=== PATIENT | male | born 1960 | race Caucasian/White ===

== ENCOUNTER 2017-01-25 03:51 | Observation (INO) | payer OTHER ==
[2017-01-25] MEDS ORDERED: NITROGLYCERIN OINT 1 INCH/GM PACKET TOPICAL STA (03:53)
[2017-01-25] MEDS ORDERED: SODIUM CHLORIDE 0.9% 500 ML IV STA (03:53)
[2017-01-25] MEDS ORDERED: LORazepam 2 MG/ML SYRINGE IV STA (03:56)
--- NOTE | 2017-01-25 03:56 | ED ---
General Adult HPI - General Stated complaint: chest pain Time Seen by Provider: 01/25/17 03:51 Source: RN notes reviewed - History of Present Illness Initial comments: This is a 56-year-old male who presents to the emergency department complaining of chest pain and palpitations. Patient states the chest pain was a heaviness that radiated to his left shoulder down his arm. Patient states the palpitations came and went. Patient states eventually called EMS they gave him 3 nitroglycerin took his pain away completely. Patient states his been under quite a bit of stress lately because his daughter one month ago. Patient also states when he was having the chest pain he was short of breath and diaphoretic. Patient states currently he is chest pain-free. Patient states he 's been coughing quite a bit lately but no fever or chills - Related Data Home Medications Medication Instructions Recorded Confirmed Lisinopril [Prinivil] DAILY 01/25/17 Omeprazole [PriLOSEC] DAILY 01/25/17 Allergies Allergy/AdvReac Type Severity Reaction Status Date / Time No Known Allergies Allergy Verified 01/25/17 04:01 Review of Systems ROS Statement: Those systems with pertinent positive or pertinent negative responses have been documented in the HPI. ROS Other: All systems not noted in ROS Statement are negative. General Exam - General Exam Comments Initial Comments: GENERAL: Patient is well-developed and well-nourished. Patient is nontoxic and well- hydrated and is in mild distress. ENT: Neck is soft and supple. No significant lymphadenopathy is noted. Oropharynx is clear. Moist mucous membranes. Neck has full range of motion without eliciting any pain. EYES: The sclera were anicteric and conjunctiva were pink and moist. Extraocular movements were intact and pupils were equal round and reactive to light. Eyelids were unremarkable. PULMONARY: Unlabored respirations. Good breath sounds bilaterally. No audible rales rhonchi or wheezing was noted. CARDIOVASCULAR: There is a regular rate and rhythm without any murmurs gallops or rubs ABDOMEN: Soft and nontender with normal bowel sounds. No palpable organomegaly was noted. There is no palpable pulsatile mass. SKIN: Skin is clear with no lesions or rashes and otherwise unremarkable. NEUROLOGIC: Patient is alert and oriented x3. Cranial nerves II through XII are grossly intact. Motor and sensory are also intact. Normal speech, volume and content. Symmetrical smile. MUSCULOSKELETAL: Normal extremities with adequate strength and full range of motion. No lower extremity swelling or edema. No calf tenderness. LYMPHATICS: No significant lymphadenopathy is noted PSYCHIATRIC: Normal psychiatric evaluation. Normal interpersonal interactions appears functionally intact in deals appropriately with others. No signs of depression. Mildly anxious Course Vital Signs 01/25/17 01/25/17 03:53 04:18 Temperature 99.1 F Pulse Rate 78 78 Respiratory 18 16 Rate Blood Pressure 179/111 134/90 O2 Sat by Pulse 94 L 95 Oximetry Medical Decision Making - Medical Decision Making EKG shows a normal sinus rhythm at 74 bpm WA interval is 140 QRS is 90 QT interval 398 QTC is 441. Patient's EKG shows no ST segment elevation or depression or T-wave abnormalities noted. Chest x-ray shows no acute abnormality. Patient got Ativan Nitropaste in the emergency department and was feeling much better when I went back into the room to reevaluate the patient the patient was sleeping and not having anymore chest pain upon awakening I spoke with Dr. Lozada and I started the patient heparin I admitted the patient I consult cardiology - Lab Data Result diagrams: 01/25/17 03:50 01/25/17 03:50 Lab Results 01/25/17 01/25/17 01/25/17 Range/Units 03:50 03:50 03:50 WBC 9.4 (3.8-10.6) k/uL RBC 4.84 (4.30-5.90) m/uL Hgb 14.4 (13.0-17.5) gm/dL Hct 44.6 (39.0-53.0) % MCV 92.2 (80.0-100.0) fL MCH 29.7 (25.0-35.0) pg MCHC 32.2 (31.0-37.0) g/dL RDW 14.5 (11.5-15.5) % Plt Count 365 (150-450) k/uL Neutrophils % 69 % Lymphocytes % 18 % Monocytes % 7 % Eosinophils % 1 % Basophils % 1 % Neutrophils # 6.5 (1.3-7.7) k/uL Lymphocytes # 1.7 (1.0-4.8) k/uL Monocytes # 0.7 (0-1.0) k/uL Eosinophils # 0.1 (0-0.7) k/uL Basophils # 0.1 (0-0.2) k/uL Sodium 136 L (137-145) mmol/L Potassium 3.8 (3.5-5.1) mmol/L Chloride 106 (98-107) mmol/L Carbon Dioxide 17 L (22-30) mmol/L Anion Gap 13 mmol/L BUN 13 (9-20) mg/dL Creatinine 0.80 (0.66-1.25) mg/dL Est GFR (MDRD) Af Amer >60 (>60 ml/min/1.73 sqM) Est GFR (MDRD) Non-Af >60 (>60 ml/min/1.73 sqM) Glucose 97 (74-99) mg/dL Calcium 9.1 (8.4-10.2) mg/dL Magnesium 1.9 (1.6-2.3) mg/dL Total Bilirubin 1.0 (0.2-1.3) mg/dL AST 57 (17-59) U/L ALT 61 (21-72) U/L Alkaline Phosphatase 97 (38-126) U/L Total Creatine Kinase 71 (55-170) U/L CK-MB (CK-2) 0.6 (0.0-2.4) ng/mL CK-MB (CK-2) Rel Index 0.8 Troponin I <0.012 (0.000-0.034) ng/mL Total Protein 6.9 (6.3-8.2) g/dL Albumin 3.9 (3.5-5.0) g/dL Disposition Clinical Impression: Unstable angina pectoris Disposition: ADMITTED IP TO THIS [facility] Time of Disposition: 05:04
[2017-01-25 04:20] LABS: ALT 61 U/L (21-72); AST 57 U/L (17-59); Alkaline Phosphatase 97 U/L (38-126); Anion Gap 13 mmol/L; Blood Urea Nitrogen 13 mg/dL (9-20); Calcium 9.1 mg/dL (8.4-10.2); Carbon Dioxide 17 mmol/L (22-30); Chloride 106 mmol/L (98-107); Glucose 97 mg/dL (74-99); Magnesium 1.9 mg/dL (1.6-2.3); Non-African American GFR(MDRD) >60 (>60 ml/min/1.73 sqM); Potassium 3.8 mmol/L (3.5-5.1); Sodium 136 mmol/L (137-145); Total Protein 6.9 g/dL (6.3-8.2)
--- NOTE | 2017-01-25 04:20 | XR ---
History: Reason: Chest Pain Exam: XR CXR 2 VIEWS 3 total images with 2 laterals to include the entire chest Comparison: None available FINDINGS: The lungs are clear. The cardiac and mediastinal contours are within limits. The visualized osseous structures appear within limits. IMPRESSION: No evidence of acute disease.
[2017-01-25 04:21] LABS: Basophils # (A) 0.1 k/uL (0-0.2); Basophils % (A) 1 %; CH 31.1; CHCM 33.9; Eosinophils # (A) 0.1 k/uL (0-0.7); Eosinophils % (A) 1 %; HCT 44.6 % (39.0-53.0); HDW 2.18; HGB 14.4 gm/dL (13.0-17.5); Luc # (Auto) 0.34; Luc % (Auto) 4; Lymphocytes # (A) 1.7 k/uL (1.0-4.8); Lymphocytes % (A) 18 %; MCH 29.7 pg (25.0-35.0); MCHC 32.2 g/dL (31.0-37.0); MCV 92.2 fL (80.0-100.0); Mean Platelet Volume 6.7; Monocytes # (A) 0.7 k/uL (0-1.0); Monocytes % (A) 7 %; Neutrophils # (A) 6.5 k/uL (1.3-7.7); Neutrophils % (A) 69 %; RBC 4.84 m/uL (4.30-5.90); RDW 14.5 % (11.5-15.5); WBC 9.4 k/uL (3.8-10.6); WBC (Perox) 9.18
[2017-01-25 04:32] LABS: Creatine Kinase 71 U/L (55-170)
[2017-01-25 04:45] LABS: Creatine Kinase MB 0.6 ng/mL (0.0-2.4); Troponin I <0.012 ng/mL (0.000-0.034)
[2017-01-25] MEDS ORDERED: HEPARIN SODIUM,PORCINE 5,000 UNIT/ML 1 ML VIAL IV ONE (05:03)
[2017-01-25] MEDS ORDERED: NITROGLYCERIN SL TABS 0.4 MG TAB SUBLINGUAL PRN (05:04)
[2017-01-25] MEDS: HEPARIN SODIUM,PORCINE/D5W PMX 25,000 UNIT in DEXTROSE/WATER 1 500ML.BAG IV SCH ×2 (05:24→15:10)
[2017-01-25 05:36] LABS: Partial Thromboplastin Time 23.5 sec (22.0-30.0); Prothrombin Time 10.2 sec (9.0-12.0)
[2017-01-25 10:59] LABS: Creatine Kinase 52 U/L (55-170)
[2017-01-25] MEDS ORDERED: ALPRAZolam 0.25 MG TAB PO PRN (11:02)
[2017-01-25] MEDS ORDERED: ATORVASTATIN 80 MG TAB PO STA (11:02)
[2017-01-25] MEDS ORDERED: SODIUM CHLORIDE 0.9% 1,000 ML in EMPTY BAG 1 BAG IV ONE (11:02)
[2017-01-25 11:11] LABS: Creatine Kinase MB 0.5 ng/mL (0.0-2.4); Troponin I <0.012 ng/mL (0.000-0.034)
[2017-01-25] MEDS: METOPROLOL TARTRATE 25 MG TAB PO SCH ×2 (11:45→22:13)
--- NOTE | 2017-01-25 11:49 | CONS ---
DATE OF CONSULTATION: Mr. Hammond is a 56-year-old gentleman who came to the emergency room this morning with chest pain and palpitations. Patient gives a history that he woke up this morning with heaviness in the chest, which was radiating down to his left shoulder and he also felt palpitations and heart racing, which would come and go. He was diaphoretic and did not have any significant shortness of breath. He denied any nausea or vomiting. Patient denies any history of exertional chest discomfort. He has a history of hypertension and he smokes. There is no family history of coronary artery disease. There is no history of diabetes. Review of systems is otherwise unremarkable. Physical examination at present reveals a 56-year-old gentleman who does not appear to be in any acute distress. Blood pressure is 153/101 mmHg. HEENT examination is negative. Neck is supple. There is no increase in jugular venous pressure. Both the carotid pulses are felt. There is no bruit. Chest is symmetrical. HEART: The PMI is not felt. First and second heart sounds are normal. There is no evidence of any murmur. Lungs are clinically clear to auscultation and percussion. Abdomen is soft. Liver and spleen are not enlarged. Bowel sounds are heard. EXTREMITIES: Peripheral pulsations are 2+. EKG shows normal sinus rhythm without any acute ischemic changes. Two sets of troponins are negative. FINAL IMPRESSION: Prolonged episode of chest pain, rule out acute coronary syndrome. Awaiting further troponins and EKG. Echo and Doppler study will be done. We will start the patient on Lipitor and Lopressor and patient will be scheduled for cardiac catheterization tomorrow.
--- NOTE | 2017-01-25 14:41 | HP ---
DATE OF ADMISSION: CHIEF COMPLAINT: Chest pain. HISTORY OF PRESENT ILLNESS: This is the first known admission for this 56-year-old white male. He came to emergency room with anterior chest discomfort radiating toward the shoulder pain. He experienced shortness of breath and diaphoresis. His history was somewhat typical. About 2 years ago he had work up for chest pain in [place] and it was negative. He had a negative stress test. When he came in the emergency room this time, EKG and enzymes were normal and he was admitted for observation to rule out any further difficulty. He has been under a lot of stress. REVIEW OF SYSTEMS: He has had no headaches, neurologic deficits, trouble with the vision or the hearing, chest pain, cough, hemoptysis, murmurs, rheumatic fever, etc. He does have hypertension. He has no abdominal pain, indigestion, food intolerance, nausea, vomiting, hematemesis, melena, hematochezia, colitis, diverticulosis, diverticulitis, hemorrhoids, jaundice, pancreatitis, etc. Past medical history, family history and personal and social histories reveal that he is on aspirin, Prilosec and lisinopril. He is not allergic to anything. He has had no surgery. He smokes about a pack of cigarettes a day and drinks alcohol just occasionally. He has a negative family history for heart disease. PHYSICAL EXAMINATION: Blood pressure 151/99 with a pulse 76, respirations of 28 and he is afebrile. GENERAL: He appeared to be slender in no acute distress. Skin color is normal. Skin is warm and dry. Lymph nodes are not enlarged. Head, ears, eyes, nose, mouth, and throat were normal. Neck veins not distended. Thyroid is not enlarged. Chest is clear. Cardiac exam is normal. No murmurs or extra sounds. There is no S3 or S4. ABDOMEN: Soft, nontender without visceromegaly or masses. EXTREMITIES: Normal. Neurologically he is intact. IMPRESSION: 1. Chest pain. 2. Depression relating to loss of daughter who recently along with grandson delivered full term. PLAN: 1. Bed rest. 2. IV fluids. 3. Serial EKGs and enzymes. 4. Cardiology consult.
[2017-01-25 14:49] VITALS: BMI 21.9
[2017-01-25] MEDS ORDERED: HEPARIN SODIUM,PORCINE 5,000 UNIT/ML 1 ML VIAL IV PRN (14:53)
[2017-01-25] MEDS: ATORVASTATIN 40 MG TAB PO SCH (15:08)
[2017-01-25] MEDS: NITROGLYCERIN OINT 1 INCH/GM PACKET TOPICAL SCH ×3 (15:22→22:17)
[2017-01-25 16:18] LABS: Creatine Kinase 56 U/L (55-170)
--- NOTE | 2017-01-25 16:22 | ECHOF ---
Referral Reason:chest pain/angina MEASUREMENTS -------- HEIGHT: 170.2 cm WEIGHT: 72.6 kg BP: 153/101 RVIDd: 3.3 cm (< 3.3) IVSd: 1.1 cm (0.6 - 1.1) LVIDd: 4.3 cm (3.9 - 5.3) LVPWd: 1.1 cm (0.6 - 1.1) IVSs: 1.6 cm LVIDs: 2.7 cm LVPWs: 1.8 cm LA Diam: 3.6 cm (2.7 - 3.8) LAESV Index (A-L): 22.33 ml/m Ao Diam: 3.1 cm (2.0 - 3.7) AV Cusp: 1.8 cm (1.5 - 2.6) LA Diam: 2.8 cm (2.7 - 3.8) MV EXCURSION: 15.271 mm (> 18.000) MV EF SLOPE: 65 mm/s (70 - 150) EPSS: 0.6 cm MV E Jamil: 0.61 m/s MV DecT: 245 ms MV A Jamil: 0.77 m/s MV E/A Ratio: 0.79 FINDINGS -------- Sinus rhythm. This was a technically good study. There is borderline concentric left ventricular hypertrophy. Overall left ventricular systolic function is normal with, an EF between 55 - 60 %. The right ventricle is mildly enlarged. Normal LA size by volume 22+/-6 ml/m2. The right atrium is normal in size. Aortic valve is trileaflet and is mildly thickened. Mild mitral annular calcification present. Trace tricuspid regurgitation present. Trace/mild (physiologic) pulmonic regurgitation. The aortic root size is normal. The inferior vena cava is mildly dilated. Echo free space may represent effusion or a pericardial fat pad. CONCLUSIONS -------- 1. Sinus rhythm. 2. Trace tricuspid regurgitation present. 3. Trace/mild (physiologic) pulmonic regurgitation. 4. The aortic root size is normal. 5. The inferior vena cava is mildly dilated. 6. Echo free space may represent effusion or a pericardial fat pad. 7. This was a technically good study. 8. There is borderline concentric left ventricular hypertrophy. 9. Overall left ventricular systolic function is normal with, an EF between 55 - 60 %. 10. The right ventricle is mildly enlarged. 11. Normal LA size by volume 22+/-6 ml/m2. 12. The right atrium is normal in size. 13. Aortic valve is trileaflet and is mildly thickened. 14. Mild mitral annular calcification present. OSTEOPATHIC MEDICINE TEACHER: Albina Pickard RDCS
[2017-01-25 16:31] LABS: Creatine Kinase MB 0.5 ng/mL (0.0-2.4); Troponin I <0.012 ng/mL (0.000-0.034)
[2017-01-25] MEDS: ALPRAZolam 0.5 MG TAB PO PRN (22:13)
[2017-01-26] MEDS: HEPARIN SODIUM,PORCINE/D5W PMX 25,000 UNIT in DEXTROSE/WATER 1 500ML.BAG IV SCH (00:45)
[2017-01-26 02:05] LABS: Cholesterol 197 mg/dL (<200); HDL Cholesterol 78 mg/dL (40-60); Triglycerides 214 mg/dL (<150)
[2017-01-26] MEDS: NITROGLYCERIN OINT 1 INCH/GM PACKET TOPICAL SCH ×4 (06:53→23:14)
[2017-01-26] MEDS: METOPROLOL TARTRATE 25 MG TAB PO SCH ×2 (06:55→20:47)
[2017-01-26] MEDS: ATORVASTATIN 40 MG TAB PO SCH (06:55)
[2017-01-26] MEDS: ASPIRIN 325 MG TAB PO SCH (06:55)
[2017-01-26] MEDS ORDERED: ATORVASTATIN 80 MG TAB PO ONE (07:00)
[2017-01-26] MEDS ORDERED: MIDAZOLAM 2 MG/2 ML VIAL ONE (11:25)
[2017-01-26] MEDS ORDERED: IV FLUID CONTINUATION 1,000 ML IV ONE (11:25)
[2017-01-26] MEDS ORDERED: LIDOCAINE 2% INJ 20 MG/ML (20 ML MDV) ONE (11:25)
[2017-01-26] MEDS ORDERED: fentaNYL (PF) 50 MCG/ML 2 ML AMP ONE (11:26)
[2017-01-26] MEDS: MIDAZOLAM 2 MG/2 ML VIAL IV ONE ×2 (11:49→12:00)
[2017-01-26] MEDS ORDERED: fentaNYL (PF) 50 MCG/ML 2 ML AMP IV ONE (11:50)
[2017-01-26] MEDS ORDERED: LIDOCAINE 2% INJ 20 MG/ML SQ ONE (11:57)
[2017-01-26] MEDS ORDERED: RX INFO: IV CONTRAST WAS GIVEN 1 EACH MISC MISCELLANE PRN (12:17)
[2017-01-26] MEDS ORDERED: IOHEXOL 350 MG/ML 100 ML BOTTLE INJ ONE (12:18)
--- NOTE | 2017-01-26 14:16 | CC ---
DATE OF SERVICE: Mr. Hammond is a 56-year-old gentleman who was admitted with symptoms suggestive of unstable angina syndrome. EKGs and cardiac enzymes were normal. In view of the unstable angina, patient was recommended to have a cardiac catheterization for definitive diagnosis. PROCEDURE: The right groin was prepped and draped in the usual manner and the skin was infiltrated with 2% Xylocaine. The right femoral artery was entered using Seldinger technique. A #6 Upper [place] sheath was placed in. Selective coronary angiography was then performed in multiple projections and the left ventricular pressures were obtained. Patient tolerated the procedure well. Sheath was removed and good hemostasis was achieved with the use of Angio-Seal. HEMODYNAMICS: Left ventricular end-diastolic pressure was 12 mmHg prior to angiography, and no gradient was noted across the aortic valve. SELECTIVE CORONARY ANGIOGRAPHY: Fluoroscopy examination revealed calcification in the left as well as the right coronary system. Left main coronary artery is normal and patent. LAD is a good caliber blood vessel. It gives rise to a good size diagonal branch. The mid LAD has a mild irregularity. Circumflex coronary artery gives rise to good size obtuse marginal branch and it is normal. Right coronary artery has a mild irregularity in its proximal and midportion. No hemodynamically significant stenosis is noted. FINAL IMPRESSION: This cardiac catheterization reveals calcification of the left and right coronary system by fluoroscopic examination. There is only minimal irregularity in mid LAD and the right coronary artery. RECOMMENDATIONS: Medical treatment and aggressive risk factor modification.
--- NOTE | 2017-01-26 18:36 | PN ---
DATE OF SERVICE: 01/26/2017 CHIEF COMPLAINT: Chest pain. HISTORY OF PRESENT ILLNESS: The gentleman is doing well and he is going for cardiac cath today. PHYSICAL EXAMINATION: Chest is clear. CARDIAC: Exam is normal. The abdomen is soft, nontender. EXTREMITIES: Normal. IMPRESSION: Chest pain. PLAN: Cardiac cath today.
[2017-01-26] MEDS: SODIUM CHLORIDE 0.9% 1,000 ML IV SCH (19:36)
[2017-01-26] MEDS: ALPRAZolam 0.5 MG TAB PO PRN (20:52)
[2017-01-27] MEDS: SODIUM CHLORIDE 0.9% 1,000 ML IV SCH (04:37)
[2017-01-27] MEDS: NITROGLYCERIN OINT 1 INCH/GM PACKET TOPICAL SCH ×2 (04:37→15:59)
[2017-01-27] MEDS: ATORVASTATIN 40 MG TAB PO SCH (08:42)
[2017-01-27] MEDS: ASPIRIN 325 MG TAB PO SCH (08:42)
[2017-01-27] MEDS: METOPROLOL TARTRATE 25 MG TAB PO SCH (08:42)
--- NOTE | 2017-01-27 10:38 | P.PN ---
Subjective Principal diagnosis: Chest pain This is a 56-year-old gentleman who presented to the hospital with symptoms of chest discomfort. He has a history of hypertension and nicotine dependence. He was taken to the cardiac catheterization lab yesterday where he underwent a heart cath by Dr. VC Donato. Cardiac catheterization did not reveal any significant obstructive coronary artery disease. Patient was seen and examined this morning, he's been up ambulating in the silva Objective - Vital Signs Vital signs: Vital Signs Temp 97.5 F L 01/27/17 07:53 Pulse 62 01/27/17 07:53 Resp 18 01/27/17 07:53 BP 134/91 01/27/17 07:53 Pulse Ox 96 01/27/17 07:53 Intake & Output 01/26/17 01/27/17 01/27/17 17:59 06:59 18:59 Intake Total 120 Balance 120 Intake: IV Heparin Sodium,Porcine/ D5w Pmx 25,000 unit In Dextrose/Water 1 500ml. bag @ 12 UNITS/KG/HR 17. 41 mls/hr IV .Q24H JAYSHREE Rx #:[id number] Intake, IV Titration Amount Sodium Chloride 0.9% 1, 000 ml In Empty Bag 1 bag @ 1 ML/KG/HR 72.57 mls/ hr IV .[id number] ONE Rx#: [id number] Oral 120 Other: Voiding Method # Voids - Exam PHYSICAL EXAMINATION: HEENT: Head is atraumatic, normocephalic. Pupils equal, round. Neck is supple. There is no elevated jugular venous pressure. HEART EXAMINATION: Heart S1, S2 normal. No murmur or gallop heard. CHEST EXAMINATION: Lungs are clear to auscultation and precussion. No chest wall tenderness is noted on palpation or with deep breathing. ABDOMEN: Soft, nontender. Bowel sounds are heard. No organomegaly noted. Right groin soft, no evidence of any hematoma. EXTREMITIES: 2+ peripheral pulses with no evidence of peripheral edema and no calf tenderness noted. NEUROLOGIC patient is awake, alert and oriented -3. . - Labs CBC & Chem 7: 01/25/17 03:50 01/25/17 03:50 Assessment and Plan (1) Chest pain Status: Acute (2) S/P cardiac cath Status: Acute (3) HTN (hypertension) Status: Acute (4) Nicotine dependence Status: Acute Plan: Cardiology's perspective, patient may be able to be discharged home today. We will make him a follow-up appointment to see Dr. VC Donato in the office in one week. DNP note has been reviewed, I agree with a documented findings and plan of care. Patient was seen and examined.
[2017-01-27 16:17] VITALS: BP 136/83; PULSE 70; RESP 16; TEMP 98
--- NOTE | 2017-01-27 23:42 | DS ---
DATE OF ADMISSION: 01/25/2017 DATE OF DISCHARGE: 01/27/2017 CHIEF COMPLAINT: Chest pain. History of present illness and physical exam: Details of this man's history and physical can be found in the initial work-up. LABORATORY STUDIES: While he was in hospital he had laboratory studies, the details can be found in the laboratory section of the chart. COURSE IN THE HOSPITAL: After admission, he was placed on bed rest, started on intravenous fluids and he had serial EKGs and enzymes. He was seen by cardiology and taken for a cath and it was completely normal. It was felt that he could go home on the twelfth. He will follow-up with his own physician. FINAL DIAGNOSES: Atypical chest pain. Operations: Cardiac cath. CONSULTATIONS: Cardiology. He is improved.
== END 2017-01-27 17:05 | disposition home or self-care (01) ==
LOC: SUPCPDRO 03:51 → EC 03:51 → 3OBS 05:04
PROVIDERS: ADMIT Family Medicine; ATTEND Family Medicine
DX: R07.89 Other chest pain (principal); R06.02 Shortness of breath; R61 Generalized hyperhidrosis; R00.2 Palpitations; I10 Essential (primary) hypertension; F32.9 Major depressive disorder, single episode, unspecified; F17.210 Nicotine dependence, cigarettes, uncomplicated; Z79.899 Other long term (current) drug therapy
CPT/HCPCS: 36415; 93005; 93306; 93458; 80061; 80053; 82550; 82553; 83735; 84484; 85025; 85610; 85730; 71020; 96365; 96366 ×3; 96376; 96375; 96361; 99285; G0378 ×3; C1760; C1894; C1769; J2001; J2250; J2060; J1644 ×3; Q9967; J3010

== ENCOUNTER 2017-05-07 09:15 | Day surgery (SDC) | payer OTHER ==
[2017-05-03 08:54] VITALS: BMI 21.3
[~2017-05-07 09:15] MED LIST: LACTATED RINGERS 1,000 ML IV SCH; LIDOCAINE 1% 20 ML VIAL (10MG/ML) FOR IV START INTRADERMA PRN
[2017-05-07 09:36] VITALS: TEMP 7.4
[2017-05-07] MEDS ORDERED: PROPOFOL 10 MG/ML 20 ML VIAL IV ONE (10:32)
--- NOTE | 2017-05-07 11:07 | P.PCN ---
Date of Procedure: 05/07/17 Preoperative Diagnosis: Postoperative Diagnosis: Procedure(s) Performed: Procedure: Colonoscopy and polypectomy. Preoperative diagnosis: Screening for neoplasia. Postoperative diagnosis: 1. Sigmoid diverticulosis with no evidence of acute diverticulitis or strictures. 2. Multiple polyps snared but no large polyps or cancer. Preparation: HalfLytely prep. Sedation: Was provided by anesthesia. Brief clinical history: The patient is a 57-year-old male who is referred for this evaluation for screening for neoplasia age being his risk factor. He had a colonoscopy more than 20 years ago. The patient has been having some unexplained weight loss but no significant abdominal complaints, bleeding or anemia. No family history of colon cancer. Procedure: With the patient on his left lateral decubitus position and after informed consent and adequate sedation, the perianal area was inspected and it did not show any fissures or fistulas. There were no masses felt on digital rectal examination. The Olympus CFQ 160L video colonoscope was then inserted in the rectum in the usual fashion and advanced to the cecum. There were multiple small to medium sized polyps noted and those were snared and retrieved by suction. 2 were on the right colon and 2 were in the transverse colon. There were no large polyps or cancer. The mucosa appeared healthy. Multiple diverticular orifices were seen scattered in the sigmoid but there was no evidence of acute diverticulitis or strictures. I retroflexed the endoscope in the rectum before the endoscope was withdrawn. The patient tolerated the procedure well. Plan: The patient was reassured. Discussed dietary measures. Will await pathology results. I anticipate repeating this exam in 3 years. He will follow up with you as planned. Implants: Indications for Procedure: Operative Findings: Description of Procedure:
[2017-05-07 11:19] VITALS: BP 127/84; PULSE 75; RESP 16
== END 2017-05-07 11:58 | disposition home or self-care (01) ==
LOC: ORWHC2ENDO 09:15
DX: Z12.11 Encounter for screening for malignant neoplasm of colon (principal); D12.2 Benign neoplasm of ascending colon; D12.3 Benign neoplasm of transverse colon; K57.30 Diverticulosis of large intestine without perforation or abscess without bleeding; I10 Essential (primary) hypertension; Z79.82 Long term (current) use of aspirin; Z79.899 Other long term (current) drug therapy
CPT/HCPCS: 88305; 45385; J2704

== ENCOUNTER 2021-03-13 07:33 | Inpatient (IN) | payer OTHER ==
[2021-03-13] MEDS ORDERED: SODIUM CHLORIDE 0.9% 1,000 ML IV STA ×2 (07:39)
[2021-03-13] MEDS ORDERED: ALBUTEROL HFA INHALER INHALATION STA (07:57)
--- NOTE | 2021-03-13 07:57 | ED ---
Nausea/Vomiting/Diarrhea HPI - General Chief complaint: Nausea/Vomiting/Diarrhea Stated complaint: nausea Time Seen by Provider: 03/13/21 07:33 Source: patient, RN notes reviewed Mode of arrival: ambulatory Limitations: no limitations - History of Present Illness Initial comments: This is a 60-year-old male who does state he likes to drink beer who states she's not been feeling well over the past 5 days he's had a cough abdominal pain chills or shakes noted have an elevated blood pressure of 236/124 per EMS after 700 mL of fluid down 190/112 he states he has been exposed to COVID-19 he's not sure if he has or not. He is a smoker also. He's had markedly decreased oral intake over last several days. He does state he does not take medication for now for blood pressure. MD complaint: nausea, diarrhea, other - Related Data Home Medications Medication Instructions Recorded Confirmed Aspirin [Adult Low Dose Aspirin EC] 81 mg PO DAILY 05/03/17 03/13/21 Allergies Allergy/AdvReac Type Severity Reaction Status Date / Time No Known Allergies Allergy Verified 03/13/21 09:23 Review of Systems ROS Statement: Those systems with pertinent positive or pertinent negative responses have been documented in the HPI. ROS Other: All systems not noted in ROS Statement are negative. Past Medical History Past Medical History: Hypertension Additional Past Medical History / Comment(s): UNEXPLAINED WT LOSS (12 #), DAUGHTER DEC 2016. History of Any Multi-Drug Resistant Organisms: None Reported Past Surgical History: Heart Catheterization Additional Past Surgical History / Comment(s): Pt states as an infant he had a "pinched" abdominal muscle with surgical repair, colonoscopy Past Anesthesia/Blood Transfusion Reactions: No Reported Reaction Past Psychological History: Anxiety, Depression Past Drug Use History: Marijuana - Past Family History Mother Family Medical History: No Reported History Additional Family Medical History / Comment(s): . Father Family Medical History: CVA/TIA Additional Family Medical History / Comment(s): Father of a CVA Daughter(s) Additional Family Medical History / Comment(s): ADRENAL GLAND TUMOR. General Exam - General Exam Comments Initial Comments: This is a well-developed asthenic appearing male who is awake alert oriented 3 he does demonstrate some tremors. Limitations: no limitations General appearance: alert, anxious Head exam: Present: atraumatic, normocephalic, normal inspection Eye exam: Present: normal appearance, PERRL, EOMI. Absent: scleral icterus, conjunctival injection, periorbital swelling ENT exam: Present: mucous membranes dry Neck exam: Present: normal inspection. Absent: tenderness, meningismus, lymphadenopathy Respiratory exam: Present: wheezes, decreased breath sounds. Absent: respiratory distress, rales, rhonchi, stridor Cardiovascular Exam: Present: regular rate, normal rhythm, normal heart sounds. Absent: systolic murmur, diastolic murmur, rubs, gallop, clicks GI/Abdominal exam: Present: soft, tenderness (Some tenderness to the left upper quadrant of the abdomen.), normal bowel sounds. Absent: distended, guarding, rebound, rigid Extremities exam: Present: normal inspection, full ROM, normal capillary refill. Absent: tenderness, pedal edema, joint swelling, calf tenderness Back exam: Present: normal inspection Neurological exam: Present: alert, oriented X3, CN II-XII intact Psychiatric exam: Present: normal affect, normal mood Skin exam: Present: warm, dry, intact, normal color. Absent: rash Course Vital Signs 03/13/21 03/13/21 03/13/21 07:35 10:31 11:32 Temperature 99 F 99 F Pulse Rate 100 110 H 110 H Respiratory 18 20 18 Rate Blood Pressure 198/118 167/109 167/102 O2 Sat by Pulse 98 96 97 Oximetry - Reevaluation(s) Reevaluation #1: 03/13/21 12:13 ALLERGIES the patient revealed he was feeling somewhat improved breathing is improved somewhat so demonstrating some shakes. Medical Decision Making - Medical Decision Making I did discuss findings with the patient as well as with Dr. Almaraz. Patient will be admitted for IV hydration the lactic acid elevation is likely on the basis of dehydration. Patient is demonstrating some evidence of alcohol withdrawal. He has hypomagnesemia. Elevated liver enzymes. Initial Covid test was negative. Patient be admitted - Lab Data Result diagrams: 03/13/21 07:45 03/13/21 07:45 Lab Results 03/13/21 03/13/21 03/13/21 Range/Units 07:45 07:45 07:45 WBC 4.5 (3.8-10.6) k/uL RBC 4.69 (4.30-5.90) m/uL Hgb 14.2 (13.0-17.5) gm/dL Hct 43.5 (39.0-53.0) % MCV 92.7 (80.0-100.0) fL MCH 30.2 (25.0-35.0) pg MCHC 32.6 (31.0-37.0) g/dL RDW 15.5 (11.5-15.5) % Plt Count 68 L (150-450) k/uL MPV 7.3 Neutrophils % 46 % Lymphocytes % 38 % Monocytes % 10 % Eosinophils % 1 % Basophils % 2 % Neutrophils # 2.1 (1.3-7.7) k/uL Lymphocytes # 1.7 (1.0-4.8) k/uL Monocytes # 0.5 (0-1.0) k/uL Eosinophils # 0.0 (0-0.7) k/uL Basophils # 0.1 (0-0.2) k/uL Manual Slide Review Performed RBC Morphology Normal Sodium 134 L (137-145) mmol/L Potassium 3.6 (3.5-5.1) mmol/L Chloride 105 (98-107) mmol/L Carbon Dioxide 17 L (22-30) mmol/L Anion Gap 12 mmol/L BUN 10 (9-20) mg/dL Creatinine 0.85 (0.66-1.25) mg/dL Est GFR (CKD-EPI)AfAm >90 (>60 ml/min/1.73 sqM) Est GFR (CKD-EPI)NonAf >90 (>60 ml/min/1.73 sqM) Glucose 100 H (74-99) mg/dL Lactic Ac Sepsis Rflx Plasma Lactic Acid Richard (0.7-2.0) mmol/L Calcium 8.2 L (8.4-10.2) mg/dL Magnesium 1.5 L (1.6-2.3) mg/dL Total Bilirubin 1.1 (0.2-1.3) mg/dL AST 370 H (17-59) U/L ALT 141 H (4-49) U/L Alkaline Phosphatase 131 H (38-126) U/L Creatine Kinase 62 (55-170) U/L Troponin I (0.000-0.034) ng/mL Total Protein 7.1 (6.3-8.2) g/dL Albumin 4.1 (3.5-5.0) g/dL Amylase 96 (30-110) U/L Lipase 236 (23-300) U/L Urine Color Light Yellow Urine Appearance Clear (Clear) Urine pH 5.0 (5.0-8.0) Ur Specific [place] 1.008 (1.001-1.035) Urine Protein Negative (Negative) Urine Glucose (UA) Negative (Negative) Urine Ketones Negative (Negative) Urine Blood Negative (Negative) Urine Nitrite Positive (Negative) Urine Bilirubin Negative (Negative) Urine Urobilinogen <2.0 (<2.0) mg/dL Ur Leukocyte Esterase Moderate H (Negative) Urine WBC 5 (0-5) /hpf Ur Squamous Epith Cells <1 (0-4) /hpf Urine Mucus Rare H (None) /hpf Serum Alcohol 92 mg/dL Coronavirus (PCR) (Not Detectd) 03/13/21 03/13/21 03/13/21 Range/Units 07:45 07:45 07:45 WBC (3.8-10.6) k/uL RBC (4.30-5.90) m/uL Hgb (13.0-17.5) gm/dL Hct (39.0-53.0) % MCV (80.0-100.0) fL MCH (25.0-35.0) pg MCHC (31.0-37.0) g/dL RDW (11.5-15.5) % Plt Count (150-450) k/uL MPV Neutrophils % % Lymphocytes % % Monocytes % % Eosinophils % % Basophils % % Neutrophils # (1.3-7.7) k/uL Lymphocytes # (1.0-4.8) k/uL Monocytes # (0-1.0) k/uL Eosinophils # (0-0.7) k/uL Basophils # (0-0.2) k/uL Manual Slide Review RBC Morphology Sodium (137-145) mmol/L Potassium (3.5-5.1) mmol/L Chloride (98-107) mmol/L Carbon Dioxide (22-30) mmol/L Anion Gap mmol/L BUN (9-20) mg/dL Creatinine (0.66-1.25) mg/dL Est GFR (CKD-EPI)AfAm (>60 ml/min/1.73 sqM) Est GFR (CKD-EPI)NonAf (>60 ml/min/1.73 sqM) Glucose (74-99) mg/dL Lactic Ac Sepsis Rflx Plasma Lactic Acid Richard 3.4 H* (0.7-2.0) mmol/L Calcium (8.4-10.2) mg/dL Magnesium (1.6-2.3) mg/dL Total Bilirubin (0.2-1.3) mg/dL AST (17-59) U/L ALT (4-49) U/L Alkaline Phosphatase (38-126) U/L Creatine Kinase (55-170) U/L Troponin I <0.012 (0.000-0.034) ng/mL Total Protein (6.3-8.2) g/dL Albumin (3.5-5.0) g/dL Amylase (30-110) U/L Lipase (23-300) U/L Urine Color Urine Appearance (Clear) Urine pH (5.0-8.0) Ur Specific [place] (1.001-1.035) Urine Protein (Negative) Urine Glucose (UA) (Negative) Urine Ketones (Negative) Urine Blood (Negative) Urine Nitrite (Negative) Urine Bilirubin (Negative) Urine Urobilinogen (<2.0) mg/dL Ur Leukocyte Esterase (Negative) Urine WBC (0-5) /hpf Ur Squamous Epith Cells (0-4) /hpf Urine Mucus (None) /hpf Serum Alcohol mg/dL Coronavirus (PCR) Not Detected (Not Detectd) 03/13/21 Range/Units 08:18 WBC (3.8-10.6) k/uL RBC (4.30-5.90) m/uL Hgb (13.0-17.5) gm/dL Hct (39.0-53.0) % MCV (80.0-100.0) fL MCH (25.0-35.0) pg MCHC (31.0-37.0) g/dL RDW (11.5-15.5) % Plt Count (150-450) k/uL MPV Neutrophils % % Lymphocytes % % Monocytes % % Eosinophils % % Basophils % % Neutrophils # (1.3-7.7) k/uL Lymphocytes # (1.0-4.8) k/uL Monocytes # (0-1.0) k/uL Eosinophils # (0-0.7) k/uL Basophils # (0-0.2) k/uL Manual Slide Review RBC Morphology Sodium (137-145) mmol/L Potassium (3.5-5.1) mmol/L Chloride (98-107) mmol/L Carbon Dioxide (22-30) mmol/L Anion Gap mmol/L BUN (9-20) mg/dL Creatinine (0.66-1.25) mg/dL Est GFR (CKD-EPI)AfAm (>60 ml/min/1.73 sqM) Est GFR (CKD-EPI)NonAf (>60 ml/min/1.73 sqM) Glucose (74-99) mg/dL Lactic Ac Sepsis Rflx Y Plasma Lactic Acid Richard (0.7-2.0) mmol/L Calcium (8.4-10.2) mg/dL Magnesium (1.6-2.3) mg/dL Total Bilirubin (0.2-1.3) mg/dL AST (17-59) U/L ALT (4-49) U/L Alkaline Phosphatase (38-126) U/L Creatine Kinase (55-170) U/L Troponin I (0.000-0.034) ng/mL Total Protein (6.3-8.2) g/dL Albumin (3.5-5.0) g/dL Amylase (30-110) U/L Lipase (23-300) U/L Urine Color Urine Appearance (Clear) Urine pH (5.0-8.0) Ur Specific [place] (1.001-1.035) Urine Protein (Negative) Urine Glucose (UA) (Negative) Urine Ketones (Negative) Urine Blood (Negative) Urine Nitrite (Negative) Urine Bilirubin (Negative) Urine Urobilinogen (<2.0) mg/dL Ur Leukocyte Esterase (Negative) Urine WBC (0-5) /hpf Ur Squamous Epith Cells (0-4) /hpf Urine Mucus (None) /hpf Serum Alcohol mg/dL Coronavirus (PCR) (Not Detectd) - Radiology Data Radiology results: report reviewed (Imaging reviewed nonspecific abdominal findings x-ray shows evidence of reactive airway disease bronchitis considered.), image reviewed Disposition Clinical Impression: Urinary tract infection, Enteritis, Bronchitis, Dehydration, Lactic acidosis, Failure to thrive in adult, Alcohol withdrawal Disposition: ADMITTED IP TO THIS HOSP Condition: Fair Referrals: Juan José Khan DO [Primary Care Provider] - 1-2 days
[2021-03-13 08:05] LABS: ALT 141 U/L (4-49); AST 370 U/L (17-59); African American GFR (CKD) >90 (>60 ml/min/1.73 sqM); Albumin 4.1 g/dL (3.5-5.0); Alkaline Phosphatase 131 U/L (38-126); Amylase 96 U/L (30-110); Anion Gap 12 mmol/L; Blood Urea Nitrogen 10 mg/dL (9-20); Calcium 8.2 mg/dL (8.4-10.2); Carbon Dioxide 17 mmol/L (22-30); Chloride 105 mmol/L (98-107); Creatine Kinase 62 U/L (55-170); Glucose 100 mg/dL (74-99); Lipase 236 U/L (23-300); Magnesium 1.5 mg/dL (1.6-2.3); Non-African American GFR(CKD) >90 (>60 ml/min/1.73 sqM); Potassium 3.6 mmol/L (3.5-5.1); Sodium 134 mmol/L (137-145); Total Bilirubin 1.1 mg/dL (0.2-1.3); Total Protein 7.1 g/dL (6.3-8.2)
[2021-03-13 08:19] LABS: Alcohol 92 mg/dL
[2021-03-13 08:21] LABS: Basophils # (A) 0.1 k/uL (0-0.2); Basophils % (A) 2 %; Eosinophils % (A) 1 %; HCT 43.5 % (39.0-53.0); HGB 14.2 gm/dL (13.0-17.5); Lymphocytes # (A) 1.7 k/uL (1.0-4.8); Lymphocytes % (A) 38 %; MCH 30.2 pg (25.0-35.0); MCHC 32.6 g/dL (31.0-37.0); MCV 92.7 fL (80.0-100.0); Mean Platelet Volume 7.3; Monocytes # (A) 0.5 k/uL (0-1.0); Monocytes % (A) 10 %; Neutrophils # (A) 2.1 k/uL (1.3-7.7); Neutrophils % (A) 46 %; RBC 4.69 m/uL (4.30-5.90); RDW 15.5 % (11.5-15.5); WBC 4.5 k/uL (3.8-10.6)
[2021-03-13 08:28] LABS: Platelet Count 68 k/uL (150-450)
[2021-03-13] MEDS ORDERED: SODIUM CHLORIDE 0.9% 1,000 ML with MVI, ADULT NO.4 WITH VIT K 10 ML, THIAMINE 100 MG, F... IV ONE ×4 (09:30)
[2021-03-13 10:11] LABS: Appearance,Urine Clear (Clear); Bilirubin,Urine Negative (Negative); Blood,Urine Negative (Negative); Color,Urine Light Yellow; Glucose,Urine (UA) Negative (Negative); Ketones,Urine Negative (Negative); Leukocyte Esterase,Urine Moderate (Negative); Mucus,Urine Rare /hpf; Nitrite,Urine Positive (Negative); Protein,Urine Negative (Negative); Specific Gravity,Urine 1.008 (1.001-1.035); Squamous Epithelial Cell,Urine <1 /hpf (0-4); Urobilinogen,Urine <2.0 mg/dL (<2.0); WBC,Urine 5 /hpf (0-5)
[2021-03-13] MEDS: ONDANSETRON 4 MG/2 ML VIAL IVP STA ×2 (10:55→15:15)
[2021-03-13] MEDS ORDERED: NALOXONE 0.4 MG/ML 1 ML VIAL IV PRN ×2 (11:22→12:17)
[2021-03-13] MEDS ORDERED: ACETAMINOPHEN TAB 325 MG TAB PO PRN (11:22)
--- NOTE | 2021-03-13 11:26 | XR ---
EXAMINATION TYPE: XR chest 2V DATE OF EXAM: 03/13/2021 COMPARISON: Chest x-ray 01/25/2017 HISTORY: Chest pain and cough TECHNIQUE: Frontal and lateral views of the chest are obtained. FINDINGS: There is no pleural effusion or pneumothorax seen. No evident pneumonia. There is bronchia l wall thickening. There are prominent lung volumes with flattening the hemidiaphragms possibly indic ative of underlying COPD. Suspect coronary artery calcifications. This finding hemidiaphragms. The ca rdiac silhouette size is within normal limits. There are overlying artifacts. Patient is rotated. Th e osseous structures are intact. IMPRESSION: Correlate for bronchitis, reactive airways disease, follow-up as indicated. Coronary art lawrence disease and additional findings above.
--- NOTE | 2021-03-13 11:30 | XR ---
KUB HISTORY: Pain, nausea and vomiting Frontal KUB and 2 images, no comparisons There is no evident the peritoneum or bowel obstruction. Spinal curvature may be positional. Vascular calcifications, possible vas deferens calcifications are noted incidentally. Bone mineralization is maintained. IMPRESSION: Nonspecific bowel gas pattern.
[2021-03-13] MEDS ORDERED: cefTRIAXone IN SWFI 1,000 MG/10 ML SYRINGE IVP STA (12:13)
--- NOTE | 2021-03-13 12:21 | ED ---
Medical Decision Making - Lab Data Result diagrams: 03/13/21 07:45 03/13/21 07:45 Lab Results 03/13/21 03/13/21 03/13/21 Range/Units 07:45 07:45 07:45 WBC 4.5 (3.8-10.6) k/uL RBC 4.69 (4.30-5.90) m/uL Hgb 14.2 (13.0-17.5) gm/dL Hct 43.5 (39.0-53.0) % MCV 92.7 (80.0-100.0) fL MCH 30.2 (25.0-35.0) pg MCHC 32.6 (31.0-37.0) g/dL RDW 15.5 (11.5-15.5) % Plt Count 68 L (150-450) k/uL MPV 7.3 Neutrophils % 46 % Lymphocytes % 38 % Monocytes % 10 % Eosinophils % 1 % Basophils % 2 % Neutrophils # 2.1 (1.3-7.7) k/uL Lymphocytes # 1.7 (1.0-4.8) k/uL Monocytes # 0.5 (0-1.0) k/uL Eosinophils # 0.0 (0-0.7) k/uL Basophils # 0.1 (0-0.2) k/uL Manual Slide Review Performed RBC Morphology Normal Sodium 134 L (137-145) mmol/L Potassium 3.6 (3.5-5.1) mmol/L Chloride 105 (98-107) mmol/L Carbon Dioxide 17 L (22-30) mmol/L Anion Gap 12 mmol/L BUN 10 (9-20) mg/dL Creatinine 0.85 (0.66-1.25) mg/dL Est GFR (CKD-EPI)AfAm >90 (>60 ml/min/1.73 sqM) Est GFR (CKD-EPI)NonAf >90 (>60 ml/min/1.73 sqM) Glucose 100 H (74-99) mg/dL Lactic Ac Sepsis Rflx Plasma Lactic Acid Richard (0.7-2.0) mmol/L Calcium 8.2 L (8.4-10.2) mg/dL Magnesium 1.5 L (1.6-2.3) mg/dL Total Bilirubin 1.1 (0.2-1.3) mg/dL AST 370 H (17-59) U/L ALT 141 H (4-49) U/L Alkaline Phosphatase 131 H (38-126) U/L Creatine Kinase 62 (55-170) U/L Troponin I (0.000-0.034) ng/mL Total Protein 7.1 (6.3-8.2) g/dL Albumin 4.1 (3.5-5.0) g/dL Amylase 96 (30-110) U/L Lipase 236 (23-300) U/L Urine Color Light Yellow Urine Appearance Clear (Clear) Urine pH 5.0 (5.0-8.0) Ur Specific [place] 1.008 (1.001-1.035) Urine Protein Negative (Negative) Urine Glucose (UA) Negative (Negative) Urine Ketones Negative (Negative) Urine Blood Negative (Negative) Urine Nitrite Positive (Negative) Urine Bilirubin Negative (Negative) Urine Urobilinogen <2.0 (<2.0) mg/dL Ur Leukocyte Esterase Moderate H (Negative) Urine WBC 5 (0-5) /hpf Ur Squamous Epith Cells <1 (0-4) /hpf Urine Mucus Rare H (None) /hpf Serum Alcohol 92 mg/dL Coronavirus (PCR) (Not Detectd) 03/13/21 03/13/21 03/13/21 Range/Units 07:45 07:45 07:45 WBC (3.8-10.6) k/uL RBC (4.30-5.90) m/uL Hgb (13.0-17.5) gm/dL Hct (39.0-53.0) % MCV (80.0-100.0) fL MCH (25.0-35.0) pg MCHC (31.0-37.0) g/dL RDW (11.5-15.5) % Plt Count (150-450) k/uL MPV Neutrophils % % Lymphocytes % % Monocytes % % Eosinophils % % Basophils % % Neutrophils # (1.3-7.7) k/uL Lymphocytes # (1.0-4.8) k/uL Monocytes # (0-1.0) k/uL Eosinophils # (0-0.7) k/uL Basophils # (0-0.2) k/uL Manual Slide Review RBC Morphology Sodium (137-145) mmol/L Potassium (3.5-5.1) mmol/L Chloride (98-107) mmol/L Carbon Dioxide (22-30) mmol/L Anion Gap mmol/L BUN (9-20) mg/dL Creatinine (0.66-1.25) mg/dL Est GFR (CKD-EPI)AfAm (>60 ml/min/1.73 sqM) Est GFR (CKD-EPI)NonAf (>60 ml/min/1.73 sqM) Glucose (74-99) mg/dL Lactic Ac Sepsis Rflx Plasma Lactic Acid Richard 3.4 H* (0.7-2.0) mmol/L Calcium (8.4-10.2) mg/dL Magnesium (1.6-2.3) mg/dL Total Bilirubin (0.2-1.3) mg/dL AST (17-59) U/L ALT (4-49) U/L Alkaline Phosphatase (38-126) U/L Creatine Kinase (55-170) U/L Troponin I <0.012 (0.000-0.034) ng/mL Total Protein (6.3-8.2) g/dL Albumin (3.5-5.0) g/dL Amylase (30-110) U/L Lipase (23-300) U/L Urine Color Urine Appearance (Clear) Urine pH (5.0-8.0) Ur Specific [place] (1.001-1.035) Urine Protein (Negative) Urine Glucose (UA) (Negative) Urine Ketones (Negative) Urine Blood (Negative) Urine Nitrite (Negative) Urine Bilirubin (Negative) Urine Urobilinogen (<2.0) mg/dL Ur Leukocyte Esterase (Negative) Urine WBC (0-5) /hpf Ur Squamous Epith Cells (0-4) /hpf Urine Mucus (None) /hpf Serum Alcohol mg/dL Coronavirus (PCR) Not Detected (Not Detectd) 03/13/21 Range/Units 08:18 WBC (3.8-10.6) k/uL RBC (4.30-5.90) m/uL Hgb (13.0-17.5) gm/dL Hct (39.0-53.0) % MCV (80.0-100.0) fL MCH (25.0-35.0) pg MCHC (31.0-37.0) g/dL RDW (11.5-15.5) % Plt Count (150-450) k/uL MPV Neutrophils % % Lymphocytes % % Monocytes % % Eosinophils % % Basophils % % Neutrophils # (1.3-7.7) k/uL Lymphocytes # (1.0-4.8) k/uL Monocytes # (0-1.0) k/uL Eosinophils # (0-0.7) k/uL Basophils # (0-0.2) k/uL Manual Slide Review RBC Morphology Sodium (137-145) mmol/L Potassium (3.5-5.1) mmol/L Chloride (98-107) mmol/L Carbon Dioxide (22-30) mmol/L Anion Gap mmol/L BUN (9-20) mg/dL Creatinine (0.66-1.25) mg/dL Est GFR (CKD-EPI)AfAm (>60 ml/min/1.73 sqM) Est GFR (CKD-EPI)NonAf (>60 ml/min/1.73 sqM) Glucose (74-99) mg/dL Lactic Ac Sepsis Rflx Y Plasma Lactic Acid Richard (0.7-2.0) mmol/L Calcium (8.4-10.2) mg/dL Magnesium (1.6-2.3) mg/dL Total Bilirubin (0.2-1.3) mg/dL AST (17-59) U/L ALT (4-49) U/L Alkaline Phosphatase (38-126) U/L Creatine Kinase (55-170) U/L Troponin I (0.000-0.034) ng/mL Total Protein (6.3-8.2) g/dL Albumin (3.5-5.0) g/dL Amylase (30-110) U/L Lipase (23-300) U/L Urine Color Urine Appearance (Clear) Urine pH (5.0-8.0) Ur Specific [place] (1.001-1.035) Urine Protein (Negative) Urine Glucose (UA) (Negative) Urine Ketones (Negative) Urine Blood (Negative) Urine Nitrite (Negative) Urine Bilirubin (Negative) Urine Urobilinogen (<2.0) mg/dL Ur Leukocyte Esterase (Negative) Urine WBC (0-5) /hpf Ur Squamous Epith Cells (0-4) /hpf Urine Mucus (None) /hpf Serum Alcohol mg/dL Coronavirus (PCR) (Not Detectd) Disposition Clinical Impression: Urinary tract infection, Enteritis, Bronchitis, Dehydration, Lactic acidosis, Failure to thrive in adult, Alcohol withdrawal, Bronchospasm, acute Disposition: ADMITTED IP TO THIS HOSP Condition: Fair Referrals: Juan José Khan DO [Primary Care Provider] - 1-2 days
[2021-03-13] MEDS: MAGNESIUM SULFATE-D5W PMX 1 GM in DEXTROSE/WATER 1 100ML.BAG IVPB ONE ×2 (13:47→13:49)
[2021-03-13] MEDS: SODIUM CHLORIDE 0.9% 1,000 ML IV SCH (13:48)
[2021-03-13] MEDS: MAGNESIUM SULFATE-D5W PMX 1 GM in DEXTROSE/WATER 1 100ML.BAG IVPB SCH ×2 (13:49→15:16)
[2021-03-13] MEDS: ALBUTEROL HFA INHALER INHALATION SCH ×2 (14:53→20:49)
[2021-03-13] MEDS: MORPHINE SULFATE 2 MG/ML SYRINGE IVP PRN ×2 (15:15→19:38)
[2021-03-13] MEDS ORDERED: ONDANSETRON 4 MG in SODIUM CHLORIDE 0.9% 50 ML IVPB PRN (17:25)
[2021-03-13] MEDS ORDERED: hydrALAZINE HCL 25 MG TAB PO PRN (17:27)
--- NOTE | 2021-03-13 17:28 | P.HPIM ---
History of Present Illness H&P Date: 03/13/21 Chief Complaint: abdominal pain, diarrhea 60-year-old man with a medical history of hypertension, who only has limited contact with physicians in the outpatient setting, alcohol abuse presented with abdominal pain, diarrhea. Patient says that the symptoms have been 4 days in duration. He says that his stool is watery, and goes up to 3-4 times per day. He denies having any blood in the stool. He denies passing any blood clots. He denies tenesmus. He denies recent antibiotics. He denies travel. He denies eating any new or undercooked food. Since his diarrhea started he's also had loss of appetite. He feels thirsty and dehydrated. His abdominal pain is predominantly in the lower left quadrant and left upper quadrant. He denies fevers, chills, chest pain, dyspnea, palpitations, cough, dysuria, numbness/weakness. He does report some mild nausea, vomiting. In the emergency room, he is noted to have an acute kidney injury as well as low magnesium, and low platelets. He also has elevation of AST/ALT to 370/141 with mildly elevated alk phos of 131. Otherwise, troponin, CK, lipase were all negative. Initial lactate was 3.4 but improved to 1.1 with fluids. Chest x-ray appears to have hyperinflated lungs with flattening of the diaphragms, coronary artery calcifications, bronchial wall thickening concerning for bronchitis. Review of Systems All Systems reviewed and pertinent positives and negatives noted in HPI, all other symptoms are negative Past Medical History Past Medical History: Hypertension Additional Past Medical History / Comment(s): UNEXPLAINED WT LOSS (12 #), DAUGHTER DEC 2016. History of Any Multi-Drug Resistant Organisms: None Reported Past Surgical History: Heart Catheterization Additional Past Surgical History / Comment(s): Pt states as an he had a "pinched" abdominal muscle with surgical repair, colonoscopy Past Anesthesia/Blood Transfusion Reactions: No Reported Reaction Past Psychological History: Anxiety, Depression Past Drug Use History: Marijuana - Past Family History Mother Family Medical History: No Reported History Additional Family Medical History / Comment(s): . Father Family Medical History: CVA/TIA Additional Family Medical History / Comment(s): Father of a CVA Daughter(s) Additional Family Medical History / Comment(s): ADRENAL GLAND TUMOR. Medications and Allergies Home Medications Medication Instructions Recorded Confirmed Type Aspirin [Adult Low Dose Aspirin EC] 81 mg PO DAILY 05/03/17 03/13/21 History Allergies Allergy/AdvReac Type Severity Reaction Status Date / Time No Known Allergies Allergy Verified 03/13/21 09:23 Physical Exam Osteopathic Statement: *. No significant issues noted on an osteopathic structural exam other than those noted in the History and Physical/Consult. Vitals: Vital Signs Temp Pulse Resp BP Pulse Ox 03/13/21 13:08 98 18 165/95 98 03/13/21 11:32 110 H 18 167/102 97 03/13/21 10:31 99 F 110 H 20 167/109 96 03/13/21 07:35 99 F 100 18 198/118 98 Intake and Output 03/13/21 03/13/21 03/13/21 06:59 14:59 22:59 Other: Weight 68.039 kg Gen: awake, alert HEENT: normocephalic, atraumatic, good hearing acuity, moist mucous membranes Resp: good air exchange, breathing comfortably with no accessory muscle use, clear to auscultation bilaterally without wheezes CVS: good distal perfusion x 4, regular rate and rhythm without murmurs GI: soft, voluntary guarding, tenderness to palpation in the suprapubic, left lower quadrant, left upper quadrant. Patient also has voluntary guarding in the right upper and right lower quadrant. No peritoneal signs. : no SPT, no CVAT, gautam catheter not present MSK: no pitting edema, no clubbing Neuro: non-focal, moving all extremities Psych: cooperative, euthymic mood Results CBC & Chem 7: 03/13/21 07:45 03/13/21 07:45 Labs: Abnormal Lab Results - Last 24 Hours (Table) 03/13/21 03/13/21 03/13/21 Range/Units 07:45 07:45 07:45 Plt Count 68 L (150-450) k/uL Sodium 134 L (137-145) mmol/L Carbon Dioxide 17 L (22-30) mmol/L Glucose 100 H (74-99) mg/dL Plasma Lactic Acid Richard (0.7-2.0) mmol/L Calcium 8.2 L (8.4-10.2) mg/dL Magnesium 1.5 L (1.6-2.3) mg/dL AST 370 H (17-59) U/L ALT 141 H (4-49) U/L Alkaline Phosphatase 131 H (38-126) U/L Ur Leukocyte Esterase Moderate H (Negative) Urine Mucus Rare H (None) /hpf 03/13/21 Range/Units 07:45 Plt Count (150-450) k/uL Sodium (137-145) mmol/L Carbon Dioxide (22-30) mmol/L Glucose (74-99) mg/dL Plasma Lactic Acid Richard 3.4 H* (0.7-2.0) mmol/L Calcium (8.4-10.2) mg/dL Magnesium (1.6-2.3) mg/dL AST (17-59) U/L ALT (4-49) U/L Alkaline Phosphatase (38-126) U/L Ur Leukocyte Esterase (Negative) Urine Mucus (None) /hpf Assessment and Plan Assessment: Abdominal pain Diarrhea -Admit to telemetry, observation -IV fluids -Zofran when necessary -Morphine when necessary -Daily LFTs, INR -CT abdomen/pelvis, pending -Stool culture, C. diff toxin Alcohol use disorder Thrombocytopenia Hypomagnesemia -We'll follow-up the CT abdomen/pelvis as above -Thrombocytopenia likely related to alcohol use -Replete magnesium as needed for evaluation greater than 2 -Monitor for alcohol withdrawal -Thiamine/folate/MVI Hypertension -Initiate amlodipine 10 mg daily -Hydralazine 25 mg 4 times a day when necessary Patient is a full code Heparin 3 times a day
[2021-03-13] MEDS ORDERED: ONDANSETRON 4 MG/2 ML VIAL IVP PRN (17:54)
[2021-03-13] MEDS: amLODIPine 10 MG TAB PO SCH (18:23)
[2021-03-14] MEDS: MORPHINE SULFATE 2 MG/ML SYRINGE IVP PRN ×4 (00:21→21:20)
[2021-03-14] MEDS: ALBUTEROL HFA INHALER INHALATION SCH ×5 (02:35→18:02)
[2021-03-14] MEDS: SODIUM CHLORIDE 0.9% 1,000 ML IV SCH ×3 (05:16→21:21)
[2021-03-14] MEDS: IOPAMIDOL CONTRAST (ORAL USE) VIAL PO PRN ×2 (09:05→10:11)
[2021-03-14] MEDS: ENOXAPARIN 40 MG/0.4 ML SYRINGE SQ SCH (10:09)
[2021-03-14 10:19] LABS: Basophils % (A) 1 %; Eosinophils # (A) 0.1 k/uL (0-0.7); Eosinophils % (A) 1 %; HCT 40.9 % (39.0-53.0); HGB 13.7 gm/dL (13.0-17.5); Lymphocytes # (A) 1.3 k/uL (1.0-4.8); Lymphocytes % (A) 38 %; MCHC 33.6 g/dL (31.0-37.0); MCV 95.4 fL (80.0-100.0); Mean Platelet Volume 7.4; Monocytes # (A) 0.3 k/uL (0-1.0); Monocytes % (A) 9 %; Neutrophils # (A) 1.7 k/uL (1.3-7.7); Neutrophils % (A) 49 %; RBC 4.29 m/uL (4.30-5.90); WBC 3.5 k/uL (3.8-10.6)
[2021-03-14 10:35] LABS: African American GFR (CKD) >90 (>60 ml/min/1.73 sqM); Anion Gap 10 mmol/L; Blood Urea Nitrogen 6 mg/dL (9-20); Calcium 8.1 mg/dL (8.4-10.2); Carbon Dioxide 23 mmol/L (22-30); Chloride 100 mmol/L (98-107); Glucose 211 mg/dL (74-99); Magnesium 1.9 mg/dL (1.6-2.3); Non-African American GFR(CKD) >90 (>60 ml/min/1.73 sqM); Potassium 3.6 mmol/L (3.5-5.1); Sodium 133 mmol/L (137-145)
[2021-03-14 10:39] LABS: Platelet Count 61 k/uL (150-450)
[2021-03-14] MEDS: FOLIC ACID 1 MG TAB PO SCH (11:20)
[2021-03-14] MEDS: ASPIRIN 81 MG PO SCH (11:20)
[2021-03-14] MEDS: amLODIPine 10 MG TAB PO SCH (11:20)
[2021-03-14] MEDS: THIAMINE 100 MG TAB PO SCH (11:20)
--- NOTE | 2021-03-14 11:21 | CT ---
EXAMINATION TYPE: CT abdomen pelvis w con DATE OF EXAM: 03/14/2021 COMPARISON: None HISTORY: Enteritis, UTI CT DLP: 818.9 mGycm Automated exposure control for dose reduction was used. CONTRAST: CT scan of the abdomen pelvis is performed with IV Contrast, patient injected with 100 ml mL of Isovu e 300. FINDINGS- LUNG BASES-subsegmental changes at both lung bases. Coronary artery calcification suggested.. LIVER/GB- No gross abnormality is appreciated. PANCREAS- No gross abnormality is seen. SPLEEN- No gross abnormality is seen. ADRENALS- No gross abnormality is seen. KIDNEYS/BLADDER- no hydronephrosis. There is a small nonobstructing left upper pole 3 mm calculus. [place] bcentimeter hypodense lesion involving left kidney too small to characterize but likely related to a cyst. Next BOWEL-bowel gas pattern nonspecific. There is mild wall thickening of the sigmoid colon possibly rela dm to incomplete distention correlate clinically.. LYMPH NODES- No greater than 1cm abdominal or pelvic lymph nodes areappreciated. OSSEOUS STRUCTURES-hypertrophic and degenerative change of the spine.. OTHER- aorta of normal caliber. No free fluid or free air. Atherosclerotic changes of the aorta. The re is edema within the anterior abdominal wall with air noted in the subcutaneous tissues. Atheroscle rotic changes of the renal arteries correlate for renal artery stenosis IMPRESSION- 1. Nonspecific abdominal pattern with no evidence of obstruction. Mild wall thickening to the sigmoid colon may be related to incomplete distention correlate clinically to exclude a mild colitis. 2. Nonobstructing 3 mm left renal calculus. 3. Basilar atelectasis favored over pneumonitis correlate clinically. 4. Small focal area of subcutaneous edema in the anterior abdominal wall with mixed with air in atten uation could be related to recent injection otherwise consider infectious etiology.
--- NOTE | 2021-03-14 15:33 | P.PN ---
Subjective Progress Note Date: 03/14/21 No new complaints today. Abd pain has improved. CT scan with possible sigmoid diverticulitis. Objective - Vital Signs Vital signs: Vital Signs Temp 98.5 F 03/14/21 07:54 Pulse 104 H 03/14/21 07:54 Resp 16 03/14/21 07:54 BP 127/85 03/14/21 07:54 Pulse Ox 94 L 03/14/21 07:54 Intake & Output 03/13/21 03/14/21 03/14/21 18:59 06:59 18:59 Intake Total 550 Balance 550 Weight 68.039 kg Intake: Oral 550 Other: Voiding Method Toilet # Voids 1 - Exam Gen: awake, alert HEENT: normocephalic, atraumatic, good hearing acuity, moist mucous membranes Resp: good air exchange, breathing comfortably with no accessory muscle use, clear to auscultation bilaterally without wheezes CVS: good distal perfusion x 4, regular rate and rhythm without murmurs GI: soft, voluntary guarding, tenderness to palpation in the suprapubic, left lower quadrant, left upper quadrant. Patient also has voluntary guarding in the right upper and right lower quadrant. No peritoneal signs. : no SPT, no CVAT, gautam catheter not present MSK: no pitting edema, no clubbing Neuro: non-focal, moving all extremities Psych: cooperative, euthymic mood - Labs CBC & Chem 7: 03/14/21 09:47 03/14/21 09:47 Labs: Abnormal Lab Results - Last 24 Hours (Table) 03/14/21 03/14/21 Range/Units 09:47 09:47 WBC 3.5 L (3.8-10.6) k/uL RBC 4.29 L (4.30-5.90) m/uL Plt Count 61 L (150-450) k/uL Sodium 133 L (137-145) mmol/L BUN 6 L (9-20) mg/dL Glucose 211 H (74-99) mg/dL Calcium 8.1 L (8.4-10.2) mg/dL Assessment and Plan Assessment: Abdominal pain Diarrhea -Admit to telemetry, observation -IV fluids -Zofran when necessary -Morphine when necessary -Daily LFTs, INR -CT abdomen/pelvis, diverticulitis of the sigmoid, possible cellulitis of anterior abd wall, not appreciated on phx. -Stool culture, C. diff toxin, pending Alcohol use disorder Thrombocytopenia Hypomagnesemia -We'll follow-up the CT abdomen/pelvis as above -Thrombocytopenia likely related to alcohol use -Replete magnesium as needed for evaluation greater than 2 -Monitor for alcohol withdrawal -Thiamine/folate/MVI Hypertension -Initiate amlodipine 10 mg daily -Hydralazine 25 mg 4 times a day when necessary Patient is a full code Heparin 3 times a day
[2021-03-15] MEDS: ALBUTEROL HFA INHALER INHALATION SCH ×4 (00:17→11:39)
[2021-03-15] MEDS: SODIUM CHLORIDE 0.9% 1,000 ML IV SCH ×2 (04:02→08:21)
[2021-03-15] MEDS: ASPIRIN 81 MG PO SCH (08:21)
[2021-03-15] MEDS: FOLIC ACID 1 MG TAB PO SCH (08:21)
[2021-03-15] MEDS: THIAMINE 100 MG TAB PO SCH (08:21)
[2021-03-15] MEDS: amLODIPine 10 MG TAB PO SCH (08:21)
[2021-03-15] MEDS: ENOXAPARIN 40 MG/0.4 ML SYRINGE SQ SCH (08:21)
[2021-03-15 08:35] LABS: Basophils % (A) 1 %; Eosinophils # (A) 0.1 k/uL (0-0.7); Eosinophils % (A) 2 %; HCT 37.5 % (39.0-53.0); HGB 12.7 gm/dL (13.0-17.5); Lymphocytes # (A) 1.6 k/uL (1.0-4.8); Lymphocytes % (A) 42 %; MCH 32.3 pg (25.0-35.0); MCHC 33.8 g/dL (31.0-37.0); MCV 95.4 fL (80.0-100.0); Mean Platelet Volume 7.6; Monocytes # (A) 0.5 k/uL (0-1.0); Monocytes % (A) 13 %; Neutrophils # (A) 1.5 k/uL (1.3-7.7); Neutrophils % (A) 40 %; RBC 3.93 m/uL (4.30-5.90); RDW 14.8 % (11.5-15.5); WBC 3.8 k/uL (3.8-10.6)
[2021-03-15 08:42] LABS: Platelet Count 50 k/uL (150-450)
[2021-03-15 08:45] LABS: INR 1.2 (<1.2); Prothrombin Time 12.3 sec (9.0-12.0)
[2021-03-15 09:03] VITALS: BP 125/82; PULSE 92; TEMP 98.5
[2021-03-15 09:03] LABS: ALT 106 U/L (4-49); AST 166 U/L (17-59); African American GFR (CKD) >90 (>60 ml/min/1.73 sqM); Albumin 3.7 g/dL (3.5-5.0); Alkaline Phosphatase 98 U/L (38-126); Anion Gap 6 mmol/L; Bilirubin, Delta 0.1 mg/dL (0.0-0.2); Bilirubin,Unconjugated 0.9 mg/dL (0.0-1.1); Blood Urea Nitrogen 4 mg/dL (9-20); Calcium 8.2 mg/dL (8.4-10.2); Carbon Dioxide 26 mmol/L (22-30); Chloride 102 mmol/L (98-107); Glucose 226 mg/dL (74-99); Magnesium 1.9 mg/dL (1.6-2.3); Non-African American GFR(CKD) >90 (>60 ml/min/1.73 sqM); Sodium 134 mmol/L (137-145); Total Protein 6.4 g/dL (6.3-8.2)
[2021-03-15 09:26] VITALS: RESP 18
--- NOTE | 2021-03-15 14:13 | P.DS ---
Providers Date of admission: 03/13/21 12:17 Expected date of discharge: 03/15/21 Attending physician: Mak Almaraz Primary care physician: Juan José [facility] Course: 60-year-old man with a medical history of hypertension, who only has limited contact with physicians in the outpatient setting, alcohol abuse presented with abdominal pain, diarrhea. Patient says that the symptoms have been 4 days in duration. He says that his stool is watery, and goes up to 3-4 times per day. He denies having any blood in the stool. He denies passing any blood clots. He denies tenesmus. He denies recent antibiotics. He denies travel. He denies eating any new or undercooked food. Since his diarrhea started he's also had loss of appetite. He feels thirsty and dehydrated. His abdominal pain is predominantly in the lower left quadrant and left upper quadrant. He denies fevers, chills, chest pain, dyspnea, palpitations, cough, dysuria, numbness/weakness. He does report some mild nausea, vomiting. In the emergency room, he is noted to have an acute kidney injury as well as low magnesium, and low platelets. He also has elevation of AST/ALT to 370/141 with mildly elevated alk phos of 131. Otherwise, troponin, CK, lipase were all negative. Initial lactate was 3.4 but improved to 1.1 with fluids. Chest x-ray appears to have hyperinflated lungs with flattening of the diaphragms, coronary artery calcifications, bronchial wall thickening concerning for bronchitis. Abdominal pain Sigmoid Diverticulitis - likely Viral Diarrhea -Admitted to telemetry, observation -patient given IV fluids -Zofran when necessary -Morphine when necessary, and required several doses with good response -Daily LFTs, INR = elevated AST/ALT in hepatocellular pattern, which improved with IVF; mildly elevated INR of 1.2 - all consistent with likely liver disease. Patient was recommended to follow up with GI and referral placed in d/c instructions. -CT abdomen/pelvis, diverticulitis of the sigmoid, possible cellulitis of anterior abd wall, not appreciated on phx as cellulitis but does correlate to area of bruising from heparin injection for DVT PPx. This was observed for additional 24 hours, with no worsening of bruising area. -Stool culture, C. diff toxin = pending at time of discharge, but improving symptoms without antibiotics, therefore, patient was discharged given he was tolerating diet and stooling appropriately without blood - PCP to follow up. Alcohol use disorder Thrombocytopenia Leukopenia Hypomagnesemia -Thrombocytopenia/Leukopenia likely related to alcohol use in context of 2:1 hepatocellular AST:ALT pattern, however, patient denies significant use, so we recommended hematology referral as outpatient to follow up labs and for further workup. I counseled patient to return to hospital if symptoms did not improve or worsened in the next 3-5 days. -Thiamine/folate/MVI, Hypertension -Initiate amlodipine 10 mg daily, prescribed on discharge -Hydralazine 25 mg 4 times a day when necessary, d/c'd on discharge. Assessment: Gen: awake, alert HEENT: normocephalic, atraumatic, good hearing acuity, moist mucous membranes Resp: good air exchange, breathing comfortably with no accessory muscle use, clear to auscultation bilaterally without wheezes CVS: good distal perfusion x 4, regular rate and rhythm without murmurs GI: soft, voluntary guarding, tenderness to palpation in the suprapubic, left lower quadrant, left upper quadrant. Patient also has voluntary guarding in the right upper and right lower quadrant. No peritoneal signs. : no SPT, no CVAT, gautam catheter not present MSK: no pitting edema, no clubbing Neuro: non-focal, moving all extremities Psych: cooperative, euthymic mood Patient Condition at Discharge: Good Plan - Discharge Summary Discharge Rx Participant: No New Discharge Prescriptions: New amLODIPine [Norvasc] 10 mg PO DAILY #30 tab Continue Aspirin [Adult Low Dose Aspirin EC] 81 mg PO DAILY Discharge Medication List Aspirin [Adult Low Dose Aspirin EC] 81 mg PO DAILY 05/03/17 [History] amLODIPine [Norvasc] 10 mg PO DAILY #30 tab 03/15/21 [Rx] Follow up Appointment(s)/Referral(s): Jama Castillo MD [STAFF PHYSICIAN] - 1 Week Juan José Khan DO [Primary Care Provider] - 1-2 days Milton Howe MD [STAFF PHYSICIAN] - 1 Week Patient Instructions/Handouts: How to Stop Smoking (DC), Alcohol Intoxication (DC) Discharge Disposition: HOME SELF-CARE
== END 2021-03-15 12:54 | disposition home or self-care (01) | DRG 392 ==
LOC: EC 07:33 → 4SSUR 12:17 → 1SOBS 22:23
PROVIDERS: ADMIT Internal Medicine; ATTEND Internal Medicine
DX: K57.32 Diverticulitis of large intestine without perforation or abscess without bleeding (principal); N17.9 Acute kidney failure, unspecified; E87.2 Acidosis; F10.939 Alcohol use, unspecified with withdrawal, unspecified; N39.0 Urinary tract infection, site not specified; D69.59 Other secondary thrombocytopenia; Z20.822 Contact with and (suspected) exposure to COVID-19; R62.7 Adult failure to thrive; J40 Bronchitis, not specified as acute or chronic; J98.01 Acute bronchospasm; E86.0 Dehydration; Y90.4 Blood alcohol level of 80-99 mg/100 ml; D72.819 Decreased white blood cell count, unspecified; K76.9 Liver disease, unspecified; E83.42 Hypomagnesemia; I10 Essential (primary) hypertension; I25.10 Atherosclerotic heart disease of native coronary artery without angina pectoris; R79.1 Abnormal coagulation profile; F17.210 Nicotine dependence, cigarettes, uncomplicated; Z71.6 Tobacco abuse counseling; Z79.82 Long term (current) use of aspirin; Z87.76 Personal history of (corrected) congenital malformations of integument, limbs and musculoskeletal system; Z86.59 Personal history of other mental and behavioral disorders; Z98.890 Other specified postprocedural states; Z82.3 Family history of stroke; Z83.49 Family history of other endocrine, nutritional and metabolic diseases
CPT/HCPCS: 36415; 71046; 74018; 74177; 80048; 80053; 80076; 80320; 81001; 82150; 82550; 83605; 83690; 83735; 84484; 85025; 85610; 87045; 87046; 87324; 87635; 94640; 96361; 96365; 99285

== ENCOUNTER 2022-06-04 20:24 | Inpatient (IN) | payer OTHER ==
[2022-06-04] MEDS ORDERED: SODIUM CHLORIDE 0.9% 1,000 ML IV STA ×2 (21:36→23:04)
[2022-06-04 21:54] LABS: Basophils % (A) 1 %; Eosinophils % (A) 0 %; HGB 13.4 gm/dL (13.0-17.5); Lymphocytes % (A) 22 %; MCH 35.8 pg (25.0-35.0); MCHC 33.6 g/dL (31.0-37.0); MCV 106.6 fL (80.0-100.0); Macrocytosis Marked; Mean Platelet Volume 7.3; Monocytes # (A) 0.3 k/uL (0-1.0); Monocytes % (A) 6 %; Neutrophils # (A) 3.2 k/uL (1.3-7.7); Neutrophils % (A) 68 %; RBC 3.75 m/uL (4.30-5.90); RDW 15.8 % (11.5-15.5); WBC 4.7 k/uL (3.8-10.6)
--- NOTE | 2022-06-04 21:57 | ED ---
Weakness HPI - General Chief complaint: Weakness Stated complaint: Weakness Time Seen by Provider: 06/04/22 21:29 Source: patient, EMS, RN notes reviewed, old records reviewed Mode of arrival: EMS Limitations: no limitations - History of Present Illness Initial comments: This is a 62-year-old male to the emergency department for evaluation. Patient Dese for evaluation regards to weakness not feeling well decreased ability to ambulate fatigue patient feels like something is wrong. Patient is a poor historian and is not here but told EMS that patient has been drinking all day. Patient himself denies this fact. Patient does have some nausea no vomiting no pain MD Complaint: generalized weakness, lack of energy, difficulty walking -: unknown Location: generalized Severity: moderate Quality: tingling, numbness Consistency: constant Improves with: none Worsens with: none Context: recent illness, history of similar Associated Symptoms: denies other symptoms - Related Data Home Medications Medication Instructions Recorded Confirmed Ascorbic Acid [Vitamin C] 500 mg PO DAILY 06/04/22 06/04/22 Cholecalciferol [Vitamin D3 (25 50 mcg PO DAILY 06/04/22 06/04/22 Mcg = 1000 Iu)] Multivit-Mins/Iron/Folic/Lycop 1 tab PO DAILY 06/04/22 06/04/22 [Centrum Men's Tablet] Allergies Allergy/AdvReac Type Severity Reaction Status Date / Time No Known Allergies Allergy Verified 06/04/22 23:01 Review of Systems ROS Statement: Those systems with pertinent positive or pertinent negative responses have been documented in the HPI. ROS Other: All systems not noted in ROS Statement are negative. Past Medical History Past Medical History: Hypertension Additional Past Medical History / Comment(s): UNEXPLAINED WT LOSS (12 #), DAUGHTER DEC 2016. History of Any Multi-Drug Resistant Organisms: None Reported Past Surgical History: Heart Catheterization Additional Past Surgical History / Comment(s): Pt states as an infant he had a "pinched" abdominal muscle with surgical repair, colonoscopy Past Anesthesia/Blood Transfusion Reactions: No Reported Reaction Past Psychological History: Anxiety, Depression Past Drug Use History: Marijuana - Past Family History Mother Family Medical History: No Reported History Additional Family Medical History / Comment(s): . Father Family Medical History: CVA/TIA Additional Family Medical History / Comment(s): Father of a CVA Daughter(s) Additional Family Medical History / Comment(s): ADRENAL GLAND TUMOR. General Exam Limitations: no limitations General appearance: alert, in no apparent distress Head exam: Present: atraumatic, normocephalic, normal inspection Eye exam: Present: normal appearance, PERRL, EOMI. Absent: scleral icterus, conjunctival injection, periorbital swelling ENT exam: Present: normal exam, mucous membranes moist Neck exam: Present: normal inspection. Absent: tenderness, meningismus, lymphadenopathy Respiratory exam: Present: normal lung sounds bilaterally. Absent: respiratory distress, wheezes, rales, rhonchi, stridor Cardiovascular Exam: Present: normal rhythm, tachycardia, normal heart sounds. Absent: systolic murmur, diastolic murmur, rubs, gallop, clicks GI/Abdominal exam: Present: soft, normal bowel sounds. Absent: distended, tenderness, guarding, rebound, rigid Extremities exam: Present: normal inspection, full ROM, normal capillary refill. Absent: tenderness, pedal edema, joint swelling, calf tenderness Back exam: Present: normal inspection Neurological exam: Present: alert, oriented X3, CN II-XII intact Psychiatric exam: Present: normal affect, normal mood Skin exam: Present: warm, dry, intact, normal color. Absent: rash Course Vital Signs 06/04/22 20:35 Temperature 98.7 F Pulse Rate 110 H Respiratory 18 Rate Blood Pressure 148/101 O2 Sat by Pulse 97 Oximetry - Reevaluation(s) Reevaluation #1: 06/04/22 23:00 Record is reviewed Reevaluation #2: 06/04/22 23:00 Patient informed results and questions answered Reevaluation #3: 06/04/22 23:00 patient has no clinical improvement - Consultations Consultation #1: Spoke with Dr. Estrada who will admit this patient EKG Findings - EKG Comments: EKG Findings:: EKG shows sinus tachycardia 120 AR 164 QRS 90 QTC 396 Medical Decision Making - Medical Decision Making 62 male with altered mental status coming in with multiple electrolyte abnormalities, hyponatremia acidosis alcoholism. Patient will be admitted for monitoring and treatment - Lab Data Result diagrams: 06/04/22 21:44 06/04/22 21:44 Lab Results 06/04/22 06/04/22 06/04/22 Range/Units 21:44 21:44 21:44 WBC 4.7 (3.8-10.6) k/uL RBC 3.75 L (4.30-5.90) m/uL Hgb 13.4 (13.0-17.5) gm/dL Hct 40.0 (39.0-53.0) % MCV 106.6 H (80.0-100.0) fL MCH 35.8 H (25.0-35.0) pg MCHC 33.6 (31.0-37.0) g/dL RDW 15.8 H (11.5-15.5) % Plt Count 91 L (150-450) k/uL MPV 7.3 Neutrophils % 68 % Lymphocytes % 22 % Monocytes % 6 % Eosinophils % 0 % Basophils % 1 % Neutrophils # 3.2 (1.3-7.7) k/uL Lymphocytes # 1.0 (1.0-4.8) k/uL Monocytes # 0.3 (0-1.0) k/uL Eosinophils # 0.0 (0-0.7) k/uL Basophils # 0.0 (0-0.2) k/uL Manual Slide Review Performed Macrocytosis Marked A PT 13.1 H (9.0-12.0) sec INR 1.3 H (<1.2) APTT 26.8 (22.0-30.0) sec Sodium 126 L (137-145) mmol/L Potassium 5.4 H (3.5-5.1) mmol/L Chloride 100 (98-107) mmol/L Carbon Dioxide 16 L (22-30) mmol/L Anion Gap 10 mmol/L BUN <2 L (9-20) mg/dL Creatinine 0.68 (0.66-1.25) mg/dL Est GFR (CKD-EPI)AfAm >90 (>60 ml/min/1.73 sqM) Est GFR (CKD-EPI)NonAf >90 (>60 ml/min/1.73 sqM) Glucose 125 H (74-99) mg/dL Plasma Lactic Acid Richard (0.7-2.0) mmol/L Calcium 7.5 L (8.4-10.2) mg/dL Phosphorus 2.6 (2.5-4.5) mg/dL Magnesium 1.9 (1.6-2.3) mg/dL Total Bilirubin 1.2 (0.2-1.3) mg/dL AST 469 H (17-59) U/L ALT 180 H (4-49) U/L Alkaline Phosphatase 103 (38-126) U/L Troponin I (0.000-0.034) ng/mL NT-Pro-B Natriuret Pep pg/mL Total Protein 6.1 L (6.3-8.2) g/dL Albumin 3.4 L (3.5-5.0) g/dL Serum Alcohol 280 H* mg/dL 06/04/22 06/04/22 06/04/22 Range/Units 21:44 21:44 21:44 WBC (3.8-10.6) k/uL RBC (4.30-5.90) m/uL Hgb (13.0-17.5) gm/dL Hct (39.0-53.0) % MCV (80.0-100.0) fL MCH (25.0-35.0) pg MCHC (31.0-37.0) g/dL RDW (11.5-15.5) % Plt Count (150-450) k/uL MPV Neutrophils % % Lymphocytes % % Monocytes % % Eosinophils % % Basophils % % Neutrophils # (1.3-7.7) k/uL Lymphocytes # (1.0-4.8) k/uL Monocytes # (0-1.0) k/uL Eosinophils # (0-0.7) k/uL Basophils # (0-0.2) k/uL Manual Slide Review Macrocytosis PT (9.0-12.0) sec INR (<1.2) APTT (22.0-30.0) sec Sodium (137-145) mmol/L Potassium (3.5-5.1) mmol/L Chloride (98-107) mmol/L Carbon Dioxide (22-30) mmol/L Anion Gap mmol/L BUN (9-20) mg/dL Creatinine (0.66-1.25) mg/dL Est GFR (CKD-EPI)AfAm (>60 ml/min/1.73 sqM) Est GFR (CKD-EPI)NonAf (>60 ml/min/1.73 sqM) Glucose (74-99) mg/dL Plasma Lactic Acid Richard 6.5 H* (0.7-2.0) mmol/L Calcium (8.4-10.2) mg/dL Phosphorus (2.5-4.5) mg/dL Magnesium (1.6-2.3) mg/dL Total Bilirubin (0.2-1.3) mg/dL AST (17-59) U/L ALT (4-49) U/L Alkaline Phosphatase (38-126) U/L Troponin I 0.017 (0.000-0.034) ng/mL NT-Pro-B Natriuret Pep 51 pg/mL Total Protein (6.3-8.2) g/dL Albumin (3.5-5.0) g/dL Serum Alcohol mg/dL Disposition Clinical Impression: Lactic acidosis, Dehydration, Alcohol intoxication, Hyponatremia, Weakness Disposition: ADMITTED IP TO THIS HOSP Condition: Fair Is patient prescribed a controlled substance at d/c from ED?: No Time of Disposition: 23:00
[2022-06-04] MEDS ORDERED: diazePAM 5 MG/ML 1 ML VIAL IVP STA (22:02)
[2022-06-04 22:05] LABS: ALT 180 U/L (4-49); AST 469 U/L (17-59); African American GFR (CKD) >90 (>60 ml/min/1.73 sqM); Albumin 3.4 g/dL (3.5-5.0); Alkaline Phosphatase 103 U/L (38-126); Anion Gap 10 mmol/L; Blood Urea Nitrogen <2 mg/dL (9-20); Calcium 7.5 mg/dL (8.4-10.2); Carbon Dioxide 16 mmol/L (22-30); Chloride 100 mmol/L (98-107); Glucose 125 mg/dL (74-99); Magnesium 1.9 mg/dL (1.6-2.3); Non-African American GFR(CKD) >90 (>60 ml/min/1.73 sqM); Phosphorus 2.6 mg/dL (2.5-4.5); Sodium 126 mmol/L (137-145); Total Bilirubin 1.2 mg/dL (0.2-1.3); Total Protein 6.1 g/dL (6.3-8.2)
[2022-06-04 22:07] LABS: INR 1.3 (<1.2); Partial Thromboplastin Time 26.8 sec (22.0-30.0); Prothrombin Time 13.1 sec (9.0-12.0)
[2022-06-04 22:08] LABS: Alcohol 280 mg/dL
[2022-06-04 22:09] LABS: Potassium 5.4 mmol/L (3.5-5.1)
[2022-06-04 22:58] LABS: Platelet Count 91 k/uL (150-450)
[2022-06-04] MEDS ORDERED: NALOXONE 0.4 MG/ML 1 ML VIAL IV PRN (23:04)
[2022-06-04] MEDS ORDERED: ONDANSETRON 4 MG/2 ML VIAL IVP PRN (23:04)
[2022-06-04] MEDS ORDERED: SODIUM CHLORIDE 0.9% 500 ML 500 ML IV STA (23:04)
[2022-06-04] MEDS ORDERED: LORazepam 2 MG/ML INJ IV PRN (23:05)
[2022-06-04] MEDS ORDERED: THIAMINE 100 MG/ML 2 ML VIAL IM ONE (23:15)
[2022-06-05] MEDS: diazePAM 5 MG/ML 1 ML VIAL IVP SCH ×3 (00:23→11:31)
[2022-06-05] MEDS ORDERED: SODIUM CHLORIDE 0.9% 2,000 ML IV ONE (01:44)
[2022-06-05] MEDS: LORazepam 2 MG/ML INJ IV PRN ×6 (02:01→09:04)
[2022-06-05] MEDS ORDERED: LORazepam 2 MG/ML INJ IV STA ×2 (03:29→03:48)
[2022-06-05 04:00] LABS: Basophils % (A) 1 %; Eosinophils % (A) 0 %; HCT 40.7 % (39.0-53.0); HGB 13.4 gm/dL (13.0-17.5); Lymphocytes # (A) 1.4 k/uL (1.0-4.8); Lymphocytes % (A) 21 %; MCH 35.3 pg (25.0-35.0); MCV 107.1 fL (80.0-100.0); Macrocytosis Marked; Mean Platelet Volume 7.3; Monocytes # (A) 0.4 k/uL (0-1.0); Monocytes % (A) 6 %; Neutrophils # (A) 4.8 k/uL (1.3-7.7); Neutrophils % (A) 71 %; Platelet Count 96 k/uL (150-450); RBC 3.79 m/uL (4.30-5.90); RDW 15.2 % (11.5-15.5); WBC 6.8 k/uL (3.8-10.6)
[2022-06-05 04:12] LABS: ALT 184 U/L (4-49); AST 521 U/L (17-59); African American GFR (CKD) >90 (>60 ml/min/1.73 sqM); Albumin 3.5 g/dL (3.5-5.0); Alkaline Phosphatase 129 U/L (38-126); Anion Gap 12 mmol/L; Blood Urea Nitrogen <2 mg/dL (9-20); Calcium 7.1 mg/dL (8.4-10.2); Carbon Dioxide 13 mmol/L (22-30); Chloride 111 mmol/L (98-107); Glucose 121 mg/dL (74-99); Magnesium 1.7 mg/dL (1.6-2.3); Non-African American GFR(CKD) >90 (>60 ml/min/1.73 sqM); Phosphorus 3.5 mg/dL (2.5-4.5); Potassium 3.9 mmol/L (3.5-5.1); Sodium 136 mmol/L (137-145); Total Bilirubin 0.9 mg/dL (0.2-1.3); Total Protein 6.2 g/dL (6.3-8.2)
[2022-06-05] MEDS: LACTATED RINGERS 1,000 ML IV SCH ×2 (04:37→06:08)
[2022-06-05 04:53] LABS: VBG PH 7.33 (7.31-7.41)
--- NOTE | 2022-06-05 04:53 | CT ---
EXAMINATION TYPE: CT abdomen pelvis w con DATE OF EXAM: 06/05/2022 COMPARISON: 03/14/2021 HISTORY: Pain CT DLP: 834.4 mGycm Automated exposure control for dose reduction was used. CONTRAST: Performed with IV Contrast, patient injected with 100 mL of Isovue 300. Images obtained from the diaphragm to the floor the pelvis with the IV contrast. There is subsegmental atelectasis at the lung bases. Heart size is normal. No pericardial effusion. N o pleural effusion. The liver and spleen are intact. Stomach is intact. There is no pancreatic mass. Gallbladder is intac t. The bile ducts are not dilated. There is no adrenal mass. The kidneys show satisfactory contrast opacification. There is no hydronephrosis. Delayed images show normal renal excretion. There is 1 cm cortical cyst anterior left kidney. Ureters are not dilated. N o retroperitoneal adenopathy. Bladder distends smoothly. Urinary bladder is large and measures 17 cm. No inguinal hernia. No free fluid in the pelvis. No pelvic mass. The lumbar vertebrae have normal alignment. Disc spaces are normal. Posterior elements are intact. No compression fracture. Bony pelvis is intact. Hip joints are intact. There is wall thickening of multiple loops of jejunum in the left side of the abdomen. There is also some mild wall thickening of the right colon. No sign of a bowel obstruction. No ascites or free air. No sign of mesenteric edema. Appendix not seen. No sign of thickened appendix. IMPRESSION: Jejunal wall thickening and also right-sided colon wall thickening that could relate to some inflamma tory bowel disease. No bowel obstruction. Dilated urinary bladder consistent with bladder outlet obstruction. Bowel and urinary bladder abnorma lity appear new compared to exam
[2022-06-05 05:53] LABS: Appearance,Urine Cloudy (Clear); Bacteria,Urine Few /hpf; Bilirubin,Urine Negative (Negative); Blood,Urine Moderate (Negative); Color,Urine Light Yellow; Glucose,Urine (UA) 1+ (Negative); Ketones,Urine Negative (Negative); Leukocyte Esterase,Urine Trace (Negative); Mucus,Urine Rare /hpf; Nitrite,Urine Positive (Negative); PH, Urine 5.5 (5.0-8.0); Protein,Urine Negative (Negative); RBC,Urine 1 /hpf (0-5); Specific Gravity,Urine 1.009 (1.001-1.035); Urobilinogen,Urine <2.0 mg/dL (<2.0); WBC,Urine 3 /hpf (0-5)
[2022-06-05 07:36] LABS: ALT 195 U/L (4-49); AST 570 U/L (17-59); African American GFR (CKD) >90 (>60 ml/min/1.73 sqM); Albumin 3.4 g/dL (3.5-5.0); Albumin/Globulin Ratio 1.2; Alcohol 34 mg/dL; Alkaline Phosphatase 125 U/L (38-126); Anion Gap 11 mmol/L; Blood Urea Nitrogen <2 mg/dL (9-20); Calcium 7.3 mg/dL (8.4-10.2); Carbon Dioxide 16 mmol/L (22-30); Chloride 111 mmol/L (98-107); Globulin 2.8 g/dL; Glucose 101 mg/dL (74-99); Lipase 119 U/L (23-300); Magnesium 1.6 mg/dL (1.6-2.3); Non-African American GFR(CKD) >90 (>60 ml/min/1.73 sqM); Potassium 3.6 mmol/L (3.5-5.1); Sodium 138 mmol/L (137-145); Total Bilirubin 1.2 mg/dL (0.2-1.3); Total Protein 6.2 g/dL (6.3-8.2)
[2022-06-05] MEDS: THIAMINE 100 MG TAB PO SCH ×2 (07:41→17:10)
[2022-06-05] MEDS: MULTIVITAMINS, THERA 1 EACH TAB PO SCH (07:41)
[2022-06-05] MEDS ORDERED: PANTOPRAZOLE 40 MG/10 ML VIAL IV SCH (09:00)
[2022-06-05] MEDS: SODIUM CHLORIDE 0.9% 1,000 ML IV SCH ×2 (13:55→21:42)
[2022-06-05] MEDS: cloNIDine HCL 0.2 MG TAB PO SCH ×2 (13:55→21:37)
--- NOTE | 2022-06-05 14:52 | P.GSCN ---
History of Present Illness Consult date: 06/05/22 History of present illness: CHIEF COMPLAINT: Weakness HISTORY OF PRESENT ILLNESS: This is a 62-year-old male who presented to the ER for evaluation of weakness and not feeling well. Patient had evidence of alcohol intoxication. He had been drinking all day yesterday. Patient is a poor historian. No nausea or vomiting reported. Family has been having diarrhea for a couple of days. Patient reports diarrhea really bad this morning. He has been having decreased appetite and poor oral intake. He had elevated lactic acid level as well as tachycardia. Computed tomography scan had shown jejunal wall thickening and right sided colon wall thickening. Patient de nies any abdominal pain. Per nursing staff patient tolerated eating a regular lunch tray. Patient is a Blanchard catheter in place for bladder outlet obstruction. He does have elevated LFTs. And evidence of elevated alcohol level on admission. Last colonoscopy was in April 2017 with sigmoid divertic ulosis. The patient drinks 7 beers daily. Patient did receive Valium in the ER. He also received 4 L IV fluids in the ER. PAST MEDICAL HISTORY: Hypertension PAST SURGICAL HISTORY: Pinched abdominal muscle as an requiring surgical repair MEDICATIONS: See list. ALLERGIES: See list. SOCIAL HISTORY: No illicit drug use. REVIEW OF SYSTEMS: CONSTITUTIONAL: Denies fever or chills. HEENT: Denies blurred vision, vision changes, or eye pain. Denies hemoptysis CARDIOVASCULAR: Denies chest pain or pressure. RESPIRATORY: No shortness of breath. GASTROINTESTINAL: See HPI for pertinent findings HEMATOLOGIC: Denies bleeding disorders. GENITOURINARY: Denies any blood in urine or increased urinary frequency. SKIN: Denies pruitis. Denies rash. PHYSICAL EXAM: VITAL SIGNS: Reviewed GENERAL: Well-developed in no acute distress. HEENT: No sclera icterus. Extraocular movements grossly intact. Moist buccal mucosa. Head is atraumatic, normocephalic. No nasal drainage. ABDOMEN: Soft. Nondistended. Nontender NEUROLOGIC: Lethargic. Arousable. Able answer some questions. Speech is garbled. LABORATORY DATA: WBC is 6.8 HGB 13.4 plt 96 INR 1.3 Sodium 126 up to 138 potassium 5.4 down to 3.6 creatinine 0.63 glucose 101 Lactic acid 6.5 down to 1.3 AST 570 ALT 195 alk phos 125 total bilirubin 1.2 Lipase 119 Alcohol level 280 down to 34 Covid not detected Ammonia level less than 9 IMAGING: Computed tomography scan abdomen and pelvis with IV contrast jejunal wall thickening and also right-sided colon wall thickening that could relate to some inflammatory bowel disease. No bowel obstruction. Dilated urinary bladder consistent with bladder outlet obstruction. Bowel and urinary bladder abnormality new compared to old exam. ASSESSMENT: 1. Jejunal wall thickening and right sided colon wall thickening that could be related to some inflammatory bowel disease noted on CAT scan. Patient denies abdominal pain. 2. Diarrhea 3. Alcohol intoxication 4. Dehydration 5. Elevated lactic acid level PLAN: -Further recommendations forthcoming per surgeon -Continue IV fluids -Continue supportive care -Continue to monitor -Continue regular diet Thank you for this consultation Physician Boatswain Mate note has been reviewed by physician. Signing provider agrees with the documented findings, assessment, and plan of care. Past Medical History Past Medical History: Hypertension Additional Past Medical History / Comment(s): UNEXPLAINED WT LOSS (12 #), DAUGHTER DEC 2016. History of Any Multi-Drug Resistant Organisms: None Reported Past Surgical History: Heart Catheterization Additional Past Surgical History / Comment(s): Pt states as an infant he had a "pinched" abdominal muscle with surgical repair, colonoscopy Past Anesthesia/Blood Transfusion Reactions: No Reported Reaction Past Psychological History: Anxiety, Depression Additional Psychological History / Comment(s): DUE TO OF HIS DAUGHTER. Smoking Status: Current every day smoker Past Alcohol Use History: Occasional Additional Past Alcohol Use History / Comment(s): DRINKS APPROX 5 BEERS PER DAY Past Drug Use History: Marijuana Additional Drug Use History / Comment(s): OCCASIONAL MARIJUANA USE - Past Family History Mother Family Medical History: No Reported History Additional Family Medical History / Comment(s): . Father Family Medical History: CVA/TIA Additional Family Medical History / Comment(s): Father of a CVA Daughter(s) Additional Family Medical History / Comment(s): ADRENAL GLAND TUMOR. Medications and Allergies Home Medications Medication Instructions Recorded Confirmed Type Ascorbic Acid [Vitamin C] 500 mg PO DAILY 06/04/22 06/04/22 History Cholecalciferol [Vitamin D3 (25 50 mcg PO DAILY 06/04/22 06/04/22 History Mcg = 1000 Iu)] Multivit-Mins/Iron/Folic/Lycop 1 tab PO DAILY 06/04/22 06/04/22 History [Centrum Men's Tablet] Allergies Allergy/AdvReac Type Severity Reaction Status Date / Time No Known Allergies Allergy Verified 06/04/22 23:01 Surgical - Exam Vital Signs Temp Pulse Resp BP Pulse Ox 98.7 F 110 H 18 148/101 97 06/04/22 20:35 06/04/22 20:35 06/04/22 20:35 06/04/22 20:35 06/04/22 20:35 Results - Labs 06/05/22 03:30 06/05/22 07:15 Abnormal Lab Results - Last 24 Hours (Table) 06/04/22 06/04/22 06/04/22 Range/Units 21:44 21:44 21:44 RBC 3.75 L (4.30-5.90) m/uL MCV 106.6 H (80.0-100.0) fL MCH 35.8 H (25.0-35.0) pg RDW 15.8 H (11.5-15.5) % Plt Count 91 L (150-450) k/uL Macrocytosis Marked A PT 13.1 H (9.0-12.0) sec INR 1.3 H (<1.2) VBG pCO2 (37-51) mmHg VBG HCO3 (24-28) mmol/L Sodium 126 L (137-145) mmol/L Potassium 5.4 H (3.5-5.1) mmol/L Chloride (98-107) mmol/L Carbon Dioxide 16 L (22-30) mmol/L BUN <2 L (9-20) mg/dL Creatinine (0.66-1.25) mg/dL Glucose 125 H (74-99) mg/dL Plasma Lactic Acid Richard (0.7-2.0) mmol/L Calcium 7.5 L (8.4-10.2) mg/dL AST 469 H (17-59) U/L ALT 180 H (4-49) U/L Alkaline Phosphatase (38-126) U/L Total Protein 6.1 L (6.3-8.2) g/dL Albumin 3.4 L (3.5-5.0) g/dL Urine Glucose (UA) (Negative) Urine Blood (Negative) Ur Leukocyte Esterase (Negative) Urine Bacteria (None) /hpf Urine Mucus (None) /hpf Serum Alcohol 280 H* mg/dL 06/04/22 06/05/22 06/05/22 Range/Units 21:44 00:46 03:30 RBC 3.79 L (4.30-5.90) m/uL MCV 107.1 H (80.0-100.0) fL MCH 35.3 H (25.0-35.0) pg RDW (11.5-15.5) % Plt Count 96 L (150-450) k/uL Macrocytosis Marked A PT (9.0-12.0) sec INR (<1.2) VBG pCO2 (37-51) mmHg VBG HCO3 (24-28) mmol/L Sodium (137-145) mmol/L Potassium (3.5-5.1) mmol/L Chloride (98-107) mmol/L Carbon Dioxide (22-30) mmol/L BUN (9-20) mg/dL Creatinine (0.66-1.25) mg/dL Glucose (74-99) mg/dL Plasma Lactic Acid Richard 6.5 H* 5.5 H* (0.7-2.0) mmol/L Calcium (8.4-10.2) mg/dL AST (17-59) U/L ALT (4-49) U/L Alkaline Phosphatase (38-126) U/L Total Protein (6.3-8.2) g/dL Albumin (3.5-5.0) g/dL Urine Glucose (UA) (Negative) Urine Blood (Negative) Ur Leukocyte Esterase (Negative) Urine Bacteria (None) /hpf Urine Mucus (None) /hpf Serum Alcohol mg/dL 06/05/22 06/05/22 06/05/22 Range/Units 03:30 03:30 04:30 RBC (4.30-5.90) m/uL MCV (80.0-100.0) fL MCH (25.0-35.0) pg RDW (11.5-15.5) % Plt Count (150-450) k/uL Macrocytosis PT (9.0-12.0) sec INR (<1.2) VBG pCO2 24 L (37-51) mmHg VBG HCO3 12 L (24-28) mmol/L Sodium 136 L (137-145) mmol/L Potassium (3.5-5.1) mmol/L Chloride 111 H (98-107) mmol/L Carbon Dioxide 13 L (22-30) mmol/L BUN <2 L (9-20) mg/dL Creatinine 0.57 L (0.66-1.25) mg/dL Glucose 121 H (74-99) mg/dL Plasma Lactic Acid Richard 6.0 H* (0.7-2.0) mmol/L Calcium 7.1 L (8.4-10.2) mg/dL AST 521 H (17-59) U/L ALT 184 H (4-49) U/L Alkaline Phosphatase 129 H (38-126) U/L Total Protein 6.2 L (6.3-8.2) g/dL Albumin (3.5-5.0) g/dL Urine Glucose (UA) (Negative) Urine Blood (Negative) Ur Leukocyte Esterase (Negative) Urine Bacteria (None) /hpf Urine Mucus (None) /hpf Serum Alcohol mg/dL 06/05/22 06/05/22 06/05/22 Range/Units 05:00 07:15 07:56 RBC (4.30-5.90) m/uL MCV (80.0-100.0) fL MCH (25.0-35.0) pg RDW (11.5-15.5) % Plt Count (150-450) k/uL Macrocytosis PT (9.0-12.0) sec INR (<1.2) VBG pCO2 (37-51) mmHg VBG HCO3 (24-28) mmol/L Sodium (137-145) mmol/L Potassium (3.5-5.1) mmol/L Chloride 111 H (98-107) mmol/L Carbon Dioxide 16 L (22-30) mmol/L BUN <2 L (9-20) mg/dL Creatinine 0.63 L (0.66-1.25) mg/dL Glucose 101 H (74-99) mg/dL Plasma Lactic Acid Richard 5.7 H* (0.7-2.0) mmol/L Calcium 7.3 L (8.4-10.2) mg/dL AST 570 H (17-59) U/L ALT 195 H (4-49) U/L Alkaline Phosphatase (38-126) U/L Total Protein 6.2 L (6.3-8.2) g/dL Albumin 3.4 L (3.5-5.0) g/dL Urine Glucose (UA) 1+ H (Negative) Urine Blood Moderate H (Negative) Ur Leukocyte Esterase Trace H (Negative) Urine Bacteria Few H (None) /hpf Urine Mucus Rare H (None) /hpf Serum Alcohol mg/dL 06/05/22 Range/Units 09:40 RBC (4.30-5.90) m/uL MCV (80.0-100.0) fL MCH (25.0-35.0) pg RDW (11.5-15.5) % Plt Count (150-450) k/uL Macrocytosis PT (9.0-12.0) sec INR (<1.2) VBG pCO2 (37-51) mmHg VBG HCO3 (24-28) mmol/L Sodium (137-145) mmol/L Potassium (3.5-5.1) mmol/L Chloride (98-107) mmol/L Carbon Dioxide (22-30) mmol/L BUN (9-20) mg/dL Creatinine (0.66-1.25) mg/dL Glucose (74-99) mg/dL Plasma Lactic Acid Richard 3.0 H* (0.7-2.0) mmol/L Calcium (8.4-10.2) mg/dL AST (17-59) U/L ALT (4-49) U/L Alkaline Phosphatase (38-126) U/L Total Protein (6.3-8.2) g/dL Albumin (3.5-5.0) g/dL Urine Glucose (UA) (Negative) Urine Blood (Negative) Ur Leukocyte Esterase (Negative) Urine Bacteria (None) /hpf Urine Mucus (None) /hpf Serum Alcohol mg/dL Diabetes panel 06/04/22 06/05/22 06/05/22 Range/Units 21:44 03:30 07:15 Sodium 126 L 136 L 138 (137-145) mmol/L Potassium 5.4 H 3.9 3.6 (3.5-5.1) mmol/L Chloride 100 111 H 111 H (98-107) mmol/L Carbon Dioxide 16 L 13 L 16 L (22-30) mmol/L BUN <2 L <2 L <2 L (9-20) mg/dL Creatinine 0.68 0.57 L 0.63 L (0.66-1.25) mg/dL Glucose 125 H 121 H 101 H (74-99) mg/dL Calcium 7.5 L 7.1 L 7.3 L (8.4-10.2) mg/dL AST 469 H 521 H 570 H (17-59) U/L ALT 180 H 184 H 195 H (4-49) U/L Alkaline Phosphatase 103 129 H 125 (38-126) U/L Total Protein 6.1 L 6.2 L 6.2 L (6.3-8.2) g/dL Albumin 3.4 L 3.5 3.4 L (3.5-5.0) g/dL Calcium panel 06/04/22 06/05/22 06/05/22 Range/Units 21:44 03:30 07:15 Calcium 7.5 L 7.1 L 7.3 L (8.4-10.2) mg/dL Phosphorus 2.6 3.5 3.0 (2.5-4.5) mg/dL Albumin 3.4 L 3.5 3.4 L (3.5-5.0) g/dL Pituitary panel 06/04/22 06/05/22 06/05/22 Range/Units 21:44 03:30 07:15 Sodium 126 L 136 L 138 (137-145) mmol/L Potassium 5.4 H 3.9 3.6 (3.5-5.1) mmol/L Chloride 100 111 H 111 H (98-107) mmol/L Carbon Dioxide 16 L 13 L 16 L (22-30) mmol/L BUN <2 L <2 L <2 L (9-20) mg/dL Creatinine 0.68 0.57 L 0.63 L (0.66-1.25) mg/dL Glucose 125 H 121 H 101 H (74-99) mg/dL Calcium 7.5 L 7.1 L 7.3 L (8.4-10.2) mg/dL Adrenal panel 06/04/22 06/05/22 06/05/22 Range/Units 21:44 03:30 07:15 Sodium 126 L 136 L 138 (137-145) mmol/L Potassium 5.4 H 3.9 3.6 (3.5-5.1) mmol/L Chloride 100 111 H 111 H (98-107) mmol/L Carbon Dioxide 16 L 13 L 16 L (22-30) mmol/L BUN <2 L <2 L <2 L (9-20) mg/dL Creatinine 0.68 0.57 L 0.63 L (0.66-1.25) mg/dL Glucose 125 H 121 H 101 H (74-99) mg/dL Calcium 7.5 L 7.1 L 7.3 L (8.4-10.2) mg/dL Total Bilirubin 1.2 0.9 1.2 (0.2-1.3) mg/dL AST 469 H 521 H 570 H (17-59) U/L ALT 180 H 184 H 195 H (4-49) U/L Alkaline Phosphatase 103 129 H 125 (38-126) U/L Total Protein 6.1 L 6.2 L 6.2 L (6.3-8.2) g/dL Albumin 3.4 L 3.5 3.4 L (3.5-5.0) g/dL
[2022-06-05] MEDS ORDERED: cloNIDine HCL 0.1 MG TAB PO SCH (16:00)
[2022-06-05] MEDS: AMPICILLIN-SULBACTAM 3 GM in SODIUM CHLORIDE 0.9% 100 ML IVPB SCH (17:10)
[2022-06-05] MEDS: diazePAM 5 MG TAB PO SCH (17:10)
--- NOTE | 2022-06-05 23:05 | P.CONS ---
History of Present Illness - Reason for Consult Consult date: 06/05/22 Lactic acidosis questionable septic Requesting physician: Michael Estrada - Chief Complaint Weakness and not feeling well x 1 day - History of Present Illness Patient is a 62-year-old male with a past medical history significant for alcoholism in this patient presented to hospital for evaluation of weakness and not feeling well, the patient has been drinking all day the day before presentation to the hospital, patient denies having any fever or any chills devan es having any chest pain or shortness of breath or cough did complain of some nausea but no vomiting some vague abdominal pain and no diarrhea patient overall not very good historian patient on presentation to the hospital was afebrile did have a low-grade fever of 99.4 F did have some tachycardia with elevated lactic acid however white count was normal and no left shift creatinine has been normal liver enzymes are elevated lipase was normal urine is negative serum alcohol level was 280 repeat is down to 34 COVID testing was negative patient did have a CT of abdominal pelvis completed we will discharge her general wall thickening and also right-sided colon wall thickening concerning for inflammatory bowel disease patient was started on Rocephin infectious he was consulted for further management Review of Systems Positive point has been mentioned in the HPI rest of the systems are negative Past Medical History Past Medical History: Hypertension Additional Past Medical History / Comment(s): UNEXPLAINED WT LOSS (12 #), DAUGHTER DEC 2016. History of Any Multi-Drug Resistant Organisms: None Reported Past Surgical History: Heart Catheterization Additional Past Surgical History / Comment(s): Pt states as an he had a "pinched" abdominal muscle with surgical repair, colonoscopy Past Anesthesia/Blood Transfusion Reactions: No Reported Reaction Past Psychological History: Anxiety, Depression Additional Psychological History / Comment(s): DUE TO OF HIS DAUGHTER. Smoking Status: Current every day smoker Past Alcohol Use History: Occasional Additional Past Alcohol Use History / Comment(s): DRINKS APPROX 5 BEERS PER DAY Past Drug Use History: Marijuana Additional Drug Use History / Comment(s): OCCASIONAL MARIJUANA USE - Past Family History Mother Family Medical History: No Reported History Additional Family Medical History / Comment(s): . Father Family Medical History: CVA/TIA Additional Family Medical History / Comment(s): Father of a CVA Daughter(s) Additional Family Medical History / Comment(s): ADRENAL GLAND TUMOR. Medications and Allergies Home Medications Medication Instructions Recorded Confirmed Type Ascorbic Acid [Vitamin C] 500 mg PO DAILY 06/04/22 06/04/22 History Cholecalciferol [Vitamin D3 (25 50 mcg PO DAILY 06/04/22 06/04/22 History Mcg = 1000 Iu)] Multivit-Mins/Iron/Folic/Lycop 1 tab PO DAILY 06/04/22 06/04/22 History [Centrum Men's Tablet] Acetaminophen Tab [Tylenol] 650 mg PO Q6HR PRN tab 06/09/22 Rx Amoxic-Pot Clav 875-125Mg 1 tab PO BID 7 Days #14 tab 06/09/22 Rx [Augmentin 875-125] Magnesium Oxide [Mag-Ox] 400 mg PO DAILY 30 Days #30 tab 06/09/22 Rx Pantoprazole [Protonix] 40 mg PO AC-BRKFST 30 Days #30 tab 06/09/22 Rx Tamsulosin [Flomax] 0.4 mg PO PC-SUPPER 30 Days #30 cap 06/09/22 Rx Thiamine [Vitamin B-1] 100 mg PO BID-W/MEALS 30 Days #60 06/09/22 Rx tab cloNIDine HCL [Catapres] 0.2 mg PO TID 30 Days #90 tab 06/09/22 Rx Allergies Allergy/AdvReac Type Severity Reaction Status Date / Time No Known Allergies Allergy Verified 06/04/22 23:01 Physical Exam Vitals: Vital Signs Temp Pulse Pulse Resp BP BP Pulse Ox 06/05/22 15:54 98 06/05/22 13:49 126 H 99 06/05/22 13:01 98.4 F 128 H 18 151/94 98 06/05/22 11:28 99.0 F 126 H 18 149/92 94 L 06/05/22 09:15 99.5 F 06/05/22 09:04 129 H 16 144/90 97 06/05/22 08:01 152/103 06/05/22 07:59 121 H 18 157/106 98 06/05/22 07:24 99.4 F 133 H 20 145/105 97 06/05/22 06:57 99.0 F 126 H 16 145/100 98 06/05/22 05:41 99.2 F 131 H 18 143/104 06/05/22 05:25 123 H 16 141/98 95 06/05/22 04:12 123 H 16 137/96 95 06/05/22 01:30 125 H 18 139/97 95 06/04/22 22:48 122 H 18 130/93 95 06/04/22 21:15 115 H 18 150/103 96 06/04/22 20:46 110 H 18 148/100 95 06/04/22 20:35 98.7 F 110 H 18 148/101 97 Intake and Output 06/05/22 06/05/22 06/05/22 06:59 14:59 22:59 Output Total 1500 1800 Balance -1500 -1800 Output: Urine 1500 1800 Uretheral (Blanchard) 900 Other: Weight 74.843 kg GENERAL DESCRIPTION: Middle-aged male lying in bed, no distress. No tachypnea or accessory muscle of respiration use. HEENT: Shows Pallor , no scleral icterus. Oral mucous membrane is dry. No pharyngeal erythema or thrush NECK: Trachea central, no thyromegaly. LUNGS: Unlabored breathing. Clear to auscultation anteriorly. 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 HEART: S1, S2, regular rate and rhythm. No loud murmur ABDOMEN: Soft, no tenderness , guarding or rigidity, no organomegaly EXTREMITIES: No edema of feet. SKIN: No rash, no masses palpable. NEUROLOGICAL: The patient is lethargic orientation couldn't be determined Results CBC & Chem 7: 06/08/22 07:30 06/08/22 07:30 Labs: Abnormal Lab Results - Last 24 Hours (Table) 06/04/22 06/04/22 06/04/22 Range/Units 21:44 21:44 21:44 RBC 3.75 L (4.30-5.90) m/uL MCV 106.6 H (80.0-100.0) fL MCH 35.8 H (25.0-35.0) pg RDW 15.8 H (11.5-15.5) % Plt Count 91 L (150-450) k/uL Macrocytosis Marked A PT 13.1 H (9.0-12.0) sec INR 1.3 H (<1.2) VBG pCO2 (37-51) mmHg VBG HCO3 (24-28) mmol/L Sodium 126 L (137-145) mmol/L Potassium 5.4 H (3.5-5.1) mmol/L Chloride (98-107) mmol/L Carbon Dioxide 16 L (22-30) mmol/L BUN <2 L (9-20) mg/dL Creatinine (0.66-1.25) mg/dL Glucose 125 H (74-99) mg/dL Plasma Lactic Acid Richard (0.7-2.0) mmol/L Calcium 7.5 L (8.4-10.2) mg/dL AST 469 H (17-59) U/L ALT 180 H (4-49) U/L Alkaline Phosphatase (38-126) U/L Total Protein 6.1 L (6.3-8.2) g/dL Albumin 3.4 L (3.5-5.0) g/dL Urine Glucose (UA) (Negative) Urine Blood (Negative) Ur Leukocyte Esterase (Negative) Urine Bacteria (None) /hpf Urine Mucus (None) /hpf Serum Alcohol 280 H* mg/dL 06/04/22 06/05/22 06/05/22 Range/Units 21:44 00:46 03:30 RBC 3.79 L (4.30-5.90) m/uL MCV 107.1 H (80.0-100.0) fL MCH 35.3 H (25.0-35.0) pg RDW (11.5-15.5) % Plt Count 96 L (150-450) k/uL Macrocytosis Marked A PT (9.0-12.0) sec INR (<1.2) VBG pCO2 (37-51) mmHg VBG HCO3 (24-28) mmol/L Sodium (137-145) mmol/L Potassium (3.5-5.1) mmol/L Chloride (98-107) mmol/L Carbon Dioxide (22-30) mmol/L BUN (9-20) mg/dL Creatinine (0.66-1.25) mg/dL Glucose (74-99) mg/dL Plasma Lactic Acid Richard 6.5 H* 5.5 H* (0.7-2.0) mmol/L Calcium (8.4-10.2) mg/dL AST (17-59) U/L ALT (4-49) U/L Alkaline Phosphatase (38-126) U/L Total Protein (6.3-8.2) g/dL Albumin (3.5-5.0) g/dL Urine Glucose (UA) (Negative) Urine Blood (Negative) Ur Leukocyte Esterase (Negative) Urine Bacteria (None) /hpf Urine Mucus (None) /hpf Serum Alcohol mg/dL 06/05/22 06/05/22 06/05/22 Range/Units 03:30 03:30 04:30 RBC (4.30-5.90) m/uL MCV (80.0-100.0) fL MCH (25.0-35.0) pg RDW (11.5-15.5) % Plt Count (150-450) k/uL Macrocytosis PT (9.0-12.0) sec INR (<1.2) VBG pCO2 24 L (37-51) mmHg VBG HCO3 12 L (24-28) mmol/L Sodium 136 L (137-145) mmol/L Potassium (3.5-5.1) mmol/L Chloride 111 H (98-107) mmol/L Carbon Dioxide 13 L (22-30) mmol/L BUN <2 L (9-20) mg/dL Creatinine 0.57 L (0.66-1.25) mg/dL Glucose 121 H (74-99) mg/dL Plasma Lactic Acid Richard 6.0 H* (0.7-2.0) mmol/L Calcium 7.1 L (8.4-10.2) mg/dL AST 521 H (17-59) U/L ALT 184 H (4-49) U/L Alkaline Phosphatase 129 H (38-126) U/L Total Protein 6.2 L (6.3-8.2) g/dL Albumin (3.5-5.0) g/dL Urine Glucose (UA) (Negative) Urine Blood (Negative) Ur Leukocyte Esterase (Negative) Urine Bacteria (None) /hpf Urine Mucus (None) /hpf Serum Alcohol mg/dL 06/05/22 06/05/22 06/05/22 Range/Units 05:00 07:15 07:56 RBC (4.30-5.90) m/uL MCV (80.0-100.0) fL MCH (25.0-35.0) pg RDW (11.5-15.5) % Plt Count (150-450) k/uL Macrocytosis PT (9.0-12.0) sec INR (<1.2) VBG pCO2 (37-51) mmHg VBG HCO3 (24-28) mmol/L Sodium (137-145) mmol/L Potassium (3.5-5.1) mmol/L Chloride 111 H (98-107) mmol/L Carbon Dioxide 16 L (22-30) mmol/L BUN <2 L (9-20) mg/dL Creatinine 0.63 L (0.66-1.25) mg/dL Glucose 101 H (74-99) mg/dL Plasma Lactic Acid Richard 5.7 H* (0.7-2.0) mmol/L Calcium 7.3 L (8.4-10.2) mg/dL AST 570 H (17-59) U/L ALT 195 H (4-49) U/L Alkaline Phosphatase (38-126) U/L Total Protein 6.2 L (6.3-8.2) g/dL Albumin 3.4 L (3.5-5.0) g/dL Urine Glucose (UA) 1+ H (Negative) Urine Blood Moderate H (Negative) Ur Leukocyte Esterase Trace H (Negative) Urine Bacteria Few H (None) /hpf Urine Mucus Rare H (None) /hpf Serum Alcohol mg/dL 06/05/22 Range/Units 09:40 RBC (4.30-5.90) m/uL MCV (80.0-100.0) fL MCH (25.0-35.0) pg RDW (11.5-15.5) % Plt Count (150-450) k/uL Macrocytosis PT (9.0-12.0) sec INR (<1.2) VBG pCO2 (37-51) mmHg VBG HCO3 (24-28) mmol/L Sodium (137-145) mmol/L Potassium (3.5-5.1) mmol/L Chloride (98-107) mmol/L Carbon Dioxide (22-30) mmol/L BUN (9-20) mg/dL Creatinine (0.66-1.25) mg/dL Glucose (74-99) mg/dL Plasma Lactic Acid Richard 3.0 H* (0.7-2.0) mmol/L Calcium (8.4-10.2) mg/dL AST (17-59) U/L ALT (4-49) U/L Alkaline Phosphatase (38-126) U/L Total Protein (6.3-8.2) g/dL Albumin (3.5-5.0) g/dL Urine Glucose (UA) (Negative) Urine Blood (Negative) Ur Leukocyte Esterase (Negative) Urine Bacteria (None) /hpf Urine Mucus (None) /hpf Serum Alcohol mg/dL Assessment and Plan (1) Lactic acidosis Current Visit: Yes Status: Acute Code(s): E87.2 - ACIDOSIS SNOMED Code(s): 38080896 Plan: 1patient with presented hospital with weakness patient did have a significant elevated lactic acid level questionably due to his decreased oral intake and alcoholism plus minus abdominal source as the patient did have abnormal CT with evidence of possible enteritis and some inflammation of the right side of the colon questionably ischemic colitis from dehydration and decreased oral intake with relative hypotension. 2discontinue Rocephin. 3start the patient on Unasyn 3 g every 6 hours. 4IV fluid. We will follow on clinical condition and cultures to further adjust medication if needed Thank you for this consultation will follow this patient along with you Time with Patient: Greater than 30
[2022-06-06] MEDS: AMPICILLIN-SULBACTAM 3 GM in SODIUM CHLORIDE 0.9% 100 ML IVPB SCH ×4 (00:09→17:32)
[2022-06-06] MEDS: diazePAM 5 MG TAB PO SCH ×4 (00:10→21:58)
[2022-06-06] MEDS: SODIUM CHLORIDE 0.9% 1,000 ML IV SCH ×2 (05:25→13:26)
--- NOTE | 2022-06-06 06:57 | HP ---
HISTORY AND PHYSICAL 62-year-old white male, history of alcoholism, came in with weakness, drinking all day. Did not have any fever or chills at home or chest pain or cough. He came in with some vague abdominal pain. He became tachycardic, elevated lactic acid. White count was normal with no left shift. He had elevated lipase. Normal urine. Alcohol was 280. COVID testing was negative. CT abdomen and pelvis showed thickening of the colon, possible inflammatory bowel disease on Rocephin. Infectious Disease consulted. PAST MEDICAL HISTORY: Hypertension, unexplained weight-loss, heart catheterizations. Drinks five beers per day, marijuana. FAMILY HISTORY: Father had CVA/TIA. Daughter had adrenal gland tumor. HOME MEDICATIONS: Vitamin C, vitamin D, multivitamin. ALLERGIES: Negative. Temp 98-99, pulse rate is 121-126, respiratory rate 16-18, blood pressure is 140s- 150s/90s-100s. He looks weak and fatigued with limited speech. He has good eye contact, dry skin turgor, dry mucous membranes. Cardiovascular tachycardic. Lungs mild wheezes x4. Hematology negative Homans. Labs are reviewed. His liver enzymes are high at 469 and 180. Lactic acid was 3.0 on admission. ASSESSMENT: Lactic acidosis, alcohol dependence, liver enzyme elevation secondary to alcoholism, abnormal CT scan with bowel thickening, possible ischemic bowel versus inflammatory bowel disease. Prognosis guarded. [facility] protocol. Infectious Disease and surgical consult. Prognosis guarded. MMODL / IJN: [id number] /
[2022-06-06] MEDS: MULTIVITAMINS, THERA 1 EACH TAB PO SCH (08:26)
[2022-06-06] MEDS: PANTOPRAZOLE 40 MG TABLET PO SCH (08:26)
[2022-06-06] MEDS: cloNIDine HCL 0.2 MG TAB PO SCH ×3 (08:26→22:01)
[2022-06-06] MEDS: THIAMINE 100 MG TAB PO SCH ×2 (08:26→17:32)
--- NOTE | 2022-06-06 08:32 | P.GSCN ---
History of Present Illness Consult date: 06/06/22 History of present illness: 62-year-old alcoholic admitted to the hospital for generalized weakness. The patient's blood alcohol level was 280 on admission. The patient was found to have an elevated lactic acid. He has had some abdominal discomfort. He was in urine retention on admission. I was asked to see the patient for this reason. The patient is interviewed at the bedside. Responses are somewhat limited. He is not aware of the catheter indwelling at present. He denies difficulty with urinating before this urine retention. He would get up once to twice per night and go 2-3 times per day. He denies incontinence infection bleeding or other urologic issues. He sees Dr. Richards in [place]. He has never had any treatment for BPH. He does not ever recall a rectal examination. The patient had a very distended bladder upon admission. His urine retention was well over 1 L. Review of Systems All systems: negative - Constitutional Denies fever, Denies weight loss - EENT Eyes: denies blurred vision Ears, nose, mouth and throat: Denies dysphagia - Cardiovascular Denies chest pain, Denies shortness of breath - Respiratory Denies cough, Denies 7 - Gastrointestinal Reports as per HPI - Genitourinary Denies dysuria, Denies hematuria - Integumentary Denies rash, Denies unusual bruising - Neurological Denies headaches, Denies syncope - Hematologic/Lymphatic Denies easy bleeding, Denies easy bruising Past Medical History Past Medical History: Hypertension Additional Past Medical History / Comment(s): UNEXPLAINED WT LOSS (12 #), DAUGHTER DEC 2016. History of Any Multi-Drug Resistant Organisms: None Reported Past Surgical History: Heart Catheterization Additional Past Surgical History / Comment(s): Pt states as an infant he had a "pinched" abdominal muscle with surgical repair, colonoscopy Past Anesthesia/Blood Transfusion Reactions: No Reported Reaction Past Psychological History: Anxiety, Depression Additional Psychological History / Comment(s): DUE TO OF HIS DAUGHTER. Smoking Status: Current every day smoker Past Alcohol Use History: Occasional Additional Past Alcohol Use History / Comment(s): DRINKS APPROX 5 BEERS PER DAY Past Drug Use History: Marijuana Additional Drug Use History / Comment(s): OCCASIONAL MARIJUANA USE - Past Family History Mother Family Medical History: No Reported History Additional Family Medical History / Comment(s): . Father Family Medical History: CVA/TIA Additional Family Medical History / Comment(s): Father of a CVA Daughter(s) Additional Family Medical History / Comment(s): ADRENAL GLAND TUMOR. Medications and Allergies Home Medications Medication Instructions Recorded Confirmed Type Ascorbic Acid [Vitamin C] 500 mg PO DAILY 06/04/22 06/04/22 History Cholecalciferol [Vitamin D3 (25 50 mcg PO DAILY 06/04/22 06/04/22 History Mcg = 1000 Iu)] Multivit-Mins/Iron/Folic/Lycop 1 tab PO DAILY 06/04/22 06/04/22 History [Centrum Men's Tablet] Allergies Allergy/AdvReac Type Severity Reaction Status Date / Time No Known Allergies Allergy Verified 06/04/22 23:01 Surgical - Exam Vital Signs Temp Pulse Resp BP Pulse Ox 98.7 F 110 H 18 148/101 97 06/04/22 20:35 06/04/22 20:35 06/04/22 20:35 06/04/22 20:35 06/04/22 20:35 - General Multiple bruises. well developed, well nourished - Eyes PERRL - ENT no hearing loss - Neck trachea midline - Respiratory normal expansion, normal respiratory effort - Cardiovascular Rhythm: regular - Abdomen Abdomen: soft, non tender - Genitourinary Indwelling catheter with clear urine, 30 g benign prostate normal penis with no external lesions, testicles present - Integumentary no rash, no growths - Neurologic normal sensation - Musculoskeletal normal posture - Psychiatric oriented to time, oriented to person, oriented to place, speech is normal, memory intact Results - Labs 06/05/22 03:30 06/05/22 07:15 Abnormal Lab Results - Last 24 Hours (Table) 06/05/22 Range/Units 09:40 Plasma Lactic Acid Richard 3.0 H* (0.7-2.0) mmol/L - Imaging CT scan - abdomen: report reviewed, image reviewed CT scan - pelvis: report reviewed, image reviewed Assessment and Plan Assessment: Impression: Urine retention, acute on possibly chronic. Alcoholism and secondary weakness. Recommendations: I'm not really sure as to how difficult his urination was before this hospitalization. Chronic alcoholic frequently have bladder overdistention due to excessive fluid intake and lack of recognition for the desire to urinate. I will add Flomax and recommend leaving the catheter in for 48 hours and then removing it when he is feeling better and more ambulatory. Hopefully he'll be only urinate adequately. I will follow with you.
[2022-06-06 09:53] LABS: ALT 152 U/L (10-49); AST 350 U/L (14-35); African American GFR (CKD) 116.2 (60.0-200.0); Albumin 2.9 g/dL (3.8-4.9); Albumin/Globulin Ratio 1.41 (1.60-3.17); Alkaline Phosphatase 98 U/L (41-126); BUN/Creat Ratio 7.68 Ratio (12.00-20.00); Blood Urea Nitrogen 5.5 mg/dL (9.0-27.0); C Reactive Protein <0.30 mg/dL (0.00-0.80); Calcium 7.5 mg/dL (8.7-10.3); Carbon Dioxide 23.5 mmol/L (20.0-27.5); Chloride 105 mmol/L (96-109); Globulin 2.1 g/dL (1.6-3.3); Glucose 148 mg/dL (70-110); Non-African American GFR(CKD) 100.3 (60.0-200.0); Potassium 3.2 mmol/L (3.5-5.5); Sodium 137 mmol/L (135-145)
[2022-06-06] MEDS ORDERED: PEG 3350 (236 GM/BTL) + LYTES 4,000 ML BOTTLE PO ONE (10:00)
[2022-06-06 10:24] LABS: Basophils # (M) 0.07 X 10*3/uL (0.00-0.10); Eosinophils # (M) 0 X 10*3/uL (0.04-0.35); HCT 31.8 % (39.6-50.0); HGB 10.6 g/dL (13.0-17.0); Immature Platelet Fraction 2.5 % (1.1-6.1); Lymphocytes # (M) 1.08 X 10*3/uL (0.90-5.00); MCH 34.5 pg (27.0-32.0); MCHC 33.3 g/dL (32.0-37.0); MCV 103.6 fL (80.0-97.0); Mean Platelet Volume 9.6 fL (9.5-12.2); NRBC Per 100 WBC 0 /100 WBCS (0.0-0.0); Neutrophils # (M) 2.23 X 10*3/uL (2.00-8.90); Neutrophils % (M) 64 %; Platelet Count 54 X 10*3/uL (140-440); RBC 3.07 X 10*6/uL (4.40-5.60); RDW 15.6 % (11.5-14.5); WBC 3.49 X 10*3/uL (4.50-10.00)
--- NOTE | 2022-06-06 10:48 | P.CRDCN ---
History of Present Illness History of present illness: HISTORY OF PRESENTING ILLNESS This is a pleasant 62-year-old male past medical history significant for alcohol abuse,anxiety/depression, mild non-obstructive coronary artery disease, chronic nicotine dependence. 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 We are consulted for increased heart rate. Patient presents to the hospital with alcohol withdrawal, generalized weakness, mechanical fall at home. He states for the past 3 weeks he has been drinking about 5 Twisted tea alcoholic drinks per day. He states he is not sure what happened at home to bring him in but he thinks he slipped and fell. He is a poor historian and unable to explain what exactly happened at home. He denies any chest pain, shortness of breath, abdominal pain nausea, vomiting, palpitations, lightheadedness, or dizziness. He denies a fever, cough, chills.He denies any history of CAD, AK, stroke, diabetes, hypertension, dyslipidemia. He denies a family history of heart disease. DIAGNOSTICS * EKG reveals sinus tachycardia, HR 120 * No telemetry to review. Patient's heart rates improved 60s-70s documented. * CT chest- reported jejunal wall thickening and also right sided colon wall thickening that could be related to some inflammatory bowel disease. No bowel obstruction Dilated urinary bladder consistent with bladder outlet obstruction. * Laboratory reviewed, WBC 3.4, hemoglobin 10.6, platelets 54, sodium 137, potassium 3.2, BUN 5.5, serum, and 0.7, AST 350, ALT 152, total bilirubin 1.5, troponin negative 3, serum alcohol 280 * Current home cardiac medications include none * Echocardiogram 2017 revealed an EF of 5560 percent * Cardiac catheterization in 2017 revealed mid LAD mild irregularities, RCA with mild irregularities in the proximal and midportion. No significant stenosis noted. REVIEW OF SYSTEMS At the time of my exam: CONSTITUTIONAL: Denies fever or chills. CARDIOVASCULAR: Denies chest pain, shortness of breath, orthopnea, PND or palpitations. RESPIRATORY: Denies cough. GASTROINTESTINAL: Denies abdominal pain, diarrhea, constipation, nausea or vomiting. MUSCULOSKELETAL: Denies myalgias. NEUROLOGIC: Denies numbness, tingling, headacbe or weakness. ENDOCRINE: Denies fatigue, weight change, polydipsia or polyurina. GENITOURINARY: Denies burning, hematuria or urgency with micturation. HEMATOLOGIC: Denies history of anemia or bleeding. PHYSICAL EXAMINATION Blood pressure 111/71, heart 69, afebrile, oxygen saturation is 99% on 2 L nasal cannula CONSTITUTIONAL: No apparent distress. HEENT: Head is normocephalic. Pupils are equal, round. Sclerae anicteric. Mucous membranes of the mouth are moist. No JVD. No carotid bruit. CHEST EXAMINATION: Lungs are clear to auscultation. No chest wall tenderness is noted on palpation or with deep breathing. HEART EXAMINATION: Regular rate and rhythm. S1, S2 heard. No murmurs, gallops or rub. ABDOMEN: Soft, nontender. Positive bowel sounds. EXTREMITIES: 2+ peripheral pulses, no lower extremity edema and no calf tenderness. Bilateral upper extremity tremors noted with extension of arms. NEUROLOGIC EXAMINATION: Patient is awake, alert and oriented x3. ASSESSMENT Elevated heart rates, noted to be in sinus mechanism on EKG, heart rates have improved likely related to alcohol withdrawal Generalized weakness Reported mechanical fall at home Alcohol withdrawal Thrombocytopenia Hyponatremia, improved Hypokalemia Lactic acidosis PLAN Echocardiogram reviewed, EF 55%, trace mitral and tricuspid regurgitation, no significant wall motion abnormalities From a cardiology perspective, no further inpatient work up at this time. Rest of management per primary. Nurse practitioner note has been reviewed by physician. Signing provider agrees with the documented findings, assessment, and plan of care. Past Medical History Past Medical History: Hypertension Additional Past Medical History / Comment(s): UNEXPLAINED WT LOSS (12 #), DAUGHTER DEC 2016. History of Any Multi-Drug Resistant Organisms: None Reported Past Surgical History: Heart Catheterization Additional Past Surgical History / Comment(s): Pt states as an infant he had a "pinched" abdominal muscle with surgical repair, colonoscopy Past Anesthesia/Blood Transfusion Reactions: No Reported Reaction Past Psychological History: Anxiety, Depression Additional Psychological History / Comment(s): DUE TO OF HIS DAUGHTER. Smoking Status: Current every day smoker Past Alcohol Use History: Occasional Additional Past Alcohol Use History / Comment(s): DRINKS APPROX 5 BEERS PER DAY Past Drug Use History: Marijuana Additional Drug Use History / Comment(s): OCCASIONAL MARIJUANA USE - Past Family History Mother Family Medical History: No Reported History Additional Family Medical History / Comment(s): . Father Family Medical History: CVA/TIA Additional Family Medical History / Comment(s): Father of a CVA Daughter(s) Additional Family Medical History / Comment(s): ADRENAL GLAND TUMOR. Medications and Allergies Home Medications Medication Instructions Recorded Confirmed Type Ascorbic Acid [Vitamin C] 500 mg PO DAILY 06/04/22 06/04/22 History Cholecalciferol [Vitamin D3 (25 50 mcg PO DAILY 06/04/22 06/04/22 History Mcg = 1000 Iu)] Multivit-Mins/Iron/Folic/Lycop 1 tab PO DAILY 06/04/22 06/04/22 History [Centrum Men's Tablet] Allergies Allergy/AdvReac Type Severity Reaction Status Date / Time No Known Allergies Allergy Verified 06/04/22 23:01 Physical Exam Vitals: Vital Signs Temp Pulse Pulse Resp BP BP Pulse Ox 06/06/22 01:47 98.5 F 71 16 105/69 98 06/05/22 21:37 105 H 16 129/79 95 06/05/22 20:00 105 H 06/05/22 19:51 97.9 F 100 20 104/71 97 06/05/22 17:15 118 H 06/05/22 15:54 98 06/05/22 13:49 126 H 99 06/05/22 13:01 98.4 F 128 H 18 151/94 98 06/05/22 11:28 99.0 F 126 H 18 149/92 94 L 06/05/22 09:15 99.5 F 06/05/22 09:04 129 H 16 144/90 97 06/05/22 08:01 152/103 06/05/22 07:59 121 H 18 157/106 98 06/05/22 07:24 99.4 F 133 H 20 145/105 97 Intake and Output 06/05/22 06/06/22 06/06/22 22:59 06:59 14:59 Output Total 1400 2500 Balance -1400 -2500 Output: Urine 1400 2500 Other: Voiding Method Indwelling Catheter Results 06/06/22 06:25 06/06/22 06:25 Cardiac Enzymes 06/05/22 Range/Units 07:15 AST 570 H (17-59) U/L Comprehensive Metabolic Panel 06/05/22 Range/Units 07:15 Sodium 138 (137-145) mmol/L Potassium 3.6 (3.5-5.1) mmol/L Chloride 111 H (98-107) mmol/L Carbon Dioxide 16 L (22-30) mmol/L BUN <2 L (9-20) mg/dL Creatinine 0.63 L (0.66-1.25) mg/dL Glucose 101 H (74-99) mg/dL Calcium 7.3 L (8.4-10.2) mg/dL AST 570 H (17-59) U/L ALT 195 H (4-49) U/L Alkaline Phosphatase 125 (38-126) U/L Total Protein 6.2 L (6.3-8.2) g/dL Albumin 3.4 L (3.5-5.0) g/dL Current Medications Generic Name Dose Route Start Last Admin Trade Name Freq PRN Reason Stop Dose Admin Clonidine 0.2 mg 06/05/22 16:00 06/05/22 21:37 Clonidine Hcl 0.2 Mg Tab PO 0.2 mg TID JAYSHREE Administration Diazepam 5 mg 06/05/22 18:00 06/06/22 05:20 Diazepam 5 Mg Tab PO 5 mg Q6H JAYSHREE Administration Sodium Chloride 1,000 mls @ 130 mls/hr 06/05/22 13:00 06/06/22 05:25 Saline 0.9% IV 130 mls/hr .[id number] JAYSHREE Administration Ampicillin Sodium/Sulbactam 100 mls @ 200 mls/hr 06/05/22 18:00 06/06/22 05:41 Sodium 3 gm/ Sodium Chloride IVPB 200 mls/hr Q6HR JAYSHREE Administration Protocol Lorazepam 1 mg 06/04/22 23:05 Lorazepam 2 Mg/Ml Inj IV Q2HR PRN CIWA 8 or 9 Lorazepam 1 mg 06/04/22 23:05 06/05/22 06:45 Lorazepam 2 Mg/Ml Inj IV 1 mg Q1HR PRN Administration CIWA 10 to 15 Multivitamins 1 each 06/05/22 09:00 06/05/22 07:41 Multivitamins, Thera 1 Each Tab PO 1 each DAILY JAYSHREE Administration Naloxone HCl 0.2 mg 06/04/22 23:04 Naloxone 0.4 Mg/Ml 1 Ml Vial IV Q2M PRN Opioid Reversal Ondansetron HCl 4 mg 06/04/22 23:04 Ondansetron 4 Mg/2 Ml Vial IVP Q8HR PRN Nausea And Vomiting Pantoprazole Sodium 40 mg 06/06/22 07:30 Pantoprazole 40 Mg Tablet PO AC-BRKFST [facility] Polyethylene Glycol/Electrolytes 4,000 ml 06/06/22 10:00 Peg 3350 (236 Gm/Btl) + Lytes 4,000 Ml Bottle PO 06/06/22 10:01 ONCE ONE Thiamine HCl 100 mg 06/05/22 07:30 06/05/22 17:10 Thiamine 100 Mg Tab PO 100 mg BID-W/MEALS [facility] Administration Intake and Output 06/05/22 06/06/22 06/06/22 22:59 06:59 14:59 Output Total 1400 2500 Balance -1400 -2500 Output: Urine 1400 2500 Other: Voiding Method Indwelling Catheter 06/05/22 03:30 06/05/22 07:15
--- NOTE | 2022-06-06 11:53 | CA ---
Transthoracic Echo Report Name: Troy Hammond Age: 62 Gender: M : 1960 Exam Date: 06/06/2022 10:15 Exam Location: [place] Echo Ht (in): 71 Wt (lb): 165 Ordering Physician: Lurdes Ledezma Attending/Referring Phys: [employer] Vehicle Driver Sendy Tillman RDCS Procedure CPT: Indications: LV function Cardiac Hx: Technical Quality: Good Contrast 1: Total Dose (mL): Contrast 2: Total Dose (mL): MEASUREMENTS (Male / Female) Normal Values 2D ECHO LV Diastolic Diameter PLAX 4.0 cm 4.2 - 5.9 / 3.9 - 5.3 cm LV Systolic Diameter PLAX 2.3 cm IVS Diastolic Thickness 0.9 cm 0.6 - 1.0 / 0.6 - 0.9 cm LVPW Diastolic Thickness 1.0 cm 0.6 - 1.0 / 0.6 - 0.9 cm LV Relative Wall Thickness 0.5 RV Internal Dim ED PLAX 2.4 cm LA Volume 39.4 cm??? 18 - 58 / 22 - 52 cm??? M-MODE Aortic Root Diameter MM 3.4 cm LA Systolic Diameter MM 3.4 cm LA Ao Ratio MM 1.0 MV E Point Septal Separation 0.5 cm AV Cusp Separation MM 1.7 cm DOPPLER AV Peak Velocity 135.3 cm/s AV Peak Gradient 7.3 mmHg MV Area PHT 3.2 cm??? MR Peak Velocity 120.6 cm/s MR Peak Gradient 5.8 mmHg Mitral E Point Velocity 75.2 cm/s Mitral A Point Velocity 91.1 cm/s Mitral E to A Ratio 0.8 MV Deceleration Time 234.1 ms MV E' Velocity 6.6 cm/s Mitral E to MV E' Ratio 11.4 TR Peak Velocity 203.7 cm/s TR Peak Gradient 16.6 mmHg Right Ventricular Systolic Press 20.4 mmHg FINDINGS Left Ventricle Normal Left ventricular size, wall thickness, systolic function with no obvious regional wall motion abnormalities. Normal Left ventricular diastolic filling pattern. Left ventricular ejection fraction is estimated at 55 %. Right Ventricle The right ventricle is normal in size and function. Right Atrium The right atrium is normal in size. Left Atrium The left atrium is normal in size. Mitral Valve Structurally normal mitral valve without significant stenosis or prolapse. There is trace mitral regurgitation. Aortic Valve Structurally normal aortic valve without significant sclerosis or stenosis. There is no aortic regurgitation. Tricuspid Valve Structurally normal tricuspid valve without significant stenosis. Pulmonary artery systolic pressure is normal. Trace tricuspid regurgitation. Pulmonic Valve Structurally normal pulmonic valve without significant stenosis. There is no pulmonic regurgitation. Pericardium Normal pericardium without effusion. Aorta Normal aortic root dimension. CONCLUSIONS Normal left ventricular ejection fraction 55% Trace mitral regurgitation No aortic regurgitation Trace tricuspid regurgitation Previewed by: Dr. Magen Jordan DO (Electronically Signed) Final Date: 06 June 2022 11:53
[2022-06-06] MEDS ORDERED: POTASSIUM CHLORIDE ER 20 MEQ TAB.ER PO STA (12:41)
--- NOTE | 2022-06-06 12:42 | P.PN ---
Subjective Progress Note Date: 06/06/22 CHIEF COMPLAINT: Weakness HISTORY OF PRESENT ILLNESS: Patient is more awake and alert today. Denies any abdominal pain. Patient and nursing report no diarrhea through the night. Patient seen evaluated by cardiology and felt the sinus tachycardia was likely related to alcohol withdrawal. Patient's heart rate is now at 69. Afebrile. WBC is 3.4 Hgb did drop from 13.4-10.6. Patient did receive a lot of IV fluids Platelets are 54 sodium is 137 potassium is 3.2 creatinine 0.7 total bili 1.5 PHYSICAL EXAM: VITAL SIGNS: Reviewed. GENERAL: Well-developed in no acute distress. HEENT: No sclera icterus. Extraocular movements grossly intact. Moist buccal mucosa. Head is atraumatic, normocephalic. ABDOMEN: Soft. Nondistended. Nontender. NEUROLOGIC: Alert and oriented. Cranial nerves II through XII grossly intact. ASSESSMENT: 1. 1. Jejunal wall thickening and right sided colon wall thickening that could be related to some inflammatory bowel disease noted on CAT scan. Patient denies abdominal pain. 2. Diarrhea 3. Alcohol intoxication 4. Dehydration 5. Elevated lactic acid level PLAN: -Patient scheduled for EGD and colonoscopy tomorrow, 06/07/[address] mak -Clear liquid diet today -Start GoLYTELY prep -Nothing by mouth after midnight -Replace potassium Physician Electric Powerline Examiner note has been reviewed by physician. Signing provider agrees with the documented findings, assessment, and plan of care. Objective - Vital Signs Vital signs: Vital Signs Temp 97.9 F 06/06/22 07:47 Pulse 69 06/06/22 07:47 Resp 16 06/06/22 01:47 BP 111/71 06/06/22 07:47 Pulse Ox 99 06/06/22 07:47 FiO2 Intake & Output 06/05/22 06/06/22 06/06/22 18:59 06:59 18:59 Output Total 3200 2500 Balance -3200 -2500 Weight 74.843 kg Output: Urine 3200 2500 Uretheral (Blanchard) 900 Other: Voiding Method Indwelling Catheter Indwelling Catheter - Labs CBC & Chem 7: 06/06/22 06:25 06/06/22 06:25 Labs: Abnormal Lab Results - Last 24 Hours (Table) 06/06/22 06/06/22 Range/Units 06:25 06:25 WBC 3.49 L (4.50-10.00) X 10*3/uL RBC 3.07 L (4.40-5.60) X 10*6/uL Hgb 10.6 L (13.0-17.0) g/dL Hct 31.8 L (39.6-50.0) % MCV 103.6 H (80.0-97.0) fL MCH 34.5 H (27.0-32.0) pg RDW 15.6 H (11.5-14.5) % Plt Count 54 L (140-440) X 10*3/uL Plt Count Comment DECREASED A Monocytes # (Manual) 0.10 L (0.20-1.00) X 10*3/uL Eosinophils # (Manual) 0 L (0.04-0.35) X 10*3/uL Potassium 3.2 L (3.5-5.5) mmol/L Anion Gap 8.90 L (10.00-18.00) mmol/L BUN 5.5 L (9.0-27.0) mg/dL BUN/Creatinine Ratio 7.68 L (12.00-20.00) Ratio Glucose 148 H (70-110) mg/dL Calcium 7.5 L (8.7-10.3) mg/dL Total Bilirubin 1.50 H (0.30-1.20) mg/dL AST 350 H (14-35) U/L ALT 152 H (10-49) U/L Total Protein 5.0 L (6.2-8.2) g/dL Albumin 2.9 L (3.8-4.9) g/dL Albumin/Globulin Ratio 1.41 L (1.60-3.17) g/dL Microbiology - Last 24 Hours (Table) 06/05/22 07:00 Blood Culture - Preliminary Blood No Growth after 24 hours
[2022-06-06] MEDS ORDERED: LORazepam 1 MG/0.5 ML VIAL IV PRN ×2 (14:04→14:07)
[2022-06-06] MEDS: TAMSULOSIN 0.4 MG CAP.ER.24H PO SCH (17:32)
--- NOTE | 2022-06-06 18:35 | P.PN ---
Progress Note - Text Progress Note Date: 06/06/22 Interval history: I am rounding for Dr. Michael Estrada June 06: Patient had diarrhea overnight. Anxious. Some tremors. Due for EGD colonoscopy by surgery tomorrow. On a clear liquid diet. Decreased appetite. Valium added for alcohol withdrawal. Getting IV fluids. Active Medications Clonidine (Clonidine Hcl 0.2 Mg Tab) 0.2 mg PO TID [facility] Last Admin: 06/06/22 17:32 Dose: 0.2 mg Diazepam (Diazepam 5 Mg Tab) 5 mg PO Q8H JAYSHREE Ampicillin Sodium/Sulbactam (Sodium 3 gm/ Sodium Chloride) 100 mls @ 200 mls/hr IVPB Q6HR JAYSHREE; Protocol Last Admin: 06/06/22 17:32 Dose: 200 mls/hr Lactated Ringer's (Lactated Ringers) 1,000 mls @ 125 mls/hr IV .Q8H JAYSHREE Lorazepam (Lorazepam 1 Mg/0.5 Ml Vial) 1 mg IV Q2HR PRN PRN Reason: CIWA 8 or 9 Lorazepam (Lorazepam 1 Mg/0.5 Ml Vial) 1 mg IV Q1HR PRN PRN Reason: CIWA 10 to 15 Magnesium Oxide (Magnesium Oxide 400 Mg Tab) 400 mg PO DAILY [facility] Multivitamins (Multivitamins, Thera 1 Each Tab) 1 each PO DAILY [facility] Last Admin: 06/06/22 08:26 Dose: 1 each Naloxone HCl (Naloxone 0.4 Mg/Ml 1 Ml Vial) 0.2 mg IV Q2M PRN PRN Reason: Opioid Reversal Ondansetron HCl (Ondansetron 4 Mg/2 Ml Vial) 4 mg IVP Q8HR PRN PRN Reason: Nausea And Vomiting Pantoprazole Sodium (Pantoprazole 40 Mg Tablet) 40 mg PO AC-BRKFST [facility] Last Admin: 06/06/22 08:26 Dose: 40 mg Tamsulosin HCl (Tamsulosin 0.4 Mg Cap.Er.24h) 0.4 mg PO PC-SUPPER [facility] Last Admin: 06/06/22 17:32 Dose: 0.4 mg Thiamine HCl (Thiamine 100 Mg Tab) 100 mg PO BID-W/MEALS [facility] Last Admin: 06/06/22 17:32 Dose: 100 mg On examination: VITAL SIGNS: [97.9, 69, 111/71, 99% on 2 L] GENERAL APPEARANCE: . Lying in bed, anxious. Tremors HEENT: Normal external appearance of nose and ear. Oral cavity normal EYES: Pupils equal. Conjunctiva normal. NECK: JVD not raised. Mass not palpable. RESPIRATORY: Respiratory effort normal. Lungs clear to auscultation. CARDIOVASCULAR: First and second sounds normal. No edema. ABDOMEN: Soft. Liver and spleen not palpable. No tenderness. No mass palpable. Blanchard catheter PSYCHIATRY: Alert and oriented x3. Mood and affect anxious INVESTIGATIONS, reviewed in the clinical context: White count 3.4 hemoglobin 10.6 platelets 54 sodium 137 potassium 3.2 creatinine 0.7 total bilirubin 7.5 AST 350 ALT 152 pro-calcitonin 0.08 2-D echocardiogram: EF 55% CT abdomen: Wall thickening of the multiple loops of jejunum in the left side of the abdomen. Also right-sided colon wall thickening. Assessment and plan: -Possible acute ileitis . Some thickening of the right side of the colon wall. Patient scheduled for EGD colonoscopy by surgery. Consult GI. Empirically and IV Unasyn -Likely alcoholic hepatitis with significantly elevated bilirubin. Liver ultrasound. Acute hepatitis panel. Consult GI. Repeat labs -Alcohol withdrawal syndrome, uncontrolled Had Valium 5 mg every 8. CIWA scale. -Alcohol use disorder Thiamine supplement. At multivitamins -Bladder dysfunction Seen by urology. Flomax added. Has a Blanchard catheter.
[2022-06-06] MEDS: MAGNESIUM OXIDE 400 MG TAB PO SCH (21:58)
[2022-06-06] MEDS: LACTATED RINGERS 1,000 ML IV SCH (22:02)
[2022-06-07] MEDS: AMPICILLIN-SULBACTAM 3 GM in SODIUM CHLORIDE 0.9% 100 ML IVPB SCH ×5 (00:15→23:28)
[2022-06-07] MEDS: LACTATED RINGERS 1,000 ML IV SCH ×3 (05:37→13:55)
[2022-06-07] MEDS: diazePAM 5 MG TAB PO SCH ×3 (05:57→19:30)
[2022-06-07 06:57] LABS: HCT 32.2 % (39.0-53.0); HGB 10.7 gm/dL (13.0-17.5); MCH 35.6 pg (25.0-35.0); MCHC 33.3 g/dL (31.0-37.0); MCV 107.1 fL (80.0-100.0); Macrocytosis Moderate; Mean Platelet Volume 8.1; RBC 3.01 m/uL (4.30-5.90); RDW 14.6 % (11.5-15.5); WBC 3.2 k/uL (3.8-10.6)
[2022-06-07 07:05] LABS: Platelet Count 49 k/uL (150-450)
[2022-06-07] MEDS: MAGNESIUM OXIDE 400 MG TAB PO SCH (07:18)
[2022-06-07] MEDS: MULTIVITAMINS, THERA 1 EACH TAB PO SCH (07:18)
[2022-06-07] MEDS: PANTOPRAZOLE 40 MG TABLET PO SCH (07:18)
[2022-06-07] MEDS: THIAMINE 100 MG TAB PO SCH ×2 (07:18→17:32)
[2022-06-07 07:25] LABS: ALT 154 U/L (4-49); AST 372 U/L (17-59); African American GFR (CKD) >90 (>60 ml/min/1.73 sqM); Albumin 2.7 g/dL (3.5-5.0); Albumin/Globulin Ratio 1.1; Alkaline Phosphatase 100 U/L (38-126); Anion Gap 2 mmol/L; Blood Urea Nitrogen 3 mg/dL (9-20); Calcium 7.9 mg/dL (8.4-10.2); Carbon Dioxide 24 mmol/L (22-30); Chloride 107 mmol/L (98-107); Globulin 2.4 g/dL; Glucose 110 mg/dL (74-99); Magnesium 1.6 mg/dL (1.6-2.3); Non-African American GFR(CKD) >90 (>60 ml/min/1.73 sqM); Potassium 3.2 mmol/L (3.5-5.1); Sodium 133 mmol/L (137-145); Total Protein 5.1 g/dL (6.3-8.2)
[2022-06-07] MEDS ORDERED: POTASSIUM CHLORIDE ER 20 MEQ TAB.ER PO STA (07:55)
[2022-06-07] MEDS: cloNIDine HCL 0.2 MG TAB PO SCH ×3 (08:18→21:15)
--- NOTE | 2022-06-07 09:05 | US ---
EXAMINATION TYPE: US abdomen limited DATE OF EXAM: 06/07/2022 COMPARISON: NONE CLINICAL HISTORY: Elevated liver enzymes.. EXAM MEASUREMENTS: Liver Length: 20.2 cm Gallbladder Wall: 0.4 cm CBD: 0.3 cm Right Kidney: 10.5 x 4.8 x. 5.5 cm Extensive midline bowel gas, supine inpatient unable to move for examiner Pancreas: Mostly obscured by bowel gas Liver: attenuating and enlarged Gallbladder: wall slightly thickened, some possible sludge Evidence for sonographic Tobin's sign: No CBD: very difficult to visualize Right Kidney: No hydronephrosis or masses seen, inferior pole obscured by overlying bowel IMPRESSION: 1. Hepatomegaly correlate for hepatocellular disease or hepatitis. 2. Gallbladder wall is thickened measuring 4 mm. There is a small amount sludge but no definite galls tone. Correlate for cholecystitis.
[2022-06-07 09:18] LABS: Hepatitis A Antibody IgM Nonreactive (Nonreactive); Hepatitis B Core IgM Nonreactive (Nonreactive); Hepatitis B Surface Antigen Nonreactive (Nonreactive); Hepatitis C IgG Antibody Nonreactive (Nonreactive)
[2022-06-07] MEDS ORDERED: KETOROLAC 15 MG/ML 1 ML VIAL IVP STA (11:00)
--- NOTE | 2022-06-07 11:33 | XR ---
EXAMINATION TYPE: XR foot complete RT DATE OF EXAM: 06/07/2022 COMPARISON: NONE HISTORY: Pain TECHNIQUE: Three views are submitted. FINDINGS: The osseous structures are intact. There is no acute fracture or dislocation. Mild arthropathy fir st MTP joint. Diffuse osteopenia. Tiny plantar calcaneal spur. IMPRESSION: 1. No acute fracture or dislocation. If symptoms persist, follow-up exam in 7 to 10 days could be ob tained.
[2022-06-07] MEDS ORDERED: PROPOFOL 10 MG/ML 20 ML VIAL IV ONE (11:41)
[2022-06-07] MEDS ORDERED: IV FLUID CONTINUATION 1,000 ML IV ONE ×2 (11:45)
--- NOTE | 2022-06-07 12:01 | P.OP ---
Date of Procedure: 06/07/22 Preoperative Diagnosis: Anemia GI bleed Postoperative Diagnosis: Diverticulosis Possible sigmoid inflammation biopsy pending Procedure(s) Performed: Colonoscopy Anesthesia: MAC Surgeon: Erasmo Cardenas Pathology: other (Sigmoid colon) Condition: stable Disposition: PACU Description of Procedure: The patient's placed on the endoscopy table in the lateral position. He received IV sedation. Digital rectal exam was performed which revealed a few external hemorrhoids. The possible colonoscope was then placed patient anus and passed throughout the colon. The scope couldn't be passed beyond the transverse colon secondary to tortuosity valve. Due to the patient's poor underlying medical condition I did not wish to create a colonic trauma. The scope had several times made to maneuver however this wasn't possible. Scope was withdrawn. In the descending colon there was a mild diverticular changes. In the sigmoid: There is more extensive diverticular changes noted. Was some erythema of the mucosa. This was biopsied. The scope summer back the rectum and this appeared normal. Scope withdrawn for patient.
--- NOTE | 2022-06-07 12:06 | P.PN ---
Subjective This is a pleasant 62-year-old male past medical history significant for alcohol abuse,anxiety/depression, mild non-obstructive coronary artery disease, chronic nicotine dependence. He does not follow with a field care advocate. We are consulted for increased heart rate. Patient presents to the hospital with alcohol withdrawal, generalized weakness, mechanical fall at home. He states for the past 3 weeks he has been drinking about 5 Twisted tea alcoholic drinks per day. He states he is not sure what happened at home to bring him in but he thinks he slipped and fell. He is a poor historian and unable to explain what exactly happened at home. He denies any chest pain, shortness of breath, abdominal pain nausea, vomiting, palpitations, lightheadedness, or dizziness. He denies a fever, cough, chills.He denies any history of CAD, MT, stroke, diabetes, hypertension, dyslipidemia. He denies a family history of heart disease. DIAGNOSTICS * EKG reveals sinus tachycardia, HR 120 * CT chest- reported jejunal wall thickening and also right sided colon wall thickening that could be related to some inflammatory bowel disease. No bowel obstruction Dilated urinary bladder consistent with bladder outlet obstruction. * Current home cardiac medications include none * Cardiac catheterization in 2017 revealed mid LAD mild irregularities, RCA with mild irregularities in the proximal and midportion. No significant stenosis noted. 06/07/2022 Patient seen and examined at bedside, distress. He denies any chest pain or shortness of breath. His heart rate improved. His vital signs are stable. Endorses some right foot pain. Echocardiogram reviewed, EF 55%, trace mitral and tricuspid regurgitation, no significant wall motion abnormalities PHYSICAL EXAMINATION Vitals reviewed CONSTITUTIONAL: No apparent distress. HEENT: Neck Supple. No JVD. No carotid bruit. CHEST EXAMINATION: Lungs are clear to auscultation. No chest wall tenderness is noted on palpation or with deep breathing. HEART EXAMINATION: Regular rate and rhythm. S1, S2 heard. No murmurs, gallops or rub. ABDOMEN: Soft, nontender. Positive bowel sounds. EXTREMITIES: 2+ peripheral pulses, no lower extremity edema and no calf tenderness. Bilateral upper extremity tremors noted with extension of arms. NEUROLOGIC EXAMINATION: Patient is awake, alert and oriented x3. ASSESSMENT Elevated heart rates, noted to be in sinus mechanism on EKG, heart rates have improved likely related to alcohol withdrawal Generalized weakness Reported mechanical fall at home Alcohol withdrawal Thrombocytopenia Hyponatremia, improved Hypokalemia Lactic acidosis PLAN Echocardiogram reviewed, EF 55%, trace mitral and tricuspid regurgitation, no significant wall motion abnormalities Replace potassium per protocol Monitor renal function and electrolytes From a cardiology perspective, no further inpatient work up at this time. Rest of management per primary. We will follow the patient as needed. Nurse practitioner note has been reviewed by physician. Signing provider agrees with the documented findings, assessment, and plan of care. Objective - Vital Signs Vital signs: Vital Signs Temp 97.4 F L 06/07/22 08:22 Pulse 64 06/07/22 08:22 Resp 16 06/07/22 08:22 BP 129/84 06/07/22 08:22 Pulse Ox 97 06/07/22 08:22 FiO2 Intake & Output 06/06/22 06/07/22 06/07/22 18:59 06:59 18:59 Output Total 700 900 Balance -700 -900 Output: Urine 700 900 Uretheral (Blanchard) 700 900 Other: Voiding Method Indwelling Catheter Indwelling Catheter Indwelling Catheter # Voids 3 # Bowel Movements 3 2 - Labs CBC & Chem 7: 06/07/22 06:32 06/07/22 06:32 Labs: Abnormal Lab Results - Last 24 Hours (Table) 06/07/22 06/07/22 06/07/22 Range/Units 06:32 06:32 06:32 WBC 3.2 L (3.8-10.6) k/uL RBC 3.01 L (4.30-5.90) m/uL Hgb 10.7 L (13.0-17.5) gm/dL Hct 32.2 L (39.0-53.0) % MCV 107.1 H (80.0-100.0) fL MCH 35.6 H (25.0-35.0) pg Plt Count 49 L (150-450) k/uL Sodium 133 L (137-145) mmol/L Potassium 3.2 L (3.5-5.1) mmol/L BUN 3 L (9-20) mg/dL Creatinine 0.59 L (0.66-1.25) mg/dL Glucose 110 H (74-99) mg/dL Uric Acid 3.4 L (3.5-8.5) mg/dL Calcium 7.9 L (8.4-10.2) mg/dL AST 372 H (17-59) U/L ALT 154 H (4-49) U/L Total Protein 5.1 L (6.3-8.2) g/dL Albumin 2.7 L (3.5-5.0) g/dL Microbiology - Last 24 Hours (Table) 06/05/22 07:00 Blood Culture - Preliminary Blood No Growth after 48 hours
--- NOTE | 2022-06-07 12:27 | P.CONS ---
History of Present Illness - Reason for Consult Consult date: 06/07/22 Diarrhea, abdominal pain Requesting physician: John Pagan - Chief Complaint Fall - History of Present Illness This is a 62-year-old male with a past medical history of hypertension and alcohol use for the last 10 years duration. He states he drinks 5-7 beers daily. He presented to the emergency department with weakness and sustaining a fall at home and was reportedly intoxicated. He is complaining of right lower extremity pain and foot pain states he is not able to put pressure on it. He denies any abdominal pain, nausea or vomiting. States he had diarrhea the morning that he came in to the hospital but none since then. He denies any sick contacts, any recent traveling and no recent antibiotics. He denies any previous history of liver disease. He underwent a CT of the abdomen and pelvis that reported jejunal wall thickening and also right-sided colon wall thickening that could relate to some inflammatory bowel disease. No bowel obstruction. Dilated urinary bladder consistent with bladder outlet obstruction. Bowel and urinary bladder abnormality appear new compared to exam. Gen. surgery was consulted for the above and patient is scheduled for EGD and colonoscopy today. Gastroenterology was consulted for diarrhea and abdominal pain. Again patient denies any abdominal pain, states he has no diarrhea other than related to his bowel prep. States the diarrhea resolved after the morning he came in. He denies any fevers or chills. Yesterday patient underwent abdominal ultrasound for elevated liver enzymes reporting hepatomegaly correlate for hepatocellular disease or hepatitis. Gallbladder wall is thickened measuring 4 mm. There is small amount of sludge but no definite gallstone. Correlate for cholecystitis. CBD 0.3 cm Labs: WBC 3.2 hemoglobin 10.7 hematocrit 32.2 platelet count 49,000 sodium 133 potassium 3.2 BUN 3 creatinine 0.59 total bilirubin 1.0 AST 372 ALT 154 ALK phosphatase 100. Acute hepatitis panel nonreactive Review of Systems REVIEW OF SYSTEMS: CARDIOPULMONARY: No chest pain or shortness of breath. Gastrointestinal: No abdominal pain. No nausea or vomiting. No hematemesis, coffee-ground emesis. No diarrhea. No rectal bleeding, or melena. GENITOURINARY: No dysuria or hematuria. MUSCULOSKELETAL: Reports normal range of motion. Right lower extremity pain and bruising. SKIN: No rashes. No jaundice. ENDOCRINE: No chills, fevers. No excessive weight gain or loss. No polydipsia or polyuria. PSYCHIATRIC: Unremarkable. NEUROLOGY: No change in mental status. Denies dizziness, headache. ENT: Vision unremarkable. CONSTITUTIONAL: No recent weight loss. No fever, chills, night sweats. Past Medical History Past Medical History: Hypertension Additional Past Medical History / Comment(s): UNEXPLAINED WT LOSS (12 #), DAUGHTER DEC 2016. History of Any Multi-Drug Resistant Organisms: None Reported Past Surgical History: Heart Catheterization Additional Past Surgical History / Comment(s): Pt states as an infant he had a "pinched" abdominal muscle with surgical repair, colonoscopy Past Anesthesia/Blood Transfusion Reactions: No Reported Reaction Past Psychological History: Anxiety, Depression Additional Psychological History / Comment(s): DUE TO OF HIS DAUGHTER. Smoking Status: Current every day smoker Past Alcohol Use History: Occasional Additional Past Alcohol Use History / Comment(s): DRINKS APPROX 5 BEERS PER DAY Past Drug Use History: Marijuana Additional Drug Use History / Comment(s): OCCASIONAL MARIJUANA USE - Past Family History Mother Family Medical History: No Reported History Additional Family Medical History / Comment(s): . Father Family Medical History: CVA/TIA Additional Family Medical History / Comment(s): Father of a CVA Daughter(s) Additional Family Medical History / Comment(s): ADRENAL GLAND TUMOR. Medications and Allergies Home Medications Medication Instructions Recorded Confirmed Type Ascorbic Acid [Vitamin C] 500 mg PO DAILY 06/04/22 06/04/22 History Cholecalciferol [Vitamin D3 (25 50 mcg PO DAILY 06/04/22 06/04/22 History Mcg = 1000 Iu)] Multivit-Mins/Iron/Folic/Lycop 1 tab PO DAILY 06/04/22 06/04/22 History [Centrum Men's Tablet] Allergies Allergy/AdvReac Type Severity Reaction Status Date / Time No Known Allergies Allergy Verified 06/04/22 23:01 Physical Exam Vitals: Vital Signs Temp Pulse Pulse Resp BP BP Pulse Ox 06/07/22 08:22 97.4 F L 64 16 129/84 97 06/07/22 07:57 97.4 F L 64 16 129/84 97 06/07/22 01:43 97.6 F 55 L 18 114/75 94 L 06/06/22 19:29 97.4 F L 75 18 99/65 95 06/06/22 14:00 97.5 F L 63 108/67 97 Intake and Output 06/06/22 06/07/22 06/07/22 22:59 06:59 14:59 Output Total 700 900 Balance -700 -900 Output: Urine 700 900 Uretheral (Blanchard) 700 900 Other: Voiding Method Indwelling Catheter Indwelling Catheter # Voids 3 # Bowel Movements 3 2 General appearance: The patient is alert, oriented, appears in no acute distress. HET: Head is normocephalic and atraumatic. Conjunctiva pink. Sclera anicteric. Neck: Supple without lymphadenopathy. Trachea midline. Heart: S1 S2. Regular rate and rhythm. Lungs: Clear to auscultation. Abdomen: Soft, nontender, nondistended with bowel sounds. No guarding or rigidity. Skin: No rashes. No jaundice. Extremities: Normal skin color and turgor. Lower extremity edema. Right lower extremity with multiple abrasions and bruising to the right foot. Neurological: No focal deficits. Alert and oriented x3. Results CBC & Chem 7: 06/07/22 06:32 06/07/22 06:32 Labs: Abnormal Lab Results - Last 24 Hours (Table) 06/06/22 06/06/22 06/07/22 Range/Units 06:25 06:25 06:32 WBC 3.49 L 3.2 L (4.50-10.00) X 10*3/uL RBC 3.07 L 3.01 L (4.40-5.60) X 10*6/uL Hgb 10.6 L 10.7 L (13.0-17.0) g/dL Hct 31.8 L 32.2 L (39.6-50.0) % MCV 103.6 H 107.1 H (80.0-97.0) fL MCH 34.5 H 35.6 H (27.0-32.0) pg RDW 15.6 H (11.5-14.5) % Plt Count 54 L 49 L (140-440) X 10*3/uL Plt Count Comment DECREASED A Monocytes # (Manual) 0.10 L (0.20-1.00) X 10*3/uL Eosinophils # (Manual) 0 L (0.04-0.35) X 10*3/uL Sodium (137-145) mmol/L Potassium 3.2 L (3.5-5.5) mmol/L Anion Gap 8.90 L (10.00-18.00) mmol/L BUN 5.5 L (9.0-27.0) mg/dL Creatinine (0.66-1.25) mg/dL BUN/Creatinine Ratio 7.68 L (12.00-20.00) Ratio Glucose 148 H (70-110) mg/dL Calcium 7.5 L (8.7-10.3) mg/dL Total Bilirubin 1.50 H (0.30-1.20) mg/dL AST 350 H (14-35) U/L ALT 152 H (10-49) U/L Total Protein 5.0 L (6.2-8.2) g/dL Albumin 2.9 L (3.8-4.9) g/dL Albumin/Globulin Ratio 1.41 L (1.60-3.17) g/dL 06/07/ Range/Units 06:32 WBC (4.50-10.00) X 10*3/uL RBC (4.40-5.60) X 10*6/uL Hgb (13.0-17.0) g/dL Hct (39.6-50.0) % MCV (80.0-97.0) fL MCH (27.0-32.0) pg RDW (11.5-14.5) % Plt Count (140-440) X 10*3/uL Plt Count Comment Monocytes # (Manual) (0.20-1.00) X 10*3/uL Eosinophils # (Manual) (0.04-0.35) X 10*3/uL Sodium 133 L (137-145) mmol/L Potassium 3.2 L (3.5-5.5) mmol/L Anion Gap (10.00-18.00) mmol/L BUN 3 L (9.0-27.0) mg/dL Creatinine 0.59 L (0.66-1.25) mg/dL BUN/Creatinine Ratio (12.00-20.00) Ratio Glucose 110 H (70-110) mg/dL Calcium 7.9 L (8.7-10.3) mg/dL Total Bilirubin (0.30-1.20) mg/dL AST 372 H (14-35) U/L ALT 154 H (10-49) U/L Total Protein 5.1 L (6.2-8.2) g/dL Albumin 2.7 L (3.8-4.9) g/dL Albumin/Globulin Ratio (1.60-3.17) g/dL Microbiology - Last 24 Hours (Table) 06/05/22 07:00 Blood Culture - Preliminary Blood No Growth after 24 hours Comments: Reports reviewed as stated in the HPI CT scan - abdomen: report reviewed US - abdomen: report reviewed Assessment and Plan (1) Diarrhea Narrative/Plan: 62-year-old male who presented for weakness, alcohol intoxication and fall at home. He apparently was complaining of diarrhea the morning prior to coming and which he states he went all morning. He states it was loose but no blood in his stool. He came in and had a CT of the abdomen and pelvis showing jejunal wall thickening also right colon wall thickening. Surgery was consulted and patient is scheduled for EGD and colonoscopy today. He is without any further complaints of diarrhea since his admission. He denies any abdominal pain. We'll await findings from EGD and colonoscopy. Current Visit: Yes Status: Acute Code(s): R19.7 - DIARRHEA, UNSPECIFIED SNOMED Code(s): 34668801 (2) Transaminitis Narrative/Plan: Elevated LFTs likely related to underlying alcoholic liver disease. Patient denies any previous history of alcoholic liver disease however has a 10 year history of heavy alcohol abuse. Patient came in intoxicated. Initially total bilirubin was 1.5 AST 350 ALT 152 and alkaline phosphatase 98 with repeat total bilirubin 1.0 AST 372 ALT 154 alkaline phosphatase 100. Acute hepatitis panel was ordered and nonreactive. Abdominal ultrasound is showing hepatomegaly with attenuation, correlate for hepatocellular disease or hepatitis. There was also gallbladder wall thickening measuring 4 mm small amount of sludge but no definite gallstones correlate for cholecystitis. Gen. surgery is already following. Current Visit: Yes Status: Acute Code(s): R74.01 - ELEVATION OF LEVELS OF LIVER TRANSAMINASE LEVELS SNOMED Code(s): 226577289 (3) Alcohol intoxication Current Visit: Yes Status: Acute Code(s): F10.929 - ALCOHOL USE, UNSPECIFIED WITH INTOXICATION, UNSPECIFIED SNOMED Code(s): 36758865 (4) Weakness Current Visit: Yes Status: Acute Code(s): R53.1 - WEAKNESS SNOMED Code(s): 99208671 Plan: 1. Continue symptomatic and supportive care 2. Patient scheduled for EGD and colonoscopy with general surgery await findings 3. Alcohol abstinence 4. Monitor for alcohol withdrawal 5. Continue medical management 6. Follow-up gastroenterology outpatient for further surveillance Thank you for this consultation, we will continue to follow. Dr. Ellen Barton I agree with the dictator's note, documented as a scribe by Lorie Benson.
[2022-06-07] MEDS ORDERED: MAGNESIUM SULFATE-D5W PMX 1 GM in DEXTROSE/WATER 1 100ML.BAG IVPB ONE (12:47)
[2022-06-07] MEDS ORDERED: ONDANSETRON 4 MG/2 ML VIAL IVP ONE (12:47)
[2022-06-07] MEDS ORDERED: HYDROmorphone 0.5 MG/0.5 ML SYRINGE IVP PRN (12:47)
[2022-06-07] MEDS ORDERED: LIDOCAINE 1% (10MG/ML) FOR IV START INTRADERMA PRN (12:47)
[2022-06-07] MEDS ORDERED: METOCLOPRAMIDE 5 MG/ML 2 ML VIAL IVP PRN (12:47)
[2022-06-07] MEDS ORDERED: DEXAMETHASONE SOD PHOSPHATE 4 MG/ML 1 ML VIAL IV ONE (12:47)
[2022-06-07] MEDS: TAMSULOSIN 0.4 MG CAP.ER.24H PO SCH (19:30)
[2022-06-08] MEDS: ACETAMINOPHEN TAB 325 MG TAB PO STA ×2 (01:56→07:15)
[2022-06-08] MEDS: diazePAM 5 MG TAB PO SCH ×3 (04:11→21:13)
[2022-06-08] MEDS: AMPICILLIN-SULBACTAM 3 GM in SODIUM CHLORIDE 0.9% 100 ML IVPB SCH ×3 (06:19→17:33)
[2022-06-08] MEDS: LACTATED RINGERS 1,000 ML IV SCH ×3 (07:18→16:58)
[2022-06-08] MEDS: MULTIVITAMINS, THERA 1 EACH TAB PO SCH (08:34)
[2022-06-08] MEDS: MAGNESIUM OXIDE 400 MG TAB PO SCH (08:34)
[2022-06-08] MEDS: cloNIDine HCL 0.2 MG TAB PO SCH ×3 (08:34→21:13)
[2022-06-08] MEDS: THIAMINE 100 MG TAB PO SCH ×2 (08:34→17:33)
[2022-06-08] MEDS: PANTOPRAZOLE 40 MG TABLET PO SCH (08:35)
[2022-06-08] MEDS: ACETAMINOPHEN TAB 325 MG TAB PO PRN ×2 (10:21→21:13)
--- NOTE | 2022-06-08 10:23 | XR ---
Right knee HISTORY: Laceration, pain 3 views of the right knee Bone mineralization is reduced, joint spaces and alignment are maintained. Some spurring present at t he patellofemoral joint. There are overlying artifacts. Probable vascular calcifications are noted. N o fracture or dislocation. No radiopaque foreign body. Minimal joint effusion suspected. There is sof t tissue swelling. IMPRESSION: Correlate for overlying artifacts, dressing. Soft tissue swelling. Possible minimal joint effusion.
[2022-06-08 11:27] LABS: African American GFR (CKD) 117.2 (60.0-200.0); Albumin 3.4 g/dL (3.8-4.9); Albumin/Globulin Ratio 1.62 (1.60-3.17); Anion Gap 9.8 mmol/L (10.00-18.00); Calcium 8.3 mg/dL (8.7-10.3); Carbon Dioxide 21.2 mmol/L (20.0-27.5); Globulin 2.1 g/dL (1.6-3.3); Non-African American GFR(CKD) 101.1 (60.0-200.0); Potassium 4.3 mmol/L (3.5-5.5); Total Bilirubin 0.6 mg/dL (0.30-1.20); Total Protein 5.5 g/dL (6.2-8.2)
[2022-06-08 11:55] LABS: Basophils # (A) 0.03 X 10*3/uL (0.00-0.10); Basophils % (A) 0.7 %; Eosinophils # (A) 0.07 X 10*3/uL (0.04-0.35); Eosinophils % (A) 1.7 %; HCT 31.9 % (39.6-50.0); HGB 10.6 g/dL (13.0-17.0); Immature Grans, Automated 0.2 %; Lymphocytes # (A) 1.73 X 10*3/uL (0.90-5.00); Lymphocytes % (A) 42.1 %; MCH 34.3 pg (27.0-32.0); MCHC 33.2 g/dL (32.0-37.0); MCV 103.2 fL (80.0-97.0); Mean Platelet Volume 10.9 fL (9.5-12.2); Monocytes % (A) 12.2 %; NRBC Per 100 WBC 0 /100 WBCS (0.0-0.0); Neutrophils # (A) 1.77 X 10*3/uL (1.80-7.70); Neutrophils % (A) 43.1 %; Platelet Count 50 X 10*3/uL (140-440); RBC 3.09 X 10*6/uL (4.40-5.60); RDW 14.7 % (11.5-14.5); WBC 4.11 X 10*3/uL (4.50-10.00)
[2022-06-08 11:56] LABS: Immature Platelet Fraction 6.8 % (1.1-6.1)
--- NOTE | 2022-06-08 14:08 | P.PN ---
Subjective Progress Note Date: 06/08/22 Principal diagnosis: Weakness, transaminitis This is a 62-year-old male with a past medical history of hypertension and alcohol use for the last 10 years duration. He states he drinks 5-7 beers daily. He presented to the emergency department with weakness and sustaining a fall at home and was reportedly intoxicated. He is complaining of right lower extremity pain and foot pain states he is not able to put pressure on it. He denies any abdominal pain, nausea or vomiting. States he had diarrhea the morning that he came in to the hospital but none since then. He denies any sick contacts, any recent traveling and no recent antibiotics. He denies any previous history of liver disease. He underwent a CT of the abdomen and pelvis that reported jejunal wall thickening and also right-sided colon wall thickening that could relate to some inflammatory bowel disease. No bowel obstruction. Dilated urinary bladder consistent with bladder outlet obstruction. Bowel and u rinary bladder abnormality appear new compared to exam. Gen. surgery was consulted for the above and patient is scheduled for EGD and colonoscopy today. Gastroenterology was consulted for diarrhea and abdominal pain. Again patient denies any abdominal pain, states he has no diarrhea other than related to his bowel prep. States the diarrhea resolved after the morning he came in. He denies any fevers or chills. Yesterday patient underwent abdominal ultrasound for elevated liver enzymes reporting hepatomegaly correlate for hepatocellular disease or hepatitis. Gallbladder wall is thickened measuring 4 mm. There is small amount of sludge but no definite gallstone. Correlate for cholecystitis. CBD 0.3 cm 06/08/2022: Patient seen and examined as a follow-up. Yesterday he underwent co lonoscopy with Dr. Cardenas. Postop diagnosis diverticulosis, possible sigmoid inflammation biopsy pending. Patient denies any diarrhea, abdominal pain, nausea or vomiting. He is still complaining of right leg pain and is going to go down for x-ray.patient actually states that he had been told in the past that he did have underlying alcoholic liver disease. Total bilirubin 0.6 AST 329 ALT 162 alkaline phosphatase 111 Objective - Vital Signs Vital signs: Vital Signs Temp 98.2 F 06/08/22 08:00 Pulse 69 06/08/22 08:00 Resp 16 06/08/22 08:00 BP 112/75 06/08/22 08:00 Pulse Ox 98 06/08/22 08:00 FiO2 Intake & Output 06/07/22 06/08/22 06/08/22 18:59 06:59 18:59 Intake Total 680 240 Output Total 1000 1400 Balance -320 -1160 Intake: IV 200 Oral 480 240 Output: Urine 1000 1400 Other: Voiding Method Indwelling Catheter Indwelling Catheter # Bowel Movements 1 - Exam General appearance: The patient is alert, oriented, appears in no acute distress. HET: Head is normocephalic and atraumatic. Conjunctiva pink. Sclera anicteric. Neck: Supple without lymphadenopathy. Abdomen: Soft, nontender, nondistended with bowel sounds. No guarding or rigidity. Extremities: Normal skin color and turgor. No pedal edema Skin: No rashes, no jaundice. Right lower extremity with multiple abrasions and bruising. Neurological: No focal deficits. Alert and oriented -3. - Labs CBC & Chem 7: 06/08/22 07:30 06/08/22 07:30 Labs: Abnormal Lab Results - Last 24 Hours (Table) 06/07/22 Range/Units 06:32 Uric Acid 3.4 L (3.5-8.5) mg/dL Microbiology - Last 24 Hours (Table) 06/05/22 07:00 Blood Culture - Preliminary Blood No Growth after 72 hours Assessment and Plan (1) Transaminitis Narrative/Plan: Elevated LFTs likely related to underlying alcoholic liver disease. Patient denies any previous history of alcoholic liver disease however has a 10 year history of heavy alcohol abuse. Patient came in intoxicated. Initially total bilirubin was 1.5 AST 350 ALT 152 and alkaline phosphatase 98 with repeat total bilirubin 1.0 AST 372 ALT 154 alkaline phosphatase 100. Acute hepatitis panel was ordered and nonreactive. Abdominal ultrasound is showing hepatomegaly with attenuation, correlate for hepatocellular disease or hepatitis. There was also gallbladder wall thickening measuring 4 mm small amount of sludge but no definite gallstones correlate for cholecystitis. Gen. surgery is already following. Current Visit: Yes Status: Acute Code(s): R74.01 - ELEVATION OF LEVELS OF LIVER TRANSAMINASE LEVELS SNOMED Code(s): 683203325 (2) Diarrhea Narrative/Plan: 62-year-old male who presented for weakness, alcohol intoxication and fall at home. He apparently was complaining of diarrhea the morning prior to coming and which he states he went all morning. He states it was loose but no blood in his stool. He came in and had a CT of the abdomen and pelvis showing jejunal wall thickening also right colon wall thickening. Surgery was consulted and patient is scheduled for EGD and colonoscopy today. He is without any further complaints of diarrhea since his admission. He denies any abdominal pain. We'll await findings from EGD and colonoscopy. Patient underwent colonoscopy with findings of diverticulosis, possible sigmoid inflammation per report from Dr. Cardenas Current Visit: Yes Status: Acute Code(s): R19.7 - DIARRHEA, UNSPECIFIED SNOMED Code(s): 93724908 (3) Alcohol intoxication Current Visit: Yes Status: Acute Code(s): F10.929 - ALCOHOL USE, UNSPECIFIED WITH INTOXICATION, UNSPECIFIED SNOMED Code(s): 79294925 (4) Weakness Current Visit: Yes Status: Acute Code(s): R53.1 - WEAKNESS SNOMED Code(s): 85518103 Plan: 1. Continue symptomatic and supportive care 2. Patient status post colonoscopy 3. Alcohol abstinence 4. Monitor for alcohol withdrawal 5. Continue medical management 6. Follow-up gastroenterology outpatient for further liver surveillance Thank you for this consultation, the patient is cleared from gastroenterology standpoint for discharge. Thank you for allowing us to participate in the care of the patient, the GI service will sign off, gastroenterology will not be available at the hospital this weekend and through next week. If further evaluation by gastroenterology is required the patient will need transfer as per the primary team's discretion. Dr. Ellen Barton I agree with the dictator's note, documented as a scribe by Lorie eBnson.
--- NOTE | 2022-06-08 14:52 | P.CNOR ---
History of Present Illness - [facility] Consult date: 06/08/22 Requesting physician: Edilberto Soto Consult reason: other (Right foot pain) History of present illness: History of Presenting Illness Patient is a pleasant 62-year-old male that presents with right foot pain. When asked about injury to right foot patient stated he was sleeping on his couch and rolled over to turn on light and fell off the couch. Patient stated that both of his feet had gotten caught underneath a cedar chest that was nearby. Patient does state that he has had frequent falls recently. He states that he lives at home with his . Patient reports he does have a son that does not live nearby, and a daughter that had approximately 5 years ago. Patient is currently using a walker when ambulating. He states he does have slight numbness/tingling to bilateral lower extremities that has been present for some time. He denies any chest pain, shortness of breath, or fevers. Review of Systems Pertinent positives and negatives as discussed in HPI, a complete review of systems was performed and all other systems are negative. Physical Examination General: The patient is awake and alert, in no acute distress Skin: Skin is warm and dry with no obvious rashes. Hairy patches absent, no dorsal skin dimples, no cafe au lait spots, and no surgical incisions. Abrasion to right knee, dressing changed 06/08/22 Eye: Pupils are equal, round and reactive to light, extra-ocular movements are intact; there is normal conjunctiva bilaterally. Neck: The neck is supple, there is no tenderness and ROM intact. Cardiovascular: There is a regular rate and rhythm. No murmur, rub or gallop is appreciated. +2 pitting Bilateral pedal edema present. Respiratory: Lungs are clear to auscultation, respirations are non-labored, saray ath sounds are equal. Gastrointestinal: Soft, non-distended, non-tender abdomen. Back: There is no tenderness to palpation in the midline, paralumbar, parathoracic or buttocks region. There is no obvious deformity. Musculoskeletal: ROM limited secondary to pain and stiffness from surgical procedure. Shoulder abduction 5/5, elbow flexors 5/5, wrist dorsiflexors 5/5. finger abductor 5/5, md physician dermatologist 5/5, hip flexor 5/5, knee flexor 4/5, ankle dorsiflexor 4/5, ankle plantarflexion 4/5 and extensor hallucis 4/5. Neurological: CN 2-12 intact. There are no obvious motor or sensory deficits. Movement and coordination equal and intact. Sensory exam to light touch intact C5-T1 and intact from L2-S1. Reflexes 2/4 in bilateral upper and lower extremities. Negative Hoffmans, babinski, and clonus signs. Psychiatric: Cooperative, appropriate mood & affect, normal judgment. Assessment and Plan Right Knee abrasion Right foot pain -Pain management -Daily dressing changes to right knee -Ice and elevate -Patient may follow up in office if symptoms persist. Please contact our service if any further questions. I reviewed and discussed this case with my attending Dr. Soto, whom has reviewed this chart and films and is in agreement with assessment and plan of care as outlined above. I have personally seen and examined the patient, performed the documentation and the assessment and plan as written. Number of minutes spent on the visit: 20m Past Medical History Past Medical History: Hypertension Additional Past Medical History / Comment(s): UNEXPLAINED WT LOSS (12 #), DAUGHTER DEC 2016. History of Any Multi-Drug Resistant Organisms: None Reported Past Surgical History: Heart Catheterization Additional Past Surgical History / Comment(s): Pt states as an he had a "pinched" abdominal muscle with surgical repair, colonoscopy Past Anesthesia/Blood Transfusion Reactions: No Reported Reaction Past Psychological History: Anxiety, Depression Additional Psychological History / Comment(s): DUE TO OF HIS DAUGHTER. Smoking Status: Current every day smoker Past Alcohol Use History: Occasional Additional Past Alcohol Use History / Comment(s): DRINKS APPROX 5 BEERS PER DAY Past Drug Use History: Marijuana Additional Drug Use History / Comment(s): OCCASIONAL MARIJUANA USE - Past Family History Mother Family Medical History: No Reported History Additional Family Medical History / Comment(s): . Father Family Medical History: CVA/TIA Additional Family Medical History / Comment(s): Father of a CVA Daughter(s) Additional Family Medical History / Comment(s): ADRENAL GLAND TUMOR. Medications and Allergies Home Medications Medication Instructions Recorded Confirmed Type Ascorbic Acid [Vitamin C] 500 mg PO DAILY 06/04/22 06/04/22 History Cholecalciferol [Vitamin D3 (25 50 mcg PO DAILY 06/04/22 06/04/22 History Mcg = 1000 Iu)] Multivit-Mins/Iron/Folic/Lycop 1 tab PO DAILY 06/04/22 06/04/22 History [Centrum Men's Tablet] Allergies Allergy/AdvReac Type Severity Reaction Status Date / Time No Known Allergies Allergy Verified 06/04/22 23:01 Physical Examination Osteopathic Statement: *. No significant issues noted on an osteopathic structural exam other than those noted in the History and Physical/Consult. Results - Labs Labs: Abnormal Lab Results - Last 24 Hours (Table) 06/08/22 06/08/22 Range/Units 07:30 07:30 WBC 4.11 L (4.50-10.00) X 10*3/uL RBC 3.09 L (4.40-5.60) X 10*6/uL Hgb 10.6 L (13.0-17.0) g/dL Hct 31.9 L (39.6-50.0) % MCV 103.2 H (80.0-97.0) fL MCH 34.3 H (27.0-32.0) pg RDW 14.7 H (11.5-14.5) % Plt Count 50 L (140-440) X 10*3/uL Plt Count Comment A Neutrophils # 1.77 L (1.80-7.70) X 10*3/uL Immature Plt Fraction 6.8 H (1.1-6.1) % Anion Gap 9.80 L (10.00-18.00) mmol/L BUN 7.0 L (9.0-27.0) mg/dL BUN/Creatinine Ratio 10.00 L (12.00-20.00) Ratio Glucose 141 H (70-110) mg/dL Calcium 8.3 L (8.7-10.3) mg/dL AST 329 H (14-35) U/L ALT 162 H (10-49) U/L Total Protein 5.5 L (6.2-8.2) g/dL Albumin 3.4 L (3.8-4.9) g/dL Microbiology - Last 24 Hours (Table) 06/05/22 07:00 Blood Culture - Preliminary Blood No Growth after 72 hours H & H 06/04/22 06/05/22 06/06/22 Range/Units 21:44 03:30 06:25 Hgb 13.4 13.4 10.6 L (13.0-17.5) gm/dL Hct 40.0 40.7 31.8 L (39.0-53.0) % 06/07/22 06/08/22 Range/Units 06:32 07:30 Hgb 10.7 L 10.6 L (13.0-17.5) gm/dL Hct 32.2 L 31.9 L (39.0-53.0) % Coagulation 06/04/22 Range/Units 21:44 INR 1.3 H (<1.2) Result Diagrams: 06/08/22 07:30 06/08/22 07:30 Assessment and Plan Plan: Agree with above. Patient seen and examined in room. Currently ambulating around halls with walker and states his pain is improving. No orthopedic surgical intervention planned. Patient may follow up in outpatient setting if he fails to improve. -Edilberto Soto DO Orthopedic Surgeon
--- NOTE | 2022-06-08 14:54 | P.PN ---
Subjective Progress Note Date: 06/08/22 CHIEF COMPLAINT: Weakness HISTORY OF PRESENT ILLNESS: Patient is complaining of right foot pain and swell ing and discoloration. Primary care services consulted orthopedics. Patient denies any abdominal pain. Denies any nausea or vomiting. Tolerating regular diet. He is status post colonoscopy that revealed diverticulosis and possible sigmoid inflammation. Biopsy taken. Biopsy of the sigmoid colon was benign. Negative for features of colitis, dysplasia or inflammatory bowel disease. Patient did have an abdominal ultrasound completed due to elevated LFTs. Showing hepatomegaly correlate for hepatocellular disease or hepatitis. Gallbladder wall thickening measuring 4 mm. There is a small amount of sludge but no definite gallstones. Correlate for cholecystitis. Afebrile. WBC is 4.11 Hgb 10.6 platelets 50 total bilirubin 0.6 AST 329 ALT 162 PHYSICAL EXAM: VITAL SIGNS: Reviewed. GENERAL: Well-developed in no acute distress. HEENT: No sclera icterus. Extraocular movements grossly intact. Moist buccal mucosa. Head is atraumatic, normocephalic. ABDOMEN: Soft. Nondistended. Nontender. NEUROLOGIC: Alert and oriented. Cranial nerves II through XII grossly intact. ASSESSMENT: 1. Jejunal wall thickening and right sided colon wall thickening that could be related to some inflammatory bowel disease noted on CAT scan. Patient denies abdominal pain. Status post colonoscopy 2. Gallbladder wall thickening and small amount of sludge with no stones noted on abdominal ultrasound. Patient denies any abdominal pain. He is tolerating diet. 3. Diarrhea resolved 4. Alcohol intoxication 5. Dehydration PLAN: -Further recommendations forthcoming per surgeon -Add low fat diet -Continue supportive care -Continue antibiotics -Recommend alcohol abstinence Physician Flour Mixer Helper note has been reviewed by physician. Signing provider agrees with the documented findings, assessment, and plan of care. Objective - Vital Signs Vital signs: Vital Signs Temp 98.2 F 06/08/22 08:00 Pulse 69 06/08/22 08:00 Resp 16 06/08/22 08:00 BP 112/75 06/08/22 08:00 Pulse Ox 98 06/08/22 08:00 FiO2 Intake & Output 06/07/22 06/08/22 06/08/22 18:59 06:59 18:59 Intake Total 680 240 Output Total 1000 1400 Balance -320 -1160 Intake: IV 200 Oral 480 240 Output: Urine 1000 1400 Other: Voiding Method Indwelling Catheter Indwelling Catheter # Bowel Movements 1 - Labs CBC & Chem 7: 06/08/22 07:30 06/08/22 07:30 Labs: Abnormal Lab Results - Last 24 Hours (Table) 06/08/22 06/08/22 Range/Units 07:30 07:30 WBC 4.11 L (4.50-10.00) X 10*3/uL RBC 3.09 L (4.40-5.60) X 10*6/uL Hgb 10.6 L (13.0-17.0) g/dL Hct 31.9 L (39.6-50.0) % MCV 103.2 H (80.0-97.0) fL MCH 34.3 H (27.0-32.0) pg RDW 14.7 H (11.5-14.5) % Plt Count 50 L (140-440) X 10*3/uL Plt Count Comment A Neutrophils # 1.77 L (1.80-7.70) X 10*3/uL Immature Plt Fraction 6.8 H (1.1-6.1) % Anion Gap 9.80 L (10.00-18.00) mmol/L BUN 7.0 L (9.0-27.0) mg/dL BUN/Creatinine Ratio 10.00 L (12.00-20.00) Ratio Glucose 141 H (70-110) mg/dL Calcium 8.3 L (8.7-10.3) mg/dL AST 329 H (14-35) U/L ALT 162 H (10-49) U/L Total Protein 5.5 L (6.2-8.2) g/dL Albumin 3.4 L (3.8-4.9) g/dL Microbiology - Last 24 Hours (Table) 06/05/22 07:00 Blood Culture - Preliminary Blood No Growth after 72 hours
[2022-06-08] MEDS: TAMSULOSIN 0.4 MG CAP.ER.24H PO SCH (17:33)
--- NOTE | 2022-06-08 19:02 | PN ---
PROGRESS NOTE This 62-year-old white male says he cannot walk on his left leg. We are going to get an orthopedics consult and x-ray his left knee as well as his foot, get PT/OT involved. Apparently he had fallen on that side when he came in; may need to go to a [facility]cc. Will need Orthopedics see him. Continue current treatments that we are giving him. His white count is 4.11, hemoglobin is 10.6, BUN 7, creatinine is 0.7, glucose 141. Lungs clear. Cardiovascular S1, S2. He is giving appropriate answers. It looks like he is breathing okay. Temperature 98.2, blood pressure 127/87, O2 98 on room air. ASSESSMENT: 1. Possible discharge planning for mcc placement due to foot and leg contusion. 2. EGD and colonoscopy were done. He had an ileus. 3. Alcoholic hepatitis. 4. Alcohol withdrawal syndrome. 5. Alcohol use disorder. 6. Bladder dysfunction. PROGNOSIS: Guarded. Follow up as an outpatient. Try to get him into a mcc area. He had a failed colonoscopy. Some biopsies were done. We are waiting for pathology. MMODL / IJN: [id number] /
[2022-06-09] MEDS: AMPICILLIN-SULBACTAM 3 GM in SODIUM CHLORIDE 0.9% 100 ML IVPB SCH ×4 (01:55→17:09)
[2022-06-09] MEDS: ACETAMINOPHEN TAB 325 MG TAB PO PRN ×2 (02:52→08:47)
[2022-06-09] MEDS: diazePAM 5 MG TAB PO SCH ×2 (06:23→12:34)
[2022-06-09] MEDS: MAGNESIUM OXIDE 400 MG TAB PO SCH (08:26)
[2022-06-09] MEDS: cloNIDine HCL 0.2 MG TAB PO SCH ×2 (08:26→17:02)
[2022-06-09] MEDS: MULTIVITAMINS, THERA 1 EACH TAB PO SCH (08:26)
[2022-06-09] MEDS: PANTOPRAZOLE 40 MG TABLET PO SCH (08:26)
[2022-06-09] MEDS: THIAMINE 100 MG TAB PO SCH ×2 (08:26→17:08)
[2022-06-09 10:53] VITALS: BMI 23.0
--- NOTE | 2022-06-09 10:54 | P.PN ---
Progress Note - Text Progress Note Date: 06/09/22 Patient is resting comfortably in his bed. He has minimal complaints of abdominal pain. On exam vital signs are stable. Abdomen soft. Resolving enteritis. Patient also has evidence of chronic cholecystitis. Patient may undergo outpatient cholecystectomy once he is overall condition has improved.
[2022-06-09 14:55] VITALS: BP 110/72; PULSE 68; RESP 16; TEMP 97.3
[2022-06-09] MEDS: TAMSULOSIN 0.4 MG CAP.ER.24H PO SCH (17:08)
--- NOTE | 2022-06-09 17:39 | P.PN ---
Subjective Progress Note Date: 06/06/22 Principal diagnosis: Lactic acidosis Patient is a 62 year old male with a past medical history significant for alcoholism, presented to hospital with weakness in this patient has been drinking all day the day before presentation hospital patient was noticed to have elevated lactic acid, patient did have a seat abdominal pelvis with wall thickening of the multiple loops of the jejunum and dilated urinary bladder status post Blanchard catheter placement. On today's evaluation that is 06/06/2022, the patient denies having any fever or chills, the patient is more awake and alert today, patient is currently breathing comfortably no chest pain shortness of breath or cough no bone pain has been coming up into the right foot area Objective - Vital Signs Vital signs: Vital Signs Temp 97.9 F 06/06/22 07:47 Pulse 69 06/06/22 07:47 Resp 16 06/06/22 01:47 BP 111/71 06/06/22 07:47 Pulse Ox 99 06/06/22 07:47 FiO2 Intake & Output 06/05/22 06/06/22 06/06/22 18:59 06:59 18:59 Output Total 3200 2500 Balance -3200 -2500 Weight 74.843 kg Output: Urine 3200 2500 Uretheral (Blanchard) 900 Other: Voiding Method Indwelling Catheter Indwelling Catheter - Exam GENERAL DESCRIPTION: Middle-aged male lying in bed in no distress RESPIRATORY SYSTEM: Unlabored breathing , decreased breath sounds at bases HEART: S1 S2 regular rate and rhythm , ABDOMEN: Soft , no tenderness EXTREMITIES: Right foot with some bruising, wound to the right knee area - Labs CBC & Chem 7: 06/08/22 07:30 06/08/22 07:30 Labs: Abnormal Lab Results - Last 24 Hours (Table) 06/06/22 06/06/22 Range/Units 06:25 06:25 WBC 3.49 L (4.50-10.00) X 10*3/uL RBC 3.07 L (4.40-5.60) X 10*6/uL Hgb 10.6 L (13.0-17.0) g/dL Hct 31.8 L (39.6-50.0) % MCV 103.6 H (80.0-97.0) fL MCH 34.5 H (27.0-32.0) pg RDW 15.6 H (11.5-14.5) % Plt Count 54 L (140-440) X 10*3/uL Plt Count Comment DECREASED A Monocytes # (Manual) 0.10 L (0.20-1.00) X 10*3/uL Eosinophils # (Manual) 0 L (0.04-0.35) X 10*3/uL Potassium 3.2 L (3.5-5.5) mmol/L Anion Gap 8.90 L (10.00-18.00) mmol/L BUN 5.5 L (9.0-27.0) mg/dL BUN/Creatinine Ratio 7.68 L (12.00-20.00) Ratio Glucose 148 H (70-110) mg/dL Calcium 7.5 L (8.7-10.3) mg/dL Total Bilirubin 1.50 H (0.30-1.20) mg/dL AST 350 H (14-35) U/L ALT 152 H (10-49) U/L Total Protein 5.0 L (6.2-8.2) g/dL Albumin 2.9 L (3.8-4.9) g/dL Albumin/Globulin Ratio 1.41 L (1.60-3.17) g/dL Microbiology - Last 24 Hours (Table) 06/05/22 07:00 Blood Culture - Preliminary Blood No Growth after 24 hours Assessment and Plan (1) Lactic acidosis Current Visit: Yes Status: Acute Code(s): E87.2 - ACIDOSIS SNOMED Code(s): 27022648 Plan: 1patient with presented hospital with weakness patient did have a significant elevated lactic acid level questionably due to his decreased oral intake and alcoholism plus minus abdominal source as the patient did have abnormal CT with evidence of possible enteritis and some inflammation of the right side of the colon questionably ischemic colitis from dehydration and decreased oral intake with relative hypotension. 2patient to continue with Unasyn 3 g every 6 hours in view of clinical response along with IV fluid. Time with Patient: Less than 30
--- NOTE | 2022-06-09 17:41 | P.PN ---
Subjective Progress Note Date: 06/07/22 Principal diagnosis: Lactic acidosis Patient is a 62 year old male with a past medical history significant for alcoholism, presented to hospital with weakness in this patient has been drinking all day the day before presentation hospital patient was noticed to have elevated lactic acid, patient did have a seat abdominal pelvis with wall thickening of the multiple loops of the jejunum and dilated urinary bladder status post Blanchard catheter placement. Patient is status post EGD and colonoscopy with evidence of some sigmoid area inflammation biopsy pending On today's evaluation that is 06/07/2022, the patient remains to be afebrile, the patient is breathing comfortably no chest pain shortness of breath or cough no abdominal pain and no diarrhea reported Objective - Vital Signs Vital signs: Vital Signs Temp 97.7 F 06/07/22 14:43 Pulse 71 06/07/22 14:43 Resp 18 06/07/22 14:43 BP 131/92 06/07/22 14:43 Pulse Ox 99 06/07/22 14:43 FiO2 Intake & Output 06/06/22 06/07/22 06/07/22 18:59 06:59 18:59 Intake Total 200 Output Total 700 900 Balance -700 -900 200 Intake: IV 200 Output: Urine 700 900 Uretheral (Blanchard) 700 900 Other: Voiding Method Indwelling Catheter Indwelling Catheter Indwelling Catheter # Voids 3 # Bowel Movements 3 2 - Exam GENERAL DESCRIPTION: Middle-aged male lying in bed in no distress RESPIRATORY SYSTEM: Unlabored breathing , decreased breath sounds at bases HEART: S1 S2 regular rate and rhythm , ABDOMEN: Soft , no tenderness EXTREMITIES: Right foot with some bruising, wound to the right knee area - Labs CBC & Chem 7: 06/08/22 07:30 06/08/22 07:30 Labs: Abnormal Lab Results - Last 24 Hours (Table) 06/07/22 06/07/22 06/07/22 Range/Units 06:32 06:32 06:32 WBC 3.2 L (3.8-10.6) k/uL RBC 3.01 L (4.30-5.90) m/uL Hgb 10.7 L (13.0-17.5) gm/dL Hct 32.2 L (39.0-53.0) % MCV 107.1 H (80.0-100.0) fL MCH 35.6 H (25.0-35.0) pg Plt Count 49 L (150-450) k/uL Sodium 133 L (137-145) mmol/L Potassium 3.2 L (3.5-5.1) mmol/L BUN 3 L (9-20) mg/dL Creatinine 0.59 L (0.66-1.25) mg/dL Glucose 110 H (74-99) mg/dL Uric Acid 3.4 L (3.5-8.5) mg/dL Calcium 7.9 L (8.4-10.2) mg/dL AST 372 H (17-59) U/L ALT 154 H (4-49) U/L Total Protein 5.1 L (6.3-8.2) g/dL Albumin 2.7 L (3.5-5.0) g/dL Microbiology - Last 24 Hours (Table) 06/05/22 07:00 Blood Culture - Preliminary Blood No Growth after 48 hours Assessment and Plan (1) Lactic acidosis Current Visit: Yes Status: Acute Code(s): E87.2 - ACIDOSIS SNOMED Code(s): 76433500 Plan: 1patient with presented hospital with weakness patient did have a significant elevated lactic acid level questionably due to his decreased oral intake and alcoholism plus minus abdominal source as the patient did have abnormal CT with evidence of possible enteritis and some inflammation of the right side of the colon questionably ischemic colitis , the patient is status post colonoscopy and biopsy which is currently pending, also abnormal ultrasound suspicious for possible chronic cholecystitis Gen. surgery is on the case 2patient to continue with Unasyn 3 g every 6 hours and monitor clinical course closely Time with Patient: Less than 30
--- NOTE | 2022-06-09 17:43 | P.PN ---
Subjective Progress Note Date: 06/08/22 Principal diagnosis: Lactic acidosis Patient is a 62 year old male with a past medical history significant for alcoholism, presented to hospital with weakness in this patient has been drinking all day the day before presentation hospital patient was noticed to have elevated lactic acid, patient did have a seat abdominal pelvis with wall thickening of the multiple loops of the jejunum and dilated urinary bladder status post Blanchard catheter placement. Patient is status post EGD and colonoscopy with evidence of some sigmoid area inflammation biopsy pending On today's evaluation that is 06/08/2022, the patient denies any fever or any chills, the patient is breathing comfortably on room air no chest pain shortness of breath or cough, the patient denies abdominal pain and no diarrhea reported Objective - Vital Signs Vital signs: Vital Signs Temp 97.3 F L 06/08/22 14:00 Pulse 68 06/08/22 14:00 Resp 16 06/08/22 14:00 BP 110/72 06/08/22 14:00 Pulse Ox 97 06/08/22 14:00 FiO2 Intake & Output 06/08/22 13:59 Output Total Balance Weight Output: Urine Uretheral (Blanchard) Other: Voiding Method Indwelling Catheter # Voids 1,500 - Exam GENERAL DESCRIPTION: Middle-aged male lying in bed in no distress RESPIRATORY SYSTEM: Unlabored breathing , decreased breath sounds at bases HEART: S1 S2 regular rate and rhythm , ABDOMEN: Soft , no tenderness EXTREMITIES: Right foot with some bruising, wound to the right knee area - Labs CBC & Chem 7: 06/08/22 07:30 06/08/22 07:30 Labs: Microbiology - Last 24 Hours (Table) 06/05/22 07:00 Blood Culture - Preliminary Blood No Growth after 96 hours Assessment and Plan (1) Lactic acidosis Current Visit: Yes Status: Acute Code(s): E87.2 - ACIDOSIS SNOMED Code(s): 80931701 Plan: 1patient with presented hospital with weakness patient did have a significant elevated lactic acid level questionably due to his decreased oral intake and alcoholism plus minus abdominal source as the patient did have abnormal CT with evidence of possible enteritis and some inflammation of the right side of the colon questionably ischemic colitis , the patient is status post colonoscopy and biopsy which is currently pending, patient also abnormal ultrasound suspicious for possible chronic cholecystitis Gen. surgery is on the case 2patient has showed great improvement and will continue with Unasyn 3 g every 6 hours and monitor clinical course closely Time with Patient: Less than 30
--- NOTE | 2022-06-09 17:45 | P.PN ---
Subjective Progress Note Date: 06/09/22 Principal diagnosis: Lactic acidosis Patient is a 62 year old male with a past medical history significant for alcoholism, presented to hospital with weakness in this patient has been drinking all day the day before presentation hospital patient was noticed to have elevated lactic acid, patient did have a seat abdominal pelvis with wall thickening of the multiple loops of the jejunum and dilated urinary bladder status post Blanchard catheter placement. Patient is status post EGD and colonoscopy with evidence of some sigmoid area inflammation biopsy pending On today's evaluation that is 06/09/2022, the patient remains to be afebrile, the patient is breathing comfortable on room air, patient denies having any chest pain or shortness of breath or cough no abdominal pain or diarrhea has been complaining of some pain to the right foot area Objective - Vital Signs Vital signs: Vital Signs Temp 98.0 F 06/09/22 08:00 Pulse 74 06/09/22 08:25 Resp 18 06/09/22 08:00 BP 110/71 06/09/22 08:25 Pulse Ox 92 L 06/09/22 08:00 FiO2 Intake & Output 06/08/22 06/09/22 06/09/22 18:59 06:59 18:59 Output Total 1300 660 Balance -1300 -660 Weight 74.843 kg Output: Urine 1300 660 Uretheral (Blanchard) 660 Other: Voiding Method Indwelling Catheter Indwelling Catheter Indwelling Catheter # Voids 1,500 - Exam GENERAL DESCRIPTION: Middle-aged male lying in bed in no distress RESPIRATORY SYSTEM: Unlabored breathing , decreased breath sounds at bases HEART: S1 S2 regular rate and rhythm , ABDOMEN: Soft , no tenderness EXTREMITIES: Right foot with some bruising, wound to the right knee area with no slough tissue no surrounding redness - Labs CBC & Chem 7: 06/08/22 07:30 06/08/22 07:30 Labs: Microbiology - Last 24 Hours (Table) 06/05/22 07:00 Blood Culture - Preliminary Blood No Growth after 96 hours Assessment and Plan (1) Lactic acidosis Current Visit: Yes Status: Acute Code(s): E87.2 - ACIDOSIS SNOMED Code(s): 97319345 Plan: 1patient with presented hospital with weakness patient did have a significant elevated lactic acid level questionably due to his decreased oral intake and alcoholism plus minus abdominal source as the patient did have abnormal CT with evidence of possible enteritis and some inflammation of the right side of the colon questionably ischemic colitis , the patient is status post colonoscopy and biopsy was negative for malignancy, patient also abnormal ultrasound suspicious for possible chronic cholecystitis Gen. surgery is on the case recommending outpatient cholecystectomy 2patient has she'll overall clinical improvement on Unasyn antibiotic will be switched over to oral Augmentin for a short course of close outpatient follow-up 3-right knee wound traumatic local wound care with dry Aquacel silver dressing t o change every 48 hours and to follow-up with the wound care center next week Time with Patient: Less than 30
== END 2022-06-09 18:23 | disposition home or self-care (01) | DRG 897 ==
LOC: EC 20:24 → 4SSUR 23:04
PROVIDERS: ADMIT Family Medicine; ATTEND Family Medicine
PROC: 0DBN8ZX Excision of Sigmoid Colon, Via Natural or Artificial Opening Endoscopic, Diagnostic (ICD-10-PCS; principal; 2022-06-07 10:55)
DX: F10.229 Alcohol dependence with intoxication, unspecified (principal); E87.1 Hypo-osmolality and hyponatremia; E87.2 Acidosis; K56.7 Ileus, unspecified; F10.239 Alcohol dependence with withdrawal, unspecified; Y90.8 Blood alcohol level of 240 mg/100 ml or more; Z63.4 Disappearance and death of family member; Z20.822 Contact with and (suspected) exposure to COVID-19; Z28.310 Unvaccinated for COVID-19; Z28.21 Immunization not carried out because of patient refusal; D69.6 Thrombocytopenia, unspecified; D64.9 Anemia, unspecified; E86.0 Dehydration; E87.6 Hypokalemia; F17.210 Nicotine dependence, cigarettes, uncomplicated; I10 Essential (primary) hypertension; I25.10 Atherosclerotic heart disease of native coronary artery without angina pectoris; K52.9 Noninfective gastroenteritis and colitis, unspecified; F32.A Depression, unspecified; K57.30 Diverticulosis of large intestine without perforation or abscess without bleeding; K70.10 Alcoholic hepatitis without ascites; R63.4 Abnormal weight loss; K81.1 Chronic cholecystitis; N32.0 Bladder-neck obstruction; S80.211A Abrasion, right knee, initial encounter; W08.XXXA Fall from other furniture, initial encounter; Y92.009 Unspecified place in unspecified non-institutional (private) residence as the place of occurrence of the external cause; M79.671 Pain in right foot; R29.6 Repeated falls; K64.4 Residual hemorrhoidal skin tags; Z82.3 Family history of stroke; F41.9 Anxiety disorder, unspecified; Z68.23 Body mass index [BMI] 23.0-23.9, adult
CPT/HCPCS: 36415; 45380; 51702; 74177; 76705; 80053; 80074; 80320; 81001; 82140; 82803; 83605; 83690; 83735; 83880; 84100; 84145; 84484; 84550; 85025; 85027; 85610; 85730; 86140; 87040; 87635; 88305; 93005; 93306; 94760; 96361; 96372; 96374; 96375; 96376; 99285

== ENCOUNTER 2023-11-19 00:29 | Emergency (ER) | payer OTHER ==
[2023-11-19 00:59] VITALS: TEMP 97.8
--- NOTE | 2023-11-19 01:33 | ED ---
Fall HPI - General Chief Complaint: Fall Stated Complaint: Leg pain Time Seen by Provider: 11/19/23 00:48 Source: EMS Mode of arrival: EMS - History of Present Illness Initial Comments: 63-year-old male presenting to the ED with a chief complaint of frequent falls. Patient states has history of numbness and tingling of bilateral legs from the knees down. Secondary to this notes he frequently falls however states today had 3 falls due to this. That his lives at home with them and is normally able to help him around the house however notes that she is not home tonight to help him. Patient does note a skin tear on his right upper arm secondary to the fall however denies any other injury. Denies head injury. Not on blood thinners. No other symptoms. Denies chest pain or shortness of breath. No other complaints. - Related Data Home Medications Medication Instructions Recorded Confirmed Ascorbic Acid [Vitamin C] 500 mg PO DAILY 06/04/22 06/04/22 Cholecalciferol [Vitamin D3 (25 50 mcg PO DAILY 06/04/22 06/04/22 Mcg = 1000 Iu)] Multivit-Mins/Iron/Folic/Lycop 1 tab PO DAILY 06/04/22 06/04/22 [Centrum Men's Tablet] Previous Rx's Medication Instructions Recorded Acetaminophen Tab [Tylenol] 650 mg PO Q6HR PRN tab 06/09/22 Amoxic-Pot Clav 875-125Mg 1 tab PO BID 7 Days #14 tab 06/09/22 [Augmentin 875-125] Magnesium Oxide [Mag-Ox] 400 mg PO DAILY 30 Days #30 tab 06/09/22 Pantoprazole [Protonix] 40 mg PO AC-BRKFST 30 Days #30 tab 06/09/22 Tamsulosin [Flomax] 0.4 mg PO PC-SUPPER 30 Days #30 cap 06/09/22 Thiamine [Vitamin B-1] 100 mg PO BID-W/MEALS 30 Days #60 06/09/22 tab cloNIDine HCL [Catapres] 0.2 mg PO TID 30 Days #90 tab 06/09/22 Allergies Allergy/AdvReac Type Severity Reaction Status Date / Time No Known Allergies Allergy Verified 06/04/22 23:01 Review of Systems ROS Statement: Those systems with pertinent positive or pertinent negative responses have been documented in the HPI. ROS Other: All systems not noted in ROS Statement are negative. Past Medical History Past Medical History: Hypertension Additional Past Medical History / Comment(s): UNEXPLAINED WT LOSS (12 #), DAUGHTER DEC 2016. History of Any Multi-Drug Resistant Organisms: None Reported Past Surgical History: Heart Catheterization Additional Past Surgical History / Comment(s): Pt states as an infant he had a "pinched" abdominal muscle with surgical repair, colonoscopy Past Anesthesia/Blood Transfusion Reactions: No Reported Reaction Past Psychological History: Anxiety, Depression Smoking Status: Current every day smoker Past Alcohol Use History: Occasional Past Drug Use History: Marijuana - Past Family History Mother Family Medical History: No Reported History Additional Family Medical History / Comment(s): . Father Family Medical History: CVA/TIA Additional Family Medical History / Comment(s): Father of a CVA Daughter(s) Additional Family Medical History / Comment(s): ADRENAL GLAND TUMOR. General Exam Limitations: no limitations General appearance: alert, in no apparent distress Neck exam: Present: normal inspection Respiratory exam: Present: normal lung sounds bilaterally Cardiovascular Exam: Present: regular rate, normal rhythm GI/Abdominal exam: Present: soft Extremities exam: Present: other (Strength and Sensation in bilateral upper and lower extremities equal and intact. 2+ DP/PT pulses. Radial pulses 2+.) Neurological exam: Present: alert, oriented X3 Skin exam: Present: warm, dry Course Vital Signs 11/19/23 00:33 Temperature 97.8 F Pulse Rate 114 H Respiratory 18 Rate Blood Pressure 123/95 O2 Sat by Pulse 96 Oximetry Medical Decision Making - Medical Decision Making Was pt. sent in by a medical professional or institution (, PA, PILOT TEACHER, urgent care, hospital, or senior care...) When possible be specific @ -No Did you speak to anyone other than the patient for history (EMS, parent, family, police, friend...)? What history was obtained from this source @ -No Did you review nursing and triage notes (agree or disagree)? Why? @ -I reviewed and agree with nursing and triage notes Were old charts reviewed (outside hosp., previous admission, EMS record, old EKG, old radiological studies, urgent care reports/EKG's, senior care records)? Report findings @ -No old charts were reviewed Differential Diagnosis (chest pain, altered mental status, abdominal pain women, abdominal pain men, vaginal bleeding, weakness, fever, dyspnea, syncope, headache, dizziness, GI bleed, back pain, seizure, CVA, palpatations, mental health, musculoskeletal)? @ -Differential Musculoskeletal Muscular strain, contusion, ligament sprain, fracture, arthritis, septic arthritis, bursitis, cellulitis, muscle spasm, nerve compression, DVT, arterial occlusion, herpes zoster, electrolyte abnormality, tumor.... This is not meant to be in all inclusive list EKG interpreted by me (3pts min.). @ -As above X-rays interpreted by me (1pt min.). @ -None done CT interpreted by me (1pt min.). @ -None done U/S interpreted by me (1pt. min.). @ -None done What testing was considered but not performed or refused? (CT, X-rays, U/S, labs)? Why? @ -None What meds were considered but not given or refused? Why? @ -None Did you discuss the management of the patient with other professionals (professionals i.e. , PA, PILOT TEACHER, lab, RT, psych nurse, manager social work, emergency medicine physician, teacher, armoured corps officer, mental health case manager)? Give summary @ -No Was smoking cessation discussed for >3mins.? @ -No Was critical care preformed (if so, how long)? @ -No Were there social determinants of health that impacted care today? How? (Homeles sness, low income, unemployed, alcoholism, drug addiction, transportation, low edu. Level, literacy, decrease access to med. care, [facility], rehab)? @ -No Was there de-escalation of care discussed even if they declined (Discuss DNR or withdrawal of care, Hospice)? DNR status @ -No What co-morbidities impacted this encounter? (DM, HTN, Smoking, COPD, CAD, Cancer, CVA, ARF, Chemo, Hep., AIDS, mental health diagnosis, sleep apnea, morbid obesity)? @ -Alcoholism Was patient admitted / discharged? Hospital course, mention meds given and route, prescriptions, significant lab abnormalities, going to OR and other pertinent info. @ -Discharge 63-year-old male presenting with complaints of neuropathy of his bilateral lower extremities for the past few months and frequent falls secondary to this however no injuries due to the fall. Laboratory studies reviewed. CBC largely unremarkable. CMP shows some transaminitis consistient with history of alchol abuse. Glucose elevated at 283. At this time, patient discharged home in stable condition. Patient provided B12 and folate. Tetanus updated. Discussed return precautions with patient who verbalized agreement. Undiagnosed new problem with uncertain prognosis? @ -No Drug Therapy requiring intensive monitoring for toxicity (Heparin, Nitro, Insulin, Cardizem)? @ -No Were any procedures done? @ -No Diagnosis/symptom? @ -Paresthesias of BLE, falls, alcoholism Acute, or Chronic, or Acute on Chronic? @ -Acute Uncomplicated (without systemic symptoms) or Complicated (systemic symptoms)? @ -Uncomplicated Side effects of treatment? @ -No Exacerbation, Progression, or Severe Exacerbation? @ -No Poses a threat to life or bodily function? How? (Chest pain, [place], [place], pneumonia, PE, COPD, DKA, ARF, appy, cholecystitis, CVA, Diverticulitis, Homicidal, Suicidal, threat to staff... and all critical care pts) @ -No - Lab Data Result diagrams: 11/19/23 02:21 11/19/23 02:21 Lab Results 11/19/23 11/19/23 Range/Units 02:21 02:21 WBC 3.4 L (3.8-10.6) k/uL RBC 4.01 L (4.30-5.90) m/uL Hgb 12.3 L (13.0-17.5) gm/dL Hct 38.9 L (39.0-53.0) % MCV 96.9 (80.0-100.0) fL MCH 30.5 (25.0-35.0) pg MCHC 31.5 (31.0-37.0) g/dL RDW 14.6 (11.5-15.5) % Plt Count 79 L (150-450) k/uL MPV 7.4 Neutrophils % (Manual) 38 % Band Neuts % (Manual) 3 % Lymphocytes % (Manual) 53 % Monocytes % (Manual) 6 % Neutrophils # (Manual) 1.30 (1.3-7.7) k/uL Lymphocytes # (Manual) 1.80 (1.0-4.8) k/uL Monocytes # (Manual) 0.20 (0-1.0) k/uL Nucleated RBCs 0 (0-0) /100 WBC Manual Slide Review Performed Polychromasia Present Target Cells Present Stomatocytes Present Sodium 135 L (137-145) mmol/L Potassium 4.6 (3.5-5.1) mmol/L Chloride 98 (98-107) mmol/L Carbon Dioxide 17 L (22-30) mmol/L Anion Gap 20 mmol/L BUN 4 L (9-20) mg/dL Creatinine 0.49 L (0.66-1.25) mg/dL Est GFR (CKD-EPI)AfAm >90 (>60 ml/min/1.73 sqM) Est GFR (CKD-EPI)NonAf >90 (>60 ml/min/1.73 sqM) Glucose 283 H (74-99) mg/dL Calcium 8.8 (8.4-10.2) mg/dL Magnesium 1.6 (1.6-2.3) mg/dL Total Bilirubin 0.7 (0.2-1.3) mg/dL AST 160 H (17-59) U/L ALT 113 H (4-49) U/L Alkaline Phosphatase 222 H (38-126) U/L Total Protein 6.9 (6.3-8.2) g/dL Albumin 4.1 (3.5-5.0) g/dL Serum Alcohol 175 mg/dL Disposition Clinical Impression: Falls, Paresthesia Disposition: HOME SELF-CARE Condition: Good Additional Instructions: Please return to the Emergency Department if symptoms worsen or any other c oncerns. Please follow up with your PCP. Is patient prescribed a controlled substance at d/c from ED?: No Referrals: Juan José Khan DO [Primary Care Provider] - 1-2 days Time of Disposition: 03:40
[2023-11-19 02:37] LABS: ALT 113 U/L (4-49); AST 160 U/L (17-59); African American GFR (CKD) >90 (>60 ml/min/1.73 sqM); Albumin 4.1 g/dL (3.5-5.0); Alkaline Phosphatase 222 U/L (38-126); Anion Gap 20 mmol/L; Blood Urea Nitrogen 4 mg/dL (9-20); Calcium 8.8 mg/dL (8.4-10.2); Carbon Dioxide 17 mmol/L (22-30); Chloride 98 mmol/L (98-107); Glucose 283 mg/dL (74-99); Magnesium 1.6 mg/dL (1.6-2.3); Non-African American GFR(CKD) >90 (>60 ml/min/1.73 sqM); Potassium 4.6 mmol/L (3.5-5.1); Sodium 135 mmol/L (137-145); Total Bilirubin 0.7 mg/dL (0.2-1.3); Total Protein 6.9 g/dL (6.3-8.2)
[2023-11-19 02:45] LABS: Alcohol 175 mg/dL
[2023-11-19 02:56] LABS: HCT 38.9 % (39.0-53.0); HGB 12.3 gm/dL (13.0-17.5); MCH 30.5 pg (25.0-35.0); MCHC 31.5 g/dL (31.0-37.0); MCV 96.9 fL (80.0-100.0); Mean Platelet Volume 7.4; Platelet Count 79 k/uL (150-450); RBC 4.01 m/uL (4.30-5.90); RDW 14.6 % (11.5-15.5); WBC 3.4 k/uL (3.8-10.6)
[2023-11-19 03:23] LABS: Band Neutrophils % 3 %; Neutrophils % (M) 38 %; Nucleated Red Blood Cells 0 /100 WBC (0-0); Total Cells Counted 100
[2023-11-19 03:24] LABS: Polychromasia Present; Stomatocytes Present; Target Cells Present
[2023-11-19] MEDS ORDERED: SODIUM CHLORIDE 0.9% 1,000 ML IV STA (03:24)
[2023-11-19] MEDS ORDERED: FOLIC ACID 1 MG TAB PO STA (03:39)
[2023-11-19] MEDS ORDERED: DIPH,PERTUS(ACELL)TETVAC-LF 0.5 ML VIAL IM ONE (03:39)
[2023-11-19 06:33] LABS: Appearance,Urine Cloudy (Clear); Bacteria,Urine Many /hpf; Bilirubin,Urine Negative (Negative); Blood,Urine Negative (Negative); Color,Urine Colorless; Glucose,Urine (UA) 4+ (Negative); Hyaline Casts,Urine 4 /lpf (0-2); Ketones,Urine Negative (Negative); Leukocyte Esterase,Urine Large (Negative); Mucus,Urine Few /hpf; Nitrite,Urine Negative (Negative); Protein,Urine Negative (Negative); RBC,Urine 1 /hpf (0-5); Specific Gravity,Urine 1.026 (1.001-1.035); Urobilinogen,Urine <2.0 mg/dL (<2.0); WBC,Urine 50 /hpf (0-5)
[2023-11-19 07:25] VITALS: BP 148/89; PULSE 110; RESP 19
[2023-11-19] MEDS ORDERED: CYANOCOBALAMIN 500 MCG TAB PO SCH (09:00)
== END 2023-11-19 07:10 | disposition home or self-care (01) ==
LOC: EC 00:29
DX: M79.604 Pain in right leg (principal); M79.605 Pain in left leg; R20.2 Paresthesia of skin; F10.20 Alcohol dependence, uncomplicated; I10 Essential (primary) hypertension; F17.200 Nicotine dependence, unspecified, uncomplicated; F12.90 Cannabis use, unspecified, uncomplicated; Z86.59 Personal history of other mental and behavioral disorders; Z23 Encounter for immunization; Y90.6 Blood alcohol level of 120-199 mg/100 ml; W19.XXXA Unspecified fall, initial encounter
CPT/HCPCS: 36415; 80053; 83735; 85025; 81001; 90715; 99285; 90471; 96360; G0480; 80320

== ENCOUNTER 2023-12-07 00:11 | Inpatient (IN) | payer OTHER ==
[2023-12-07] MEDS ORDERED: LORazepam 2 MG/ML INJ IV STA ×2 (00:19→02:01)
--- NOTE | 2023-12-07 00:36 | ED ---
General Adult HPI - General Chief complaint: Fall Stated complaint: Fall, AMS Time Seen by Provider: 12/07/23 00:13 Source: EMS Mode of arrival: EMS - History of Present Illness Initial comments: Dictation was produced using [employer] dictation software. please excuse any gramm atical, word or spelling errors. Chief Complaint: 63-year-old alcoholic male presents emergency department after fall History of Present Illness: 63-year-old male brought in from home by EMS. EMS provides history present illness. Coronary EMS patient is a alcoholic male has not had an alcoholic beverage in approximately 3 days. Apparently he does not care for himself. He has no nuchal rigidity however does not follow up with primary care doctor. According to EMS patient had fallen earlier yesterday. Hours prior to arrival he started having some once described as involuntary movements of his body. He has no known history of seizure. Patient is altered. Unclear when his last known normal was. He has no history of seizure. EMS noted an abrasion to his posterior occiput Unable to obtain review of systems secondary to patient's mental status - Related Data Home Medications Medication Instructions Recorded Confirmed Ascorbic Acid [Vitamin C] 500 mg PO DAILY 06/04/22 06/04/22 Cholecalciferol [Vitamin D3 (25 50 mcg PO DAILY 06/04/22 06/04/22 Mcg = 1000 Iu)] Multivit-Mins/Iron/Folic/Lycop 1 tab PO DAILY 06/04/22 06/04/22 [Centrum Men's Tablet] Previous Rx's Medication Instructions Recorded Acetaminophen Tab [Tylenol] 650 mg PO Q6HR PRN tab 06/09/22 Amoxic-Pot Clav 875-125Mg 1 tab PO BID 7 Days #14 tab 06/09/22 [Augmentin 875-125] Magnesium Oxide [Mag-Ox] 400 mg PO DAILY 30 Days #30 tab 06/09/22 Pantoprazole [Protonix] 40 mg PO AC-BRKFST 30 Days #30 tab 06/09/22 Tamsulosin [Flomax] 0.4 mg PO PC-SUPPER 30 Days #30 cap 06/09/22 Thiamine [Vitamin B-1] 100 mg PO BID-W/MEALS 30 Days #60 06/09/22 tab cloNIDine HCL [Catapres] 0.2 mg PO TID 30 Days #90 tab 06/09/22 Allergies Allergy/AdvReac Type Severity Reaction Status Date / Time No Known Allergies Allergy Verified 12/07/23 00:25 Review of Systems ROS Statement: Those systems with pertinent positive or pertinent negative responses have been documented in the HPI. ROS Other: All systems not noted in ROS Statement are negative. Past Medical History Past Medical History: Hypertension Additional Past Medical History / Comment(s): UNEXPLAINED WT LOSS (12 #), DAUGHTER DEC 2016. History of Any Multi-Drug Resistant Organisms: None Reported Past Surgical History: Heart Catheterization Additional Past Surgical History / Comment(s): Pt states as an he had a "pinched" abdominal muscle with surgical repair, colonoscopy Past Anesthesia/Blood Transfusion Reactions: No Reported Reaction Past Psychological History: Anxiety, Depression Smoking Status: Current every day smoker Past Alcohol Use History: Occasional Past Drug Use History: Marijuana - Past Family History Mother Family Medical History: No Reported History Additional Family Medical History / Comment(s): . Father Family Medical History: CVA/TIA Additional Family Medical History / Comment(s): Father of a CVA Daughter(s) Additional Family Medical History / Comment(s): ADRENAL GLAND TUMOR. General Exam - General Exam Comments Initial Comments: PHYSICAL EXAM: General Impression: Alert and oriented x2/4, not in acute distress HEENT: Normocephalic atraumatic, extra-ocular movements intact, pupils equal and reactive to light bilaterally, mucous membranes moist. Cardiovascular: Heart regular rate and rhythm Chest: Able to complete full sentences, no retractions, no tachypnea Abdomen: abdomen soft, non-tender, non-distended, no organomegaly Musculoskeletal: Pulses present and equal in all extremities, no peripheral edema Motor: no focal deficits noted Neurological: CN II-XII grossly intact, no focal motor or sensory deficits noted, brief episodes of involuntary twitching of all extremities Skin: ecchymosis to the bilateral feet Psych: Normal affect and mood Course Vital Signs 12/07/23 12/07/23 12/07/23 00:15 02:10 02:43 Temperature 97.6 F Pulse Rate 106 H 90 122 H Respiratory 18 17 18 Rate Blood Pressure 143/110 113/98 135/91 O2 Sat by Pulse 96 96 99 Oximetry Fraction of Inspired Oxygen (FIO2) 12/07/23 12/07/23 12/07/23 02:50 02:51 03:10 Temperature Pulse Rate 124 H Respiratory 18 Rate Blood Pressure 119/84 O2 Sat by Pulse 99 Oximetry Fraction of 100 100 Inspired Oxygen (FIO2) EKG Findings - EKG Comments: EKG Findings:: My EKG interpretation: Ventricular rate 83, sinus rhythm,. 140, QRS 80, QTc 437. No UT prolongation, no QTC prolongation, no ST or T-wave changes noted. Overall, this EKG is unremarkable Procedures - Intubation Sedative: Etomidate Paralytic: Rocuronium Laryngoscope: fiber optic video scope Size: 3 Assist Device Used: fiber optic device ET Tube Size: 7.5 ET Tube Uncuffed: Yes Tube Secured Depth (cm): 24 Tube Secured Location: lips Tube Placement Confirmation: visualized tube passing through cords, equal breath sounds bilaterally, no breath sounds over epigastrium Patient Tolerated Procedure: well Intubation Complications: none Medical Decision Making - Medical Decision Making Was pt. sent in by a medical professional or institution (, PA, FUR MATCHER, urgent care, hospital, or long term...) When possible be specific @ -No Did you speak to anyone other than the patient for history (EMS, parent, family, police, friend...)? What history was obtained from this source @ -EMS as discussed above Did you review nursing and triage notes (agree or disagree)? Why? @ -I reviewed and agree with nursing and triage notes Were old charts reviewed (outside hosp., previous admission, EMS record, old EKG, old radiological studies, urgent care reports/EKG's, long term records)? Report findings @ -No old charts were reviewed Differential Diagnosis (chest pain, altered mental status, abdominal pain women, abdominal pain men, vaginal bleeding, musculoskeletal, weakness, fever, dyspnea, syncope, headache, dizziness, GI bleed, back pain, seizure, CVA, palpatations, mental health)? @ -Differential Altered Mental Status: Hypoglycemia, DKA, hypercapnia, ETOH, overdose, CO poisoning, trauma, myxedema coma, HTN encephalopathy, infection, encephalitis, psychosis, intercranial hemorrhage, hepatic encephalopathy, meningitis, CVA, this is not meant to be an all-inclusive list EKG interpreted by me (3pts min.). @ -My EKG interpretation: Ventricular rate 113, sinus tachycardia,. 124, QRS 15, QTc 45. No UT prolongation, no QTC prolongation, no ST or T-wave changes noted. Overall, this EKG is unremarkable X-rays interpreted by me (1pt min.). @ -Chest x-ray is unremarkable for acute processes, pelvis and foot x-ray unremarkable for acute processes. CT interpreted by me (1pt min.). @ -Computed tomography scan the head and C-spine shows no acute processes. U/S interpreted by me (1pt. min.). @ -None done What testing was considered but not performed or refused? (CT, X-rays, U/S, labs)? Why? @ -None What meds were considered but not given or refused? Why? @ -None Did you discuss the management of the patient with other professionals (professionals i.e. , PA, FUR MATCHER, lab, RT, psych nurse, vp digital marketing social media and crm, crop ranch hand, teacher, housing officer, disease case manager rn)? Give summary @ -No Was smoking cessation discussed for >3mins.? @ -No Was critical care preformed (if so, how long)? @ -Yes, 77 minutes Were there social determinants of health that impacted care today? How? (Homelessness, low income, unemployed, alcoholism, drug addiction, transportation, low edu. Level, literacy, decrease access to med. care, assisted, rehab)? @ -No Was there de-escalation of care discussed even if they declined (Discuss DNR or withdrawal of care, Hospice)? DNR status @ -No What co-morbidities impacted this encounter? (DM, HTN, Smoking, COPD, CAD, Cancer, CVA, ARF, Chemo, Hep., AIDS, mental health diagnosis, sleep apnea, morbid obesity)? @ -None Was patient admitted / discharged? Hospital course, mention meds given and route, prescriptions, significant lab abnormalities, going to OR and other pertinent info. @ -63-year-old male presents emergency department for twitching episodes along with altered mental status. He is a alcohol dependent male. Patient has unclear medical history. Vital signs upon arrival shows mild tachycardia. Rest of vital signs stable. Patient is altered at bedside with frequent twitching episodes. Clinical presentation consistent with generalized tonoclonic seizures. There is concern of focal seizures. Patient given benzodiazepines. Patient became significantly more altered decision was made to intubate the patient placed on mechanical ventilation on sedation. Laboratory evaluation obtained. No leukocytosis. Thrombocytopenia. Macrocytic anemia, metabolic panel shows glucose of 993. Clinical presentation concerning for hyperosmolar coma versus severe alcohol withdrawal and delirium tremens. She will be admitted to the intensive care unit. Undiagnosed new problem with uncertain prognosis? @ -No Drug Therapy requiring intensive monitoring for toxicity (Heparin, Nitro, Insulin, Cardizem)? @ -No Were any procedures done? @ -No Diagnosis/symptom? Acute, or Chronic, or Acute on Chronic? Uncomplicated (without systemic symptoms) or Complicated (systemic symptoms)? @ -Delirium tremens Side effects of treatment? @ -No Exacerbation, Progression, or Severe Exacerbation? @ -No Poses a threat to life or bodily function? How? (Chest pain, [place], [place], pneumonia, PE, COPD, DKA, ARF, appy, cholecystitis, CVA, Diverticulitis, Homicidal, Suicidal, threat to staff... and all critical care pts) @ -yes - Lab Data Result diagrams: 12/07/23 00:36 12/07/23 00:36 Lab Results 12/07/23 12/07/23 12/07/23 Range/Units 00:36 00:36 00:36 WBC 5.7 (3.8-10.6) k/uL RBC 3.31 L (4.30-5.90) m/uL Hgb 10.3 L (13.0-17.5) gm/dL Hct 34.0 L (39.0-53.0) % MCV 102.6 H D (80.0-100.0) fL MCH 31.2 (25.0-35.0) pg MCHC 30.4 L (31.0-37.0) g/dL RDW 15.1 (11.5-15.5) % Plt Count 114 L (150-450) k/uL MPV 8.5 Neutrophils % 76 % Lymphocytes % 15 % Monocytes % 6 % Eosinophils % 1 % Basophils % 1 % Neutrophils # 4.4 (1.3-7.7) k/uL Lymphocytes # 0.8 L (1.0-4.8) k/uL Monocytes # 0.3 (0-1.0) k/uL Eosinophils # 0.1 (0-0.7) k/uL Basophils # 0.0 (0-0.2) k/uL Hypochromasia Marked Macrocytosis Slight PT 11.1 (10.0-12.5) sec INR 1.0 (<1.2) APTT 20.1 L (22.0-30.0) sec VBG pH (7.31-7.41) VBG pCO2 (37-51) mmHg VBG HCO3 (24-28) mmol/L Sodium 127 L (137-145) mmol/L Potassium 3.4 L (3.5-5.1) mmol/L Chloride 96 L (98-107) mmol/L Carbon Dioxide 22 (22-30) mmol/L Anion Gap 9 mmol/L BUN 19 (9-20) mg/dL Creatinine 1.13 (0.66-1.25) mg/dL Est GFR (CKD-EPI)AfAm 80 (>60 ml/min/1.73 sqM) Est GFR (CKD-EPI)NonAf 69 (>60 ml/min/1.73 sqM) Glucose 993 H* (74-99) mg/dL Plasma Lactic Acid Richard (0.7-2.0) mmol/L Calcium 8.7 (8.4-10.2) mg/dL Magnesium 2.1 (1.6-2.3) mg/dL Total Bilirubin 0.7 (0.2-1.3) mg/dL AST 42 (17-59) U/L ALT 37 (4-49) U/L Alkaline Phosphatase 120 (38-126) U/L Total Protein 6.2 L (6.3-8.2) g/dL Albumin 3.6 (3.5-5.0) g/dL 12/07/23 12/07/23 Range/Units 00:36 02:21 WBC (3.8-10.6) k/uL RBC (4.30-5.90) m/uL Hgb (13.0-17.5) gm/dL Hct (39.0-53.0) % MCV (80.0-100.0) fL MCH (25.0-35.0) pg MCHC (31.0-37.0) g/dL RDW (11.5-15.5) % Plt Count (150-450) k/uL MPV Neutrophils % % Lymphocytes % % Monocytes % % Eosinophils % % Basophils % % Neutrophils # (1.3-7.7) k/uL Lymphocytes # (1.0-4.8) k/uL Monocytes # (0-1.0) k/uL Eosinophils # (0-0.7) k/uL Basophils # (0-0.2) k/uL Hypochromasia Macrocytosis PT (10.0-12.5) sec INR (<1.2) APTT (22.0-30.0) sec VBG pH 7.39 (7.31-7.41) VBG pCO2 45 (37-51) mmHg VBG HCO3 27 (24-28) mmol/L Sodium (137-145) mmol/L Potassium (3.5-5.1) mmol/L Chloride (98-107) mmol/L Carbon Dioxide (22-30) mmol/L Anion Gap mmol/L BUN (9-20) mg/dL Creatinine (0.66-1.25) mg/dL Est GFR (CKD-EPI)AfAm (>60 ml/min/1.73 sqM) Est GFR (CKD-EPI)NonAf (>60 ml/min/1.73 sqM) Glucose (74-99) mg/dL Plasma Lactic Acid Richard 2.0 (0.7-2.0) mmol/L Calcium (8.4-10.2) mg/dL Magnesium (1.6-2.3) mg/dL Total Bilirubin (0.2-1.3) mg/dL AST (17-59) U/L ALT (4-49) U/L Alkaline Phosphatase (38-126) U/L Total Protein (6.3-8.2) g/dL Albumin (3.5-5.0) g/dL Disposition Clinical Impression: Delirium tremens Disposition: ADMITTED IP TO THIS HOSP Condition: Critical Decision Time: 03:16
[2023-12-07 00:46] LABS: Basophils % (A) 1 %; Eosinophils # (A) 0.1 k/uL (0-0.7); Eosinophils % (A) 1 %; HGB 10.3 gm/dL (13.0-17.5); Hypochromasia Marked; Lymphocytes # (A) 0.8 k/uL (1.0-4.8); Lymphocytes % (A) 15 %; MCH 31.2 pg (25.0-35.0); MCHC 30.4 g/dL (31.0-37.0); Macrocytosis Slight; Mean Platelet Volume 8.5; Monocytes # (A) 0.3 k/uL (0-1.0); Monocytes % (A) 6 %; Neutrophils # (A) 4.4 k/uL (1.3-7.7); Neutrophils % (A) 76 %; Platelet Count 114 k/uL (150-450); RBC 3.31 m/uL (4.30-5.90); RDW 15.1 % (11.5-15.5); WBC 5.7 k/uL (3.8-10.6)
[2023-12-07 00:51] LABS: MCV 102.6 fL (80.0-100.0); Prothrombin Time 11.1 sec (10.0-12.5)
[2023-12-07 01:02] LABS: Partial Thromboplastin Time 20.1 sec (22.0-30.0)
[2023-12-07 01:11] LABS: ALT 37 U/L (4-49); AST 42 U/L (17-59); African American GFR (CKD) 80 (>60 ml/min/1.73 sqM); Albumin 3.6 g/dL (3.5-5.0); Alkaline Phosphatase 120 U/L (38-126); Anion Gap 9 mmol/L; Blood Urea Nitrogen 19 mg/dL (9-20); Calcium 8.7 mg/dL (8.4-10.2); Carbon Dioxide 22 mmol/L (22-30); Chloride 96 mmol/L (98-107); Magnesium 2.1 mg/dL (1.6-2.3); Non-African American GFR(CKD) 69 (>60 ml/min/1.73 sqM); Potassium 3.4 mmol/L (3.5-5.1); Sodium 127 mmol/L (137-145); Total Bilirubin 0.7 mg/dL (0.2-1.3); Total Protein 6.2 g/dL (6.3-8.2)
[2023-12-07] MEDS ORDERED: SODIUM CHLORIDE 0.9% 1,000 ML IV STA (01:38)
[2023-12-07] MEDS ORDERED: INSULIN REGULAR BOLUS (FROM DRIP BAG) IV ONE (01:38)
[2023-12-07] MEDS ORDERED: Potassium Replacement Protocol 1 EACH MISC MISCELLANE PRN ×2 (01:38→06:54)
[2023-12-07] MEDS ORDERED: Magnesium Replacement Protocol 1 EACH MISC MISCELLANE PRN (01:38)
[2023-12-07] MEDS ORDERED: DEXTROSE 50% SYRINGE 50 ML IVP PRN ×2 (01:38)
[2023-12-07 01:39] LABS: Glucose 993 mg/dL (74-99)
--- NOTE | 2023-12-07 01:39 | CT ---
EXAM: CT Head Without Intravenous Contrast CLINICAL HISTORY: ITS.REASON CT Reason: fall TECHNIQUE: Axial computed tomography images of the head/brain without intravenous contrast. CTDI is 45.2 mGy and DLP is 1071 mGy-cm. This CT exam was performed using one or more of the following dose reduction techniques: automated exposure control, adjustment of the mA and/or kV according to patient size, and/or use of iterative reconstruction technique. COMPARISON: No relevant prior studies available. FINDINGS: Brain: Cortical cerebral volume loss. Pace-white matter differentiation maintained. No significant white matter disease. No acute intra-axial or extra-axial hemorrhage. Possible arachnoid cyst posterior to the left cerebellum measuring 4 x 2 x 2 cm. No midline shift. Ventricles: Unremarkable. No hydrocephalus. Bones/joints: Unremarkable. No acute fracture. Soft tissues: Unremarkable. Sinuses: Unremarkable as visualized. No acute sinusitis. Mastoid air cells: Unremarkable as visualized. No mastoid effusion. IMPRESSION: No acute intracranial process. EXAM: CT Cervical Spine Without Intravenous Contrast CLINICAL HISTORY: ITS.REASON CT Reason: fall TECHNIQUE: Axial computed tomography images of the cervical spine without intravenous contrast. CTDI is 8.9 mGy and DLP is 221.2 mGy-cm. This CT exam was performed using one or more of the following dose reduction techniques: automated exposure control, adjustment of the mA and/or kV according to patient size, and/or use of iterative reconstruction technique. COMPARISON: No relevant prior studies available. FINDINGS: Vertebral body height and alignment are maintained. There is no acute fracture or traumatic subluxation. There is mild to moderate disc degeneration at C5-C6 and C6-C7. There is multilevel uncovertebral joint degeneration, greatest in the lower lumbar spine. Facet joints are degenerated bilaterally, greatest in the upper cervical spine. Disc-osteophyte complex produces mild spinal canal stenosis at C5-C6 and C6-C7. There is severe left foraminal narrowing at C3-C4, mild to moderate left foraminal narrowing at C4-C5, mild to moderate bilateral foraminal narrowing at C5-C6, and mild to moderate bilateral foraminal narrowing at C6-C7. There is no prevertebral soft tissue swelling. Lung apices are clear. Carotid calcifications are present bilaterally. IMPRESSION: No acute osseous findings.
[2023-12-07] MEDS ORDERED: INSULIN REGULAR 100 UNIT in SODIUM CHLORIDE 0.9% 100 ML IV SCH (01:45)
--- NOTE | 2023-12-07 01:47 | XR ---
EXAM: XR Pelvis, 1 or 2 Views CLINICAL HISTORY: ITS.REASON XR Reason: fall TECHNIQUE: Frontal view of the pelvis. COMPARISON: No relevant prior studies available. FINDINGS: Bones/joints: No acute fracture. No dislocation. Soft tissues: Vascular calcifications. IMPRESSION: No acute osseous findings.
--- NOTE | 2023-12-07 01:48 | XR ---
EXAM: XR Chest, 1 View CLINICAL HISTORY: ITS.REASON XR Reason: fall TECHNIQUE: Frontal view of the chest. COMPARISON: No relevant prior studies available. FINDINGS: Lungs: Unremarkable. No consolidation. Pleural space: Unremarkable. No pleural effusion or pneumothorax. Heart: Unremarkable. No cardiomegaly or pulmonary vascular congestion. Bones/joints: No acute fracture. No dislocation. IMPRESSION: No evidence of acute cardiopulmonary disease.
[2023-12-07] MEDS ORDERED: levETIRAcetam IV 1,000 MG in SODIUM CHLORIDE 0.9% 250 ML IVPB ONE (02:00)
[2023-12-07] MEDS: SODIUM CHLORIDE 0.9% 1,000 ML IV SCH ×4 (02:09→18:02)
[2023-12-07] MEDS ORDERED: levETIRAcetam IV 500 MG/5 ML VIAL IVP ONE (02:15)
--- NOTE | 2023-12-07 02:32 | XR ---
EXAM: XR Left Foot, 2 Views CLINICAL HISTORY: ITS.REASON XR Reason: FALL TECHNIQUE: Frontal and lateral views of the left foot. COMPARISON: No relevant prior studies available. FINDINGS: Bones/joints: Hammertoe deformities. Osteopenia. No acute fracture or dislocation. Small plantar calcaneal bone spur. Soft tissues: Mild soft tissue swelling. No radiopaque foreign body. IMPRESSION: Mild soft tissue swelling. No acute osseous findings.
[2023-12-07] MEDS ORDERED: ETOMIDATE 2 MG/ML 10 ML VIAL IVP STA (02:35)
[2023-12-07] MEDS ORDERED: ROCURONIUM 10 MG/ML (5 ML VIAL) IV ONE (02:37)
[2023-12-07 02:42] LABS: VBG PH 7.39 (7.31-7.41)
[2023-12-07] MEDS ORDERED: NALOXONE 0.4 MG/ML 1 ML VIAL IV PRN (02:42)
[2023-12-07 03:12] LABS: ABG HCO3 27 mmol/L (21-25); ABG PCO2 54 mmHg (35-45); ABG PO2 394 mmHg (83-108); ABG TCO2 28 mmol/L (19-24); Allen Test Performed? Yes
[2023-12-07 03:14] LABS: Glucose,Whole Blood 563 mg/dL (70-110)
[2023-12-07 04:41] LABS: Glucose,Whole Blood 432 mg/dL (70-110)
[2023-12-07 05:34] LABS: Glucose,Whole Blood 387 mg/dL (70-110)
[2023-12-07 06:29] LABS: African American GFR (CKD) >90 (>60 ml/min/1.73 sqM); Anion Gap 9 mmol/L; Blood Urea Nitrogen 16 mg/dL (9-20); Carbon Dioxide 23 mmol/L (22-30); Chloride 110 mmol/L (98-107); Glucose 396 mg/dL (74-99); Non-African American GFR(CKD) >90 (>60 ml/min/1.73 sqM); Phosphorus 3.2 mg/dL (2.5-4.5); Sodium 142 mmol/L (137-145)
[2023-12-07 06:32] LABS: Potassium 2.3 mmol/L (3.5-5.1)
[2023-12-07 06:34] LABS: Glucose,Whole Blood 312 mg/dL (70-110)
[2023-12-07 07:24] LABS: Glucose,Whole Blood 262 mg/dL (70-110)
[2023-12-07] MEDS ORDERED: D5-0.45% NACL WITH KCL 20MEQ/L 1,000 ML IV SCH (07:30)
--- NOTE | 2023-12-07 07:47 | XR ---
EXAMINATION TYPE: XR chest 1V DATE OF EXAM: 12/07/2023 COMPARISON: 12/07/2023 HISTORY: Tube placement TECHNIQUE: Single frontal view of the chest is obtained. FINDINGS: There is an ET tube 5.2 cm above the breann. There is an NG tube tip is in the stomach fundus. The lungs are clear. There is no pleural effusion or pneumothorax Heart and pulmonary vasculature are normal. The osseous structures are intact. IMPRESSION: 1. ET tube 5.2 cm above the breann. 2. NG tube tip in the stomach fundus. 3. No acute cardiopulmonary disease.
[2023-12-07] MEDS: POTASSIUM CHLORIDE 10 MEQ in WATER FOR INJECTION 1 100ML.BAG IVPB SCH ×2 (07:52→09:32)
[2023-12-07 07:57] LABS: African American GFR (CKD) >90 (>60 ml/min/1.73 sqM); Anion Gap 8 mmol/L; Blood Urea Nitrogen 15 mg/dL (9-20); Carbon Dioxide 24 mmol/L (22-30); Chloride 112 mmol/L (98-107); Glucose 235 mg/dL (74-99); Non-African American GFR(CKD) >90 (>60 ml/min/1.73 sqM); Sodium 144 mmol/L (137-145)
[2023-12-07 08:01] LABS: Potassium 2.3 mmol/L (3.5-5.1)
[2023-12-07 08:29] LABS: Glucose,Whole Blood 215 mg/dL (70-110)
--- NOTE | 2023-12-07 08:47 | P.CNPUL ---
History of Present Illness Consult date: 12/07/23 Chief complaint: Altered mental status History of present illness: 63-year-old male patient, alcohol and he drinks alcohol excessively along with his at home. He stopped drinking approximately 3 days ago and he presented to the emergency department after a fall. Apparently, the patient has been very unstable and he has been falling. He does not follow-up with her primary care physician. Following his hospital admission, the patient started having involuntary movements of his body, increased shakes, restlessness, thrashing and in the ED, the patient had diminished level of consciousness. He was given a total of 6 mg of IV Ativan. Seizure was suspected although there was no clear indication of the patient was seizing. There was no jerky body movements. He was given Keppra. Otherwise, no additional history is available. Ultimately, the patient was intubated and placed on a mechanical ventilator and he was transferred to the intensive care unit. I'm seeing this patient in the ICU post intubation. Currently is on propofol running at 40 Augustus respiratory kilogram per minute. His calm and comfortable. Is on assist-control mode of mechanical ventilation at the rate of 18, tidal volume of 450, FiO2 of 70% with a PEEP of 5. Blood gas showed a pH of 7.3 with a pCO2 of 54 and pO2 of 394 post intubation. The chest x-ray from this morning shows adequate positioning of the orotracheal tube. No evidence of any airspace disease. There may be a small left-sided pleural effusion. There is no evidence of pneumothorax or pneumonia. This can of the head and the spine was also done in the emergency department that showed no acute abnormalities. The patient had severe foraminal narrowing at the level of C3-C4 and also mild to moderate foraminal narrowing at the level of C4-C5 and mild to moderate bilateral foraminal narrowing at the level of C5- C6 and bilateral narrowing at the level of C6-C7. The patient was also given a x-ray of the pelvis that showed no evidence of fracture. Initial sodium level was at 127 and after fluid resuscitation sodium came back at 144. Blood sugar was 993 and he was started on insulin drip based on the [facility] protocol. Currently insulin drip is off and the most recent blood sugars at 2:15. BUN is a 50 with a creatinine of 0.7. Potassium level is at 2.3 and this is being replaced. The echoes of 5.7 with a hemoglobin of 10.3. Hemodynamically, he is hypotensive. He is not requiring any pressors at this point. He is producing adequate amount of urine output. Most recent blood pressure is 91/62. IV fluids are in the form of D5 half-normal with potassium at the rate of 150 mL an hour. Note that the patient is not known to be diabetic. He has history of hy pertension and alcoholism. Review of Systems ROS unobtainable: due to endotracheal tube Past Medical History Past Medical History: Hypertension Additional Past Medical History / Comment(s): UNEXPLAINED WT LOSS (12 #), DAUGHTER DEC 2016. History of Any Multi-Drug Resistant Organisms: None Reported Past Surgical History: Heart Catheterization Additional Past Surgical History / Comment(s): Pt states as an he had a "pinched" abdominal muscle with surgical repair, colonoscopy Past Anesthesia/Blood Transfusion Reactions: No Reported Reaction Past Psychological History: Anxiety, Depression Smoking Status: Current every day smoker Past Alcohol Use History: Occasional Past Drug Use History: Marijuana - Past Family History Mother Family Medical History: No Reported History Additional Family Medical History / Comment(s): . Father Family Medical History: CVA/TIA Additional Family Medical History / Comment(s): Father of a CVA Daughter(s) Additional Family Medical History / Comment(s): ADRENAL GLAND TUMOR. Medications and Allergies Home Medications Medication Instructions Recorded Confirmed Type Ascorbic Acid [Vitamin C] 500 mg PO DAILY 06/04/22 06/04/22 History Cholecalciferol [Vitamin D3 (25 50 mcg PO DAILY 06/04/22 06/04/22 History Mcg = 1000 Iu)] Multivit-Mins/Iron/Folic/Lycop 1 tab PO DAILY 06/04/22 06/04/22 History [Centrum Men's Tablet] Acetaminophen Tab [Tylenol] 650 mg PO Q6HR PRN tab 06/09/22 Rx Amoxic-Pot Clav 875-125Mg 1 tab PO BID 7 Days #14 tab 06/09/22 Rx [Augmentin 875-125] Magnesium Oxide [Mag-Ox] 400 mg PO DAILY 30 Days #30 tab 06/09/22 Rx Pantoprazole [Protonix] 40 mg PO AC-BRKFST 30 Days #30 tab 06/09/22 Rx Tamsulosin [Flomax] 0.4 mg PO PC-SUPPER 30 Days #30 cap 06/09/22 Rx Thiamine [Vitamin B-1] 100 mg PO BID-W/MEALS 30 Days #60 06/09/22 Rx tab cloNIDine HCL [Catapres] 0.2 mg PO TID 30 Days #90 tab 06/09/22 Rx Allergies Allergy/AdvReac Type Severity Reaction Status Date / Time No Known Allergies Allergy Verified 12/07/23 00:25 Physical Exam Vitals: Vital Signs Temp Pulse Resp BP Pulse Ox FiO2 12/07/23 08:33 70 12/07/23 08:29 70 12/07/23 07:24 118 H 16 91/62 99 12/07/23 07:18 70 12/07/23 07:02 118 H 19 91/63 99 12/07/23 06:25 115 H 18 98/64 100 12/07/23 06:06 70 12/07/23 05:53 112 H 18 97/72 100 12/07/23 04:00 112 H 18 84/57 96 12/07/23 03:18 70 12/07/23 03:10 124 H 18 119/84 99 12/07/23 02:51 100 12/07/23 02:43 122 H 18 135/91 99 12/07/23 02:10 90 17 113/98 96 12/07/23 00:15 97.6 F 106 H 18 143/110 96 Intake and Output 12/06/23 12/07/23 12/07/23 22:59 06:59 14:59 Intake Total 20.318 4.189 Output Total 3400 Balance -3379.682 4.189 Intake: Intake, IV Titration 20.318 4.189 Amount propofoL 1,000 mg In 20.318 4.189 Empty Bag 1 bag @ 15 MCG/ KG/MIN 4.896 mls/hr IV . [id number] [facility] Rx#:[id number] Output: Urine 3400 Uretheral (Blanchard) 3400 Other: Weight 54.431 kg Gen. appearance the patient is well sedated and his calm and comfortable, orogastric and orotracheal tube are both in place Head exam was generally normal. There was no scleral icterus or corneal arcus. Mucous membranes were moist. Neck was supple and without jugular venous distension, thyromegaly, or carotid bruits. Carotids were easily palpable bilaterally. There was no adenopathy. Lungs were clear to auscultation and percussion, and with normal diaphragmatic excursion. No wheezes or rales were noted. Cardiac exam revealed the PMI to be normally situated and sized. The rhythm was regular and no extrasystoles were noted during several minutes of auscultation. The first and second heart sounds were normal and physiologic splitting of the second heart sound was noted. There were no murmurs, rubs, clicks, or gallops. Abdominal exam revealed normal bowel sounds. The abdomen was soft, non-tender, and without masses, organomegaly, or appreciable enlargement of the abdominal aorta. Examination of the skin revealed no evidence of significant rashes, suspicious appearing nevi or other concerning lesions. There are is areas of skin abrasion and a skin tear in his left arm. Areas of small bruising throughout his body. Neurologically, the patient is sedated. No seizure activity has been noted. No neck stiffness or rigidity. Pupils are equal and symmetrical at 2-3 mm in size. He grimaces to deep painful stimulation. He is withdrawing all 4 extremities. Currently is on 2 point restraints. Results - Laboratory Findings CBC and BMP: 12/07/23 00:36 12/07/23 07:27 ABG ABG pH 7.30 (7.35-7.45) L 12/07/23 03:15 ABG pCO2 54 mmHg (35-45) H 12/07/23 03:15 ABG pO2 394 mmHg (83-108) H 12/07/23 03:15 ABG O2 Saturation 100.0 % (94-97) H 12/07/23 03:15 PT/INR, D-dimer PT 11.1 sec (10.0-12.5) 12/07/23 00:36 INR 1.0 (<1.2) 12/07/23 00:36 Abnormal lab findings: Abnormal Labs 12/07/23 12/07/23 12/07/23 00:36 00:36 00:36 RBC 3.31 L Hgb 10.3 L Hct 34.0 L MCV 102.6 H D MCHC 30.4 L Plt Count 114 L Lymphocytes # 0.8 L APTT 20.1 L ABG pH ABG pCO2 ABG pO2 ABG HCO3 ABG Total CO2 ABG O2 Saturation Sodium 127 L Potassium 3.4 L Chloride 96 L Glucose 993 H* POC Glucose (mg/dL) Total Protein 6.2 L 12/07/23 12/07/23 12/07/23 03:13 03:15 04:39 RBC Hgb Hct MCV MCHC Plt Count Lymphocytes # APTT ABG pH 7.30 L ABG pCO2 54 H ABG pO2 394 H ABG HCO3 27 H ABG Total CO2 28 H ABG O2 Saturation 100.0 H Sodium Potassium Chloride Glucose POC Glucose (mg/dL) 563 H 432 H Total Protein 12/07/23 12/07/23 12/07/23 05:22 05:33 06:31 RBC Hgb Hct MCV MCHC Plt Count Lymphocytes # APTT ABG pH ABG pCO2 ABG pO2 ABG HCO3 ABG Total CO2 ABG O2 Saturation Sodium Potassium 2.3 L* Chloride 110 H Glucose 396 H POC Glucose (mg/dL) 387 H 312 H Total Protein 12/07/23 12/07/23 12/07/23 07:23 07:27 08:28 RBC Hgb Hct MCV MCHC Plt Count Lymphocytes # APTT ABG pH ABG pCO2 ABG pO2 ABG HCO3 ABG Total CO2 ABG O2 Saturation Sodium Potassium 2.3 L* Chloride 112 H Glucose 235 H POC Glucose (mg/dL) 262 H 215 H Total Protein - Diagnostic Findings Chest x-ray: image reviewed Assessment and Plan Plan: Altered mentation, likely secondary to alcohol withdrawal. The patient is suspected to go into delirium tremens. Treated in the emergency, ultimately was intubated and placed on a mechanical ventilator and the patient is currently on propofol, calm and comfortable. Alcoholism Acute hyperglycemia, could be a component of HHS. The patient was treated with insulin drip and currently insulin drip is off. Blood sugar control is improved. Hypokalemia, potassium is being replaced Acute respiratory failure, hypoxic in nature the patient is currently intubated on a mechanical ventilator and the patient's oxygenation is improved. I believe that he was also intubated for airway protection Coronary artery disease and based on an earlier cardiac catheterization, the patient was found to have mild disease in the proximal mid RCA along with calcifications Smoker Chronic anxiety/depression History of falls without any significant injuries Cervical spine degenerative disease and foraminal narrowing, please refer to the CAT scan of the neck Hypertension BPH maintain on Flomax on outpatient basis Plan Continue ventilator support. Wean down FiO2 as tolerated to maintain saturation above 90%. Underlying the FiO2 down to 50% at this point. Keep the patient sedated with propofol, IV Ativan for CIWA protocol Neurologic consultation Replaced potassium Put the patient on insulin sliding scale coverage and change IV fluids to normal saline with 20 mEq of potassium at the rate of 100 mL an hour Thiamine 100 mg IV every 24 hours Lovenox for DVT prophylaxis Start enteral feeding for nutritional support Altered antihypertensive medication for now Monitor blood pressure No need for pressors at this point No need for antibiotic coverage at this point Time with Patient: Greater than 30
[2023-12-07] MEDS ORDERED: POTASSIUM BICARBONATE/CIT AC 20 MEQ TABLET.EFF NG-TUBE ONE (08:50)
[2023-12-07] MEDS ORDERED: LORazepam 2 MG/ML INJ IV PRN ×3 (08:57)
[2023-12-07] MEDS ORDERED: INSULIN ASPART (NovoLOG) 100 UNIT/ML VIAL SQ SCH (09:00)
[2023-12-07 09:05] LABS: Glucose,Whole Blood 211 mg/dL (70-110)
[2023-12-07 09:28] LABS: Calcium 8.4 mg/dL (8.4-10.2)
--- NOTE | 2023-12-07 09:29 | XR ---
EXAMINATION TYPE: XR chest 1V portable DATE OF EXAM: 12/07/2023 COMPARISON: 12/07/2023 HISTORY: ET tube placement TECHNIQUE: Single frontal view of the chest is obtained. FINDINGS: There is been interval placement of an ET tube 6.3 cm above the breann. There is an NG tube within th e stomach. There is been interval development of a large retrocardiac opacity obscuring the left hemidiaphragm. The right lung remains clear. The pulmonary vasculature is not congested and the heart is not enlarged. The osseous structures are intact. IMPRESSION: 1. Interval insertion of an ET tube 6.3 cm above the breann. 2. Interval insertion of an NG tube within the stomach. 3. Development of the large retrocardiac opacity possibly representing pneumonic infiltrate or atelec tasis as well as possible pleural effusion.
[2023-12-07] MEDS: CHLORHEXIDINE GLUCONATE 15 ML CUP MUCOUS MEM SCH ×2 (09:30→20:38)
[2023-12-07] MEDS: MULTIVITAMINS, THERA 1 EACH TAB PO SCH (09:30)
[2023-12-07] MEDS: ENOXAPARIN 40 MG/0.4 ML SYRINGE SQ SCH (09:31)
[2023-12-07] MEDS: PANTOPRAZOLE 40 MG/10 ML VIAL IV SCH (09:31)
[2023-12-07] MEDS: THIAMINE 100 MG in SODIUM CHLORIDE 0.9% 50 ML IVPB SCH ×2 (09:31→21:22)
[2023-12-07] MEDS: FOLIC ACID 1 MG TAB PO SCH (09:32)
[2023-12-07 11:41] LABS: Glucose,Whole Blood 285 mg/dL (70-110)
[2023-12-07] MEDS: IPRATROPIUM-ALBUTEROL 3 ML NEB INHALATION SCH ×3 (11:42→19:59)
[2023-12-07] MEDS: INSULIN ASPART (NovoLOG) 100 UNIT/ML VIAL SQ SCH ×3 (11:54→23:23)
--- NOTE | 2023-12-07 13:13 | P.CNNES ---
History of Present Illness Consult date: 12/07/23 Reason for Consult: AMS, twitching episodes History of Present Illness: The pt is a 63 y/o male who is seen in neurologic consultation on 2023, in collaboration with Ilan Enciso, via teleneurology. History is obtained from the chart and the RN who is present at the bedside at the time of the evaluation. The pt reportedly presented the the ER with reported involuntary shaking movements. The pt has a history of alcohol abuse. His most recent drink was reported to be 3 days ago. In the ER, the pt was somewhat altered. He was initially able to answer some questions however, there was concern about his ability to protect his airway, therefore, he was intubated. In addition, there was concern for seizure and the pt was given a loading dose of Keppra 1gm IV. CT scan of the brain was performed in the ER. There was no reported acute hemorrhage or infarct. Review of Systems unable to obtain secondary to mental status of pt Past Medical History Past Medical History: Hypertension Additional Past Medical History / Comment(s): UNEXPLAINED WT LOSS (12 #), DAUGHTER DEC 2016. History of Any Multi-Drug Resistant Organisms: None Reported Past Surgical History: Heart Catheterization Additional Past Surgical History / Comment(s): Pt states as an infant he had a "pinched" abdominal muscle with surgical repair, colonoscopy Past Anesthesia/Blood Transfusion Reactions: No Reported Reaction Past Psychological History: Anxiety, Depression Smoking Status: Current every day smoker Past Alcohol Use History: Occasional Past Drug Use History: Marijuana - Past Family History Mother Family Medical History: No Reported History Additional Family Medical History / Comment(s): . Father Family Medical History: CVA/TIA Additional Family Medical History / Comment(s): Father of a CVA Daughter(s) Additional Family Medical History / Comment(s): ADRENAL GLAND TUMOR. Medications and Allergies Home Medications Medication Instructions Recorded Confirmed Type No Known Home Medications 12/07/23 12/07/23 History Allergies Allergy/AdvReac Type Severity Reaction Status Date / Time No Known Allergies Allergy Verified 12/07/23 11:42 Physical Examination - Vital Signs Vital Signs: Vital Signs Temp Pulse Resp BP Pulse Ox FiO2 12/07/23 11:49 101 H 18 12/07/23 11:42 101 H 18 12/07/23 11:38 50 12/07/23 10:05 99.1 F 98 18 97/67 100 50 12/07/23 09:56 50 12/07/23 08:47 108 H 98/63 99 12/07/23 08:29 70 12/07/23 07:24 118 H 16 91/62 99 12/07/23 07:18 70 12/07/23 07:02 118 H 19 91/63 99 12/07/23 06:25 115 H 18 98/64 100 12/07/23 06:06 70 12/07/23 05:53 112 H 18 97/72 100 12/07/23 04:00 112 H 18 84/57 96 12/07/23 03:18 70 12/07/23 03:10 124 H 18 119/84 99 12/07/23 02:51 100 12/07/23 02:43 122 H 18 135/91 99 12/07/23 02:10 90 17 113/98 96 12/07/23 00:15 97.6 F 106 H 18 143/110 96 Intake and Output 12/06/23 12/07/23 12/07/23 22:59 06:59 14:59 Intake Total 20.318 56.789 Output Total 3400 Balance -3379.682 56.789 Intake: Intake, IV Titration 20.318 56.789 Amount Insulin Regular 100 unit 52.6 In Sodium Chloride 0.9% 100 ml @ 0.1 UNITS/KG/HR 8.155 mls/hr IV .[id number] [facility] Rx#:[id number] propofoL 1,000 mg In 20.318 4.189 Empty Bag 1 bag @ 15 MCG/ KG/MIN 4.896 mls/hr IV . [id number] [facility] Rx#:[id number] Output: Urine 3400 Uretheral (Blanchard) 3400 Other: Weight 54.431 kg 54.431 kg General: The pt is a thin male who is supine in the bed. He is intubated and sedated with Propofol 40. He is in no distress. HEENT: Atraumatic, normocephalic Neck: Supple without nuchal rigidity, no bruits Heart: Regular rate and rhythm Lungs: The pt is breathing over the vent Extremities: There is marked ecchymosis of the left foot. There are multiple areas of bruising and abrasions on the extremities. Neurologic Exam Mental Status: The pt is intubated and sedated. He opens eyes to sternal rub. He withdraws all 4 extremities from noxious stim. He follows no commands Cranial Nerves: Pupils are equal and reactive at 2mm. They are midline. There is no blink to visual threat. There is no obvious facial asymmetry Motor: The pt moves all 4 extremities. Formal strength testing cannot be carried out Sensation: The pt withdraws all 4 extremities from noxious stim Deep tnedon reflexes: 2+/4+ throughout. Plantar responses are downgoing Coordination: Unable to be assessed at this time Gait: Unable to be assessed at this time Results - Laboratory Findings CBC and BMP: 12/07/23 00:36 12/07/23 12:10 Abnormal Lab Findings: Abnormal Labs 12/07/23 12/07/23 12/07/23 00:36 00:36 00:36 RBC 3.31 L Hgb 10.3 L Hct 34.0 L MCV 102.6 H D MCHC 30.4 L Plt Count 114 L Lymphocytes # 0.8 L APTT 20.1 L ABG pH ABG pCO2 ABG pO2 ABG HCO3 ABG Total CO2 ABG O2 Saturation Sodium 127 L Potassium 3.4 L Chloride 96 L Glucose 993 H* POC Glucose (mg/dL) Total Protein 6.2 L 12/07/23 12/07/23 12/07/23 03:13 03:15 04:39 RBC Hgb Hct MCV MCHC Plt Count Lymphocytes # APTT ABG pH 7.30 L ABG pCO2 54 H ABG pO2 394 H ABG HCO3 27 H ABG Total CO2 28 H ABG O2 Saturation 100.0 H Sodium Potassium Chloride Glucose POC Glucose (mg/dL) 563 H 432 H Total Protein 12/07/23 12/07/23 12/07/23 05:22 05:33 06:31 RBC Hgb Hct MCV MCHC Plt Count Lymphocytes # APTT ABG pH ABG pCO2 ABG pO2 ABG HCO3 ABG Total CO2 ABG O2 Saturation Sodium Potassium 2.3 L* Chloride 110 H Glucose 396 H POC Glucose (mg/dL) 387 H 312 H Total Protein 12/07/23 12/07/23 12/07/23 07:23 07:27 08:28 RBC Hgb Hct MCV MCHC Plt Count Lymphocytes # APTT ABG pH ABG pCO2 ABG pO2 ABG HCO3 ABG Total CO2 ABG O2 Saturation Sodium Potassium 2.3 L* Chloride 112 H Glucose 235 H POC Glucose (mg/dL) 262 H 215 H Total Protein 12/07/23 12/07/23 09:03 11:39 RBC Hgb Hct MCV MCHC Plt Count Lymphocytes # APTT ABG pH ABG pCO2 ABG pO2 ABG HCO3 ABG Total CO2 ABG O2 Saturation Sodium Potassium Chloride Glucose POC Glucose (mg/dL) 211 H 285 H Total Protein Assessment and Plan Assessment: 1. Shaking/twitching episodes and AMS likely secondary to alcohol withdrawal- Early Delirium tremens 2. Hypokalemia Plan: 1. CIWA protocol 2. Keppra is not needed at this time 3. Seizure precautions 4. Ativan 1mg prn seizure Thank you for allowing us to participate in the care of this pt. 57 minutes were spent caring for this pt today, including obtaining a history, examining the pt, reviewing imaging, chart documentation, labs, placing orders and creating this note. No further neuro intervention is needed at this time. Please call with question or concerns Time with Patient: Greater than 30
--- NOTE | 2023-12-07 14:09 | P.PCN ---
Date of Procedure: 12/07/23 Operative Findings: Preoperative Diagnosis: Acute hypoxic respiratory failure Postoperative Diagnosis: Same Procedure(s) Performed: Central line and arterial line insertion Anesthesia: local Surgeon: Rhiannon Shirley Estimated Blood Loss (ml): 0 Pathology: other Condition: critical Disposition: ICU Operative Findings: Indication: Hemodynamic monitoring/Intravenous access. A time-out was completed verifying correct patient, procedure, site, positioning, and implant(s) or special equipment if applicable. The patient was placed in a dependent position appropriate for central line placement based on the vein to be cannulated. The patients chest was prepped and draped in sterile fashion. 1% Lidocaine was used to anesthetize the surrounding skin area. A triple lumen 9F Cordis catheter was introduced into the left internalsubclavian vein using Seldinger technique. The catheter was threaded smoothly over the guide wire and appropriate blood return was obtained. Each lumen of the catheter was evacuated of air and flushed with sterile saline. The catheter was then sutured in place to the skin and a sterile dressing applied. Perfusion to the extremity distal to the point of catheter insertion was checked and found to be adequate. The patient tolerated the procedure well and there were no complications. Indication: Hemodynamic monitoring. A time-out was completed verifying correct patient, procedure, site, positioning, and implant(s) or special equipment if applicable. Allens test was performed to ensure adequate perfusion. The patients after arm was prepped and draped in sterile fashion. 1% Lidocaine was used to anesthetize the area. An 18G Arrow arterial line was introduced into the left radial artery. The catheter was threaded over the guide wire and the needle was removed with appropriate pulsatile blood return. Blood loss was minimal. The catheter was then sutured in place to the skin and a sterile dressing applied. Perfusion to the extremity distal to the point of catheter insertion was checked and found to be adequate. The patient tolerated the procedure well and there were no complications.
--- NOTE | 2023-12-07 14:30 | XR ---
EXAMINATION TYPE: XR chest 1V DATE OF EXAM: 12/07/2023 HISTORY: Shortness of breath. COMPARISON: 12/07/2023 TECHNIQUE: Single view of the chest is submitted. FINDINGS: Endotracheal tube is unchanged in position. Left subclavian central venous line with its distal tip o verlying the SVC. No pneumothorax present. NG tube is seen coursing to the stomach with its side port at the GE junction. Left medial basilar atelectasis or infiltrate. Hyperinflation. The heart is stable. Hilar and mediastinal structures are within normal limits. Degenerative changes are seen of the dorsal spine. IMPRESSION: 1. Endotracheal tube is unchanged in position. Left subclavian central venous line with its distal t ip overlying the SVC. No pneumothorax present. NG tube is seen coursing to the stomach with its side port at the GE junction.
[2023-12-07] MEDS: POTASSIUM BICARBONATE/CIT AC 20 MEQ TABLET.EFF NG-TUBE SCH ×4 (15:00→23:05)
[2023-12-07 17:28] LABS: Glucose,Whole Blood 317 mg/dL (70-110)
[2023-12-07] MEDS ORDERED: POTASSIUM BICARBONATE/CIT AC 20 MEQ TABLET.EFF NG-TUBE SCH (18:00)
--- NOTE | 2023-12-07 18:47 | P.HPIM ---
History of Present Illness H&P Date: 12/07/23 Chief Complaint: Fall I'm rounding for Dr. Michael Estrada. 63-year-old male patient, drinks alcohol excessively along with his at home. He stopped drinking approximately 3 days ago and he presented to the emergency department after a fall. Apparently, the patient has been very unstable and he has been falling. He does not follow-up with her primary care physician. Following his hospital admission, the patient started having involuntary movements of his body, increased shakes, restlessness, thrashing and in the ED, the patient had diminished level of consciousness. given a total of 6 mg of IV Ativan. Seizure was suspected ; no jerky body movements. He was given Keppra. the patient was intubated and placed on a mechanical ventilator and he was transferred to the intensive care unit. ICU: FiO2 50 and PEEP of 5. Telemetry shows sinus rhythm. 2 feeding at 50 mL an hour. Drips include IV propofol. Intubated. Sedated. Review of systems cannot be obtained as patient is sedated Social history: Smoker. Marijuana. Occasionally. Alcohol history. Physical examination: VITAL SIGNS: 99.1, 98, 18, 97 x 67, 100% on the ventilator GENERAL: BMI 17.4, thin built, loss of muscle mass, scattered bruising, disheveled. EYES: Pupils equal. Conjunctiva normal. HEENT: External appearance of nose and ears normal, oral cavity grossly normal- ET tube. NECK: JVD not able to assess; masses not palpable. HEART: First and second heart sounds are normal; no edema. LUNGS: Respiratory rate normal; trees breath sounds. ABDOMEN: Soft, nontender, liver spleen not palpable, no masses palpable. PSYCH: Sedatedl. MUSCULOSKELETAL:No Clubbing/cyanosis; muscle mass decreased and so is subcutaneous fat NEUROLOGICAL: Cranial nerves grossly intact; no facial asymmetry, power and sensation grossly intact. LYMPHATICS: No lymph nodes palpable in the axilla and neck INVESTIGATIONS, reviewed in the clinical context: December 07: White count 5.70 globin 10.3 platelets 114 sodium 127 potassium 3.4 creatinine 1.13. Blood glucoses 993 and repeat potassium 2.3 X-rays of the foot pelvis had cervical spine: No fracture reported Chest x-ray film personally reviewed by me-questionable infiltrate EKG tracing personally reviewed by me-normal sinus rhythm. Nonspecific ST-T wave changes. Assessment and plan: -Acute alcohol withdrawal syndrome with delirium tremens suspected. Last drink was 3 days ago. -Nonketotic hyperosmolar hyperglycemia Initially put on insulin drip. Follow Accu-Cheks- -Suspect anemia of chronic disease. The nutritional. Check iron studies. B12. Folate. -Abnormal shakes tremors. Seizure in the differential. Significant electrolyte abnormalities. Neurology consulted. Neuro checks. -Significant hyponatremia Follow closely -Alcohol use disorder Thiamine. Folic acid. -Acute hypoxic respiratory failure, contribution from COPD smoker. Ventilator dependent -Severe hypokalemia Replace potassium -CAD with a prior cardiac catheterization showing mild disease in the proximal mid RCA. Aspirin -COPD in a current smoker DuoNeb. -Chronic nicotine dependence, cigarette smoker Nicotine patch -Severe protein calorie malnutrition. Consult dietitian. -DJD changes. -BPH Flomax -Full code Past Medical History Past Medical History: Hypertension Additional Past Medical History / Comment(s): UNEXPLAINED WT LOSS (12 #), DAUGHTER DEC 2016. History of Any Multi-Drug Resistant Organisms: None Reported Past Surgical History: Heart Catheterization Additional Past Surgical History / Comment(s): Pt states as an he had a "pinched" abdominal muscle with surgical repair, colonoscopy Past Anesthesia/Blood Transfusion Reactions: No Reported Reaction Past Psychological History: Anxiety, Depression Smoking Status: Current every day smoker Past Alcohol Use History: Occasional Past Drug Use History: Marijuana - Past Family History Mother Family Medical History: No Reported History Additional Family Medical History / Comment(s): . Father Family Medical History: CVA/TIA Additional Family Medical History / Comment(s): Father of a CVA Daughter(s) Additional Family Medical History / Comment(s): ADRENAL GLAND TUMOR. Medications and Allergies Home Medications Medication Instructions Recorded Confirmed Type No Known Home Medications 12/07/23 12/07/23 History Allergies Allergy/AdvReac Type Severity Reaction Status Date / Time No Known Allergies Allergy Verified 12/07/23 11:42 Physical Exam Vitals: Vital Signs Temp Pulse Resp BP Pulse Ox FiO2 12/07/23 10:05 99.1 F 98 18 97/67 100 50 12/07/23 09:56 50 12/07/23 08:47 108 H 98/63 99 12/07/23 08:29 70 01/20/24 07:24 118 H 16 91/62 99 12/07/23 07:18 70 12/07/23 07:02 118 H 19 91/63 99 12/07/23 06:25 115 H 18 98/64 100 12/07/23 06:06 70 12/07/23 05:53 112 H 18 97/72 100 12/07/23 04:00 112 H 18 84/57 96 12/07/23 03:18 70 12/07/23 03:10 124 H 18 119/84 99 12/07/23 02:51 100 12/07/23 02:43 122 H 18 135/91 99 12/07/23 02:10 90 17 113/98 96 12/07/23 00:15 97.6 F 106 H 18 143/110 96 Intake and Output 12/06/23 12/07/23 12/07/23 22:59 06:59 14:59 Intake Total 20.318 56.789 Output Total 3400 Balance -3379.682 56.789 Intake: Intake, IV Titration 20.318 56.789 Amount Insulin Regular 100 unit 52.6 In Sodium Chloride 0.9% 100 ml @ 0.1 UNITS/KG/HR 8.155 mls/hr IV .[id number] [facility] Rx#:[id number] propofoL 1,000 mg In 20.318 4.189 Empty Bag 1 bag @ 15 MCG/ KG/MIN 4.896 mls/hr IV . [id number] [facility] Rx#:[id number] Output: Urine 3400 Uretheral ([place]) 3400 Other: Weight 54.431 kg Results CBC & Chem 7: 12/07/23 00:36 12/07/23 17:30 Labs: Abnormal Lab Results - Last 24 Hours (Table) 12/07/23 12/07/23 12/07/23 Range/Units 00:36 00:36 00:36 RBC 3.31 L (4.30-5.90) m/uL Hgb 10.3 L (13.0-17.5) gm/dL Hct 34.0 L (39.0-53.0) % MCV 102.6 H D (80.0-100.0) fL MCHC 30.4 L (31.0-37.0) g/dL Plt Count 114 L (150-450) k/uL Lymphocytes # 0.8 L (1.0-4.8) k/uL APTT 20.1 L (22.0-30.0) sec ABG pH (7.35-7.45) ABG pCO2 (35-45) mmHg ABG pO2 (83-108) mmHg ABG HCO3 (21-25) mmol/L ABG Total CO2 (19-24) mmol/L ABG O2 Saturation (94-97) % Sodium 127 L (137-145) mmol/L Potassium 3.4 L (3.5-5.1) mmol/L Chloride 96 L (98-107) mmol/L Glucose 993 H* (74-99) mg/dL POC Glucose (mg/dL) (70-110) mg/dL Total Protein 6.2 L (6.3-8.2) g/dL 12/07/23 12/07/23 12/07/23 Range/Units 03:13 03:15 04:39 RBC (4.30-5.90) m/uL Hgb (13.0-17.5) gm/dL Hct (39.0-53.0) % MCV (80.0-100.0) fL MCHC (31.0-37.0) g/dL Plt Count (150-450) k/uL Lymphocytes # (1.0-4.8) k/uL APTT (22.0-30.0) sec ABG pH 7.30 L (7.35-7.45) ABG pCO2 54 H (35-45) mmHg ABG pO2 394 H (83-108) mmHg ABG HCO3 27 H (21-25) mmol/L ABG Total CO2 28 H (19-24) mmol/L ABG O2 Saturation 100.0 H (94-97) % Sodium (137-145) mmol/L Potassium (3.5-5.1) mmol/L Chloride (98-107) mmol/L Glucose (74-99) mg/dL POC Glucose (mg/dL) 563 H 432 H (70-110) mg/dL Total Protein (6.3-8.2) g/dL 12/07/23 12/07/23 12/07/23 Range/Units 05:22 05:33 06:31 RBC (4.30-5.90) m/uL Hgb (13.0-17.5) gm/dL Hct (39.0-53.0) % MCV (80.0-100.0) fL MCHC (31.0-37.0) g/dL Plt Count (150-450) k/uL Lymphocytes # (1.0-4.8) k/uL APTT (22.0-30.0) sec ABG pH (7.35-7.45) ABG pCO2 (35-45) mmHg ABG pO2 (83-108) mmHg ABG HCO3 (21-25) mmol/L ABG Total CO2 (19-24) mmol/L ABG O2 Saturation (94-97) % Sodium (137-145) mmol/L Potassium 2.3 L* (3.5-5.1) mmol/L Chloride 110 H (98-107) mmol/L Glucose 396 H (74-99) mg/dL POC Glucose (mg/dL) 387 H 312 H (70-110) mg/dL Total Protein (6.3-8.2) g/dL 12/07/23 12/07/23 12/07/23 Range/Units 07:23 07:27 08:28 RBC (4.30-5.90) m/uL Hgb (13.0-17.5) gm/dL Hct (39.0-53.0) % MCV (80.0-100.0) fL MCHC (31.0-37.0) g/dL Plt Count (150-450) k/uL Lymphocytes # (1.0-4.8) k/uL APTT (22.0-30.0) sec ABG pH (7.35-7.45) ABG pCO2 (35-45) mmHg ABG pO2 (83-108) mmHg ABG HCO3 (21-25) mmol/L ABG Total CO2 (19-24) mmol/L ABG O2 Saturation (94-97) % Sodium (137-145) mmol/L Potassium 2.3 L* (3.5-5.1) mmol/L Chloride 112 H (98-107) mmol/L Glucose 235 H (74-99) mg/dL POC Glucose (mg/dL) 262 H 215 H (70-110) mg/dL Total Protein (6.3-8.2) g/dL 12/07/23 Range/Units 09:03 RBC (4.30-5.90) m/uL Hgb (13.0-17.5) gm/dL Hct (39.0-53.0) % MCV (80.0-100.0) fL MCHC (31.0-37.0) g/dL Plt Count (150-450) k/uL Lymphocytes # (1.0-4.8) k/uL APTT (22.0-30.0) sec ABG pH (7.35-7.45) ABG pCO2 (35-45) mmHg ABG pO2 (83-108) mmHg ABG HCO3 (21-25) mmol/L ABG Total CO2 (19-24) mmol/L ABG O2 Saturation (94-97) % Sodium (137-145) mmol/L Potassium (3.5-5.1) mmol/L Chloride (98-107) mmol/L Glucose (74-99) mg/dL POC Glucose (mg/dL) 211 H (70-110) mg/dL Total Protein (6.3-8.2) g/dL
[2023-12-07 20:31] LABS: Glucose,Whole Blood 241 mg/dL (70-110)
[2023-12-07] MEDS: INSULIN DETEMIR (LEVEMIR) 100 UNIT/ML SYR SQ SCH (20:38)
[2023-12-07 23:21] LABS: Glucose,Whole Blood 290 mg/dL (70-110)
[2023-12-08] MEDS: IPRATROPIUM-ALBUTEROL 3 ML NEB INHALATION SCH ×7 (00:19→23:28)
[2023-12-08 03:13] LABS: African American GFR (CKD) >90 (>60 ml/min/1.73 sqM); Anion Gap 4 mmol/L; Blood Urea Nitrogen 14 mg/dL (9-20); Calcium 8.5 mg/dL (8.4-10.2); Carbon Dioxide 28 mmol/L (22-30); Chloride 114 mmol/L (98-107); Glucose 208 mg/dL (74-99); Magnesium 1.9 mg/dL (1.6-2.3); Non-African American GFR(CKD) >90 (>60 ml/min/1.73 sqM); Phosphorus 2.2 mg/dL (2.5-4.5); Potassium 3.3 mmol/L (3.5-5.1); Sodium 146 mmol/L (137-145)
[2023-12-08] MEDS: POTASSIUM CHLORIDE 20 MEQ in WATER FOR INJECTION 1 100ML.BAG IVPB SCH ×2 (03:52→05:52)
[2023-12-08] MEDS ORDERED: MAGNESIUM SULFATE-D5W PMX 1 GM in DEXTROSE/WATER 1 100ML.BAG IVPB ONE (04:20)
[2023-12-08] MEDS: SODIUM CHLORIDE 0.9% 1,000 ML IV SCH ×2 (05:24→09:00)
[2023-12-08 05:31] LABS: Basophils % (A) 0 %; Eosinophils # (A) 0.1 k/uL (0-0.7); Eosinophils % (A) 1 %; HGB 9.7 gm/dL (13.0-17.5); Hypochromasia Moderate; Lymphocytes # (A) 1.9 k/uL (1.0-4.8); Lymphocytes % (A) 17 %; MCH 30.4 pg (25.0-35.0); MCHC 31.2 g/dL (31.0-37.0); Mean Platelet Volume 8.2; Monocytes # (A) 0.4 k/uL (0-1.0); Monocytes % (A) 4 %; Neutrophils # (A) 8.1 k/uL (1.3-7.7); Neutrophils % (A) 75 %; Platelet Count 121 k/uL (150-450); RBC 3.18 m/uL (4.30-5.90); RDW 15.6 % (11.5-15.5); WBC 10.7 k/uL (3.8-10.6)
[2023-12-08 05:57] LABS: ABG HCO3 29 mmol/L (21-25); ABG Oxygen Saturation 99.5 % (94-97); ABG PCO2 40 mmHg (35-45); ABG PH 7.46 (7.35-7.45); ABG PO2 118 mmHg (83-108); ABG TCO2 30 mmol/L (19-24); Allen Test Performed? Yes
[2023-12-08 06:02] LABS: MCV 97.4 fL (80.0-100.0)
[2023-12-08] MEDS: INSULIN ASPART (NovoLOG) 100 UNIT/ML VIAL SQ SCH ×4 (06:02→23:08)
[2023-12-08 06:04] LABS: Glucose,Whole Blood 228 mg/dL (70-110)
--- NOTE | 2023-12-08 07:06 | XR ---
EXAMINATION TYPE: XR chest 1V portable DATE OF EXAM: 12/08/2023 COMPARISON: 12/07/2023 HISTORY: Tube placement TECHNIQUE: Single frontal view of the chest is obtained. FINDINGS: The ET tube has advanced and now is Been no change in the retrocardiac opacity obscuring the left hemidiaphragm. The heart size is normal and the pulmonary vasculature is not congested. There is no pneumothorax. 3. 4 cm above the breann, previously was 6.3 cm. The NG tube has been retracted from the stomach and the tip is now in the distal esophagus. IMPRESSION: 1. ET tube 3.4 cm above the breann, previously 6.3 cm. 2. Retraction of the NG tube now in the distal esophagus. 3. No change in the acute cardiopulmonary disease involving the retrocardiac region.
[2023-12-08] MEDS: MULTIVITAMINS, THERA 1 EACH TAB PO SCH (08:25)
[2023-12-08] MEDS: CHLORHEXIDINE GLUCONATE 15 ML CUP MUCOUS MEM SCH ×2 (08:25→20:32)
[2023-12-08] MEDS: FOLIC ACID 1 MG TAB PO SCH (08:25)
[2023-12-08] MEDS: PANTOPRAZOLE 40 MG/10 ML VIAL IV SCH (08:26)
[2023-12-08] MEDS: THIAMINE 100 MG in SODIUM CHLORIDE 0.9% 50 ML IVPB SCH ×2 (08:26→20:32)
[2023-12-08] MEDS: ENOXAPARIN 40 MG/0.4 ML SYRINGE SQ SCH (08:27)
[2023-12-08 09:42] LABS: % Iron Saturation 4.12 (15.00-50.00); Ferritin 46.3 ng/mL (22.0-322.0); Iron 12 UG/DL (65-175); Total Iron Binding Capacity 291 UG/DL (228-460)
[2023-12-08 11:44] LABS: Glucose,Whole Blood 225 mg/dL (70-110)
--- NOTE | 2023-12-08 12:13 | P.PN ---
Subjective Progress Note Date: 12/08/23 63-year-old male patient, alcohol and he drinks alcohol excessively along with his at home. He stopped drinking approximately 3 days ago and he presented to the emergency department after a fall. Apparently, the patient has been very unstable and he has been falling. He does not follow-up with her primary care physician. Following his hospital admission, the patient started having involuntary movements of his body, increased shakes, restlessness, thrashing and in the ED, the patient had diminished level of consciousness. He was given a total of 6 mg of IV Ativan. Seizure was suspected although there was no clear indication of the patient was seizing. There was no jerky body movements. He was given Keppra. Otherwise, no additional history is available. Ultimately, the patient was intubated and placed on a mechanical ventilator and he was transferred to the intensive care unit. I'm seeing this patient in the ICU post intubation. Currently is on propofol running at 40 Augustus respiratory kilogram per minute. His calm and comfortable. Is on assist-control mode of mechanical ventilation at the rate of 18, tidal volume of 450, FiO2 of 70% with a PEEP of 5. Blood gas showed a pH of 7.3 with a pCO2 of 54 and pO2 of 394 post intubation. The chest x-ray from this morning shows adequate positioning of the orotracheal tube. No evidence of any airspace disease. There may be a small left-sided pleural effusion. There is no evidence of pneumothorax or pneumonia. This can of the head and the spine was also done in the emergency department that showed no acute abnormalities. The patient had severe foraminal narrowing at the level of C3-C4 and also mild to moderate foraminal narrowing at the level of C4-C5 and mild to moderate bilateral foraminal narrowing at the level of C5- C6 and bilateral narrowing at the level of C6-C7. The patient was also given a x-ray of the pelvis that showed no evidence of fracture. Initial sodium level was at 127 and after fluid resuscitation sodium came back at 144. Blood sugar was 993 and he was started on insulin drip based on the [facility] protocol. Currently insulin drip is off and the most recent blood sugars at 2:15. BUN is a 50 with a creatinine of 0.7. Potassium level is at 2.3 and this is being replaced. The echoes of 5.7 with a hemoglobin of 10.3. Hemodynamically, he is hypotensive. He is not requiring any pressors at this point. He is producing adequate amount of urine output. Most recent blood pressure is 91/62. IV fluids are in the form of D5 half-normal with potassium at the rate of 150 mL an hour. Note that the patient is not known to be diabetic. He has history of hyp ertension and alcoholism. On 12/08/2023, the patient remains intubated on a mechanical ventilator. He is on sedation with propofol running at 50 mcg/kg/m and the dose has been reduced down to 25 mcg/kg/m. Resting comfortably in bed. No significant issues overnight. He is on assist control mode with a rate of 18, tidal volume of 450, FiO2 of 40% and a PEEP of 5. Chest x-ray findings are stable. No interval changes and chest x-ray findings and there is no evidence of pneumonia. Some atelectatic changes bilaterally. Gait is at 7.46 with a pCO2 of 40 and a pO2 of 118. This was on FiO2 of 50%. No significant respiratory secretions. The patient is also on enteral feeding and the patient was started on Nepro at the rate of 31 mL an hour. IV fluids are normal saline at the rate of 100 mL an hour. He was given Levemir insulin 12 units for blood sugar control. echoes at 10.7, he was not 0.7 and a platelet count of 121. Sodium is at 146, BUN is at 40 with a creatinine of 0.3. LFTs are normal. Serum iron level is 12. Potassium levels at 3.3. Afebrile. No pressors at this point in time. Objective - Vital Signs Vital signs: Vital Signs Temp 99.0 F 12/08/23 08:00 Pulse 100 12/08/23 08:45 Resp 28 H 12/08/23 08:45 BP 107/73 12/07/23 18:30 Pulse Ox 97 12/08/23 08:00 FiO2 40 12/08/23 08:32 Intake & Output 12/07/23 12/08/23 12/08/23 18:59 06:59 18:59 Intake Total 2693.707 3263.632 221.475 Output Total 790 980 100 Balance 490.866 3083.632 121.475 Weight 55 kg 55.2 kg Intake: IV 1340 1396 23 A Line 36 3 Invasive Line 1 30 30 10 Invasive Line 2 30 30 10 Invasive Line 3 30 Magnesium Sulfate-D5w Pmx 100 1 gm In Dextrose/Water 1 100ml.bag @ 100 mls/hr IVPB ONCE ONE Rx#: [id number] Potassium Chloride 10 meq 100 In Water For Injection 1 100ml.bag @ 100 mls/hr IVPB Q1H [facility] Rx#: [id number] Potassium Chloride 20 meq 150 In Water For Injection 1 100ml.bag @ 50 mls/hr IVPB Q2H [facility] Rx#: [id number] Sodium Chloride 0.9% 1, 1100 1000 000 ml @ 100 mls/hr IV . Q10H [facility] Rx#:[id number] Thiamine 100 mg In Sodium 50 50 Chloride 0.9% 50 ml @ 100 mls/hr IVPB Q12HR [facility] Rx#:[id number] Intake, IV Titration 140.965 187.632 76.475 Amount Insulin Regular 100 unit 52.6 In Sodium Chloride 0.9% 100 ml @ 0.1 UNITS/KG/HR 8.155 mls/hr IV .[id number] [facility] Rx#:[id number] propofoL 1,000 mg In 4.189 Empty Bag 1 bag @ 15 MCG/ KG/MIN 4.896 mls/hr IV . [id number] [facility] Rx#:[id number] propofoL 1,000 mg In 84.176 187.632 76.475 Empty Bag 1 bag @ 15 MCG/ KG/MIN 4.899 mls/hr IV . [id number] [facility] Rx#:[id number] Tube Feeding 60 372 62 Other 60 120 60 Output: Urine 790 980 100 Other: Voiding Method Indwelling Catheter Indwelling Catheter # Bowel Movements 0 0 ABP, PAP, CO, CI - Last Documented Arterial Blood Pressure 109/56 - Exam Gen. appearance the patient is well sedated and his calm and comfortable, orogastric and orotracheal tube are both in place Head exam was generally normal. There was no scleral icterus or corneal arcus. Mucous membranes were moist. Neck was supple and without jugular venous distension, thyromegaly, or carotid bruits. Carotids were easily palpable bilaterally. There was no adenopathy. Lungs were clear to auscultation and percussion, and with normal diaphragmatic excursion. No wheezes or rales were noted. Cardiac exam revealed the PMI to be normally situated and sized. The rhythm was regular and no extrasystoles were noted during several minutes of auscultation. The first and second heart sounds were normal and physiologic splitting of the second heart sound was noted. There were no murmurs, rubs, clicks, or gallops. Abdominal exam revealed normal bowel sounds. The abdomen was soft, non-tender, and without masses, organomegaly, or appreciable enlargement of the abdominal aorta. Examination of the skin revealed no evidence of significant rashes, suspicious appearing nevi or other concerning lesions. There are is areas of skin abrasion and a skin tear in his left arm. Areas of small bruising throughout his body. Neurologically, the patient is sedated. No seizure activity has been noted. No neck stiffness or rigidity. Pupils are equal and symmetrical at 2-3 mm in size. He grimaces to deep painful stimulation. He is withdrawing all 4 extremities. Currently is on 2 point restraints. - Labs CBC & Chem 7: 12/08/23 05:00 12/08/23 02:55 Labs: Abnormal Lab Results - Last 24 Hours (Table) 12/07/23 12/07/23 12/07/23 Range/Units 07:27 09:03 11:39 WBC (3.8-10.6) k/uL RBC (4.30-5.90) m/uL Hgb (13.0-17.5) gm/dL Hct (39.0-53.0) % RDW (11.5-15.5) % Plt Count (150-450) k/uL Neutrophils # (1.3-7.7) k/uL ABG pH (7.35-7.45) ABG pO2 (83-108) mmHg ABG HCO3 (21-25) mmol/L ABG Total CO2 (19-24) mmol/L ABG O2 Saturation (94-97) % Sodium (137-145) mmol/L Potassium 2.3 L* (3.5-5.1) mmol/L Chloride 112 H (98-107) mmol/L Creatinine (0.66-1.25) mg/dL Glucose 235 H (74-99) mg/dL POC Glucose (mg/dL) 211 H 285 H (70-110) mg/dL Phosphorus (2.5-4.5) mg/dL 12/07/23 12/07/23 12/07/23 Range/Units 12:10 17:26 20:29 WBC (3.8-10.6) k/uL RBC (4.30-5.90) m/uL Hgb (13.0-17.5) gm/dL Hct (39.0-53.0) % RDW (11.5-15.5) % Plt Count (150-450) k/uL Neutrophils # (1.3-7.7) k/uL ABG pH (7.35-7.45) ABG pO2 (83-108) mmHg ABG HCO3 (21-25) mmol/L ABG Total CO2 (19-24) mmol/L ABG O2 Saturation (94-97) % Sodium (137-145) mmol/L Potassium 3.2 L (3.5-5.1) mmol/L Chloride (98-107) mmol/L Creatinine (0.66-1.25) mg/dL Glucose (74-99) mg/dL POC Glucose (mg/dL) 317 H 241 H (70-110) mg/dL Phosphorus (2.5-4.5) mg/dL 12/07/23 12/07/23 12/08/23 Range/Units 21:00 23:20 02:55 WBC (3.8-10.6) k/uL RBC (4.30-5.90) m/uL Hgb (13.0-17.5) gm/dL Hct (39.0-53.0) % RDW (11.5-15.5) % Plt Count (150-450) k/uL Neutrophils # (1.3-7.7) k/uL ABG pH (7.35-7.45) ABG pO2 (83-108) mmHg ABG HCO3 (21-25) mmol/L ABG Total CO2 (19-24) mmol/L ABG O2 Saturation (94-97) % Sodium 146 H (137-145) mmol/L Potassium 3.3 L 3.3 L (3.5-5.1) mmol/L Chloride 114 H (98-107) mmol/L Creatinine 0.37 L (0.66-1.25) mg/dL Glucose 208 H (74-99) mg/dL POC Glucose (mg/dL) 290 H (70-110) mg/dL Phosphorus 2.2 L (2.5-4.5) mg/dL 12/08/23 12/08/23 12/08/23 Range/Units 05:00 05:53 06:01 WBC 10.7 H (3.8-10.6) k/uL RBC 3.18 L (4.30-5.90) m/uL Hgb 9.7 L (13.0-17.5) gm/dL Hct 31.0 L (39.0-53.0) % RDW 15.6 H (11.5-15.5) % Plt Count 121 L (150-450) k/uL Neutrophils # 8.1 H (1.3-7.7) k/uL ABG pH 7.46 H (7.35-7.45) ABG pO2 118 H (83-108) mmHg ABG HCO3 29 H (21-25) mmol/L ABG Total CO2 30 H (19-24) mmol/L ABG O2 Saturation 99.5 H (94-97) % Sodium (137-145) mmol/L Potassium (3.5-5.1) mmol/L Chloride (98-107) mmol/L Creatinine (0.66-1.25) mg/dL Glucose (74-99) mg/dL POC Glucose (mg/dL) 228 H (70-110) mg/dL Phosphorus (2.5-4.5) mg/dL Assessment and Plan Plan: Altered mentation, likely secondary to alcohol withdrawal. The patient is suspected to go into delirium tremens. Treated in the emergency, ultimately was intubated and placed on a mechanical ventilator and the patient is currently on propofol, calm and comfortable. Alcoholism Acute hyperglycemia, could be a component of HHS. The patient was treated with insulin drip and currently insulin drip is off. Blood sugar control is improved. Hypokalemia, potassium is being replaced Acute respiratory failure, hypoxic in nature the patient is currently intubated on a mechanical ventilator and the patient's oxygenation is improved. I believe that he was also intubated for airway protection Coronary artery disease and based on an earlier cardiac catheterization, the patient was found to have mild disease in the proximal mid RCA along with calcifications Smoker Chronic anxiety/depression History of falls without any significant injuries Cervical spine degenerative disease and foraminal narrowing, please refer to the CAT scan of the neck4 Hypertension BPH maintain on Flomax on outpatient basis Plan Continue ventilator support. Wean down FiO2 to 40% and dropped the tidal volume to 400 Change IV fluids to 40 mL an hour Keep the patient sedated with propofol, IV Ativan for CIWA protocol Neurologic consultation Replaced potassium Levemir insulin 12 units for blood sugar control in addition site scale coverage Thiamine 100 mg IV every 24 hours Lovenox for DVT prophylaxis Nepro for enteral feeding for nutritional support Monitor blood pressure No need for pressors at this point No need for antibiotic coverage at this point Continue the supportive care. Not ready for any weaning to extubation of this point in time. Critical care evaluation that was done in more than 30 minutes. Continue to follow. Time with Patient: Greater than 30
[2023-12-08 12:55] LABS: Glucose,Whole Blood 260 mg/dL (70-110)
[2023-12-08] MEDS: POTASSIUM CHLORIDE 10 MEQ in WATER FOR INJECTION 1 100ML.BAG IVPB SCH ×2 (14:44→17:00)
[2023-12-08 17:24] LABS: Glucose,Whole Blood 281 mg/dL (70-110)
[2023-12-08] MEDS ORDERED: POTASSIUM BICARBONATE/CIT AC 20 MEQ TABLET.EFF NG-TUBE SCH (20:00)
[2023-12-08] MEDS: INSULIN DETEMIR (LEVEMIR) 100 UNIT/ML SYR SQ SCH (20:37)
--- NOTE | 2023-12-08 22:10 | P.PN ---
Progress Note - Text Progress Note Date: 12/08/23 Chief Complaint: Fall I'm rounding for Dr. Michael Estrada. 63-year-old male patient, drinks alcohol excessively along with his at home. He stopped drinking approximately 3 days ago and he presented to the emergency department after a fall. Apparently, the patient has been very unstable and he has been falling. He does not follow-up with her primary care physician. Following his hospital admission, the patient started having involuntary movements of his body, increased shakes, restlessness, thrashing and in the ED, the patient had diminished level of consciousness. given a total of 6 mg of IV Ativan. Seizure was suspected ; no jerky body movements. He was given Keppra. the patient was intubated and placed on a mechanical ventilator and he was transferred to the intensive care unit. ICU: FiO2 50 and PEEP of 5. Telemetry shows sinus rhythm. 2 feeding at 50 mL an hour. Drips include IV propofol. Intubated. Sedated. 12/08/2023: ICU. Intubated. On the ventilator. FiO2 40 people 5. Telemetry- sinus rhythm. Drips included propofol. Tube feeding at 31 mL an hour. Active Medications Albuterol/Ipratropium (Ipratropium-Albuterol 3 Ml Neb) 3 ml INHALATION RT-Q4H [facility] Last Admin: 12/08/23 19:59 Dose: 3 ml Chlorhexidine Gluconate (Chlorhexidine Gluconate 15 Ml Cup) 15 ml MUCOUS MEM BID [facility] Last Admin: 12/08/23 20:32 Dose: 15 ml Dextrose/Water (Dextrose 50% Syringe 50 Ml) 25 ml IVP PER PROTOCOL PRN; Prot ocol PRN Reason: Hypoglycemia Dextrose/Water (Dextrose 50% Syringe 50 Ml) 50 ml IVP PER PROTOCOL PRN; Protocol PRN Reason: Hypoglycemia Enoxaparin Sodium (Enoxaparin 40 Mg/0.4 Ml Syringe) 40 mg SQ DAILY [facility] Last Admin: 12/08/23 08:27 Dose: 40 mg Folic Acid (Folic Acid 1 Mg Tab) 1 mg PO DAILY [facility] Last Admin: 12/08/23 08:25 Dose: 1 mg Sodium Chloride (Saline 0.9%) 1,000 mls @ 40 mls/hr IV .Q24H [facility] Last Admin: 12/08/23 09:00 Dose: 40 mls/hr Thiamine HCl 100 mg/ Sodium (Chloride) 51 mls @ 100 mls/hr IVPB Q12HR [facility] Last Admin: 12/08/23 20:32 Dose: 100 mls/hr Propofol 1,000 mg/ IV Solution 100 mls @ 4.899 mls/hr IV .[id number] [facility]; Protocol Last Admin: 12/08/23 19:06 Dose: 50 mcg/kg/min, 16.329 mls/hr Insulin Aspart (Insulin Aspart (Novolog) 100 Unit/Ml Vial) 0 unit SQ Q6H [facility]; Protocol Last Admin: 12/08/23 17:28 Dose: 3 unit Insulin Detemir (Insulin Detemir (Levemir) 100 Unit/Ml Syr) 12 unit SQ HS [facility] Last Admin: 12/08/23 20:37 Dose: 12 unit Lorazepam (Lorazepam 2 Mg/Ml Inj) 2 mg IV Q10M PRN PRN Reason: CIWA 16 or higher Stop: 12/09/23 08:57 Lorazepam (Lorazepam 2 Mg/Ml Inj) 1 mg IV Q2HR PRN PRN Reason: CIWA 8 or 9 Lorazepam (Lorazepam 2 Mg/Ml Inj) 1 mg IV Q1HR PRN PRN Reason: CIWA 10 to 15 Lorazepam (Lorazepam 2 Mg/Ml Inj) 2 mg IV Q6HR PRN PRN Reason: Seizures Miscellaneous Information (Magnesium Replacement Protocol 1 Each Misc) 1 each MISCELLANE DAILY PRN; Protocol PRN Reason: Per Protocol Miscellaneous Information (Potassium Replacement Protocol 1 Each Misc) 1 each MISCELLANE DAILY PRN; Protocol PRN Reason: Per Protocol Multivitamins (Multivitamins, Thera 1 Each Tab) 1 each PO DAILY [facility] Last Admin: 12/08/23 08:25 Dose: 1 each Naloxone HCl (Naloxone 0.4 Mg/Ml 1 Ml Vial) 0.2 mg IV Q2M PRN PRN Reason: Opioid Reversal Pantoprazole Sodium (Pantoprazole 40 Mg/10 Ml Vial) 40 mg IV DAILY [facility] Last Admin: 12/08/23 08:26 Dose: 40 mg Social history: Smoker. Marijuana. Occasionally. Alcohol history. Physical examination: VITAL SIGNS: 98.9, 100, 18, 10 5 x 69, 99% on the ventilator GENERAL: thin built, loss of muscle mass, scattered bruising, disheveled. EYES: Pupils equal. Conjunctiva normal. HEENT: External appearance of nose and ears normal, oral cavity grossly normal- ET tube. NECK: JVD not able to assess; masses not palpable. HEART: First and second heart sounds are normal; no edema. LUNGS: Respiratory rate normal; decreased breath sounds. ABDOMEN: Soft, nontender, liver spleen not palpable, no masses palpable. PSYCH: Sedatedl. MUSCULOSKELETAL:No Clubbing/cyanosis; muscle mass decreased and loss of subcutaneous fat INVESTIGATIONS, reviewed in the clinical context: December 08: White count 10.7 hemoglobin 9.7 platelets 121 sodium 146 potassium 3.3 creatinine 0.37 iron 12 TIBC 291% saturation 4.12 ferritin 46.3 B12 1325 folate 12.2 December 07: White count 5.70 globin 10.3 platelets 114 sodium 127 potassium 3.4 creatinine 1.13. Blood glucoses 993 and repeat potassium 2.3 X-rays of the foot pelvis had cervical spine: No fracture reported Chest x-ray film personally reviewed by me-questionable infiltrate EKG tracing personally reviewed by me-normal sinus rhythm. Nonspecific ST-T wave changes. Assessment and plan: -Acute alcohol withdrawal syndrome with delirium tremens suspected. Last drink was 3 days ago. -Nonketotic hyperosmolar hyperglycemia Initially put on insulin drip. Follow Accu-Cheks- -Iron deficiency anemia, also possible anemia of chronic disease The nutritional. IV data sit-3 doses -Abnormal shakes tremors. Seizure in the differential. Significant electrolyte abnormalities. Neurology following Neuro checks. -Significant hyponatremia: Better Follow closely -Alcohol use disorder Thiamine. Folic acid. -Acute hypoxic respiratory failure, contribution from COPD smoker. Ventilator assisted: Slow to respond -Severe hypokalemia: Better Replace potassium -CAD with a prior cardiac catheterization showing mild disease in the proximal mid RCA. Aspirin -COPD in a current smoker DuoNeb. -Chronic nicotine dependence, cigarette smoker Nicotine patch -Severe protein calorie malnutrition. Consult dietitian. -DJD changes. -BPH Flomax -Full code Past Medical History Past Medical History: Hypertension Additional Past Medical History / Comment(s): UNEXPLAINED WT LOSS (12 #), Trevor QUILES DEC 2016. History of Any Multi-Drug Resistant Organisms: None Reported Past Surgical History: Heart Catheterization Additional Past Surgical History / Comment(s): Pt states as an infant he had a "pinched" abdominal muscle with surgical repair, colonoscopy Past Anesthesia/Blood Transfusion Reactions: No Reported Reaction Past Psychological History: Anxiety, Depression Smoking Status: Current every day smoker Past Alcohol Use History: Occasional Past Drug Use History: Marijuana
[2023-12-08] MEDS: SODIUM FERRIC GLUCONAT-SUCROSE 125 MG in SODIUM CHLORIDE 0.9% 100 ML IVPB SCH (22:51)
[2023-12-08 23:04] LABS: Glucose,Whole Blood 268 mg/dL (70-110)
[2023-12-08 23:53] LABS: Glucose,Whole Blood 253 mg/dL (70-110)
[2023-12-09] MEDS: LORazepam 2 MG/ML INJ IV PRN ×4 (00:07→22:03)
[2023-12-09] MEDS: IPRATROPIUM-ALBUTEROL 3 ML NEB INHALATION SCH ×6 (03:58→23:48)
[2023-12-09 05:17] LABS: Glucose,Whole Blood 264 mg/dL (70-110)
[2023-12-09 05:33] LABS: HCT 28.2 % (39.0-53.0); HGB 8.8 gm/dL (13.0-17.5); Hypochromasia Marked; MCHC 31.2 g/dL (31.0-37.0); MCV 99.3 fL (80.0-100.0); Macrocytosis Slight; Mean Platelet Volume 8.8; Platelet Count 101 k/uL (150-450); RBC 2.84 m/uL (4.30-5.90); RDW 15.8 % (11.5-15.5); WBC 8.9 k/uL (3.8-10.6)
[2023-12-09] MEDS: INSULIN ASPART (NovoLOG) 100 UNIT/ML VIAL SQ SCH ×4 (05:41→23:54)
[2023-12-09 05:49] LABS: ABG Base Excess 4.3 mmol/L; ABG HCO3 28 mmol/L (21-25); ABG PCO2 39 mmHg (35-45); ABG PH 7.47 (7.35-7.45); ABG PO2 97 mmHg (83-108); ABG TCO2 29 mmol/L (19-24); Allen Test Performed? Yes
[2023-12-09 05:55] LABS: African American GFR (CKD) >90 (>60 ml/min/1.73 sqM); Anion Gap 2 mmol/L; Band Neutrophils % 10 %; Blood Urea Nitrogen 15 mg/dL (9-20); Calcium 8.6 mg/dL (8.4-10.2); Carbon Dioxide 27 mmol/L (22-30); Chloride 114 mmol/L (98-107); Glucose 230 mg/dL (74-99); Magnesium 1.8 mg/dL (1.6-2.3); Monocytes # (M) 1.42 k/uL (0-1.0); Neutrophils % (M) 56 %; Non-African American GFR(CKD) >90 (>60 ml/min/1.73 sqM); Nucleated Red Blood Cells 0 /100 WBC (0-0); Potassium 3.4 mmol/L (3.5-5.1); Sodium 143 mmol/L (137-145); Total Cells Counted 100
[2023-12-09] MEDS ORDERED: MAGNESIUM SULFATE-D5W PMX 1 GM in DEXTROSE/WATER 1 100ML.BAG IVPB ONE (06:05)
[2023-12-09] MEDS: POTASSIUM CHLORIDE 20 MEQ in WATER FOR INJECTION 1 100ML.BAG IVPB SCH ×2 (06:22→08:03)
--- NOTE | 2023-12-09 08:10 | XR ---
EXAMINATION TYPE: XR chest 1V portable DATE OF EXAM: 12/09/2023 5:25 AM CLINICAL INDICATION:Male, 63 years old with history of Tube placement; [facility] COMPARISON: Chest radiographs from 12/08/2023 TECHNIQUE: XR chest 1V portable Frontal view of the chest. FINDINGS: Lungs/Pleura: There is no evidence of pleural effusion, focal consolidation, or pneumothorax. Pulmonary vascularity: Unremarkable. Heart/mediastinum: Cardiomediastinal silhouette is unremarkable. Musculoskeletal: No acute osseous pathology. Other findings: None Lines/Tubes: Endotracheal tube with distal tip 2.6 cm above the breann. Nasogastric tube with its distal tip and side-port projecting under the diaphragm. Left internal jugular central venous catheter with distal tip at the superior vena cava brachiocephal ic vein junction. IMPRESSION: 1. Support tubes in appropriate position. No acute cardiopulmonary disease process. 2. COPD changes.
[2023-12-09] MEDS: ENOXAPARIN 40 MG/0.4 ML SYRINGE SQ SCH (08:22)
[2023-12-09] MEDS: MULTIVITAMINS, THERA 1 EACH TAB PO SCH (08:22)
[2023-12-09] MEDS: THIAMINE 100 MG in SODIUM CHLORIDE 0.9% 50 ML IVPB SCH ×2 (08:22→19:59)
[2023-12-09] MEDS: FOLIC ACID 1 MG TAB PO SCH (08:22)
[2023-12-09] MEDS: CHLORHEXIDINE GLUCONATE 15 ML CUP MUCOUS MEM SCH ×3 (08:23→20:01)
[2023-12-09] MEDS: PANTOPRAZOLE 40 MG/10 ML VIAL IV SCH (08:23)
[2023-12-09] MEDS: SODIUM FERRIC GLUCONAT-SUCROSE 125 MG in SODIUM CHLORIDE 0.9% 100 ML IVPB SCH (09:05)
[2023-12-09] MEDS: DEXMEDETOMIDINE/0.9% NACL(PMX) 400 MCG in EMPTY BAG 1 BAG IV SCH (10:11)
[2023-12-09 11:15] LABS: Glucose,Whole Blood 270 mg/dL (70-110)
[2023-12-09 12:44] LABS: ABG Base Excess 3.5 mmol/L; ABG HCO3 27 mmol/L (21-25); ABG Oxygen Saturation 99.5 % (94-97); ABG PCO2 37 mmHg (35-45); ABG PH 7.48 (7.35-7.45); ABG PO2 128 mmHg (83-108); ABG TCO2 28 mmol/L (19-24)
--- NOTE | 2023-12-09 13:36 | P.PN ---
Subjective Progress Note Date: 12/09/23 Principal diagnosis: Acute hypoxic respiratory failure secondary to Acute delirium tremens, and alcohol withdrawal 63-year-old male patient, alcohol and he drinks alcohol excessively along with his at home. He stopped drinking approximately 3 days ago and he presented to the emergency department after a fall. Apparently, the patient has been very unstable and he has been falling. He does not follow-up with her primary care physician. Following his hospital admission, the patient started having involuntary movements of his body, increased shakes, restlessness, thrashing and in the ED, the patient had diminished level of consciousness. He was given a total of 6 mg of IV Ativan. Seizure was suspected although there was no clear indication of the patient was seizing. There was no jerky body movements. He was given Keppra. Otherwise, no additional history is available. Ultimately, the patient was intubated and placed on a mechanical ventilator and he was transferred to the intensive care unit. I'm seeing this patient in the ICU post intubation. Currently is on propofol running at 40 Augustus respiratory kilogram per minute. His calm and comfortable. Is on assist-control mode of mechanical ventilation at the rate of 18, tidal volume of 450, FiO2 of 70% with a PEEP of 5. Blood gas showed a pH of 7.3 with a pCO2 of 54 and pO2 of 394 post intubat ion. The chest x-ray from this morning shows adequate positioning of the orotracheal tube. No evidence of any airspace disease. There may be a small left-sided pleural effusion. There is no evidence of pneumothorax or pneumonia. This can of the head and the spine was also done in the emergency department that showed no acute abnormalities. The patient had severe foraminal narrowing at the level of C3-C4 and also mild to moderate foraminal narrowing at the level of C4-C5 and mild to moderate bilateral foraminal narrowing at the level of C5- C6 and bilateral narrowing at the level of C6-C7. The patient was also given a x-ray of the pelvis that showed no evidence of fracture. Initial sodium level was at 127 and after fluid resuscitation sodium came back at 144. Blood sugar was 993 and he was started on insulin drip based on the [facility] protocol. Currently insulin drip is off and the most recent blood sugars at 2:15. BUN is a 50 with a creatinine of 0.7. Potassium level is at 2.3 and this is being replaced. The echoes of 5.7 with a hemoglobin of 10.3. Hemodynamically, he is hypotensive. He is not requiring any pressors at this point. He is producing adequate amount of urine output. Most recent blood pressure is 91/62. IV fluids are in the form of D5 half-normal with potassium at the rate of 150 mL an hour. Note that the patient is not known to be diabetic. He has history of hypertension and alcoholism. On 12/08/2023, the patient remains intubated on a mechanical ventilator. He is on sedation with propofol running at 50 mcg/kg/m and the dose has been reduced down to 25 mcg/kg/m. Resting comfortably in bed. No significant issues overnight. He is on assist control mode with a rate of 18, tidal volume of 450, FiO2 of 40% and a PEEP of 5. Chest x-ray findings are stable. No interval changes and chest x-ray findings and there is no evidence of pneumonia. Some atelectatic changes bilaterally. Gait is at 7.46 with a pCO2 of 40 and a pO2 of 118. This was on FiO2 of 50%. No significant respiratory secretions. The patient is also on enteral feeding and the patient was started on Nepro at the rate of 31 mL an hour. IV fluids are normal saline at the rate of 100 mL an hour. He was given Levemir insulin 12 units for blood sugar control. e choes at 10.7, he was not 0.7 and a platelet count of 121. Sodium is at 146, BUN is at 40 with a creatinine of 0.3. LFTs are normal. Serum iron level is 12. Potassium levels at 3.3. Afebrile. No pressors at this point in time. , patient remains in the ICU, intubated and mechanically ventilated. Patient is on assist control rate of 18 tidal volume 400 FiO2 40% and PEEP of 5 ABG showed a pO2 of 97 pCO2 39 pH of 7.47 hence no ventilator settings changes were made. Patient initially presented with a blood sugar control 993, and acute alcohol condition. Required intubation initially in the ER. Remains on propofol at 50 mg/kg/m 0.9 normal saline at 40 mL per hour is also receiving Nepro for nutritional support, is also on Lovenox, and I plan to change his propofol to Precedex today, and at least give the patient a trial of weaning with a pressure support of 10 and CPAP. Patient seems to be quite sedated, difficult to assess whether he would be ready for weaning, but nonetheless we will definitely try to transition to Precedex and hopefully give the patient a weaning trial today. WBC count is 8.9 hemoglobin is 8.8. Basic metabolic profile is normal and renal profile is normal, chest x-ray showed minimal basilar atelectasis, no clear-cut evidence of pneumonia. Objective - Vital Signs Vital signs: Vital Signs Temp 98.5 F 12/09/23 13:00 Pulse 90 12/09/23 13:00 Resp 11 L 12/09/23 13:00 BP 105/69 12/09/23 13:00 Pulse Ox 99 12/09/23 13:00 FiO2 40 12/09/23 12:00 Intake & Output 12/08/23 12/09/23 12/09/23 18:59 06:59 18:59 Intake Total 9435.882 5550.132 376.376 Output Total 700 910 590 Balance 720.753 645.132 -213.624 Weight 55.6 kg Intake: IV 693 926 73 A Line 33 36 3 Invasive Line 1 30 30 10 Invasive Line 2 30 30 10 Magnesium Sulfate-D5w Pmx 100 1 gm In Dextrose/Water 1 100ml.bag @ 100 mls/hr IVPB ONCE ONE Rx#: [id number] Potassium Chloride 10 meq 200 In Water For Injection 1 100ml.bag @ 100 mls/hr IVPB Q1H [facility] Rx#: [id number] Potassium Chloride 20 meq 50 50 In Water For Injection 1 100ml.bag @ 50 mls/hr IVPB Q2H [facility] Rx#: [id number] Sodium Chloride 0.9% 1, 400 480 000 ml @ 40 mls/hr IV . Q24H [facility] Rx#:[id number] Sodium Ferric Gluconat- 100 Sucrose 125 mg In Sodium Chloride 0.9% 100 ml @ 100 mls/hr IVPB DAILY [facility] Rx#:[id number] Thiamine 100 mg In Sodium 100 Chloride 0.9% 50 ml @ 100 mls/hr IVPB Q12HR [facility] Rx#:[id number] Intake, IV Titration 173.753 166.132 117.376 Amount Dexmedetomidine/0.9% NaCl 16.680 (Pmx) 400 mcg In Empty Bag 1 bag @ 0.2 MCG/KG/HR 2.78 mls/hr IV .Q24H [facility] Rx#:[id number] propofoL 1,000 mg In 173.753 166.132 100.696 Empty Bag 1 bag @ 15 MCG/ KG/MIN 4.899 mls/hr IV . [id number] [facility] Rx#:[id number] Tube Feeding 434 403 186 Other 120 60 Output: Urine 700 910 590 Other: Voiding Method Indwelling Catheter Indwelling Catheter Indwelling Catheter # Bowel Movements 0 ABP, PAP, CO, CI - Last Documented Arterial Blood Pressure 154/72 - Exam Physical Exam: Revealed 63-year-old white male in no distress, intubated, sedated. Head: Atraumatic, normocephalic. HEENT:[Neck is supple.] [No neck masses.] [No thyromegaly.] [No JVD.] Chest: [Fine crackles at the bases. No rhonchi and no wheezes. Cardiac Exam: [Normal S1 and S2, no S3 gallop, no murmur.] Abdomen: [Soft, nontender, no megaly, no rebound, no guarding, normal bowel sounds.] Extremities: [No clubbing, no edema, no cyanosis.] Neurological Exam: Sedated, difficult to assess mental status. Psychiatric: Difficult to assess. - Labs CBC & Chem 7: 12/09/23 05:15 12/09/23 11:09 Labs: Abnormal Lab Results - Last 24 Hours (Table) 12/08/23 12/08/23 12/08/23 Range/Units 17:20 23:02 23:52 RBC (4.30-5.90) m/uL Hgb (13.0-17.5) gm/dL Hct (39.0-53.0) % RDW (11.5-15.5) % Plt Count (150-450) k/uL Monocytes # (Manual) (0-1.0) k/uL ABG pH (7.35-7.45) ABG pO2 (83-108) mmHg ABG HCO3 (21-25) mmol/L ABG Total CO2 (19-24) mmol/L ABG O2 Saturation (94-97) % Potassium (3.5-5.1) mmol/L Chloride (98-107) mmol/L Creatinine (0.66-1.25) mg/dL Glucose (74-99) mg/dL POC Glucose (mg/dL) 281 H 268 H 253 H (70-110) mg/dL 12/09/23 12/09/23 12/09/23 Range/Units 05:15 05:15 05:15 RBC 2.84 L (4.30-5.90) m/uL Hgb 8.8 L (13.0-17.5) gm/dL Hct 28.2 L (39.0-53.0) % RDW 15.8 H (11.5-15.5) % Plt Count 101 L (150-450) k/uL Monocytes # (Manual) 1.42 H (0-1.0) k/uL ABG pH (7.35-7.45) ABG pO2 (83-108) mmHg ABG HCO3 (21-25) mmol/L ABG Total CO2 (19-24) mmol/L ABG O2 Saturation (94-97) % Potassium 3.4 L (3.5-5.1) mmol/L Chloride 114 H (98-107) mmol/L Creatinine 0.40 L (0.66-1.25) mg/dL Glucose 230 H (74-99) mg/dL POC Glucose (mg/dL) 264 H (70-110) mg/dL 12/09/23 12/09/23 12/09/23 Range/Units 05:45 11:13 12:41 RBC (4.30-5.90) m/uL Hgb (13.0-17.5) gm/dL Hct (39.0-53.0) % RDW (11.5-15.5) % Plt Count (150-450) k/uL Monocytes # (Manual) (0-1.0) k/uL ABG pH 7.47 H 7.48 H (7.35-7.45) ABG pO2 128 H (83-108) mmHg ABG HCO3 28 H 27 H (21-25) mmol/L ABG Total CO2 29 H 28 H (19-24) mmol/L ABG O2 Saturation 99.0 H 99.5 H (94-97) % Potassium (3.5-5.1) mmol/L Chloride (98-107) mmol/L Creatinine (0.66-1.25) mg/dL Glucose (74-99) mg/dL POC Glucose (mg/dL) 270 H (70-110) mg/dL Microbiology - Last 24 Hours (Table) 12/07/23 10:00 Gram Stain - Final Sputum Sputum Culture - Final Assessment and Plan Assessment: Impression: Acute hyperglycemia with hyperosmolar state Acute metabolic encephalopathy Acute delirium tremens Acute hypoxic respiratory failure secondary to acute delirium tremens requiring intubation and mechanical ventilation History of alcoholism History of coronary artery disease and mild disease in the proximal mid RCA Generalized anxiety disorder and depression Cervical spine degenerative disc disease and foraminal narrowing Benign essential hypertension Tobacco dependence syndrome Recommendation: Continue ventilatory support may give the patient a trial of weaning with pressure support and CPAP today Continue IV fluids at 40 mL/h Continue CIWA protocol Address abnormal electrolytes and correct accordingly Continue Lovenox for DVT prophylaxis Continue insulin and use sliding scale. Continue GI prophylaxis Continue enteral feeding/interstitial support Continue supportive care measures Again may consider a trial of weaning of this patient with pressure support and CPAP, and if tolerated may even proceed to extubation if possible. Patient remains critically ill. Critical care time is over 30 minutes Time with Patient: Greater than 30
[2023-12-09 17:21] LABS: Glucose,Whole Blood 250 mg/dL (70-110)
[2023-12-09 20:18] LABS: Glucose,Whole Blood 218 mg/dL (70-110)
[2023-12-09] MEDS: INSULIN DETEMIR (LEVEMIR) 100 UNIT/ML SYR SQ SCH (20:18)
[2023-12-09 23:52] LABS: Glucose,Whole Blood 234 mg/dL (70-110)
[2023-12-10] MEDS: DEXMEDETOMIDINE/0.9% NACL(PMX) 400 MCG in EMPTY BAG 1 BAG IV SCH (01:15)
[2023-12-10] MEDS: SODIUM CHLORIDE 0.9% 1,000 ML IV SCH (03:35)
[2023-12-10] MEDS: IPRATROPIUM-ALBUTEROL 3 ML NEB INHALATION SCH ×5 (03:36→19:37)
[2023-12-10 04:59] LABS: Basophils % (A) 0 %; Eosinophils # (A) 0.1 k/uL (0-0.7); Eosinophils % (A) 1 %; HCT 29.2 % (39.0-53.0); HGB 8.9 gm/dL (13.0-17.5); Hypochromasia Marked; Lymphocytes # (A) 1.7 k/uL (1.0-4.8); Lymphocytes % (A) 20 %; MCH 29.9 pg (25.0-35.0); MCHC 30.4 g/dL (31.0-37.0); MCV 98.5 fL (80.0-100.0); Macrocytosis Slight; Mean Platelet Volume 9.9; Monocytes # (A) 0.5 k/uL (0-1.0); Monocytes % (A) 6 %; Neutrophils # (A) 5.8 k/uL (1.3-7.7); Neutrophils % (A) 69 %; RBC 2.96 m/uL (4.30-5.90); RDW 15.6 % (11.5-15.5); WBC 8.4 k/uL (3.8-10.6)
[2023-12-10 05:28] LABS: African American GFR (CKD) >90 (>60 ml/min/1.73 sqM); Anion Gap 2 mmol/L; Blood Urea Nitrogen 13 mg/dL (9-20); Calcium 8.5 mg/dL (8.4-10.2); Carbon Dioxide 28 mmol/L (22-30); Chloride 113 mmol/L (98-107); Glucose 186 mg/dL (74-99); Magnesium 1.7 mg/dL (1.6-2.3); Non-African American GFR(CKD) >90 (>60 ml/min/1.73 sqM); Phosphorus 4.4 mg/dL (2.5-4.5); Potassium 3.3 mmol/L (3.5-5.1); Sodium 143 mmol/L (137-145)
[2023-12-10 05:40] LABS: Glucose,Whole Blood 196 mg/dL (70-110)
[2023-12-10] MEDS: INSULIN ASPART (NovoLOG) 100 UNIT/ML VIAL SQ SCH ×4 (05:41→19:53)
[2023-12-10] MEDS: POTASSIUM CHLORIDE 20 MEQ in WATER FOR INJECTION 1 100ML.BAG IVPB SCH ×4 (05:41→15:55)
--- NOTE | 2023-12-10 05:51 | PN ---
PROGRESS NOTE SUBJECTIVE: A 63-year-old white male, came in with alcohol withdrawal, involuntary movements of his body, increased shakes especially in the ER, placed on CIWA protocol. He was transferred to ICU as he had tremors, possible seizures. He was put on the vent and tube feedings. HOME MEDICATIONS: 1. DuoNeb. 2. Chlorhexidine. 3. Lovenox. 4. Folic acid. 5. CIWA protocol. 6. Insulin to scale. Labs reviewed. OBJECTIVE: GENERAL: Resting comfortably. HEART: S1, S2. LUNGS: Decreased breath sounds. ABDOMEN: Soft. MUSCULOSKELETAL: No cyanosis or clubbing. SKIN: Scattered bruising. ASSESSMENT: Acute alcohol withdrawal syndrome, delirium tremens, suspected nonketotic hyperosmolar hyperglycemia, put on insulin drip, iron deficiency, abnormal shakes, tremors. Positive electrolytes. Neuro checks. He is on the vent. Hyponatremia, alcohol use disorder, hypoxemic respiratory failure, severe hypokalemia, alcohol intoxication, chronic obstructive pulmonary disease, nicotine addiction, protein-calorie malnutrition, degenerative joint disease, benign prostatic hypertrophy, coronary artery disease, heart disease in the proximal RCA. Plan obviously is to wean off the vent as tolerated. Control blood pressures, control his breathing. CIWA protocol. Electrolyte replacement. Check for aspiration pneumonia, etc. Prognosis guarded. Please see further orders. MMODL / IJN: [id number] /
[2023-12-10 06:24] LABS: ABG Base Excess 4.4 mmol/L; ABG HCO3 28 mmol/L (21-25); ABG Oxygen Saturation 99.3 % (94-97); ABG PCO2 39 mmHg (35-45); ABG PH 7.47 (7.35-7.45); ABG PO2 136 mmHg (83-108); ABG TCO2 29 mmol/L (19-24); Allen Test Performed? Yes
[2023-12-10 07:17] LABS: Anisocytosis (M) Present; Poikilocytosis (M) Present
[2023-12-10 07:19] LABS: Target Cells Present
[2023-12-10 07:20] LABS: Platelet Count 87 k/uL (150-450)
--- NOTE | 2023-12-10 07:39 | XR ---
EXAMINATION TYPE: XR chest 1V portable DATE OF EXAM: 12/10/2023 5:34 AM CLINICAL INDICATION:Male, 63 years old with history of Tube placement; [facility] COMPARISON: Chest radiograph from one day prior. TECHNIQUE: XR chest 1V portable Frontal view of the chest. FINDINGS: Lungs/Pleura: There is no evidence of pleural effusion, focal consolidation, or pneumothorax. Pulmonary vascularity: Unremarkable. Heart/mediastinum: Cardiomediastinal silhouette is unremarkable. Musculoskeletal: No acute osseous pathology. Other findings: None Lines/Tubes: Endotracheal tube with distal tip 4.4 cm above the breann. Nasogastric tube with its distal tip and side-port projecting under the diaphragm. Left internal jugular central venous catheter with distal tip at the cavoatrial junction. IMPRESSION: Stable support line and tubes, bibasilar airspace opacities. Correlate for pneumonia.
[2023-12-10] MEDS: PANTOPRAZOLE 40 MG/10 ML VIAL IV SCH (08:43)
[2023-12-10] MEDS: THIAMINE 100 MG in SODIUM CHLORIDE 0.9% 50 ML IVPB SCH ×2 (08:43→19:55)
[2023-12-10] MEDS: SODIUM FERRIC GLUCONAT-SUCROSE 125 MG in SODIUM CHLORIDE 0.9% 100 ML IVPB SCH (08:43)
[2023-12-10] MEDS: MULTIVITAMINS, THERA 1 EACH TAB PO SCH (08:43)
[2023-12-10] MEDS: FOLIC ACID 1 MG TAB PO SCH (08:43)
[2023-12-10] MEDS: ENOXAPARIN 40 MG/0.4 ML SYRINGE SQ SCH (08:44)
[2023-12-10] MEDS: CHLORHEXIDINE GLUCONATE 15 ML CUP MUCOUS MEM SCH (08:44)
[2023-12-10] MEDS: PIPERACILLIN-TAZOBACTAM 3.375 GM in SODIUM CHLORIDE 0.9% 100 ML IVPB SCH ×3 (10:15→23:42)
[2023-12-10 11:21] LABS: Glucose,Whole Blood 196 mg/dL (70-110)
--- NOTE | 2023-12-10 11:58 | P.PN ---
Subjective Progress Note Date: 12/09/23 Patient was initially seen by Dr. Ngo. Please refer to her note for details. As per EMS flowsheet, patient's mentioned that she called ambulance because patient unable to control his left arm. Patient appeared to have intermittent, uncontrolled movements in the left arm and left side of the face. Patient was able to answer most of the questions and followed commands other than controlling the movements of the left arm and left side of the face. Patient has swelling and bruising to the left foot. Patient's mentioned that he injured it 2 to 3 days ago. Patient's mentioned that patient fell at about 8 AM striking the back of his head on the edge of the shower stall in their b athroom. Patient was uncertain if he had lost consciousness when he fell. Patient's mentions that he has history of alcoholism and his last drink was about 3 weeks ago. She had given patient a baby aspirin about 1 hour prior to EMS arrival. Patient's blood glucose was 599. Patient denied any chest pain difficulty breathing, abdominal pain, nausea vomiting, headache. Patient's blood pressure was 150/96, pulse rate 80, respiration 18 and saturation 96%. CT head showed no acute intracranial process. CT of the cervical spine was negative. Patient was intubated in the ER. Per nursing report, she has not noticed any seizure-like activity. He was off sedation on CPAP for about 4 hours. He did not follow commands. At present he is on Precedex 0.5 mcg/kg/min. No obvious seizure-like activity noticed. Objective - Vital Signs Vital signs: Vital Signs Temp 98.8 F 12/09/23 14:00 Pulse 76 12/09/23 18:00 Resp 13 12/09/23 18:00 BP 105/69 12/09/23 18:00 Pulse Ox 97 12/09/23 18:00 FiO2 40 12/09/23 16:40 Intake & Output 12/08/23 12/09/23 12/09/23 18:59 06:59 18:59 Intake Total 2379.572 9520.132 636.233 Output Total 020 199 1773 Balance 720.753 645.132 -618.767 Weight 55.6 kg Intake: IV 693 926 93 A Line 33 36 3 Invasive Line 1 30 30 20 Invasive Line 2 30 30 20 Magnesium Sulfate-D5w Pmx 100 1 gm In Dextrose/Water 1 100ml.bag @ 100 mls/hr IVPB ONCE ONE Rx#: [id number] Potassium Chloride 10 meq 200 In Water For Injection 1 100ml.bag @ 100 mls/hr IVPB Q1H [facility] Rx#: [id number] Potassium Chloride 20 meq 50 50 In Water For Injection 1 100ml.bag @ 50 mls/hr IVPB Q2H [facility] Rx#: [id number] Sodium Chloride 0.9% 1, 400 480 000 ml @ 40 mls/hr IV . Q24H [facility] Rx#:[id number] Sodium Ferric Gluconat- 100 Sucrose 125 mg In Sodium Chloride 0.9% 100 ml @ 100 mls/hr IVPB DAILY [facility] Rx#:[id number] Thiamine 100 mg In Sodium 100 Chloride 0.9% 50 ml @ 100 mls/hr IVPB Q12HR [facility] Rx#:[id number] Intake, IV Titration 173.753 166.132 142.233 Amount Dexmedetomidine/0.9% NaCl 41.537 (Pmx) 400 mcg In Empty Bag 1 bag @ 0.2 MCG/KG/HR 2.78 mls/hr IV .Q24H [facility] Rx#:[id number] propofoL 1,000 mg In 173.753 166.132 100.696 Empty Bag 1 bag @ 15 MCG/ KG/MIN 4.899 mls/hr IV . [id number] [facility] Rx#:[id number] Tube Feeding 434 403 341 Other 120 60 60 Output: Urine 342 931 9053 Other: Voiding Method Indwelling Catheter Indwelling Catheter Indwelling Catheter # Bowel Movements 0 ABP, PAP, CO, CI - Last Documented Arterial Blood Pressure 126/60 - Exam Patient is sedated, not responding to calling his name. Pupils are equal, round and reacting. Patient is intubated, on ventilator. Patient has bruise over his left ankle, foot region. - Labs CBC & Chem 7: 12/10/23 04:45 12/10/23 04:45 Labs: Abnormal Lab Results - Last 24 Hours (Table) 12/08/23 12/08/23 12/09/23 Range/Units 23:02 23:52 05:15 RBC 2.84 L (4.30-5.90) m/uL Hgb 8.8 L (13.0-17.5) gm/dL Hct 28.2 L (39.0-53.0) % RDW 15.8 H (11.5-15.5) % Plt Count 101 L (150-450) k/uL Monocytes # (Manual) 1.42 H (0-1.0) k/uL ABG pH (7.35-7.45) ABG pO2 (83-108) mmHg ABG HCO3 (21-25) mmol/L ABG Total CO2 (19-24) mmol/L ABG O2 Saturation (94-97) % Potassium (3.5-5.1) mmol/L Chloride (98-107) mmol/L Creatinine (0.66-1.25) mg/dL Glucose (74-99) mg/dL POC Glucose (mg/dL) 268 H 253 H (70-110) mg/dL 12/09/23 12/09/23 12/09/23 Range/Units 05:15 05:15 05:45 RBC (4.30-5.90) m/uL Hgb (13.0-17.5) gm/dL Hct (39.0-53.0) % RDW (11.5-15.5) % Plt Count (150-450) k/uL Monocytes # (Manual) (0-1.0) k/uL ABG pH 7.47 H (7.35-7.45) ABG pO2 (83-108) mmHg ABG HCO3 28 H (21-25) mmol/L ABG Total CO2 29 H (19-24) mmol/L ABG O2 Saturation 99.0 H (94-97) % Potassium 3.4 L (3.5-5.1) mmol/L Chloride 114 H (98-107) mmol/L Creatinine 0.40 L (0.66-1.25) mg/dL Glucose 230 H (74-99) mg/dL POC Glucose (mg/dL) 264 H (70-110) mg/dL 12/09/23 12/09/23 12/09/23 Range/Units 11:13 12:41 17:18 RBC (4.30-5.90) m/uL Hgb (13.0-17.5) gm/dL Hct (39.0-53.0) % RDW (11.5-15.5) % Plt Count (150-450) k/uL Monocytes # (Manual) (0-1.0) k/uL ABG pH 7.48 H (7.35-7.45) ABG pO2 128 H (83-108) mmHg ABG HCO3 27 H (21-25) mmol/L ABG Total CO2 28 H (19-24) mmol/L ABG O2 Saturation 99.5 H (94-97) % Potassium (3.5-5.1) mmol/L Chloride (98-107) mmol/L Creatinine (0.66-1.25) mg/dL Glucose (74-99) mg/dL POC Glucose (mg/dL) 270 H 250 H (70-110) mg/dL Microbiology - Last 24 Hours (Table) 12/07/23 10:00 Gram Stain - Final Sputum Sputum Culture - Final Assessment and Plan Assessment: 1. Shaking/twitching episodes and AMS likely secondary to alcohol withdrawal- Early Delirium tremens 2. Hypokalemia 3. Metabolic encephalopathy. 4. Ventilator dependent respiratory failure, on mechanical ventilation. 5. Anemia 6. Hypokalemia 7. Diabetes Plan: 1. CIWA protocol 2. Keppra is not needed at this time 3. Seizure precautions 4. Ativan 1mg prn seizure 5. EEG evaluate for any epileptiform activity. 6. B12 1325, folate 12.20. Check hemoglobin A1c 6. Possible extubation trial in the morning.
--- NOTE | 2023-12-10 12:04 | P.PN ---
Subjective Progress Note Date: 12/10/23 Principal diagnosis: Acute hypoxic respiratory failure secondary to Acute delirium tremens, and alcohol withdrawal 63-year-old male patient, alcohol and he drinks alcohol excessively along with his at home. He stopped drinking approximately 3 days ago and he presented to the emergency department after a fall. Apparently, the patient has been very unstable and he has been falling. He does not follow-up with her primary care physician. Following his hospital admission, the patient started having involuntary movements of his body, increased shakes, restlessness, thrashing and in the ED, the patient had diminished level of consciousness. He was given a total of 6 mg of IV Ativan. Seizure was suspected although there was no clear indication of the patient was seizing. There was no jerky body movements. He was given Keppra. Otherwise, no additional history is available. Ultimately, the patient was intubated and placed on a mechanical ventilator and he was transferred to the intensive care unit. I'm seeing this patient in the ICU post intubation. Currently is on propofol running at 40 Augustus respiratory kilogram per minute. His calm and comfortable. Is on assist-control mode of mechanical ventilation at the rate of 18, tidal volume of 450, FiO2 of 70% with a PEEP of 5. Blood gas showed a pH of 7.3 with a pCO2 of 54 and pO2 of 394 post intubat ion. The chest x-ray from this morning shows adequate positioning of the orotracheal tube. No evidence of any airspace disease. There may be a small left-sided pleural effusion. There is no evidence of pneumothorax or pneumonia. This can of the head and the spine was also done in the emergency department that showed no acute abnormalities. The patient had severe foraminal narrowing at the level of C3-C4 and also mild to moderate foraminal narrowing at the level of C4-C5 and mild to moderate bilateral foraminal narrowing at the level of C5- C6 and bilateral narrowing at the level of C6-C7. The patient was also given a x-ray of the pelvis that showed no evidence of fracture. Initial sodium level was at 127 and after fluid resuscitation sodium came back at 144. Blood sugar was 993 and he was started on insulin drip based on the [facility] protocol. Currently insulin drip is off and the most recent blood sugars at 2:15. BUN is a 50 with a creatinine of 0.7. Potassium level is at 2.3 and this is being replaced. The echoes of 5.7 with a hemoglobin of 10.3. Hemodynamically, he is hypotensive. He is not requiring any pressors at this point. He is producing adequate amount of urine output. Most recent blood pressure is 91/62. IV fluids are in the form of D5 half-normal with potassium at the rate of 150 mL an hour. Note that the patient is not known to be diabetic. He has history of hypertension and alcoholism. On 12/08/2023, the patient remains intubated on a mechanical ventilator. He is on sedation with propofol running at 50 mcg/kg/m and the dose has been reduced down to 25 mcg/kg/m. Resting comfortably in bed. No significant issues overnight. He is on assist control mode with a rate of 18, tidal volume of 450, FiO2 of 40% and a PEEP of 5. Chest x-ray findings are stable. No interval changes and chest x-ray findings and there is no evidence of pneumonia. Some atelectatic changes bilaterally. Gait is at 7.46 with a pCO2 of 40 and a pO2 of 118. This was on FiO2 of 50%. No significant respiratory secretions. The patient is also on enteral feeding and the patient was started on Nepro at the rate of 31 mL an hour. IV fluids are normal saline at the rate of 100 mL an hour. He was given Levemir insulin 12 units for blood sugar control. e choes at 10.7, he was not 0.7 and a platelet count of 121. Sodium is at 146, BUN is at 40 with a creatinine of 0.3. LFTs are normal. Serum iron level is 12. Potassium levels at 3.3. Afebrile. No pressors at this point in time. , patient remains in the ICU, intubated and mechanically ventilated. Patient is on assist control rate of 18 tidal volume 400 FiO2 40% and PEEP of 5 ABG showed a pO2 of 97 pCO2 39 pH of 7.47 hence no ventilator settings changes were made. Patient initially presented with a blood sugar control 993, and acute alcohol condition. Required intubation initially in the ER. Remains on propofol at 50 mg/kg/m 0.9 normal saline at 40 mL per hour is also receiving Nepro for nutritional support, is also on Lovenox, and I plan to change his propofol to Precedex today, and at least give the patient a trial of weaning with a pressure support of 10 and CPAP. Patient seems to be quite sedated, difficult to assess whether he would be ready for weaning, but nonetheless we will definitely try to transition to Precedex and hopefully give the patient a weaning trial today. WBC count is 8.9 hemoglobin is 8.8. Basic metabolic profile is normal and renal profile is normal, chest x-ray showed minimal basilar atelectasis, no clear-cut evidence of pneumonia. Patient was reevaluated today on 12/10/2023, remains in the ICU, intubated and mechanically ventilated. Patient was placed overnight on IMV of 8, pressure support of 10, tidal volume of 400 FiO2 40% and PEEP of 5. Patient did well on that kind of mode of mechanical ventilation, did not require much sedation except he was on Precedex, minimal dose, today I recommended holding the Precedex, switch the patient from IMV to pressure support and CPAP, and I felt if the patient tolerates this we will proceed with extubating the patient. Patient remains on enteral feedings/Nepro remains on Precedex, chest x-ray is showing bibasilar infiltrates, hence Zosyn was added. Patient seems to be more awake today and more appropriate, and he will be given another trial of pressure support and CPAP, and if tolerated will likely extubate ABG this a.m. on 40% showed a pO2 of 136 pCO2 39 pH of 7.47 CBC is relatively normal hemoglobin is 8.9, basic metabolic profile is normal, renal profile is normal Objective - Vital Signs Vital signs: Vital Signs Temp 98.8 F 12/10/23 08:00 Pulse 75 12/10/23 11:39 Resp 11 L 12/10/23 11:00 BP 105/69 12/10/23 11:00 Pulse Ox 99 12/10/23 11:00 FiO2 40 12/10/23 09:20 Intake & Output 12/09/23 12/10/23 12/10/23 18:59 06:59 18:59 Intake Total 588.089 1836.009 167.759 Output Total 1380 995 425 Balance -712.767 253.009 -257.241 Weight 54 kg 54 kg Intake: IV 93 673 43 A Line 3 33 3 Invasive Line 1 20 Invasive Line 2 20 Potassium Chloride 20 meq 50 100 In Water For Injection 1 100ml.bag @ 50 mls/hr IVPB Q2H [facility] Rx#: [id number] Sodium Chloride 0.9% 1, 440 40 000 ml @ 40 mls/hr IV . Q24H [facility] Rx#:[id number] Thiamine 100 mg In Sodium 100 Chloride 0.9% 50 ml @ 100 mls/hr IVPB Q12HR [facility] Rx#:[id number] Intake, IV Titration 142.233 52.009 62.759 Amount Dexmedetomidine/0.9% NaCl 41.537 52.009 62.759 (Pmx) 400 mcg In Empty Bag 1 bag @ 0.2 MCG/KG/HR 2.78 mls/hr IV .Q24H [facility] Rx#:[id number] propofoL 1,000 mg In 100.696 Empty Bag 1 bag @ 15 MCG/ KG/MIN 4.899 mls/hr IV . [id number] [facility] Rx#:[id number] Tube Feeding 372 403 62 Other 60 120 Output: Urine 1380 995 425 Other: Voiding Method Indwelling Catheter Indwelling Catheter ABP, PAP, CO, CI - Last Documented Arterial Blood Pressure 126/61 - Exam Physical Exam: Revealed 63-year-old white male in no distress, intubated, arousable, follows simple instructions, on Precedex. Head: Atraumatic, normocephalic. HEENT:[Neck is supple.] [No neck masses.] [No thyromegaly.] [No JVD.] Chest: [Crackles at the bases, no rhonchi no wheezes Cardiac Exam: [Normal S1 and S2, no S3 gallop, no murmur.] Abdomen: [Soft, nontender, no megaly, no rebound, no guarding, normal bowel sounds.] Extremities: [No clubbing, no edema, no cyanosis.] Neurological Exam: Arousable, follows simple instructions for Psychiatric: Normal mood, normal affect and normal mental status examination - Labs CBC & Chem 7: 12/10/23 04:45 12/10/23 04:45 Labs: Abnormal Lab Results - Last 24 Hours (Table) 12/09/23 12/09/23 12/09/23 Range/Units 12:41 17:18 20:17 RBC (4.30-5.90) m/uL Hgb (13.0-17.5) gm/dL Hct (39.0-53.0) % MCHC (31.0-37.0) g/dL RDW (11.5-15.5) % Plt Count (150-450) k/uL ABG pH 7.48 H (7.35-7.45) ABG pO2 128 H (83-108) mmHg ABG HCO3 27 H (21-25) mmol/L ABG Total CO2 28 H (19-24) mmol/L ABG O2 Saturation 99.5 H (94-97) % Potassium (3.5-5.1) mmol/L Chloride (98-107) mmol/L Creatinine (0.66-1.25) mg/dL Glucose (74-99) mg/dL POC Glucose (mg/dL) 250 H 218 H (70-110) mg/dL 12/09/23 12/10/23 12/10/23 Range/Units 23:51 04:45 04:45 RBC 2.96 L (4.30-5.90) m/uL Hgb 8.9 L (13.0-17.5) gm/dL Hct 29.2 L (39.0-53.0) % MCHC 30.4 L (31.0-37.0) g/dL RDW 15.6 H (11.5-15.5) % Plt Count 87 L (150-450) k/uL ABG pH (7.35-7.45) ABG pO2 (83-108) mmHg ABG HCO3 (21-25) mmol/L ABG Total CO2 (19-24) mmol/L ABG O2 Saturation (94-97) % Potassium 3.3 L (3.5-5.1) mmol/L Chloride 113 H (98-107) mmol/L Creatinine 0.33 L (0.66-1.25) mg/dL Glucose 186 H (74-99) mg/dL POC Glucose (mg/dL) 234 H (70-110) mg/dL 12/10/23 12/10/23 12/10/23 Range/Units 05:39 06:20 11:19 RBC (4.30-5.90) m/uL Hgb (13.0-17.5) gm/dL Hct (39.0-53.0) % MCHC (31.0-37.0) g/dL RDW (11.5-15.5) % Plt Count (150-450) k/uL ABG pH 7.47 H (7.35-7.45) ABG pO2 136 H (83-108) mmHg ABG HCO3 28 H (21-25) mmol/L ABG Total CO2 29 H (19-24) mmol/L ABG O2 Saturation 99.3 H (94-97) % Potassium (3.5-5.1) mmol/L Chloride (98-107) mmol/L Creatinine (0.66-1.25) mg/dL Glucose (74-99) mg/dL POC Glucose (mg/dL) 196 H 196 H (70-110) mg/dL Microbiology - Last 24 Hours (Table) 12/07/23 10:00 Gram Stain - Final Sputum Sputum Culture - Final Assessment and Plan Assessment: Impression: Acute hyperglycemia with hyperosmolar state Acute metabolic encephalopathy Acute delirium tremens Acute hypoxic respiratory failure secondary to acute delirium tremens requiring intubation and mechanical ventilation History of alcoholism History of coronary artery disease and mild disease in the proximal mid RCA Generalized anxiety disorder and depression Cervical spine degenerative disc disease and foraminal narrowing Benign essential hypertension Tobacco dependence syndrome Recommendation: Continue ventilatory support, however the patient will be given a trial of weaning on pressure support and CPAP, and if tolerated may extubate Continue IV fluids at 40 mL/h Continue CIWA protocol, continue Precedex, Continue Lovenox for DVT prophylaxis Sliding scale insulin to maintain sugar in the reasonable range Continue GI prophylaxis Continue enteral feeding/nutritional support Continue supportive care measures Patient remains critically ill. Critical care time is over 30 minutes Time with Patient: Greater than 30
--- NOTE | 2023-12-10 12:06 | P.PN ---
Subjective Progress Note Date: 12/10/23 12/10/2023: Patient was seen for a follow-up. Patient was extubated earlier today. Patient is slightly encephalopathic, but does answer appropriately. He states that he drinks 4-5 drinks of twisted tea, which is an alcoholic drink. However he states that he does not drink every day, occasionally. Patient's has reported that he does drink. Patient denies any history of seizures. 12/09/2023: Patient was initially seen by Dr. Ngo. Please refer to her note for details. As per EMS flowsheet, patient's mentioned that she called ambulance because patient unable to control his left arm. Patient appeared to have intermittent, uncontrolled movements in the left arm and left side of the face. Patient was able to answer most of the questions and followed commands other than controlling the movements of the left arm and left side of the face. Patient has swelling and bruising to the left foot. Patient's mentioned that he injured it 2 to 3 days ago. Patient's mentioned that patient fell at about 8 AM striking the back of his head on the edge of the shower stall in their bathroom. Patient was uncertain if he had lost consciousness when he fell. Patient's mentions that he has history of alcoholism and his last drink was about 3 weeks ago. She had given patient a baby aspirin about 1 hour prior to EMS arrival. Patient's blood glucose was 599. Patient denied any chest pain difficulty breathing, abdominal pain, nausea vomiting, headache. Patient's blood pressure was 150/96, pulse rate 80, respiration 18 and saturation 96%. CT head showed no acute intracranial process. CT of the cervical spine was negative. Patient was intubated in the ER. Per nursing report, she has not noticed any seizure-like activity. He was off sedation on CPAP for about 4 hours. He did not follow commands. At present he is on Precedex 0.5 mcg/kg/min. No obvious seizure-like activity noticed. Objective - Vital Signs Vital signs: Vital Signs Temp 98.8 F 12/10/23 08:00 Pulse 75 12/10/23 11:39 Resp 11 L 12/10/23 11:00 BP 105/69 12/10/23 11:00 Pulse Ox 99 12/10/23 11:00 FiO2 40 12/10/23 09:20 Intake & Output 12/09/23 12/10/23 12/10/23 18:59 06:59 18:59 Intake Total 270.894 9153.009 167.759 Output Total 1380 995 425 Balance -712.767 253.009 -257.241 Weight 54 kg 54 kg Intake: IV 93 673 43 A Line 3 33 3 Invasive Line 1 20 Invasive Line 2 20 Potassium Chloride 20 meq 50 100 In Water For Injection 1 100ml.bag @ 50 mls/hr IVPB Q2H [facility] Rx#: [id number] Sodium Chloride 0.9% 1, 440 40 000 ml @ 40 mls/hr IV . Q24H [facility] Rx#:[id number] Thiamine 100 mg In Sodium 100 Chloride 0.9% 50 ml @ 100 mls/hr IVPB Q12HR [facility] Rx#:[id number] Intake, IV Titration 142.233 52.009 62.759 Amount Dexmedetomidine/0.9% NaCl 41.537 52.009 62.759 (Pmx) 400 mcg In Empty Bag 1 bag @ 0.2 MCG/KG/HR 2.78 mls/hr IV .Q24H [facility] Rx#:[id number] propofoL 1,000 mg In 100.696 Empty Bag 1 bag @ 15 MCG/ KG/MIN 4.899 mls/hr IV . [id number] [facility] Rx#:[id number] Tube Feeding 372 403 62 Other 60 120 Output: Urine 1380 995 425 Other: Voiding Method Indwelling Catheter Indwelling Catheter ABP, PAP, CO, CI - Last Documented Arterial Blood Pressure 126/61 - Exam Patient is extubated, laying comfortably in the bed. Speech is slightly hoarse, but no aphasia or dysarthria. He can name and repeat. Patient knows it is [facility]. Patient states it is December and the year is 2023. Cranial nerves are normal. Face is equal. Visual valenzuela are full. Extraocular muscles appears intact. When he was resting, appears slight disconjugate gaze, but appears equal on active testing. Face is symmetric. On muscle strength testing his biceps, triceps, division manager and deltoids are all normal. In the lower limbs, his hip flexion is about 4+, but ankles are normal bilaterally. Sensory to touch is equal with no neglect. - Labs CBC & Chem 7: 12/12/23 04:10 12/12/23 04:10 Labs: Abnormal Lab Results - Last 24 Hours (Table) 12/09/23 12/09/23 12/09/23 Range/Units 12:41 17:18 20:17 RBC (4.30-5.90) m/uL Hgb (13.0-17.5) gm/dL Hct (39.0-53.0) % MCHC (31.0-37.0) g/dL RDW (11.5-15.5) % Plt Count (150-450) k/uL ABG pH 7.48 H (7.35-7.45) ABG pO2 128 H (83-108) mmHg ABG HCO3 27 H (21-25) mmol/L ABG Total CO2 28 H (19-24) mmol/L ABG O2 Saturation 99.5 H (94-97) % Potassium (3.5-5.1) mmol/L Chloride (98-107) mmol/L Creatinine (0.66-1.25) mg/dL Glucose (74-99) mg/dL POC Glucose (mg/dL) 250 H 218 H (70-110) mg/dL 12/09/23 12/10/23 12/10/23 Range/Units 23:51 04:45 04:45 RBC 2.96 L (4.30-5.90) m/uL Hgb 8.9 L (13.0-17.5) gm/dL Hct 29.2 L (39.0-53.0) % MCHC 30.4 L (31.0-37.0) g/dL RDW 15.6 H (11.5-15.5) % Plt Count 87 L (150-450) k/uL ABG pH (7.35-7.45) ABG pO2 (83-108) mmHg ABG HCO3 (21-25) mmol/L ABG Total CO2 (19-24) mmol/L ABG O2 Saturation (94-97) % Potassium 3.3 L (3.5-5.1) mmol/L Chloride 113 H (98-107) mmol/L Creatinine 0.33 L (0.66-1.25) mg/dL Glucose 186 H (74-99) mg/dL POC Glucose (mg/dL) 234 H (70-110) mg/dL 12/10/23 12/10/23 12/10/23 Range/Units 05:39 06:20 11:19 RBC (4.30-5.90) m/uL Hgb (13.0-17.5) gm/dL Hct (39.0-53.0) % MCHC (31.0-37.0) g/dL RDW (11.5-15.5) % Plt Count (150-450) k/uL ABG pH 7.47 H (7.35-7.45) ABG pO2 136 H (83-108) mmHg ABG HCO3 28 H (21-25) mmol/L ABG Total CO2 29 H (19-24) mmol/L ABG O2 Saturation 99.3 H (94-97) % Potassium (3.5-5.1) mmol/L Chloride (98-107) mmol/L Creatinine (0.66-1.25) mg/dL Glucose (74-99) mg/dL POC Glucose (mg/dL) 196 H 196 H (70-110) mg/dL Microbiology - Last 24 Hours (Table) 12/07/23 10:00 Gram Stain - Final Sputum Sputum Culture - Final Assessment and Plan Assessment: 1. Reported history of shaking/twitching episodes prior to arrival, and AMS, unclear cause. Possibly alcohol withdrawal versus seizure brought by metabolic derangement. 2. Acute hyperglycemia with hyperosmolar state 3. Metabolic encephalopathy. 4. Ventilator dependent respiratory failure, on mechanical ventilation, status postextubation today. 5. Anemia 6. Hypokalemia 7. Diabetes 8. History of alcoholism 9. CAD 10. Tobacco use 11. Hypertension Plan: 1. Patient is status postextubation. His mentation is normal. He is fairly well-oriented. Limited examination is relatively nonfocal. 2. Keppra is not needed at this time 3. Seizure precautions 4. Ativan 1mg prn seizure 5. EEG was abnormal due to background slowing of at least moderate degree. This is suggestive of generalized cerebral dysfunction as can be seen with toxic metabolic encephalopathy, or related to diffuse structural brain abnormality. Clinical correlation is recommended. No clear-cut epileptiform activity was seen. If your suspicion for seizures is high, suggest prolonged, sleep deprived EEG. 6. B12 1325, folate 12.20. Check hemoglobin A1c
--- NOTE | 2023-12-10 12:57 | EEG ---
ELECTROENCEPHALOGRAM REPORT PREAMBLE: This is a 63-year-old male, who was brought to the ER for involuntary shaking movements of his extremities. He was intubated in the ER. No further seizure like movements reported. The patient is off propofol since yesterday. He is still on Precedex 0.6 mcg. EEG FINDINGS: This is a 21-channel digital EEG recorded with video component, utilizing 10/20 international system with referential and bipolar montages. The recording starts and continues with presence of mixed frequencies of [id number] amplitude theta and some delta slowing. This is seen in bihemispheric region. Background does not seem to be reactive to eye opening or closing. Photic driving response was not seen. Different stages of sleep were not seen. No definitive focal or generalized epileptiform activity was seen. IMPRESSION: This is an abnormal EEG due to background slowing of at least moderate degree. This is suggestive of generalized cerebral dysfunction as can be seen with toxic metabolic encephalopathy or related to diffuse structural brain abnormality. Clinical correlation is recommended. No clear-cut epileptiform activity was seen. If your suspicion for seizures is high, suggest prolonged, sleep-deprived EEG. MMODL / IJN: [id number] / CHANDRA
[2023-12-10 16:37] LABS: Glucose,Whole Blood 239 mg/dL (70-110)
[2023-12-10] MEDS ORDERED: POTASSIUM CHLORIDE 20 MEQ in WATER FOR INJECTION 1 100ML.BAG IVPB STA (19:11)
[2023-12-10 19:51] LABS: Glucose,Whole Blood 203 mg/dL (70-110)
[2023-12-10] MEDS: INSULIN DETEMIR (LEVEMIR) 100 UNIT/ML SYR SQ SCH (20:04)
[2023-12-11] MEDS: IPRATROPIUM-ALBUTEROL 3 ML NEB INHALATION SCH ×6 (00:08→21:41)
[2023-12-11] MEDS: SODIUM CHLORIDE 0.9% 1,000 ML IV SCH (03:51)
[2023-12-11 04:32] LABS: HCT 27.4 % (39.0-53.0); HGB 8.9 gm/dL (13.0-17.5); Hypochromasia Slight; MCH 31.2 pg (25.0-35.0); MCHC 32.5 g/dL (31.0-37.0); MCV 95.8 fL (80.0-100.0); Mean Platelet Volume 8.8; Platelet Count 102 k/uL (150-450); RBC 2.86 m/uL (4.30-5.90); RDW 15.4 % (11.5-15.5); WBC 8.1 k/uL (3.8-10.6)
[2023-12-11 04:40] LABS: African American GFR (CKD) >90 (>60 ml/min/1.73 sqM); Anion Gap 3 mmol/L; Blood Urea Nitrogen 8 mg/dL (9-20); Calcium 8.2 mg/dL (8.4-10.2); Carbon Dioxide 24 mmol/L (22-30); Chloride 110 mmol/L (98-107); Glucose 103 mg/dL (74-99); Non-African American GFR(CKD) >90 (>60 ml/min/1.73 sqM); Potassium 3.2 mmol/L (3.5-5.1); Sodium 137 mmol/L (137-145)
[2023-12-11] MEDS: POTASSIUM CHLORIDE 20 MEQ in WATER FOR INJECTION 1 100ML.BAG IVPB SCH ×3 (04:55→06:56)
[2023-12-11 06:40] LABS: Glucose,Whole Blood 166 mg/dL (70-110)
[2023-12-11] MEDS: INSULIN ASPART (NovoLOG) 100 UNIT/ML VIAL SQ SCH ×4 (06:44→22:24)
[2023-12-11 07:54] LABS: Glucose,Whole Blood 190 mg/dL (70-110)
[2023-12-11] MEDS: PANTOPRAZOLE 40 MG/10 ML VIAL IV SCH (08:08)
[2023-12-11] MEDS: PIPERACILLIN-TAZOBACTAM 3.375 GM in SODIUM CHLORIDE 0.9% 100 ML IVPB SCH ×2 (08:09→16:56)
[2023-12-11] MEDS: MULTIVITAMINS, THERA 1 EACH TAB PO SCH (08:09)
[2023-12-11] MEDS: ENOXAPARIN 40 MG/0.4 ML SYRINGE SQ SCH (08:09)
[2023-12-11] MEDS: FOLIC ACID 1 MG TAB PO SCH (08:09)
--- NOTE | 2023-12-11 08:15 | XR ---
EXAMINATION TYPE: XR chest 1V portable DATE OF EXAM: 12/11/2023 5:24 AM CLINICAL INDICATION:Male, 63 years old with history of bibasilar opacities; [facility] COMPARISON: Chest radiograph from one day prior. TECHNIQUE: XR chest 1V portable Frontal view of the chest. FINDINGS: Lungs/Pleura: Similar basilar airspace opacities. There is no evidence of pleural effusion, or pneumo thorax. Pulmonary vascularity: Unremarkable. Heart/mediastinum: Cardiomediastinal silhouette is unremarkable. Musculoskeletal: No acute osseous pathology. Other findings: None Lines/Tubes: Interval removal of the endotracheal tube. Interval removal of the enteric tube, Left internal jugular central venous catheter with distal tip at the cavoatrial junction. IMPRESSION: 1. Stable left central venous catheter. 2. Similar basilar airspace opacities.
[2023-12-11] MEDS ORDERED: IPRATROPIUM-ALBUTEROL 3 ML NEB INHALATION PRN (09:05)
[2023-12-11 09:15] LABS: Lymphocytes # (M) 3.24 k/uL (1.0-4.8); Monocytes # (M) 0.81 k/uL (0-1.0); Neutrophils # (M) 4.05 k/uL (1.3-7.7); Neutrophils % (M) 50 %; Nucleated Red Blood Cells 0 /100 WBC (0-0); Total Cells Counted 100
[2023-12-11 09:16] LABS: RBC Morphology Normal
[2023-12-11] MEDS: THIAMINE 100 MG in SODIUM CHLORIDE 0.9% 50 ML IVPB SCH ×2 (10:42→22:07)
[2023-12-11 11:05] LABS: Glucose,Whole Blood 296 mg/dL (70-110)
--- NOTE | 2023-12-11 11:32 | P.PN ---
Subjective Progress Note Date: 12/11/23 Principal diagnosis: Acute hypoxic respiratory failure secondary to Acute delirium tremens, and alcohol withdrawal 63-year-old male patient, alcohol and he drinks alcohol excessively along with his at home. He stopped drinking approximately 3 days ago and he presented to the emergency department after a fall. Apparently, the patient has been very unstable and he has been falling. He does not follow-up with her primary care physician. Following his hospital admission, the patient started having involuntary movements of his body, increased shakes, restlessness, thrashing and in the ED, the patient had diminished level of consciousness. He was given a total of 6 mg of IV Ativan. Seizure was suspected although there was no clear indication of the patient was seizing. There was no jerky body movements. He was given Keppra. Otherwise, no additional history is available. Ultimately, the patient was intubated and placed on a mechanical ventilator and he was transferred to the intensive care unit. I'm seeing this patient in the ICU post intubation. Currently is on propofol running at 40 Augustus respiratory kilogram per minute. His calm and comfortable. Is on assist-control mode of mechanical ventilation at the rate of 18, tidal volume of 450, FiO2 of 70% with a PEEP of 5. Blood gas showed a pH of 7.3 with a pCO2 of 54 and pO2 of 394 post intubat ion. The chest x-ray from this morning shows adequate positioning of the orotracheal tube. No evidence of any airspace disease. There may be a small left-sided pleural effusion. There is no evidence of pneumothorax or pneumonia. This can of the head and the spine was also done in the emergency department that showed no acute abnormalities. The patient had severe foraminal narrowing at the level of C3-C4 and also mild to moderate foraminal narrowing at the level of C4-C5 and mild to moderate bilateral foraminal narrowing at the level of C5- C6 and bilateral narrowing at the level of C6-C7. The patient was also given a x-ray of the pelvis that showed no evidence of fracture. Initial sodium level was at 127 and after fluid resuscitation sodium came back at 144. Blood sugar was 993 and he was started on insulin drip based on the [facility] protocol. Currently insulin drip is off and the most recent blood sugars at 2:15. BUN is a 50 with a creatinine of 0.7. Potassium level is at 2.3 and this is being replaced. The echoes of 5.7 with a hemoglobin of 10.3. Hemodynamically, he is hypotensive. He is not requiring any pressors at this point. He is producing adequate amount of urine output. Most recent blood pressure is 91/62. IV fluids are in the form of D5 half-normal with potassium at the rate of 150 mL an hour. Note that the patient is not known to be diabetic. He has history of hypertension and alcoholism. On 12/08/2023, the patient remains intubated on a mechanical ventilator. He is on sedation with propofol running at 50 mcg/kg/m and the dose has been reduced down to 25 mcg/kg/m. Resting comfortably in bed. No significant issues overnight. He is on assist control mode with a rate of 18, tidal volume of 450, FiO2 of 40% and a PEEP of 5. Chest x-ray findings are stable. No interval changes and chest x-ray findings and there is no evidence of pneumonia. Some atelectatic changes bilaterally. Gait is at 7.46 with a pCO2 of 40 and a pO2 of 118. This was on FiO2 of 50%. No significant respiratory secretions. The patient is also on enteral feeding and the patient was started on Nepro at the rate of 31 mL an hour. IV fluids are normal saline at the rate of 100 mL an hour. He was given Levemir insulin 12 units for blood sugar control. e choes at 10.7, he was not 0.7 and a platelet count of 121. Sodium is at 146, BUN is at 40 with a creatinine of 0.3. LFTs are normal. Serum iron level is 12. Potassium levels at 3.3. Afebrile. No pressors at this point in time. , patient remains in the ICU, intubated and mechanically ventilated. Patient is on assist control rate of 18 tidal volume 400 FiO2 40% and PEEP of 5 ABG showed a pO2 of 97 pCO2 39 pH of 7.47 hence no ventilator settings changes were made. Patient initially presented with a blood sugar control 993, and acute alcohol condition. Required intubation initially in the ER. Remains on propofol at 50 mg/kg/m 0.9 normal saline at 40 mL per hour is also receiving Nepro for nutritional support, is also on Lovenox, and I plan to change his propofol to Precedex today, and at least give the patient a trial of weaning with a pressure support of 10 and CPAP. Patient seems to be quite sedated, difficult to assess whether he would be ready for weaning, but nonetheless we will definitely try to transition to Precedex and hopefully give the patient a weaning trial today. WBC count is 8.9 hemoglobin is 8.8. Basic metabolic profile is normal and renal profile is normal, chest x-ray showed minimal basilar atelectasis, no clear-cut evidence of pneumonia. Patient was reevaluated today on 12/10/2023, remains in the ICU, intubated and mechanically ventilated. Patient was placed overnight on IMV of 8, pressure support of 10, tidal volume of 400 FiO2 40% and PEEP of 5. Patient did well on that kind of mode of mechanical ventilation, did not require much sedation except he was on Precedex, minimal dose, today I recommended holding the Precedex, switch the patient from IMV to pressure support and CPAP, and I felt if the patient tolerates this we will proceed with extubating the patient. Patient remains on enteral feedings/Nepro remains on Precedex, chest x-ray is showing bibasilar infiltrates, hence Zosyn was added. Patient seems to be more awake today and more appropriate, and he will be given another trial of pressure support and CPAP, and if tolerated will likely extubate ABG this a.m. on 40% showed a pO2 of 136 pCO2 39 pH of 7.47 CBC is relatively normal hemoglobin is 8.9, basic metabolic profile is normal, renal profile is normal Patient was reevaluated today on 12/11/2023, remains in the ICU, patient tolerated extubation well yesterday, he was extubated to nasal cannula and remains on nasal cannula at 3 L/min. Patient is on 0.9 normal saline at 40 cc/h, remains on Zosyn empirically for possible aspiration pneumonia. Patient is intermittently confused, but overall he is doing well, seems to be quite appropriate this morning. The plan is to transfer the patient out of the ICU today to a regular medical floor, continue antibiotics, continue bronchodilators, and continue alcohol withdrawal protocol. Patient is not requiring any Precedex this morning.WBC count is 12.7 hemoglobin 11.6 sodium remains low at 126, WBC count is 8.1 hemoglobin 8.9 basic metabolic profile is normal potassium is 3.2. Renal profile is normal. Chest x-ray continues to show basilar airspace opacities. Objective - Vital Signs Vital signs: Vital Signs Temp 98.6 F 12/11/23 08:00 Pulse 93 12/11/23 10:00 Resp 12 12/11/23 10:00 BP 137/88 12/11/23 10:00 Pulse Ox 98 12/11/23 10:00 FiO2 40 12/10/23 09:20 Intake & Output 12/10/23 12/11/23 12/11/23 18:59 06:59 18:59 Intake Total 607.759 873 633 Output Total 1485 1155 1100 Balance -877.241 -282 -467 Weight 54 kg 57 kg Intake: IV 43 873 383 A Line 3 33 3 Piperacillin-Tazobactam 3 100 .375 gm In Sodium Chloride 0.9% 100 ml @ 25 mls/hr IVPB Q8HR JAYSHREE Rx# :[id number] Potassium Chloride 20 meq 200 340 In Water For Injection 1 100ml.bag @ 50 mls/hr IVPB ONCE STA Rx#: [id number] Sodium Chloride 0.9% 1, 40 440 40 000 ml @ 40 mls/hr IV . Q24H JAYSHREE Rx#:[id number] Thiamine 100 mg In Sodium 100 Chloride 0.9% 50 ml @ 100 mls/hr IVPB Q12HR JAYSHREE Rx#:[id number] Intake, IV Titration 62.759 Amount Dexmedetomidine/0.9% NaCl 62.759 (Pmx) 400 mcg In Empty Bag 1 bag @ 0.2 MCG/KG/HR 2.78 mls/hr IV .Q24H JAYSHREE Rx#:[id number] Oral 440 250 Tube Feeding 62 Output: Urine 1485 1155 1100 Straight 1100 Other: Voiding Method Indwelling Catheter Indwelling Catheter Urinal # Bowel Movements 0 1 ABP, PAP, CO, CI - Last Documented Arterial Blood Pressure 164/80 - Exam Physical Exam: Revealed 63-year-old white male in no distress, on 3 L nasal cannula Head: Atraumatic, normocephalic. HEENT:[Neck is supple.] [No neck masses.] [No thyromegaly.] [No JVD.] Chest: [Diminished breath sounds at the bases no crackles rhonchi or wheezes Cardiac Exam: [Normal S1 and S2, no S3 gallop, no murmur.] Abdomen: [Soft, nontender, no megaly, no rebound, no guarding, normal bowel sounds.] Extremities: [No clubbing, no edema, no cyanosis.] Neurological Exam: Oriented x 3, but intermittently confused. And intermittently gets a bit agitated Psychiatric: Normal mood, normal affect and normal mental status examination - Labs CBC & Chem 7: 12/11/23 04:14 12/11/23 04:14 Labs: Abnormal Lab Results - Last 24 Hours (Table) 12/10/23 12/10/23 12/10/23 Range/Units 04:45 16:35 19:50 RBC (4.30-5.90) m/uL Hgb (13.0-17.5) gm/dL Hct (39.0-53.0) % Plt Count (150-450) k/uL Potassium (3.5-5.1) mmol/L Chloride (98-107) mmol/L BUN (9-20) mg/dL Creatinine (0.66-1.25) mg/dL Glucose (74-99) mg/dL POC Glucose (mg/dL) 239 H 203 H (70-110) mg/dL Hemoglobin A1c 15.9 H (<=6.0) % Calcium (8.4-10.2) mg/dL 12/11/23 12/11/23 12/11/23 Range/Units 04:14 04:14 06:39 RBC 2.86 L (4.30-5.90) m/uL Hgb 8.9 L (13.0-17.5) gm/dL Hct 27.4 L (39.0-53.0) % Plt Count 102 L (150-450) k/uL Potassium 3.2 L (3.5-5.1) mmol/L Chloride 110 H (98-107) mmol/L BUN 8 L (9-20) mg/dL Creatinine 0.43 L (0.66-1.25) mg/dL Glucose 103 H (74-99) mg/dL POC Glucose (mg/dL) 166 H (70-110) mg/dL Hemoglobin A1c (<=6.0) % Calcium 8.2 L (8.4-10.2) mg/dL 12/11/23 12/11/23 Range/Units 07:53 11:02 RBC (4.30-5.90) m/uL Hgb (13.0-17.5) gm/dL Hct (39.0-53.0) % Plt Count (150-450) k/uL Potassium (3.5-5.1) mmol/L Chloride (98-107) mmol/L BUN (9-20) mg/dL Creatinine (0.66-1.25) mg/dL Glucose (74-99) mg/dL POC Glucose (mg/dL) 190 H 296 H (70-110) mg/dL Hemoglobin A1c (<=6.0) % Calcium (8.4-10.2) mg/dL Assessment and Plan Assessment: Impression: Acute hyperglycemia with hyperosmolar state Acute metabolic encephalopathy Acute delirium tremens Acute hypoxic respiratory failure secondary to acute delirium tremens requiring intubation and mechanical ventilation, extubated on 12/10/2023 History of alcoholism History of coronary artery disease and mild disease in the proximal mid RCA Generalized anxiety disorder and depression Cervical spine degenerative disc disease and foraminal narrowing Benign essential hypertension Tobacco dependence syndrome Recommendation: Continue present supportive care measures Continue bronchodilators Continue antibiotics Transfer patient out of ICU to the regular medical floor Continue CIWA protocol, continue Precedex, Continue Lovenox for DVT prophylaxis Continue sliding scale insulin Continue GI prophylaxis Advance diet as tolerated Will continue to follow Time with Patient: Less than 30
--- NOTE | 2023-12-11 11:33 | CA ---
Transthoracic Echo Report Name: Troy Hammond Age: 63 Gender: M : 1960 Exam Date: 12/11/2023 09:28 Exam Location: [facility] Ht (in): Wt (lb): Ordering Physician: Michael Estrada MD Attending/Referring Phys: Firer Watertender Kaveh Chew RD Procedure CPT: Indications: HTN Cardiac Hx: Technical Quality: Fair Contrast 1: Total Dose (mL): Contrast 2: Total Dose (mL): MEASUREMENTS (Male / Female) Normal Values 2D ECHO LV Diastolic Diameter PLAX 4.5 cm 4.2 - 5.9 / 3.9 - 5.3 cm LV Systolic Diameter PLAX 3.3 cm IVS Diastolic Thickness 0.8 cm 0.6 - 1.0 / 0.6 - 0.9 cm LVPW Diastolic Thickness 1.0 cm 0.6 - 1.0 / 0.6 - 0.9 cm LV Relative Wall Thickness 0.4 RV Internal Dim ED PLAX 3.1 cm LVOT Diameter 2.0 cm Aortic Root Diameter 3.2 cm LA Systolic Diameter LX 3.3 cm 3.0 - 4.0 / 2.7 - 3.8 cm LV Diastolic Volume MOD BP 58.9 cm??? 67 - 155 / 56 - 104 cm??? LV Systolic Volume MOD BP 20.3 cm??? 22 - 58 / 19 - 49 cm??? LV Ejection Fraction MOD BP 65.6 % >= 55 % LV Diastolic Volume MOD 4C 67.4 cm??? LV Systolic Volume MOD 4C 24.2 cm??? LV Ejection Fraction MOD 4C 64.1 % LV Diastolic Length 4C 8.9 cm LV Systolic Length 4C 7.8 cm LV Diastolic Volume MOD 2C 49.2 cm??? LV Systolic Volume MOD 2C 15.4 cm??? LV Ejection Fraction MOD 2C 68.6 % LV Diastolic Length 2C 8.2 cm LV Systolic Length 2C 6.9 cm LA Volume 38.4 cm??? 18 - 58 / 22 - 52 cm??? DOPPLER AV Peak Velocity 173.3 cm/s AV Peak Gradient 12.0 mmHg AV Mean Velocity 116.7 cm/s AV Mean Gradient 6.3 mmHg AV Velocity Time Integral 31.2 cm LVOT Peak Velocity 107.9 cm/s LVOT Peak Gradient 4.7 mmHg LVOT Velocity Time Integral 20.6 cm LVOT Stroke Volume 65.4 cm??? AV Area Cont Eq vti 2.1 cm??? AV Area Cont Eq pk 2.0 cm??? MV Peak Velocity 108.0 cm/s MV Peak Gradient 4.7 mmHg MV Mean Velocity 58.7 cm/s MV Mean Gradient 1.6 mmHg MV Velocity Time Integral 27.2 cm Mitral E Point Velocity 98.6 cm/s Mitral A Point Velocity 100.7 cm/s Mitral E to A Ratio 1.0 MV Deceleration Time 136.6 ms MV E' Velocity 10.0 cm/s Mitral E to MV E' Ratio 9.9 TR Peak Velocity 285.7 cm/s TR Peak Gradient 32.6 mmHg Right Ventricular Systolic Press 37.6 mmHg PV Peak Velocity 112.0 cm/s PV Peak Gradient 5.0 mmHg FINDINGS Left Ventricle Normal LVsize and wall thickness. Left ventricular ejection fraction is estimated at 55-60 %. Right Ventricle Normal right ventricular size. RVSP= 38mmHg. Right Atrium Normal right atrial size. Left Atrium Normal left atrial size. Mitral Valve Structurally normal mitral valve. Aortic Valve Mild AV calcification. Mild aortic stenosis. No aortic regurgitation. Tricuspid Valve Structurally normal tricuspid valve. Mild TR. Pulmonic Valve Pulmonic valve not well visualized. No pulmonic regurgitation. Pericardium Normal pericardium. Aorta Normal size aortic root. CONCLUSIONS Normal LV systolic function Only visualized aortic valve. The aortic valve is calcified/sclerotic. Mild aortic stenosis Previewed by: Dr. Lester Rivera MD (Electronically Signed) Final Date: 11 December 2023 11:32
[2023-12-11 16:08] LABS: Glucose,Whole Blood 268 mg/dL (70-110)
[2023-12-11 20:22] LABS: Glucose,Whole Blood 327 mg/dL (70-110)
[2023-12-11] MEDS ORDERED: ZOLPIDEM 5 MG TAB PO PRN (20:35)
[2023-12-11] MEDS ORDERED: TAMSULOSIN 0.4 MG CAP.ER.24H PO ONE (21:00)
[2023-12-11] MEDS: MELATONIN 5 MG TABLET PO PRN (22:07)
[2023-12-11] MEDS: INSULIN DETEMIR (LEVEMIR) 100 UNIT/ML SYR SQ SCH (22:24)
[2023-12-12] MEDS: PIPERACILLIN-TAZOBACTAM 3.375 GM in SODIUM CHLORIDE 0.9% 100 ML IVPB SCH ×3 (00:24→17:26)
[2023-12-12] MEDS: SODIUM CHLORIDE 0.9% 1,000 ML IV SCH (00:24)
[2023-12-12 04:55] LABS: Hypochromasia Slight; MCH 30.8 pg (25.0-35.0); MCHC 32.1 g/dL (31.0-37.0); Mean Platelet Volume 7.8; Platelet Count 151 k/uL (150-450); RBC 2.91 m/uL (4.30-5.90); RDW 15.4 % (11.5-15.5)
[2023-12-12 05:12] LABS: African American GFR (CKD) >90 (>60 ml/min/1.73 sqM); Anion Gap 5 mmol/L; Blood Urea Nitrogen 5 mg/dL (9-20); Calcium 8.3 mg/dL (8.4-10.2); Carbon Dioxide 26 mmol/L (22-30); Chloride 108 mmol/L (98-107); Glucose 65 mg/dL (74-99); Non-African American GFR(CKD) >90 (>60 ml/min/1.73 sqM); Potassium 3.2 mmol/L (3.5-5.1); Sodium 139 mmol/L (137-145)
[2023-12-12] MEDS ORDERED: Potassium Replacement Protocol 1 EACH MISC MISCELLANE PRN (05:18)
[2023-12-12 05:19] LABS: Glucose,Whole Blood 85 mg/dL (70-110)
[2023-12-12] MEDS: INSULIN ASPART (NovoLOG) 100 UNIT/ML VIAL SQ SCH ×4 (05:22→20:53)
[2023-12-12] MEDS: POTASSIUM CHLORIDE ER 20 MEQ TAB.ER PO SCH ×2 (05:23→07:14)
--- NOTE | 2023-12-12 07:15 | PN ---
PROGRESS NOTE SUBJECTIVE: Echocardiogram was reviewed. EEG showed no toxic encephalopathy secondary to metabolic problems. No seizures. Ejection fraction 55% to 60%, mild TR, mild aortic stenosis. He is doing better. Sugars are better mid 100s, he is more alert. OBJECTIVE: CARDIOVASCULAR: S1, S2. LUNGS: Scattered wheeze x4. GENERAL: Thin, cachectic. 37. Temp 98.6, pulse 93, respiratory rate 12 to 16, blood pressure 137/88, O2 98, and FiO2 40. HEENT: Normocephalic, atraumatic. Chest CT finding, hyperosmolar coma improves, generally malnourished, nicotine addiction, altered mental status, status post respiratory failure, bilateral pneumonia. A1c is 15.9, hemoglobin is 8.9, alcoholism, coronary artery disease, hypoxic respiratory failure, mechanical ventilation, generalized anxiety disorder, hypertension, nicotine addiction. Continue current treatment. WA protocol. PROGNOSIS: Guarded. Please see further orders. MMODL / IJN: [id number] /
[2023-12-12 08:12] LABS: Band Neutrophils % 1 %; Eosinophils # (M) 0.08 k/uL (0-0.7); Lymphocytes # (M) 3.12 k/uL (1.0-4.8); Metamyelocytes # (M) 0.16 k/uL (0); Metamyelocytes % 2 %; Monocytes # (M) 0.96 k/uL (0-1.0); Myelocytes # (M) 0.08 k/uL (0); Myelocytes % 1 %; Neutrophils % (M) 45 %; Nucleated Red Blood Cells 0 /100 WBC (0-0); Total Cells Counted 200
--- NOTE | 2023-12-12 08:33 | CT ---
EXAMINATION TYPE: CT chest wo con DATE OF EXAM: 12/11/2023 COMPARISON: None HISTORY: copd/pleural effusion. ETOH abuse. CT DLP: 237.5 mGycm, Automated exposure control for dose reduction was used. CONTRAST: Performed injected with 0 mL of Isovue 300. TECHNIQUE: Axial images were obtained at 5 mm thick sections. Reconstructed images are reviewed on [employer] computer in the coronal plane. FINDINGS: Portion of the thyroid visualized is normal. There is a small right and minimal left pleural effusion. Adjacent compressive atelectasis is present . No enlarged mediastinal or hilar adenopathy is evident. The ascending aorta diameter at the level o f the main pulmonary artery is 3.8 cm. The main pulmonary artery diameter at the bifurcation is 3.3 cm. Moderate coronary artery calcification is present. Small to moderate pericardial effusion is pres ent. Limited CT sections are obtained through the upper abdomen. Small amount of ascites is present. IMPRESSION: 1. Small right and minimal left pleural effusion with adjacent compressive atelectasis. 2. Small to moderate pericardial effusion. 3. Some mild ascites is evident within the limited upper abdomen
[2023-12-12] MEDS: ENOXAPARIN 40 MG/0.4 ML SYRINGE SQ SCH (08:41)
[2023-12-12] MEDS: PANTOPRAZOLE 40 MG/10 ML VIAL IV SCH (08:42)
[2023-12-12] MEDS: FOLIC ACID 1 MG TAB PO SCH (08:42)
[2023-12-12] MEDS: MULTIVITAMINS, THERA 1 EACH TAB PO SCH (08:42)
[2023-12-12] MEDS: TAMSULOSIN 0.4 MG CAP.ER.24H PO SCH (08:42)
[2023-12-12 08:45] LABS: Anisocytosis (M) Present
[2023-12-12] MEDS: THIAMINE 100 MG in SODIUM CHLORIDE 0.9% 50 ML IVPB SCH ×2 (08:48→21:33)
[2023-12-12] MEDS: IPRATROPIUM-ALBUTEROL 3 ML NEB INHALATION SCH ×4 (09:18→20:43)
--- NOTE | 2023-12-12 09:25 | P.PN ---
Subjective Progress Note Date: 12/11/23 12/11/2023: Patient was seen for a follow-up. Patient is doing even further better. Patient states that he walked with his walker by himself although the nurse did put a gait belt for safety. Patient walked 3-4 times and did well. He has developed some urinary retention. Patient undergoing bladder scan. Nurse notices that he is slightly confused but getting more stronger and more sharper. He does not want to go to the rehab. He wants to go home. Offers no complaints. 12/10/2023: Patient was seen for a follow-up. Patient was extubated earlier today. Patient is slightly encephalopathic, but does answer appropriately. He states that he drinks 4-5 drinks of twisted tea, which is an alcoholic drink. However he states that he does not drink every day, occasionally. Patient's has reported that he does drink. Patient denies any history of seizures. 12/09/2023: Patient was initially seen by Dr. Ngo. Please refer to her note for details. As per EMS flowsheet, patient's mentioned that she called ambulance because patient unable to control his left arm. Patient appeared to have intermittent, uncontrolled movements in the left arm and left side of the face. Patient was able to answer most of the questions and followed commands other than controlling the movements of the left arm and left side of the face. Patient santos s swelling and bruising to the left foot. Patient's mentioned that he injured it 2 to 3 days ago. Patient's mentioned that patient fell at about 8 AM striking the back of his head on the edge of the shower stall in their bathroom. Patient was uncertain if he had lost consciousness when he fell. Patient's mentions that he has history of alcoholism and his last drink was about 3 weeks ago. She had given patient a baby aspirin about 1 hour prior to EMS arrival. Patient's blood glucose was 599. Patient denied any chest pain difficulty breathing, abdominal pain, nausea vomiting, headache. Patient's blood pressure was 150/96, pulse rate 80, respiration 18 and saturation 96%. CT head showed no acute intracranial process. CT of the cervical spine was negative. Patient was intubated in the ER. Per nursing report, she has not noticed any seizure-like activity. He was off sedation on CPAP for about 4 hours. He did not follow commands. At present he is on Precedex 0.5 mcg/kg/min. No obvious seizure-like activity noticed. Objective - Vital Signs Vital signs: Vital Signs Temp 98.0 F 12/11/23 14:00 Pulse 97 12/11/23 14:00 Resp 16 12/11/23 14:00 BP 145/89 12/11/23 14:00 Pulse Ox 98 12/11/23 14:00 FiO2 40 12/10/23 09:20 Intake & Output 12/10/23 12/11/23 12/11/23 18:59 06:59 18:59 Intake Total 607.759 873 809 Output Total 1485 1155 1250 Balance -877.241 -282 -441 Weight 54 kg 57 kg Intake: IV 43 873 559 A Line 3 33 9 Piperacillin-Tazobactam 3 100 200 .375 gm In Sodium Chloride 0.9% 100 ml @ 25 mls/hr IVPB Q8HR JAY[facility]REE Rx# :[id number] Potassium Chloride 20 meq 200 100 In Water For Injection 1 100ml.bag @ 50 mls/hr IVPB ONCE STA Rx#: [id number] Sodium Chloride 0.9% 1, 40 440 200 000 ml @ 40 mls/hr IV . Q24H JAYSHREE Rx#:[id number] Thiamine 100 mg In Sodium 100 50 Chloride 0.9% 50 ml @ 100 mls/hr IVPB Q12HR JAY[facility]REE Rx#:[id number] Intake, IV Titration 62.759 Amount Dexmedetomidine/0.9% NaCl 62.759 (Pmx) 400 mcg In Empty Bag 1 bag @ 0.2 MCG/KG/HR 2.78 mls/hr IV .Q24H JAYSHREE Rx#:[id number] Oral 440 250 Tube Feeding 62 Output: Urine 1485 1155 1250 Straight 1100 Other: Voiding Method Indwelling Catheter Indwelling Catheter Urinal # Voids 1 # Bowel Movements 0 1 ABP, PAP, CO, CI - Last Documented Arterial Blood Pressure 164/80 - Exam Patient is very alert and awake. He is fairly well-oriented. He knows it is November and the year is 24 and that he is in [facility] in [place]. Speech is slightly hoarse, getting more volume, with no aphasia or dysarthria. He can name and repeat. Cranial nerves are normal. Face is equal. Visual valenzuela are full. Extraocular muscles appears intact. Face is symmetric. Tongue protrudes to midline. Hearing appears fairly normal. 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 In the lower limbs, his hip flexion is about 4+, but ankles are normal bilaterally. Sensory to touch is equal with no neglect. Patient has multiple bruises in bilateral feet, ankles, left more than right. Has mild peripheral edema. - Labs CBC & Chem 7: 12/12/23 04:10 12/12/23 04:10 Labs: Abnormal Lab Results - Last 24 Hours (Table) 12/10/23 12/10/23 12/11/23 Range/Units 04:45 19:50 04:14 RBC 2.86 L (4.30-5.90) m/uL Hgb 8.9 L (13.0-17.5) gm/dL Hct 27.4 L (39.0-53.0) % Plt Count 102 L (150-450) k/uL Potassium (3.5-5.1) mmol/L Chloride (98-107) mmol/L BUN (9-20) mg/dL Creatinine (0.66-1.25) mg/dL Glucose (74-99) mg/dL POC Glucose (mg/dL) 203 H (70-110) mg/dL Hemoglobin A1c 15.9 H (<=6.0) % Calcium (8.4-10.2) mg/dL 12/11/23 12/11/23 12/11/23 Range/Units 04:14 06:39 07:53 RBC (4.30-5.90) m/uL Hgb (13.0-17.5) gm/dL Hct (39.0-53.0) % Plt Count (150-450) k/uL Potassium 3.2 L (3.5-5.1) mmol/L Chloride 110 H (98-107) mmol/L BUN 8 L (9-20) mg/dL Creatinine 0.43 L (0.66-1.25) mg/dL Glucose 103 H (74-99) mg/dL POC Glucose (mg/dL) 166 H 190 H (70-110) mg/dL Hemoglobin A1c (<=6.0) % Calcium 8.2 L (8.4-10.2) mg/dL 12/11/23 12/11/23 Range/Units 11:02 16:07 RBC (4.30-5.90) m/uL Hgb (13.0-17.5) gm/dL Hct (39.0-53.0) % Plt Count (150-450) k/uL Potassium (3.5-5.1) mmol/L Chloride (98-107) mmol/L BUN (9-20) mg/dL Creatinine (0.66-1.25) mg/dL Glucose (74-99) mg/dL POC Glucose (mg/dL) 296 H 268 H (70-110) mg/dL Hemoglobin A1c (<=6.0) % Calcium (8.4-10.2) mg/dL Assessment and Plan Assessment: 1. Reported history of shaking/twitching episodes prior to arrival, and AMS, unclear cause. Possibly alcohol withdrawal versus seizure brought by metabolic derangement. 2. Acute hyperglycemia with hyperosmolar state 3. Metabolic encephalopathy. 4. Status post extubation 12/10/2023, for respiratory failure 5. Anemia 6. Hypokalemia 7. Diabetes, poorly controlled 8. History of alcoholism 9. CAD 10. Tobacco use 11. Hypertension Plan: 1. Patient is doing much better. His mentation has improved, strength is improving. He is fully oriented. 2. Keppra is not needed at this time 3. Seizure precautions 4. Hemoglobin A1c 15.9, consistent with poorly controlled diabetes. IM to address. 5. EEG was abnormal due to background slowing of at least moderate degree. This is suggestive of generalized cerebral dysfunction as can be seen with toxic metabolic encephalopathy, or related to diffuse structural brain abnormality. Clinical correlation is recommended. No clear-cut epileptiform activity was seen. If your suspicion for seizures is high, suggest prolonged, sleep deprived EEG. 6. B12 1325, folate 12.20. 7. Neurologically otherwise clear.
[2023-12-12 11:43] LABS: Glucose,Whole Blood 179 mg/dL (70-110)
[2023-12-12] MEDS ORDERED: POTASSIUM CHLORIDE ER 20 MEQ TAB.ER PO SCH (13:00)
--- NOTE | 2023-12-12 13:36 | P.PN ---
Subjective Progress Note Date: 12/12/23 Principal diagnosis: Acute hypoxic respiratory failure secondary to Acute delirium tremens, and alcohol withdrawal 63-year-old male patient, alcohol and he drinks alcohol excessively along with his at home. He stopped drinking approximately 3 days ago and he presented to the emergency department after a fall. Apparently, the patient has been very unstable and he has been falling. He does not follow-up with her primary care physician. Following his hospital admission, the patient started having involuntary movements of his body, increased shakes, restlessness, thrashing and in the ED, the patient had diminished level of consciousness. He was given a total of 6 mg of IV Ativan. Seizure was suspected although there was no clear indication of the patient was seizing. There was no jerky body movements. He was given Keppra. Otherwise, no additional history is available. Ultimately, the patient was intubated and placed on a mechanical ventilator and he was transferred to the intensive care unit. I'm seeing this patient in the ICU post intubation. Currently is on propofol running at 40 Augustus respiratory kilogram per minute. His calm and comfortable. Is on assist-control mode of mechanical ventilation at the rate of 18, tidal volume of 450, FiO2 of 70% with a PEEP of 5. Blood gas showed a pH of 7.3 with a pCO2 of 54 and pO2 of 394 post intubat ion. The chest x-ray from this morning shows adequate positioning of the orotracheal tube. No evidence of any airspace disease. There may be a small left-sided pleural effusion. There is no evidence of pneumothorax or pneumonia. This can of the head and the spine was also done in the emergency department that showed no acute abnormalities. The patient had severe foraminal narrowing at the level of C3-C4 and also mild to moderate foraminal narrowing at the level of C4-C5 and mild to moderate bilateral foraminal narrowing at the level of C5- C6 and bilateral narrowing at the level of C6-C7. The patient was also given a x-ray of the pelvis that showed no evidence of fracture. Initial sodium level was at 127 and after fluid resuscitation sodium came back at 144. Blood sugar was 993 and he was started on insulin drip based on the [facility] protocol. Currently insulin drip is off and the most recent blood sugars at 2:15. BUN is a 50 with a creatinine of 0.7. Potassium level is at 2.3 and this is being replaced. The echoes of 5.7 with a hemoglobin of 10.3. Hemodynamically, he is hypotensive. He is not requiring any pressors at this point. He is producing adequate amount of urine output. Most recent blood pressure is 91/62. IV fluids are in the form of D5 half-normal with potassium at the rate of 150 mL an hour. Note that the patient is not known to be diabetic. He has history of hypertension and alcoholism. On 12/08/2023, the patient remains intubated on a mechanical ventilator. He is on sedation with propofol running at 50 mcg/kg/m and the dose has been reduced down to 25 mcg/kg/m. Resting comfortably in bed. No significant issues overnight. He is on assist control mode with a rate of 18, tidal volume of 450, FiO2 of 40% and a PEEP of 5. Chest x-ray findings are stable. No interval changes and chest x-ray findings and there is no evidence of pneumonia. Some atelectatic changes bilaterally. Gait is at 7.46 with a pCO2 of 40 and a pO2 of 118. This was on FiO2 of 50%. No significant respiratory secretions. The patient is also on enteral feeding and the patient was started on Nepro at the rate of 31 mL an hour. IV fluids are normal saline at the rate of 100 mL an hour. He was given Levemir insulin 12 units for blood sugar control. e choes at 10.7, he was not 0.7 and a platelet count of 121. Sodium is at 146, BUN is at 40 with a creatinine of 0.3. LFTs are normal. Serum iron level is 12. Potassium levels at 3.3. Afebrile. No pressors at this point in time. , patient remains in the ICU, intubated and mechanically ventilated. Patient is on assist control rate of 18 tidal volume 400 FiO2 40% and PEEP of 5 ABG showed a pO2 of 97 pCO2 39 pH of 7.47 hence no ventilator settings changes were made. Patient initially presented with a blood sugar control 993, and acute alcohol condition. Required intubation initially in the ER. Remains on propofol at 50 mg/kg/m 0.9 normal saline at 40 mL per hour is also receiving Nepro for nutritional support, is also on Lovenox, and I plan to change his propofol to Precedex today, and at least give the patient a trial of weaning with a pressure support of 10 and CPAP. Patient seems to be quite sedated, difficult to assess whether he would be ready for weaning, but nonetheless we will definitely try to transition to Precedex and hopefully give the patient a weaning trial today. WBC count is 8.9 hemoglobin is 8.8. Basic metabolic profile is normal and renal profile is normal, chest x-ray showed minimal basilar atelectasis, no clear-cut evidence of pneumonia. Patient was reevaluated today on 12/10/2023, remains in the ICU, intubated and mechanically ventilated. Patient was placed overnight on IMV of 8, pressure support of 10, tidal volume of 400 FiO2 40% and PEEP of 5. Patient did well on that kind of mode of mechanical ventilation, did not require much sedation except he was on Precedex, minimal dose, today I recommended holding the Precedex, switch the patient from IMV to pressure support and CPAP, and I felt if the patient tolerates this we will proceed with extubating the patient. Patient remains on enteral feedings/Nepro remains on Precedex, chest x-ray is showing bibasilar infiltrates, hence Zosyn was added. Patient seems to be more awake today and more appropriate, and he will be given another trial of pressure support and CPAP, and if tolerated will likely extubate ABG this a.m. on 40% showed a pO2 of 136 pCO2 39 pH of 7.47 CBC is relatively normal hemoglobin is 8.9, basic metabolic profile is normal, renal profile is normal Patient was reevaluated today on 12/11/2023, remains in the ICU, patient tolerated extubation well yesterday, he was extubated to nasal cannula and remains on nasal cannula at 3 L/min. Patient is on 0.9 normal saline at 40 cc/h, remains on Zosyn empirically for possible aspiration pneumonia. Patient is intermittently confused, but overall he is doing well, seems to be quite appropriate this morning. The plan is to transfer the patient out of the ICU today to a regular medical floor, continue antibiotics, continue bronchodilators, and continue alcohol withdrawal protocol. Patient is not requiring any Precedex this morning.WBC count is 12.7 hemoglobin 11.6 sodium remains low at 126, WBC count is 8.1 hemoglobin 8.9 basic metabolic profile is normal potassium is 3.2. Renal profile is normal. Chest x-ray continues to show basilar airspace opacities. Patient was evaluated today on 12/12/2023, remains in the ICU, sitting at the bedside chair, is not in any form of distress. Patient tolerated extubation well over the last few days, he is now on room air, for some reason his admitting physician ordered a CT of the chest, and the findings are basically unremarkable, and no more seen than what was already seen on a chest x-ray I am recommending transferring the patient out of the ICU to a regular medical floor, and possibly discharge planning in the next 24 to 48 hours. BBC is relatively normal basic metabolic profile is relatively normal renal profile is normal, CT of the chest showed minimal left pleural effusion with minimal atelectasis. Objective - Vital Signs Vital signs: Vital Signs Temp 97.9 F 12/12/23 08:00 Pulse 92 12/12/23 09:28 Resp 16 12/12/23 08:00 BP 126/80 12/12/23 08:00 Pulse Ox 97 12/12/23 09:20 FiO2 40 12/10/23 09:20 Intake & Output 12/11/23 12/12/23 12/12/23 18:59 06:59 18:59 Intake Total 809 540 390 Output Total 2300 2650 1300 Balance -1491 -2110 -910 Weight 56.2 kg 56.2 kg Intake: IV 559 240 390 A Line 9 Piperacillin-Tazobactam 3 200 100 .375 gm In Sodium Chloride 0.9% 100 ml @ 25 mls/hr IVPB Q8HR JAY[facility]REE Rx# :[id number] Potassium Chloride 20 meq 100 In Water For Injection 1 100ml.bag @ 50 mls/hr IVPB ONCE STA Rx#: [id number] Sodium Chloride 0.9% 1, 200 240 240 000 ml @ 40 mls/hr IV . Q24H JAYSHREE Rx#:[id number] Thiamine 100 mg In Sodium 50 50 Chloride 0.9% 50 ml @ 100 mls/hr IVPB Q12HR JAYSHREE Rx#:[id number] Oral 250 300 Output: Urine 2300 2650 1300 Straight 2150 850 Other: Voiding Method Urinal Urinal Indwelling Catheter # Voids 1 # Bowel Movements 1 ABP, PAP, CO, CI - Last Documented Arterial Blood Pressure 164/80 - Exam Physical Exam: Revealed 63-year-old white male in no distress, on room air Head: Atraumatic, normocephalic. HEENT:[Neck is supple.] [No neck masses.] [No thyromegaly.] [No JVD.] Chest: [Diminished breath sounds at the bases no crackles rhonchi or wheezes Cardiac Exam: [Normal S1 and S2, no S3 gallop, no murmur.] Abdomen: [Soft, nontender, no megaly, no rebound, no guarding, normal bowel sounds.] Extremities: [No clubbing, no edema, no cyanosis.] Neurological Exam: Oriented x 3, but intermittently confused. And intermittently gets a bit agitated Psychiatric: Normal mood, normal affect and normal mental status examination - Labs CBC & Chem 7: 12/12/23 04:10 12/12/23 09:11 Labs: Abnormal Lab Results - Last 24 Hours (Table) 12/11/23 12/11/23 12/12/23 Range/Units 16:07 20:21 04:10 RBC 2.91 L (4.30-5.90) m/uL Hgb 9.0 L (13.0-17.5) gm/dL Hct 28.0 L (39.0-53.0) % Metamyelocytes # (Man) 0.16 H (0) k/uL Myelocytes # (Manual) 0.08 H (0) k/uL Potassium (3.5-5.1) mmol/L Chloride (98-107) mmol/L BUN (9-20) mg/dL Creatinine (0.66-1.25) mg/dL Glucose (74-99) mg/dL POC Glucose (mg/dL) 268 H 327 H (70-110) mg/dL Calcium (8.4-10.2) mg/dL 12/12/23 12/12/23 Range/Units 04:10 11:42 RBC (4.30-5.90) m/uL Hgb (13.0-17.5) gm/dL Hct (39.0-53.0) % Metamyelocytes # (Man) (0) k/uL Myelocytes # (Manual) (0) k/uL Potassium 3.2 L (3.5-5.1) mmol/L Chloride 108 H (98-107) mmol/L BUN 5 L (9-20) mg/dL Creatinine 0.44 L (0.66-1.25) mg/dL Glucose 65 L (74-99) mg/dL POC Glucose (mg/dL) 179 H (70-110) mg/dL Calcium 8.3 L (8.4-10.2) mg/dL Assessment and Plan Assessment: Impression: Acute hyperglycemia with hyperosmolar state Acute metabolic encephalopathy Acute delirium tremens Acute hypoxic respiratory failure secondary to acute delirium tremens requiring intubation and mechanical ventilation, extubated on 12/10/2023 History of alcoholism History of coronary artery disease and mild disease in the proximal mid RCA Generalized anxiety disorder and depression Cervical spine degenerative disc disease and foraminal narrowing Benign essential hypertension Tobacco dependence syndrome Recommendation: Continue present supportive care measures Continue bronchodilators Continue antibiotics, can transition to oral antibiotics Transfer to regular medical floor Continue observation for potential alcohol withdrawal Continue Lovenox for DVT prophylaxis Continue sliding scale insulin Continue GI prophylaxis Will continue to follow while in ICU Time with Patient: Less than 30
[2023-12-12 17:07] LABS: Glucose,Whole Blood 351 mg/dL (70-110)
[2023-12-12 20:29] LABS: Glucose,Whole Blood 312 mg/dL (70-110)
[2023-12-12] MEDS: INSULIN DETEMIR (LEVEMIR) 100 UNIT/ML SYR SQ SCH (20:53)
--- NOTE | 2023-12-12 23:52 | PN ---
PROGRESS NOTE SUBJECTIVE: This is a 63-year-old white male, status post respiratory failure. Has pleural effusions, atelectasis, [id number] pericardial effusion. Mild ascites, elevated pulmonary blood vessels. Echocardiogram, ejection fraction is normal. Mild aortic stenosis. PLAN: Continue current treatments, PT OT. Treat for aspiration pneumonia, prognosis guarded. Continue current treatment. He is malnourished, will try to get his appetite better and improve from PT OT, possible home soon. MMODL / IJN: [id number] /
[2023-12-13] MEDS: SODIUM CHLORIDE 0.9% 1,000 ML IV SCH ×2 (00:04→23:38)
[2023-12-13] MEDS: PIPERACILLIN-TAZOBACTAM 3.375 GM in SODIUM CHLORIDE 0.9% 100 ML IVPB SCH ×4 (00:04→23:36)
[2023-12-13 06:13] LABS: Glucose,Whole Blood 231 mg/dL (70-110)
[2023-12-13] MEDS: INSULIN ASPART (NovoLOG) 100 UNIT/ML VIAL SQ SCH ×4 (06:48→20:51)
[2023-12-13] MEDS: FOLIC ACID 1 MG TAB PO SCH (07:51)
[2023-12-13] MEDS: MULTIVITAMINS, THERA 1 EACH TAB PO SCH (07:51)
[2023-12-13] MEDS: TAMSULOSIN 0.4 MG CAP.ER.24H PO SCH (07:51)
[2023-12-13] MEDS: PANTOPRAZOLE 40 MG TABLET PO SCH (07:51)
[2023-12-13] MEDS: ENOXAPARIN 40 MG/0.4 ML SYRINGE SQ SCH (07:51)
[2023-12-13] MEDS: IPRATROPIUM-ALBUTEROL 3 ML NEB INHALATION SCH ×4 (08:20→21:28)
--- NOTE | 2023-12-13 10:01 | P.PN ---
Subjective Progress Note Date: 12/12/23 12/12/2023: Patient was seen for a follow-up. Patient was actually seen in the ICU, sitting in a wheelchair, ready to be transferred to [facility], medical surgical unit. Patient's was also present. She mentions that patient has been falling a lot lately. He did hit his head on the back. She states that she brought him to the hospital because of his uncontrollable shaking. She admits to him drinking a lot. However she states that he has not drank alcohol since 11/19/2023 and it would be unusual for alcohol withdrawal to show up on 12/07/2023. 12/11/2023: Patient was seen for a follow-up. Patient is doing even further better. Patient states that he walked with his walker by himself although the nurse did put a gait belt for safety. Patient walked 3-4 times and did well. He has developed some urinary retention. Patient undergoing bladder scan. Nurse notices that he is slightly confused but getting more stronger and more sharper. He does not want to go to the rehab. He wants to go home. Offers no complaints. 12/10/2023: Patient was seen for a follow-up. Patient was extubated earlier today. Patient is slightly encephalopathic, but does answer appropriately. He states that he drinks 4-5 drinks of twisted tea, which is an alcoholic drink. However he states that he does not drink every day, occasionally. Patient's has reported that he does drink. Patient denies any history of seizures. 12/09/2023: Patient was initially seen by Dr. Ngo. Please refer to her note for details. As per EMS flowsheet, patient's mentioned that she called ambulance because patient unable to control his left arm. Patient appeared to have intermittent, uncontrolled movements in the left arm and left side of the face. Patient was able to answer most of the questions and followed commands other than cont rolling the movements of the left arm and left side of the face. Patient has swelling and bruising to the left foot. Patient's mentioned that he injured it 2 to 3 days ago. Patient's mentioned that patient fell at about 8 AM striking the back of his head on the edge of the shower stall in their bathroom. Patient was uncertain if he had lost consciousness when he fell. Patient's mentions that he has history of alcoholism and his last drink was about 3 weeks ago. She had given patient a baby aspirin about 1 hour prior to EMS arrival. Patient's blood glucose was 599. Patient denied any chest pain difficulty breathing, abdominal pain, nausea vomiting, headache. Patient's blood pressure was 150/96, pulse rate 80, respiration 18 and saturation 96%. CT head showed no acute intracranial process. CT of the cervical spine was negative. Patient was intubated in the ER. Per nursing report, she has not noticed any seizure-like activity. He was off sedation on CPAP for about 4 hours. He did not follow commands. At present he is on Precedex 0.5 mcg/kg/min. No obvious seizure-like activity noticed. Objective - Vital Signs Vital signs: Vital Signs Temp 97.7 F 12/12/23 14:00 Pulse 96 12/12/23 15:14 Resp 18 12/12/23 14:00 BP 117/78 12/12/23 14:00 Pulse Ox 97 12/12/23 14:00 FiO2 40 12/10/23 09:20 Intake & Output 12/11/23 12/12/23 12/12/23 18:59 06:59 18:59 Intake Total 809 540 390 Output Total 2300 2650 2350 Balance -149 -2109 -1959 Weight 56.2 kg 56.2 kg Intake: IV 559 240 390 A Line 9 Piperacillin-Tazobactam 3 200 100 .375 gm In Sodium Chloride 0.9% 100 ml @ 25 mls/hr IVPB Q8HR JAYSHREE Rx# :[id number] Potassium Chloride 20 meq 100 In Water For Injection 1 100ml.bag @ 50 mls/hr IVPB ONCE STA Rx#: [id number] Sodium Chloride 0.9% 1, 200 240 240 000 ml @ 40 mls/hr IV . Q24H JAYSHREE Rx#:[id number] Thiamine 100 mg In Sodium 50 50 Chloride 0.9% 50 ml @ 100 mls/hr IVPB Q12HR JAYSHREE Rx#:[id number] Oral 250 300 Output: Urine 2300 2650 2350 Straight 2150 850 Other: Voiding Method Urinal Urinal Indwelling Catheter # Voids 1 # Bowel Movements 1 ABP, PAP, CO, CI - Last Documented Arterial Blood Pressure 164/80 - Exam Patient is very alert and awake. He is fairly well-oriented. He knows it is November and the year is 24 and that he is in [facility] in [place]. Speech is getting more volume, with no aphasia or dysarthria. He can name and repeat. Cranial nerves are normal. Face is equal. Visual valenzuela are full. Extraocular muscles appears intact. Face is symmetric. Tongue protrudes to midline. Hearing appears fairly normal. On muscle strength testing his biceps, triceps, machine taper and deltoids are all normal. In the lower limbs, his hip flexion is about 4+, but ankles are normal bilaterally. Sensory to touch is equal with no neglect. Patient has multiple bruises in bilateral feet, ankles, left more than right. Has mild peripheral edema. His feet are tender. - Labs CBC & Chem 7: 12/12/23 04:10 12/12/23 09:11 Labs: Abnormal Lab Results - Last 24 Hours (Table) 12/11/23 12/12/23 12/12/23 Range/Units 20:21 04:10 04:10 RBC 2.91 L (4.30-5.90) m/uL Hgb 9.0 L (13.0-17.5) gm/dL Hct 28.0 L (39.0-53.0) % Metamyelocytes # (Man) 0.16 H (0) k/uL Myelocytes # (Manual) 0.08 H (0) k/uL Potassium 3.2 L (3.5-5.1) mmol/L Chloride 108 H (98-107) mmol/L BUN 5 L (9-20) mg/dL Creatinine 0.44 L (0.66-1.25) mg/dL Glucose 65 L (74-99) mg/dL POC Glucose (mg/dL) 327 H (70-110) mg/dL Calcium 8.3 L (8.4-10.2) mg/dL 12/12/23 Range/Units 11:42 RBC (4.30-5.90) m/uL Hgb (13.0-17.5) gm/dL Hct (39.0-53.0) % Metamyelocytes # (Man) (0) k/uL Myelocytes # (Manual) (0) k/uL Potassium (3.5-5.1) mmol/L Chloride (98-107) mmol/L BUN (9-20) mg/dL Creatinine (0.66-1.25) mg/dL Glucose (74-99) mg/dL POC Glucose (mg/dL) 179 H (70-110) mg/dL Calcium (8.4-10.2) mg/dL Assessment and Plan Assessment: 1. Reported history of shaking/twitching episodes prior to arrival, and AMS, unclear cause. Possibly alcohol withdrawal versus seizure brought by metabolic derangement. 2. Acute hyperglycemia with hyperosmolar state 3. Metabolic encephalopathy. 4. Status post extubation 12/10/2023, for respiratory failure 5. Anemia 6. Hypokalemia 7. Diabetes, poorly controlled 8. History of alcoholism 9. CAD 10. Tobacco use 11. Hypertension Plan: 1. Patient is doing much better. His mentation has improved, strength is improving. He is fully oriented. 2. Keppra is not needed at this time 3. Seizure precautions 4. Hemoglobin A1c 15.9, consistent with poorly controlled diabetes. IM to address. 5. EEG was abnormal due to background slowing of at least moderate degree. This is suggestive of generalized cerebral dysfunction as can be seen with toxic metabolic encephalopathy, or related to diffuse structural brain abnormality. Clinical correlation is recommended. No clear-cut epileptiform activity was se en. If your suspicion for seizures is high, suggest prolonged, sleep deprived EEG. 6. B12 1325, folate 12.20. 7. Neurologically otherwise clear. Discussed with patient's .
[2023-12-13 11:24] LABS: Glucose,Whole Blood 361 mg/dL (70-110)
[2023-12-13] MEDS: THIAMINE 100 MG in SODIUM CHLORIDE 0.9% 50 ML IVPB SCH ×2 (12:01→20:51)
--- NOTE | 2023-12-13 15:02 | P.PN ---
Subjective Progress Note Date: 12/13/23 63-year-old male patient, alcohol and he drinks alcohol excessively along with his at home. He stopped drinking approximately 3 days ago and he presented to the emergency department after a fall. Apparently, the patient has been very unstable and he has been falling. He does not follow-up with her primary care physician. Following his hospital admission, the patient started having involuntary movements of his body, increased shakes, restlessness, thrashing and in the ED, the patient had diminished level of consciousness. He was given a total of 6 mg of IV Ativan. Seizure was suspected although there was no clear indication of the patient was seizing. There was no jerky body movements. He was given Keppra. Otherwise, no additional history is available. Ultimately, the patient was intubated and placed on a mechanical ventilator and he was transferred to the intensive care unit. I'm seeing this patient in the ICU post intubation. Currently is on propofol running at 40 Augustus respiratory kilogram per minute. His calm and comfortable. Is on assist-control mode of mechanical ventilation at the rate of 18, tidal volume of 450, FiO2 of 70% with a PEEP of 5. Blood gas showed a pH of 7.3 with a pCO2 of 54 and pO2 of 394 post intubation. The chest x-ray from this morning shows adequate positioning of the orotracheal tube. No evidence of any airspace disease. There may be a small left-sided pleural effusion. There is no evidence of pneumothorax or pneumonia. This can of the head and the spine was also done in the emergency department that showed no acute abnormalities. The patient had severe foraminal narrowing at the level of C3-C4 and also mild to moderate foraminal narrowing at the level of C4-C5 and mild to moderate bilateral foraminal narrowing at the level of C5- C6 and bilateral narrowing at the level of C6-C7. The patient was also given a x-ray of the pelvis that showed no evidence of fracture. Initial sodium level was at 127 and after fluid resuscitation sodium came back at 144. Blood sugar was 993 and he was started on insulin drip based on the [facility] protocol. Currently insulin drip is off and the most recent blood sugars at 2:15. BUN is a 50 with a creatinine of 0.7. Potassium level is at 2.3 and this is being replaced. The echoes of 5.7 with a hemoglobin of 10.3. Hemodynamically, he is hypotensive. He is not requiring any pressors at this point. He is producing adequate amount of urine output. Most recent blood pressure is 91/62. IV fluids are in the form of D5 half-normal with potassium at the rate of 150 mL an hour. Note that the patient is not known to be diabetic. He has history of hypertension and alcoholism. On 12/08/2023, the patient remains intubated on a mechanical ventilator. He is on sedation with propofol running at 50 mcg/kg/m and the dose has been reduced down to 25 mcg/kg/m. Resting comfortably in bed. No significant issues overnight. He is on assist control mode with a rate of 18, tidal volume of 450, FiO2 of 40% and a PEEP of 5. Chest x-ray findings are stable. No interval changes and chest x-ray findings and there is no evidence of pneumonia. Some atelectatic changes bilaterally. Gait is at 7.46 with a pCO2 of 40 and a pO2 of 118. This was on FiO2 of 50%. No significant respiratory secretions. The patient is also on enteral feeding and the patient was started on Nepro at the rate of 31 mL an hour. IV fluids are normal saline at the rate of 100 mL an hour. He was given Levemir insulin 12 units for blood sugar control. echoes at 10.7, he was not 0.7 and a platelet count of 121. Sodium is at 146, BUN is at 40 with a creatinine of 0.3. LFTs are normal. Serum iron level is 12. Potassium levels at 3.3. Afebrile. No pressors at this point in time. , patient remains in the ICU, intubated and mechanically ventilated. Patient is on assist control rate of 18 tidal volume 400 FiO2 40% and PEEP of 5 ABG showed a pO2 of 97 pCO2 39 pH of 7.47 hence no ventilator settings changes were made. Patient initially presented with a blood sugar control 993, and acute alcohol condition. Required intubation initially in the ER. Remains on propofol at 50 mg/kg/m 0.9 normal saline at 40 mL per hour is also receiving Nepro for nutritional support, is also on Lovenox, and I plan to change his propofol to Precedex today, and at least give the patient a trial of weaning with a pressure support of 10 and CPAP. Patient seems to be quite sedated, difficult to assess whether he would be ready for weaning, but nonetheless we will definitely try to transition to Precedex and hopefully give the patient a weaning trial today. WBC count is 8.9 hemoglobin is 8.8. Basic metabolic profile is normal and renal profile is normal, chest x-ray showed minimal basi lar atelectasis, no clear-cut evidence of pneumonia. Patient was reevaluated today on 12/10/2023, remains in the ICU, intubated and mechanically ventilated. Patient was placed overnight on IMV of 8, pressure support of 10, tidal volume of 400 FiO2 40% and PEEP of 5. Patient did well on that kind of mode of mechanical ventilation, did not require much sedation except he was on Precedex, minimal dose, today I recommended holding the Precedex, switch the patient from IMV to pressure support and CPAP, and I felt if the patient tolerates this we will proceed with extubating the patient. Patient remains on enteral feedings/Nepro remains on Precedex, chest x-ray is showing bibasilar infiltrates, hence Zosyn was added. Patient seems to be more awake today and more appropriate, and he will be given another trial of pressure support and CPAP, and if tolerated will likely extubate ABG this a.m. on 40% showed a pO2 of 136 pCO2 39 pH of 7.47 CBC is relatively normal hemoglobin is 8.9, basic metabolic profile is normal, renal profile is normal Patient was reevaluated today on 12/11/2023, remains in the ICU, patient tolerated extubation well yesterday, he was extubated to nasal cannula and re eusebia on nasal cannula at 3 L/min. Patient is on 0.9 normal saline at 40 cc/h, remains on Zosyn empirically for possible aspiration pneumonia. Patient is intermittently confused, but overall he is doing well, seems to be quite appropriate this morning. The plan is to transfer the patient out of the ICU today to a regular medical floor, continue antibiotics, continue bronchodilators, and continue alcohol withdrawal protocol. Patient is not requiring any Precedex this morning.WBC count is 12.7 hemoglobin 11.6 sodium remains low at 126, WBC count is 8.1 hemoglobin 8.9 basic metabolic profile is normal potassium is 3.2. Renal profile is normal. Chest x-ray continues to show basilar airspace opacities. Patient was evaluated today on 12/12/2023, remains in the ICU, sitting at the bedside chair, is not in any form of distress. Patient tolerated extubation well over the last few days, he is now on room air, for some reason his admitting physician ordered a CT of the chest, and the findings are basically unremarkable, and no more seen than what was already seen on a chest x-ray I am recommending transferring the patient out of the ICU to a regular medical floor, and possibly discharge planning in the next 24 to 48 hours. BBC is relatively normal basic metabolic profile is relatively normal renal profile is normal, CT of the chest showed minimal left pleural effusion with minimal atelectasis. The patient is seen today December 13, 2023 in follow-up on the regular medical floor. He was transferred out of the intensive care unit yesterday. He is currently resting in bed. Maintaining good O2 saturations in the 90s on room air. Has been afebrile. Hemodynamically stable awake and alert in no acute distress. Sputum culture revealed no growth. Glucose 231. He is continued on DuoNeb inhalations, antibiotics in the form of Zosyn. Remains on the CIWA protocol. Lovenox for DVT prophylaxis. Objective - Vital Signs Vital signs: Vital Signs Temp 98.5 F 12/13/23 13:03 Pulse 111 H 12/13/23 13:03 Resp 16 12/13/23 13:03 BP 137/78 12/13/23 13:03 Pulse Ox 98 12/13/23 13:03 FiO2 40 12/10/23 09:20 Intake & Output 12/12/23 12/13/23 12/13/23 18:59 06:59 18:59 Intake Total 390 Output Total 2350 1100 1400 Balance -1959 Weight 56.2 kg 56.5 kg Intake: IV 390 Piperacillin-Tazobactam 3 100 .375 gm In Sodium Chloride 0.9% 100 ml @ 25 mls/hr IVPB Q8HR JAYSHREE Rx# :[id number] Sodium Chloride 0.9% 1, 240 000 ml @ 40 mls/hr IV . Q24H JAYSHREE Rx#:[id number] Thiamine 100 mg In Sodium 50 Chloride 0.9% 50 ml @ 100 mls/hr IVPB Q12HR JAYSHREE Rx#:[id number] Output: Urine 2350 1100 1400 Straight 1400 Other: Voiding Method Indwelling Catheter Toilet Indwelling Catheter # Bowel Movements 2 ABP, PAP, CO, CI - Last Documented Arterial Blood Pressure 164/80 - Exam GENERAL EXAM: Alert, 60-year-old male, on room air, comfortable in no apparent distress. HEAD: Normocephalic. EYES: Normal reaction of pupils, equal size. NOSE: Clear with pink turbinates. THROAT: No erythema or exudates. NECK: No masses, no JVD. CHEST: No chest wall deformity. LUNGS: Equal air entry with no crackles, wheeze, rhonchi or dullness. CVS: S1 and S2 normal with no audible murmur, regular rhythm. ABDOMEN: No hepatosplenomegaly, normal bowel sounds, no guarding or rigidity. SPINE: No scoliosis or deformity SKIN: No rashes CENTRAL NERVOUS SYSTEM: No focal deficits, tone is normal in all 4 extremities. EXTREMITIES: There is no peripheral edema. No clubbing, no cyanosis. Peripheral pulses are intact. - Labs CBC & Chem 7: 12/12/23 04:10 12/12/23 09:11 Labs: Abnormal Lab Results - Last 24 Hours (Table) 12/12/23 12/12/23 12/13/23 Range/Units 17:06 20:27 06:12 POC Glucose (mg/dL) 351 H 312 H 231 H (70-110) mg/dL 12/13/23 Range/Units 11:22 POC Glucose (mg/dL) 361 H (70-110) mg/dL Assessment and Plan Assessment: Acute hyperglycemia with hyperosmolar state Acute metabolic encephalopathy Acute delirium tremens Acute hypoxic respiratory failure secondary to acute delirium tremens requiring intubation and mechanical ventilation, extubated on 12/10/2023 History of alcoholism History of coronary artery disease and mild disease in the proximal mid RCA Generalized anxiety disorder and depression Cervical spine degenerative disc disease and foraminal narrowing Benign essential hypertension Tobacco dependence syndrome Plan: The patient was seen and evaluated Labs and medications reviewed Continue on the current treatment plan Discharge planning in place Remains on the [facility] protocol Educated regarding importance of alcohol cessation I have personally seen and examined the patient, performed the documentation and the assessment and plan as written. Number of minutes spent on the visit: 10.
[2023-12-13] MEDS: HYDROcodone/APAP 5-325MG 1 EACH TAB PO PRN (15:36)
[2023-12-13 16:59] LABS: Glucose,Whole Blood 384 mg/dL (70-110)
[2023-12-13] MEDS: DAPAGLIFLOZIN PROPANEDIOL 10 MG TABLET PO SCH (18:32)
[2023-12-13 20:40] LABS: Glucose,Whole Blood 336 mg/dL (70-110)
[2023-12-13] MEDS: INSULIN DETEMIR (LEVEMIR) 100 UNIT/ML SYR SQ SCH (20:51)
--- NOTE | 2023-12-14 01:40 | PN ---
PROGRESS NOTE SUBJECTIVE: He is on regular medical floor, transferred to the ICU yesterday, is resting comfortably in bed. Continue good oxygen levels. He is breathing better. His sugars are 200 to 300s. He is on DuoNeb, Zosyn, CIWA protocol, Lovenox, pulse ox 99, FiO2 is 40. OBJECTIVE: HEENT: Normocephalic, atraumatic. Pupils equal, round, and reactive. LUNGS: Decreased breath sounds. PSYCH: Fair mood. NEUROLOGIC: Alert and oriented x3. Hemoglobin is 9, white count is 8.0, metabolic encephalopathy, hyperglycemia, hyperosmolar coma, DTs, respiratory failure secondary to DTs, history of alcoholism, status post intubation, coronary artery disease, mild disease, cervical spine degenerative disease, hypertension, nicotine addiction. Discharge place, CIWA protocol. Wait for Pulmonary to clear him. MMJERILYNL / LILIANAN: [id number] /
[2023-12-14 06:02] LABS: Glucose,Whole Blood 145 mg/dL (70-110)
[2023-12-14] MEDS: INSULIN ASPART (NovoLOG) 100 UNIT/ML VIAL SQ SCH ×4 (06:04→20:49)
[2023-12-14] MEDS: IPRATROPIUM-ALBUTEROL 3 ML NEB INHALATION SCH ×4 (08:55→22:01)
[2023-12-14 09:02] LABS: Basophils # (A) 0.04 X 10*3/uL (0.00-0.10); Basophils % (A) 0.6 %; Eosinophils # (A) 0.11 X 10*3/uL (0.04-0.35); Eosinophils % (A) 1.7 %; HCT 23.6 % (39.6-50.0); HGB 7.4 g/dL (13.0-17.0); Lymphocytes # (A) 2.45 X 10*3/uL (0.90-5.00); Lymphocytes % (A) 36.8 %; MCH 30.1 pg (27.0-32.0); MCHC 31.4 g/dL (32.0-37.0); MCV 95.9 FL (80.0-97.0); Mean Platelet Volume 9.8 FL (9.5-12.2); Monocytes # (A) 0.91 X 10*3/uL (0.20-1.00); Monocytes % (A) 13.7 %; NRBC Per 100 WBC 0 X 10*3/uL (0.00-0.01); Neutrophils # (A) 3.07 X 10*3/uL (1.80-7.70); Platelet Count 148 X 10*3/uL (140-440); RBC 2.46 X 10*6/uL (4.40-5.60); WBC 6.66 X 10*3/uL (4.50-10.00)
[2023-12-14 09:26] LABS: ALT 19 U/L (10-49); AST 17 U/L (14-35); Alkaline Phosphatase 101 U/L (41-126); Blood Urea Nitrogen 7.9 mg/dL (9.0-27.0); Calcium 8.1 mg/dL (8.7-10.3); Carbon Dioxide 21.7 mmol/L (21.6-31.8); Chloride 104 mmol/L (96-109); Globulin 2.5 g/dL (1.6-3.3); Glucose 226 mg/dL (70-110); Potassium 4.1 mmol/L (3.5-5.5); Sodium 137 mmol/L (135-145); Total Bilirubin 0.3 mg/dL (0.3-1.2); Total Protein 5.5 g/dL (6.2-8.2)
[2023-12-14] MEDS: THIAMINE 100 MG in SODIUM CHLORIDE 0.9% 50 ML IVPB SCH ×2 (09:51→20:49)
[2023-12-14] MEDS: HYDROcodone/APAP 5-325MG 1 EACH TAB PO PRN (09:51)
[2023-12-14] MEDS: ENOXAPARIN 40 MG/0.4 ML SYRINGE SQ SCH (09:51)
[2023-12-14] MEDS: DAPAGLIFLOZIN PROPANEDIOL 10 MG TABLET PO SCH (09:52)
[2023-12-14] MEDS: MULTIVITAMINS, THERA 1 EACH TAB PO SCH (09:52)
[2023-12-14] MEDS: FOLIC ACID 1 MG TAB PO SCH (09:52)
[2023-12-14] MEDS: PANTOPRAZOLE 40 MG TABLET PO SCH (09:52)
[2023-12-14] MEDS: PIPERACILLIN-TAZOBACTAM 3.375 GM in SODIUM CHLORIDE 0.9% 100 ML IVPB SCH (09:52)
[2023-12-14] MEDS: TAMSULOSIN 0.4 MG CAP.ER.24H PO SCH (09:52)
--- NOTE | 2023-12-14 10:27 | P.PN ---
Subjective Progress Note Date: 12/13/23 12/13/2023: Patient was seen for a follow-up. Patient is laying comfortably in the bed. He states he is feeling "not too bad". Patient currently on Zosyn for possible aspiration pneumonia. Patient complains of pain in the foot, 7/10, left more than right. 12/12/2023: Patient was seen for a follow-up. Patient was actually seen in the ICU, sitting in a wheelchair, ready to be transferred to [facility], medical surgical unit. Patient's was also present. She mentions that patient has been falling a lot lately. He did hit his head on the back. She states that she brought him to the hospital because of his uncontrollable shaking. She admits to him drinking a lot. However she states that he has not drank alcohol since 11/19/2023 and it would be unusual for alcohol withdrawal to show up on 12/07/2023. 12/11/2023: Patient was seen for a follow-up. Patient is doing even further better. Patient states that he walked with his walker by himself although the nurse did put a gait belt for safety. Patient walked 3-4 times and did well. He has developed some urinary retention. Patient undergoing bladder scan. Nurse notices that he is slightly confused but getting more stronger and more sharper. He does not want to go to the rehab. He wants to go home. Offers no complaints. 12/10/2023: Patient was seen for a follow-up. Patient was extubated earlier today. Patient is slightly encephalopathic, but does answer appropriately. He states that he drinks 4-5 drinks of twisted tea, which is an alcoholic drink. However he states that he does not drink every day, occasionally. Patient's has reported that he does drink. Patient denies any history of seizures. 12/09/2023: Patient was initially seen by Dr. Ngo. Please refer to her note for details. As per EMS flowsheet, patient's mentioned that she called ambulance because patient unable to control his left arm. Patient appeared to have intermittent, uncontrolled movements in the left arm and left side of the face. Patient was able to answer most of the questions and followed commands other than controlling the movements of the left arm and left side of the face. Patient has swelling and bruising to the left foot. Patient's mentioned that he injured it 2 to 3 days ago. Patient's mentioned that patient fell at about 8 AM striking the back of his head on the edge of the shower stall in their bathroom. Patient was uncertain if he had lost consciousness when he fell. Patient's mentions that he has history of alcoholism and his last drink was about 3 weeks ago. She had given patient a baby aspirin about 1 hour prior to EMS arrival. Patient's blood glucose was 599. Patient denied any chest pain difficulty breathing, abdominal pain, nausea vomiting, headache. Patient's blood pressure was 150/96, pulse rate 80, respiration 18 and saturation 96%. CT head showed no acute intracranial process. CT of the cervical spine was negative. Patient was intubated in the ER. Per nursing report, she has not noticed any seizure-like activity. He was off sedation on CPAP for about 4 hours. He did not follow commands. At present he is on Precedex 0.5 mcg/kg/min. No obvious seizure-like activity noticed. Objective - Vital Signs Vital signs: Vital Signs Temp 98.5 F 12/13/23 13:03 Pulse 111 H 12/13/23 13:03 Resp 16 12/13/23 13:03 BP 137/78 12/13/23 13:03 Pulse Ox 98 12/13/23 13:03 FiO2 40 12/10/23 09:20 Intake & Output 12/12/23 12/13/23 12/13/23 18:59 06:59 18:59 Intake Total 390 Output Total 2350 1100 1400 Balance -1959 -1099 -1399 Weight 56.2 kg 56.5 kg Intake: IV 390 Piperacillin-Tazobactam 3 100 .375 gm In Sodium Chloride 0.9% 100 ml @ 25 mls/hr IVPB Q8HR JAYSHREE Rx# :[id number] Sodium Chloride 0.9% 1, 240 000 ml @ 40 mls/hr IV . Q24H JAYSHREE Rx#:[id number] Thiamine 100 mg In Sodium 50 Chloride 0.9% 50 ml @ 100 mls/hr IVPB Q12HR JAYSHREE Rx#:[id number] Output: Urine 2350 1100 1400 Straight 1400 Other: Voiding Method Indwelling Catheter Toilet Indwelling Catheter # Bowel Movements 2 ABP, PAP, CO, CI - Last Documented Arterial Blood Pressure 164/80 - Exam Patient is very alert and awake. He is fairly well-oriented. He knows it is November and the year is 24 and that he is in [facility] in [place]. Speech is getting more volume, with no aphasia or dysarthria. He can name and repeat. Cranial nerves are normal. Face is equal. Visual valenzuela are full. Extraocular muscles appears intact. Face is symmetric. Tongue protrudes to midline. Hearing appears fairly normal. On muscle strength testing his biceps, triceps, cushion installer and deltoids are all normal. In the lower limbs, his hip flexion is about 4+, but ankles are normal bilaterally. Sensory to touch is equal with no neglect. Patient has multiple bruises in bilateral feet, ankles, left more than right. Left ankle is very swollen more than right. No tenderness of the first MTP joint on either side. His feet are tender. - Labs CBC & Chem 7: 12/14/23 06:46 12/14/23 06:46 Labs: Abnormal Lab Results - Last 24 Hours (Table) 12/12/23 12/12/23 12/13/23 Range/Units 17:06 20:27 06:12 POC Glucose (mg/dL) 351 H 312 H 231 H (70-110) mg/dL 12/13/23 Range/Units 11:22 POC Glucose (mg/dL) 361 H (70-110) mg/dL Assessment and Plan Assessment: 1. Reported history of shaking/twitching episodes prior to arrival, and AMS, unclear cause. Most likely due to significant metabolic derangement from NKHOS. Less likely alcohol withdrawal. 2. Acute hyperglycemia with hyperosmolar state 3. Metabolic encephalopathy. 4. Status post extubation 12/10/2023, for respiratory failure 5. Anemia 6. Hypokalemia 7. Diabetes, poorly controlled 8. History of alcoholism 9. CAD 10. Tobacco use 11. Hypertension Plan: 1. Patient is doing much better. His mentation has improved, strength is improving. He is fully oriented. 2. Keppra is not needed at this time 3. Seizure precautions 4. Hemoglobin A1c 15.9, consistent with poorly controlled diabetes. IM to address. 5. EEG was abnormal due to background slowing of at least moderate degree. This is suggestive of generalized cerebral dysfunction as can be seen with toxic metabolic encephalopathy, or related to diffuse structural brain abnormality. Clinical correlation is recommended. No clear-cut epileptiform activity was seen. If your suspicion for seizures is high, suggest prolonged, sleep deprived EEG. 6. B12 1325, folate 12.20. 7. Patient has significant pain in bilateral ankles, left more than right. Recommend orthopedic follow-up. 8. Neurologically otherwise clear. Discussed with patient's nurse.
[2023-12-14 11:07] LABS: Glucose,Whole Blood 457 mg/dL (70-110)
--- NOTE | 2023-12-14 13:36 | P.PN ---
Subjective Progress Note Date: 12/14/23 63-year-old male patient, alcohol and he drinks alcohol excessively along with his at home. He stopped drinking approximately 3 days ago and he presented to the emergency department after a fall. Apparently, the patient has been very unstable and he has been falling. He does not follow-up with her primary care physician. Following his hospital admission, the patient started having involuntary movements of his body, increased shakes, restlessness, thrashing and in the ED, the patient had diminished level of consciousness. He was given a total of 6 mg of IV Ativan. Seizure was suspected although there was no clear indication of the patient was seizing. There was no jerky body movements. He was given Keppra. Otherwise, no additional history is available. Ultimately, the patient was intubated and placed on a mechanical ventilator and he was transferred to the intensive care unit. I'm seeing this patient in the ICU post intubation. Currently is on propofol running at 40 Augustus respiratory kilogram per minute. His calm and comfortable. Is on assist-control mode of mechanical ventilation at the rate of 18, tidal volume of 450, FiO2 of 70% with a PEEP of 5. Blood gas showed a pH of 7.3 with a pCO2 of 54 and pO2 of 394 post intubation. The chest x-ray from this morning shows adequate positioning of the orotracheal tube. No evidence of any airspace disease. There may be a small left-sided pleural effusion. There is no evidence of pneumothorax or pneumonia. This can of the head and the spine was also done in the emergency department that showed no acute abnormalities. The patient had severe foraminal narrowing at the level of C3-C4 and also mild to moderate foraminal narrowing at the level of C4-C5 and mild to moderate bilateral foraminal narrowing at the level of C5- C6 and bilateral narrowing at the level of C6-C7. The patient was also given a x-ray of the pelvis that showed no evidence of fracture. Initial sodium level was at 127 and after fluid resuscitation sodium came back at 144. Blood sugar was 993 and he was started on insulin drip based on the [facility] protocol. Currently insulin drip is off and the most recent blood sugars at 2:15. BUN is a 50 with a creatinine of 0.7. Potassium level is at 2.3 and this is being replaced. The echoes of 5.7 with a hemoglobin of 10.3. Hemodynamically, he is hypotensive. He is not requiring any pressors at this point. He is producing adequate amount of urine output. Most recent blood pressure is 91/62. IV fluids are in the form of D5 half-normal with potassium at the rate of 150 mL an hour. Note that the patient is not known to be diabetic. He has history of hypertension and alcoholism. On 12/08/2023, the patient remains intubated on a mechanical ventilator. He is on sedation with propofol running at 50 mcg/kg/m and the dose has been reduced down to 25 mcg/kg/m. Resting comfortably in bed. No significant issues overnight. He is on assist control mode with a rate of 18, tidal volume of 450, FiO2 of 40% and a PEEP of 5. Chest x-ray findings are stable. No interval changes and chest x-ray findings and there is no evidence of pneumonia. Some atelectatic changes bilaterally. Gait is at 7.46 with a pCO2 of 40 and a pO2 of 118. This was on FiO2 of 50%. No significant respiratory secretions. The patient is also on enteral feeding and the patient was started on Nepro at the rate of 31 mL an hour. IV fluids are normal saline at the rate of 100 mL an hour. He was given Levemir insulin 12 units for blood sugar control. echoes at 10.7, he was not 0.7 and a platelet count of 121. Sodium is at 146, BUN is at 40 with a creatinine of 0.3. LFTs are normal. Serum iron level is 12. Potassium levels at 3.3. Afebrile. No pressors at this point in time. , patient remains in the ICU, intubated and mechanically ventilated. Patient is on assist control rate of 18 tidal volume 400 FiO2 40% and PEEP of 5 ABG showed a pO2 of 97 pCO2 39 pH of 7.47 hence no ventilator settings changes were made. Patient initially presented with a blood sugar control 993, and acute alcohol condition. Required intubation initially in the ER. Remains on propofol at 50 mg/kg/m 0.9 normal saline at 40 mL per hour is also receiving Nepro for nutritional support, is also on Lovenox, and I plan to change his propofol to Precedex today, and at least give the patient a trial of weaning with a pressure support of 10 and CPAP. Patient seems to be quite sedated, difficult to assess whether he would be ready for weaning, but nonetheless we will definitely try to transition to Precedex and hopefully give the patient a weaning trial today. WBC count is 8.9 hemoglobin is 8.8. Basic metabolic profile is normal and renal profile is normal, chest x-ray showed minimal basi lar atelectasis, no clear-cut evidence of pneumonia. Patient was reevaluated today on 12/10/2023, remains in the ICU, intubated and mechanically ventilated. Patient was placed overnight on IMV of 8, pressure support of 10, tidal volume of 400 FiO2 40% and PEEP of 5. Patient did well on that kind of mode of mechanical ventilation, did not require much sedation except he was on Precedex, minimal dose, today I recommended holding the Precedex, switch the patient from IMV to pressure support and CPAP, and I felt if the patient tolerates this we will proceed with extubating the patient. Patient remains on enteral feedings/Nepro remains on Precedex, chest x-ray is showing bibasilar infiltrates, hence Zosyn was added. Patient seems to be more awake today and more appropriate, and he will be given another trial of pressure support and CPAP, and if tolerated will likely extubate ABG this a.m. on 40% showed a pO2 of 136 pCO2 39 pH of 7.47 CBC is relatively normal hemoglobin is 8.9, basic metabolic profile is normal, renal profile is normal Patient was reevaluated today on 12/11/2023, remains in the ICU, patient tolerated extubation well yesterday, he was extubated to nasal cannula and re eusebia on nasal cannula at 3 L/min. Patient is on 0.9 normal saline at 40 cc/h, remains on Zosyn empirically for possible aspiration pneumonia. Patient is intermittently confused, but overall he is doing well, seems to be quite appropriate this morning. The plan is to transfer the patient out of the ICU today to a regular medical floor, continue antibiotics, continue bronchodilators, and continue alcohol withdrawal protocol. Patient is not requiring any Precedex this morning.WBC count is 12.7 hemoglobin 11.6 sodium remains low at 126, WBC count is 8.1 hemoglobin 8.9 basic metabolic profile is normal potassium is 3.2. Renal profile is normal. Chest x-ray continues to show basilar airspace opacities. Patient was evaluated today on 12/12/2023, remains in the ICU, sitting at the bedside chair, is not in any form of distress. Patient tolerated extubation well over the last few days, he is now on room air, for some reason his admitting physician ordered a CT of the chest, and the findings are basically unremarkable, and no more seen than what was already seen on a chest x-ray I am recommending transferring the patient out of the ICU to a regular medical floor, and possibly discharge planning in the next 24 to 48 hours. BBC is relatively normal basic metabolic profile is relatively normal renal profile is normal, CT of the chest showed minimal left pleural effusion with minimal atelectasis. The patient is seen today December 13, 2023 in follow-up on the regular medical floor. He was transferred out of the intensive care unit yesterday. He is currently resting in bed. Maintaining good O2 saturations in the 90s on room air. Has been afebrile. Hemodynamically stable awake and alert in no acute distress. Sputum culture revealed no growth. Glucose 231. He is continued on DuoNeb inhalations, antibiotics in the form of Zosyn. Remains on the CIWA protocol. Lovenox for DVT prophylaxis. The patient is seen today December 14, 2023 in follow-up on the regular medical floor. He is currently resting in bed. Awake and alert in no acute distress. Maintaining O2 saturations in the mid 90s on room air. He is afebrile. Hemodynamically stable. Sputum culture revealed no growth. White count 6.6. Hemoglobin 7.4. Platelets 148. Sodium 137. Potassium 4.1. Bicarb 22. BUN 8. Creatinine 0.5. Glucose 226. He is continued on DuoNeb inhalations, antibiotics in the form of Zosyn. Remains on the CIWA protocol. Lovenox for DVT prophylaxis. Objective - Vital Signs Vital signs: Vital Signs Temp 98.0 F 12/14/23 07:17 Pulse 95 12/14/23 09:05 Resp 21 12/14/23 07:17 BP 123/73 12/14/23 07:17 Pulse Ox 96 12/14/23 08:57 FiO2 40 12/10/23 09:20 Intake & Output 12/13/23 12/14/23 12/14/23 18:59 06:59 18:59 Output Total 4000 2700 2500 Balance -4000 -2700 -2500 Weight 55 kg Output: Urine 4000 2700 2500 Straight 1400 Other: Voiding Method Indwelling Catheter Indwelling Catheter # Bowel Movements 1 1 ABP, PAP, CO, CI - Last Documented Arterial Blood Pressure 164/80 - Exam GENERAL EXAM: Alert, 60-year-old male, on room air, comfortable in no apparent distress. HEAD: Normocephalic. EYES: Normal reaction of pupils, equal size. NOSE: Clear with pink turbinates. THROAT: No erythema or exudates. NECK: No masses, no JVD. CHEST: No chest wall deformity. LUNGS: Equal air entry with no crackles, wheeze, rhonchi or dullness. CVS: S1 and S2 normal with no audible murmur, regular rhythm. ABDOMEN: No hepatosplenomegaly, normal bowel sounds, no guarding or rigidity. SPINE: No scoliosis or deformity SKIN: No rashes CENTRAL NERVOUS SYSTEM: No focal deficits, tone is normal in all 4 extremities. EXTREMITIES: There is no peripheral edema. No clubbing, no cyanosis. Peripheral pulses are intact. - Labs CBC & Chem 7: 12/14/23 06:46 12/14/23 06:46 Labs: Abnormal Lab Results - Last 24 Hours (Table) 12/13/23 12/13/23 12/14/23 Range/Units 16:57 20:38 06:01 RBC (4.40-5.60) X 10*6/uL Hgb (13.0-17.0) g/dL Hct (39.6-50.0) % MCHC (32.0-37.0) g/dL RDW (11.5-14.5) % Immature Gran # (0.00-0.04) X 10*3/uL BUN (9.0-27.0) mg/dL Creatinine (0.6-1.5) mg/dL Glucose (70-110) mg/dL POC Glucose (mg/dL) 384 H 336 H 145 H (70-110) mg/dL Calcium (8.7-10.3) mg/dL Total Protein (6.2-8.2) g/dL Albumin (3.8-4.9) g/dL Albumin/Globulin Ratio (1.60-3.17) Ratio 01/12/14/23 12/14/23 Range/Units 06:46 06:46 11:06 RBC 2.46 L (4.40-5.60) X 10*6/uL Hgb 7.4 L (13.0-17.0) g/dL Hct 23.6 L (39.6-50.0) % MCHC 31.4 L (32.0-37.0) g/dL RDW 16.0 H (11.5-14.5) % Immature Gran # 0.08 H (0.00-0.04) X 10*3/uL BUN 7.9 L (9.0-27.0) mg/dL Creatinine 0.5 L (0.6-1.5) mg/dL Glucose 226 H (70-110) mg/dL POC Glucose (mg/dL) 457 H (70-110) mg/dL Calcium 8.1 L (8.7-10.3) mg/dL Total Protein 5.5 L (6.2-8.2) g/dL Albumin 3.0 L (3.8-4.9) g/dL Albumin/Globulin Ratio 1.20 L (1.60-3.17) Ratio Assessment and Plan Assessment: Acute hyperglycemia with hyperosmolar state Acute metabolic encephalopathy Acute delirium tremens Acute hypoxic respiratory failure secondary to acute delirium tremens requiring intubation and mechanical ventilation, extubated on 12/10/2023 and recovered and on room air History of alcoholism History of coronary artery disease and mild disease in the proximal mid RCA Generalized anxiety disorder and depression Cervical spine degenerative disc disease and foraminal narrowing Benign essential hypertension Tobacco dependence syndrome Plan: The patient was seen and evaluated Labs and medications reviewed Antibiotics discontinued Stable and on room air Cleared for discharge from the pulmonary standpoint I have personally seen and examined the patient, performed the documentation and the assessment and plan as written. Number of minutes spent on the visit: 10.
[2023-12-14 16:18] LABS: Glucose,Whole Blood 319 mg/dL (70-110)
--- NOTE | 2023-12-14 20:01 | PN ---
PROGRESS NOTE SUBJECTIVE: He is still on CIWA protocol, status post ventilator treatment, Flomax for BPH, urinary retention, Protonix for GERD. Sugar is kind of high. . OBJECTIVE: VITAL SIGNS: Temp 97.8, pulse is 96, respiratory rate 16 to 18, blood pressure 124/75, O2 of 98% on room air. CARDIOVASCULAR: S1, S2. LUNGS: Clear. LABORATORY DATA: Hemoglobin is 7.4, started on IV iron. White count is 6.66. BUN is 79, creatinine 0.5. Sugars 100s to 200s to 300s to 400s. ASSESSMENT: He is on Levemir 12 units. He is on NovoLog before meals and at bedtime, Lovenox, melatonin for sleep, and Protonix for GERD, Flomax for BPH, zolpidem for sleep. Prognosis guarded. I would like to keep his blood pressure down, currently is 124/75. Prognosis guarded. Please see further orders. MMODL / IJN: [id number] /
[2023-12-14 20:43] LABS: Glucose,Whole Blood 319 mg/dL (70-110)
[2023-12-14] MEDS ORDERED: INSULIN DETEMIR (LEVEMIR) 100 UNIT/ML SYR SQ SCH (21:00)
[2023-12-15] MEDS: SODIUM CHLORIDE 0.9% 1,000 ML IV SCH ×2 (00:07→23:50)
[2023-12-15 06:22] LABS: Glucose,Whole Blood 116 mg/dL (70-110)
[2023-12-15] MEDS: INSULIN ASPART (NovoLOG) 100 UNIT/ML VIAL SQ SCH ×4 (06:33→20:55)
[2023-12-15] MEDS: IPRATROPIUM-ALBUTEROL 3 ML NEB INHALATION SCH ×4 (08:47→20:51)
[2023-12-15] MEDS: THIAMINE 100 MG in SODIUM CHLORIDE 0.9% 50 ML IVPB SCH ×2 (09:38→20:55)
[2023-12-15] MEDS: ENOXAPARIN 40 MG/0.4 ML SYRINGE SQ SCH (09:39)
[2023-12-15] MEDS: PANTOPRAZOLE 40 MG TABLET PO SCH (09:39)
[2023-12-15] MEDS: DAPAGLIFLOZIN PROPANEDIOL 10 MG TABLET PO SCH (09:39)
[2023-12-15] MEDS: MULTIVITAMINS, THERA 1 EACH TAB PO SCH (09:39)
[2023-12-15] MEDS: TAMSULOSIN 0.4 MG CAP.ER.24H PO SCH (09:39)
[2023-12-15] MEDS: FOLIC ACID 1 MG TAB PO SCH (09:39)
[2023-12-15 11:21] LABS: Glucose,Whole Blood 293 mg/dL (70-110)
--- NOTE | 2023-12-15 14:01 | P.PN ---
Subjective Progress Note Date: 12/15/23 63-year-old male patient, alcohol and he drinks alcohol excessively along with his at home. He stopped drinking approximately 3 days ago and he presented to the emergency department after a fall. Apparently, the patient has been very unstable and he has been falling. He does not follow-up with her primary care physician. Following his hospital admission, the patient started having involuntary movements of his body, increased shakes, restlessness, thrashing and in the ED, the patient had diminished level of consciousness. He was given a total of 6 mg of IV Ativan. Seizure was suspected although there was no clear indication of the patient was seizing. There was no jerky body movements. He was given Keppra. Otherwise, no additional history is available. Ultimately, the patient was intubated and placed on a mechanical ventilator and he was transferred to the intensive care unit. I'm seeing this patient in the ICU post intubation. Currently is on propofol running at 40 Augustus respiratory kilogram per minute. His calm and comfortable. Is on assist-control mode of mechanical ventilation at the rate of 18, tidal volume of 450, FiO2 of 70% with a PEEP of 5. Blood gas showed a pH of 7.3 with a pCO2 of 54 and pO2 of 394 post intubation. The chest x-ray from this morning shows adequate positioning of the orotracheal tube. No evidence of any airspace disease. There may be a small left-sided pleural effusion. There is no evidence of pneumothorax or pneumonia. This can of the head and the spine was also done in the emergency department that showed no acute abnormalities. The patient had severe foraminal narrowing at the level of C3-C4 and also mild to moderate foraminal narrowing at the level of C4-C5 and mild to moderate bilateral foraminal narrowing at the level of C5- C6 and bilateral narrowing at the level of C6-C7. The patient was also given a x-ray of the pelvis that showed no evidence of fracture. Initial sodium level was at 127 and after fluid resuscitation sodium came back at 144. Blood sugar was 993 and he was started on insulin drip based on the [facility] protocol. Currently insulin drip is off and the most recent blood sugars at 2:15. BUN is a 50 with a creatinine of 0.7. Potassium level is at 2.3 and this is being replaced. The echoes of 5.7 with a hemoglobin of 10.3. Hemodynamically, he is hypotensive. He is not requiring any pressors at this point. He is producing adequate amount of urine output. Most recent blood pressure is 91/62. IV fluids are in the form of D5 half-normal with potassium at the rate of 150 mL an hour. Note that the patient is not known to be diabetic. He has history of hypertension and alcoholism. On 12/08/2023, the patient remains intubated on a mechanical ventilator. He is on sedation with propofol running at 50 mcg/kg/m and the dose has been reduced down to 25 mcg/kg/m. Resting comfortably in bed. No significant issues overnight. He is on assist control mode with a rate of 18, tidal volume of 450, FiO2 of 40% and a PEEP of 5. Chest x-ray findings are stable. No interval changes and chest x-ray findings and there is no evidence of pneumonia. Some atelectatic changes bilaterally. Gait is at 7.46 with a pCO2 of 40 and a pO2 of 118. This was on FiO2 of 50%. No significant respiratory secretions. The patient is also on enteral feeding and the patient was started on Nepro at the rate of 31 mL an hour. IV fluids are normal saline at the rate of 100 mL an hour. He was given Levemir insulin 12 units for blood sugar control. echoes at 10.7, he was not 0.7 and a platelet count of 121. Sodium is at 146, BUN is at 40 with a creatinine of 0.3. LFTs are normal. Serum iron level is 12. Potassium levels at 3.3. Afebrile. No pressors at this point in time. , patient remains in the ICU, intubated and mechanically ventilated. Patient is on assist control rate of 18 tidal volume 400 FiO2 40% and PEEP of 5 ABG showed a pO2 of 97 pCO2 39 pH of 7.47 hence no ventilator settings changes were made. Patient initially presented with a blood sugar control 993, and acute alcohol condition. Required intubation initially in the ER. Remains on propofol at 50 mg/kg/m 0.9 normal saline at 40 mL per hour is also receiving Nepro for nutritional support, is also on Lovenox, and I plan to change his propofol to Precedex today, and at least give the patient a trial of weaning with a pressure support of 10 and CPAP. Patient seems to be quite sedated, difficult to assess whether he would be ready for weaning, but nonetheless we will definitely try to transition to Precedex and hopefully give the patient a weaning trial today. WBC count is 8.9 hemoglobin is 8.8. Basic metabolic profile is normal and renal profile is normal, chest x-ray showed minimal basi lar atelectasis, no clear-cut evidence of pneumonia. Patient was reevaluated today on 12/10/2023, remains in the ICU, intubated and mechanically ventilated. Patient was placed overnight on IMV of 8, pressure support of 10, tidal volume of 400 FiO2 40% and PEEP of 5. Patient did well on that kind of mode of mechanical ventilation, did not require much sedation except he was on Precedex, minimal dose, today I recommended holding the Precedex, switch the patient from IMV to pressure support and CPAP, and I felt if the patient tolerates this we will proceed with extubating the patient. Patient remains on enteral feedings/Nepro remains on Precedex, chest x-ray is showing bibasilar infiltrates, hence Zosyn was added. Patient seems to be more awake today and more appropriate, and he will be given another trial of pressure support and CPAP, and if tolerated will likely extubate ABG this a.m. on 40% showed a pO2 of 136 pCO2 39 pH of 7.47 CBC is relatively normal hemoglobin is 8.9, basic metabolic profile is normal, renal profile is normal Patient was reevaluated today on 12/11/2023, remains in the ICU, patient tolerated extubation well yesterday, he was extubated to nasal cannula and re eusebia on nasal cannula at 3 L/min. Patient is on 0.9 normal saline at 40 cc/h, remains on Zosyn empirically for possible aspiration pneumonia. Patient is intermittently confused, but overall he is doing well, seems to be quite appropriate this morning. The plan is to transfer the patient out of the ICU today to a regular medical floor, continue antibiotics, continue bronchodilators, and continue alcohol withdrawal protocol. Patient is not requiring any Precedex this morning.WBC count is 12.7 hemoglobin 11.6 sodium remains low at 126, WBC count is 8.1 hemoglobin 8.9 basic metabolic profile is normal potassium is 3.2. Renal profile is normal. Chest x-ray continues to show basilar airspace opacities. Patient was evaluated today on 12/12/2023, remains in the ICU, sitting at the bedside chair, is not in any form of distress. Patient tolerated extubation well over the last few days, he is now on room air, for some reason his admitting physician ordered a CT of the chest, and the findings are basically unremarkable, and no more seen than what was already seen on a chest x-ray I am recommending transferring the patient out of the ICU to a regular medical floor, and possibly discharge planning in the next 24 to 48 hours. BBC is relatively normal basic metabolic profile is relatively normal renal profile is normal, CT of the chest showed minimal left pleural effusion with minimal atelectasis. The patient is seen today December 13, 2023 in follow-up on the regular medical floor. He was transferred out of the intensive care unit yesterday. He is currently resting in bed. Maintaining good O2 saturations in the 90s on room air. Has been afebrile. Hemodynamically stable awake and alert in no acute distress. Sputum culture revealed no growth. Glucose 231. He is continued on DuoNeb inhalations, antibiotics in the form of Zosyn. Remains on the [facility] protocol. Lovenox for DVT prophylaxis. The patient is seen today December 14, 2023 in follow-up on the regular medical floor. He is currently resting in bed. Awake and alert in no acute distress. Maintaining O2 saturations in the mid 90s on room air. He is afebrile. Hemodynamically stable. Sputum culture revealed no growth. White count 6.6. Hemoglobin 7.4. Platelets 148. Sodium 137. Potassium 4.1. Bicarb 22. BUN 8. Creatinine 0.5. Glucose 226. He is continued on DuoNeb inhalations, antibiotics in the form of Zosyn. Remains on the [facility] protocol. Lovenox for DVT prophylaxis. The patient is seen today December 15, 2023 in follow-up on the regular medical floor. He has been up ambulating in the hallway. Denies any worsening shortness of breath, cough or congestion. Maintaining good O2 saturations in the 90s on room air. He is afebrile. Hemodynamically stable. Sputum cultures revealed no growth. Blood sugar 116. He is continued on bronchodilators. Lovenox for DVT prophylaxis. Levemir being adjusted. Objective - Vital Signs Vital signs: Vital Signs Temp 97.4 F L 12/15/23 13:50 Pulse 116 H 12/15/23 13:50 Resp 18 12/15/23 13:50 BP 141/83 12/15/23 13:50 Pulse Ox 99 12/15/23 13:50 FiO2 40 12/10/23 09:20 Intake & Output 12/14/23 12/15/23 12/15/23 18:59 06:59 18:59 Output Total 6000 4700 Balance -6000 -4700 Weight 51.4 kg Output: Urine 6000 4700 Other: Voiding Method Indwelling Catheter Indwelling Catheter Indwelling Catheter # Bowel Movements 1 ABP, PAP, CO, CI - Last Documented Arterial Blood Pressure 164/80 - Exam GENERAL EXAM: Alert, 60-year-old male, on room air, ambulating in the hallway, comfortable in no apparent distress. HEAD: Normocephalic. EYES: Normal reaction of pupils, equal size. NOSE: Clear with pink turbinates. THROAT: No erythema or exudates. NECK: No masses, no JVD. CHEST: No chest wall deformity. LUNGS: Equal air entry with no crackles, wheeze, rhonchi or dullness. CVS: S1 and S2 normal with no audible murmur, regular rhythm. ABDOMEN: No hepatosplenomegaly, normal bowel sounds, no guarding or rigidity. SPINE: No scoliosis or deformity SKIN: No rashes CENTRAL NERVOUS SYSTEM: No focal deficits, tone is normal in all 4 extremities. EXTREMITIES: There is no peripheral edema. No clubbing, no cyanosis. Peripheral pulses are intact. - Labs CBC & Chem 7: 12/14/23 06:46 12/14/23 06:46 Labs: Abnormal Lab Results - Last 24 Hours (Table) 12/14/23 12/14/23 12/15/23 Range/Units 16:17 20:42 06:21 POC Glucose (mg/dL) 319 H 319 H 116 H (70-110) mg/dL 12/15/23 Range/Units 11:19 POC Glucose (mg/dL) 293 H (70-110) mg/dL Assessment and Plan Assessment: Acute hyperglycemia with hyperosmolar state with continued hyperglycemia. Levemir being adjusted Acute metabolic encephalopathy improved Acute delirium tremens recovered Acute hypoxic respiratory failure secondary to acute delirium tremens requiring intubation and mechanical ventilation, extubated on 12/10/2023, recovered and on room air History of alcoholism History of coronary artery disease and mild disease in the proximal mid RCA Generalized anxiety disorder and depression Cervical spine degenerative disc disease and foraminal narrowing Benign essential hypertension Tobacco dependence syndrome Plan: The patient was seen and evaluated Medications reviewed Stable and on room air Cleared for discharge from the pulmonary standpoint I have personally seen and examined the patient, performed the documentation and the assessment and plan as written. Number of minutes spent on the visit: 10.
[2023-12-15 16:20] LABS: Glucose,Whole Blood 488 mg/dL (70-110)
[2023-12-15 19:48] LABS: Glucose,Whole Blood 318 mg/dL (70-110)
--- NOTE | 2023-12-15 20:06 | PN ---
PROGRESS NOTE A 63-year-old white male. OBJECTIVE: VITAL SIGNS: Pulse is in the 80s to 105, O2 saturation 97%. CARDIOVASCULAR: S1, S2. LUNGS: Transmitted upper sounds. GI: Soft. Sugars in the 100s to 200s to 300s, but it is better from yesterday, it was 300s to 400s. He is down since he has not had any sugar. His breathing is improved. Sees Pulmonary. He is given some nutrition and get him moving. He is sitting comfortable. He is on IV Zosyn. Pain is 7/10 in the foot, left more than right. Blood pressure 130s over 70s, temp 98.5, pulse is low 100s, 40% FiO2. Giving appropriate answers. The patient is doing much better. Continuing with delirium tremens, status post metabolic derangement from alcohol, possibly withdrawal, hyperosmolar coma with hyperglycemia, metabolic encephalopathy, status post intubation for possible aspiration pneumonia and COPD. Diabetes was under poor control, now is under great control, nicotine addiction, hypertension. He is doing fine. EEG shows toxic metabolic encephalopathy, which is improving. No seizures. Prognosis guarded. Continue current treatment. PT, OT. MMODL / IJN: [id number] /
[2023-12-15] MEDS: INSULIN DETEMIR (LEVEMIR) 100 UNIT/ML SYR SQ SCH (20:55)
[2023-12-16 06:26] LABS: Glucose,Whole Blood 146 mg/dL (70-110)
[2023-12-16] MEDS: INSULIN ASPART (NovoLOG) 100 UNIT/ML VIAL SQ SCH ×4 (06:39→20:48)
[2023-12-16] MEDS: IPRATROPIUM-ALBUTEROL 3 ML NEB INHALATION SCH ×4 (07:27→20:31)
[2023-12-16] MEDS: TAMSULOSIN 0.4 MG CAP.ER.24H PO SCH (08:58)
[2023-12-16] MEDS: FOLIC ACID 1 MG TAB PO SCH (08:58)
[2023-12-16] MEDS: ENOXAPARIN 40 MG/0.4 ML SYRINGE SQ SCH (08:58)
[2023-12-16] MEDS: DAPAGLIFLOZIN PROPANEDIOL 10 MG TABLET PO SCH (08:58)
[2023-12-16] MEDS: MULTIVITAMINS, THERA 1 EACH TAB PO SCH (08:58)
[2023-12-16] MEDS: THIAMINE 100 MG in SODIUM CHLORIDE 0.9% 50 ML IVPB SCH ×2 (08:58→20:48)
[2023-12-16] MEDS: PANTOPRAZOLE 40 MG TABLET PO SCH (08:59)
[2023-12-16 11:08] LABS: Glucose,Whole Blood 316 mg/dL (70-110)
--- NOTE | 2023-12-16 14:48 | P.PN ---
Subjective Progress Note Date: 12/16/23 63-year-old male patient, alcohol and he drinks alcohol excessively along with his at home. He stopped drinking approximately 3 days ago and he presented to the emergency department after a fall. Apparently, the patient has been very unstable and he has been falling. He does not follow-up with her primary care physician. Following his hospital admission, the patient started having involuntary movements of his body, increased shakes, restlessness, thrashing and in the ED, the patient had diminished level of consciousness. He was given a total of 6 mg of IV Ativan. Seizure was suspected although there was no clear indication of the patient was seizing. There was no jerky body movements. He was given Keppra. Otherwise, no additional history is available. Ultimately, the patient was intubated and placed on a mechanical ventilator and he was transferred to the intensive care unit. I'm seeing this patient in the ICU post intubation. Currently is on propofol running at 40 Augustus respiratory kilogram per minute. His calm and comfortable. Is on assist-control mode of mechanical ventilation at the rate of 18, tidal volume of 450, FiO2 of 70% with a PEEP of 5. Blood gas showed a pH of 7.3 with a pCO2 of 54 and pO2 of 394 post intubation. The chest x-ray from this morning shows adequate positioning of the orotracheal tube. No evidence of any airspace disease. There may be a small left-sided pleural effusion. There is no evidence of pneumothorax or pneumonia. This can of the head and the spine was also done in the emergency department that showed no acute abnormalities. The patient had severe foraminal narrowing at the level of C3-C4 and also mild to moderate foraminal narrowing at the level of C4-C5 and mild to moderate bilateral foraminal narrowing at the level of C5- C6 and bilateral narrowing at the level of C6-C7. The patient was also given a x-ray of the pelvis that showed no evidence of fracture. Initial sodium level was at 127 and after fluid resuscitation sodium came back at 144. Blood sugar was 993 and he was started on insulin drip based on the [facility] protocol. Currently insulin drip is off and the most recent blood sugars at 2:15. BUN is a 50 with a creatinine of 0.7. Potassium level is at 2.3 and this is being replaced. The echoes of 5.7 with a hemoglobin of 10.3. Hemodynamically, he is hypotensive. He is not requiring any pressors at this point. He is producing adequate amount of urine output. Most recent blood pressure is 91/62. IV fluids are in the form of D5 half-normal with potassium at the rate of 150 mL an hour. Note that the patient is not known to be diabetic. He has history of hypertension and alcoholism. On 12/08/2023, the patient remains intubated on a mechanical ventilator. He is on sedation with propofol running at 50 mcg/kg/m and the dose has been reduced down to 25 mcg/kg/m. Resting comfortably in bed. No significant issues overnight. He is on assist control mode with a rate of 18, tidal volume of 450, FiO2 of 40% and a PEEP of 5. Chest x-ray findings are stable. No interval changes and chest x-ray findings and there is no evidence of pneumonia. Some atelectatic changes bilaterally. Gait is at 7.46 with a pCO2 of 40 and a pO2 of 118. This was on FiO2 of 50%. No significant respiratory secretions. The patient is also on enteral feeding and the patient was started on Nepro at the rate of 31 mL an hour. IV fluids are normal saline at the rate of 100 mL an hour. He was given Levemir insulin 12 units for blood sugar control. echoes at 10.7, he was not 0.7 and a platelet count of 121. Sodium is at 146, BUN is at 40 with a creatinine of 0.3. LFTs are normal. Serum iron level is 12. Potassium levels at 3.3. Afebrile. No pressors at this point in time. , patient remains in the ICU, intubated and mechanically ventilated. Patient is on assist control rate of 18 tidal volume 400 FiO2 40% and PEEP of 5 ABG showed a pO2 of 97 pCO2 39 pH of 7.47 hence no ventilator settings changes were made. Patient initially presented with a blood sugar control 993, and acute alcohol condition. Required intubation initially in the ER. Remains on propofol at 50 mg/kg/m 0.9 normal saline at 40 mL per hour is also receiving Nepro for nutritional support, is also on Lovenox, and I plan to change his propofol to Precedex today, and at least give the patient a trial of weaning with a pressure support of 10 and CPAP. Patient seems to be quite sedated, difficult to assess whether he would be ready for weaning, but nonetheless we will definitely try to transition to Precedex and hopefully give the patient a weaning trial today. WBC count is 8.9 hemoglobin is 8.8. Basic metabolic profile is normal and renal profile is normal, chest x-ray showed minimal basi lar atelectasis, no clear-cut evidence of pneumonia. Patient was reevaluated today on 12/10/2023, remains in the ICU, intubated and mechanically ventilated. Patient was placed overnight on IMV of 8, pressure support of 10, tidal volume of 400 FiO2 40% and PEEP of 5. Patient did well on that kind of mode of mechanical ventilation, did not require much sedation except he was on Precedex, minimal dose, today I recommended holding the Precedex, switch the patient from IMV to pressure support and CPAP, and I felt if the patient tolerates this we will proceed with extubating the patient. Patient remains on enteral feedings/Nepro remains on Precedex, chest x-ray is showing bibasilar infiltrates, hence Zosyn was added. Patient seems to be more awake today and more appropriate, and he will be given another trial of pressure support and CPAP, and if tolerated will likely extubate ABG this a.m. on 40% showed a pO2 of 136 pCO2 39 pH of 7.47 CBC is relatively normal hemoglobin is 8.9, basic metabolic profile is normal, renal profile is normal Patient was reevaluated today on 12/11/2023, remains in the ICU, patient tolerated extubation well yesterday, he was extubated to nasal cannula and re eusebia on nasal cannula at 3 L/min. Patient is on 0.9 normal saline at 40 cc/h, remains on Zosyn empirically for possible aspiration pneumonia. Patient is intermittently confused, but overall he is doing well, seems to be quite appropriate this morning. The plan is to transfer the patient out of the ICU today to a regular medical floor, continue antibiotics, continue bronchodilators, and continue alcohol withdrawal protocol. Patient is not requiring any Precedex this morning.WBC count is 12.7 hemoglobin 11.6 sodium remains low at 126, WBC count is 8.1 hemoglobin 8.9 basic metabolic profile is normal potassium is 3.2. Renal profile is normal. Chest x-ray continues to show basilar airspace opacities. Patient was evaluated today on 12/12/2023, remains in the ICU, sitting at the bedside chair, is not in any form of distress. Patient tolerated extubation well over the last few days, he is now on room air, for some reason his admitting physician ordered a CT of the chest, and the findings are basically unremarkable, and no more seen than what was already seen on a chest x-ray I am recommending transferring the patient out of the ICU to a regular medical floor, and possibly discharge planning in the next 24 to 48 hours. BBC is relatively normal basic metabolic profile is relatively normal renal profile is normal, CT of the chest showed minimal left pleural effusion with minimal atelectasis. The patient is seen today December 13, 2023 in follow-up on the regular medical floor. He was transferred out of the intensive care unit yesterday. He is currently resting in bed. Maintaining good O2 saturations in the 90s on room air. Has been afebrile. Hemodynamically stable awake and alert in no acute distress. Sputum culture revealed no growth. Glucose 231. He is continued on DuoNeb inhalations, antibiotics in the form of Zosyn. Remains on the [facility] protocol. Lovenox for DVT prophylaxis. The patient is seen today December 14, 2023 in follow-up on the regular medical floor. He is currently resting in bed. Awake and alert in no acute distress. Maintaining O2 saturations in the mid 90s on room air. He is afebrile. Hemodynamically stable. Sputum culture revealed no growth. White count 6.6. Hemoglobin 7.4. Platelets 148. Sodium 137. Potassium 4.1. Bicarb 22. BUN 8. Creatinine 0.5. Glucose 226. He is continued on DuoNeb inhalations, antibiotics in the form of Zosyn. Remains on the [facility] protocol. Lovenox for DVT prophylaxis. The patient is seen today December 15, 2023 in follow-up on the regular medical floor. He has been up ambulating in the hallway. Denies any worsening shortness of breath, cough or congestion. Maintaining good O2 saturations in the 90s on room air. He is afebrile. Hemodynamically stable. Sputum cultures revealed no growth. Blood sugar 116. He is continued on bronchodilators. Lovenox for DVT prophylaxis. Levemir being adjusted. The patient is seen today December 16, 2023 and follow-up on the regular medical floor. Sitting up in bed. He is maintaining good O2 saturations in the 90s on room air. He has normal saline at 40 MLS per hour. Still having issues with blood sugar control. Blood sugar 146. Remains on Levemir, NovoLog, Farxiga. Remains on bronchodilators. Lovenox for DVT prophylaxis. Objective - Vital Signs Vital signs: Vital Signs Temp 98.2 F 12/16/23 13:40 Pulse 118 H 12/16/23 13:40 Resp 19 12/16/23 13:40 BP 138/100 12/16/23 13:40 Pulse Ox 96 12/16/23 13:40 FiO2 40 12/10/23 09:20 Intake & Output 12/15/23 12/16/23 12/16/23 18:59 06:59 18:59 Output Total 3500 2200 2000 Balance -3500 -2200 -2000 Weight 51.2 kg Output: Urine 3500 2200 1999 Other: Voiding Method Indwelling Catheter Indwelling Catheter Indwelling Catheter # Bowel Movements 2 ABP, PAP, CO, CI - Last Documented Arterial Blood Pressure 164/80 - Exam GENERAL EXAM: Alert, 63-year-old male, on room air, sitting up in bed, comfortable in no apparent distress. HEAD: Normocephalic. EYES: Normal reaction of pupils, equal size. NOSE: Clear with pink turbinates. THROAT: No erythema or exudates. NECK: No masses, no JVD. CHEST: No chest wall deformity. LUNGS: Equal air entry with no crackles, wheeze, rhonchi or dullness. CVS: S1 and S2 normal with no audible murmur, regular rhythm. ABDOMEN: No hepatosplenomegaly, normal bowel sounds, no guarding or rigidity. SPINE: No scoliosis or deformity SKIN: No rashes CENTRAL NERVOUS SYSTEM: No focal deficits, tone is normal in all 4 extremities. EXTREMITIES: There is no peripheral edema. No clubbing, no cyanosis. Periphera l pulses are intact. - Labs CBC & Chem 7: 12/14/23 06:46 12/14/23 06:46 Labs: Abnormal Lab Results - Last 24 Hours (Table) 12/15/23 12/15/23 12/16/23 Range/Units 16:19 19:46 06:25 POC Glucose (mg/dL) 488 H 318 H 146 H (70-110) mg/dL 12/16/23 Range/Units 11:06 POC Glucose (mg/dL) 316 H (70-110) mg/dL Assessment and Plan Assessment: Acute hyperglycemia with hyperosmolar state with continued hyperglycemia. Levemir being adjusted, on NovoLog, on Acute metabolic encephalopathy improved Acute delirium tremens recovered Acute hypoxic respiratory failure secondary to acute delirium tremens requiring intubation and mechanical ventilation, extubated on 12/10/2023, recovered and on room air History of alcoholism History of coronary artery disease and mild disease in the proximal mid RCA Generalized anxiety disorder and depression Cervical spine degenerative disc disease and foraminal narrowing Benign essential hypertension Tobacco dependence syndrome Plan: The patient was seen and evaluated Medications reviewed Stable and on room air Cleared for discharge from the pulmonary standpoint Plan is for home with home care at discharge I have personally seen and examined the patient, performed the documentation and the assessment and plan as written. Number of minutes spent on the visit: 10.
[2023-12-16 17:33] LABS: Glucose,Whole Blood 380 mg/dL (70-110)
[2023-12-16] MEDS: SODIUM FERRIC GLUCONAT-SUCROSE 125 MG in SODIUM CHLORIDE 0.9% 100 ML IVPB SCH (17:58)
[2023-12-16 20:37] LABS: Glucose,Whole Blood 354 mg/dL (70-110)
[2023-12-16] MEDS: metFORMIN 500 MG TAB PO SCH (20:48)
[2023-12-16] MEDS: INSULIN DETEMIR (LEVEMIR) 100 UNIT/ML SYR SQ SCH (20:48)
--- NOTE | 2023-12-16 22:04 | PN ---
PROGRESS NOTE OBJECTIVE: VITAL SIGNS: pulse in the 90s, blood pressure 138/100, 96% on room air. CARDIOVASCULAR: S1, S2. LUNGS: Clear. GI: Soft. HEMATOLOGY: Negative Homans. PSYCH: Fair mood and affect. ASSESSMENT: Hyperglycemic hyperosmolar syndrome, chronic alcohol abuse, stable for possible discharge. Possibly go home soon. Sugars in the mid 100s. Hemoglobin is 7.4, which is stable. Possible discharge to Pulmonary. I will try to get him home. metabolic encephalopathy, coronary artery disease, alcoholism, spinal degenerative disease, hypertension, nicotine addiction. MMODL / IJN: [id number] /
[2023-12-17] MEDS: SODIUM CHLORIDE 0.9% 1,000 ML IV SCH (00:34)
[2023-12-17 02:40] LABS: % Iron Saturation 29.82 (15.00-50.00)
[2023-12-17 06:18] LABS: Glucose,Whole Blood 136 mg/dL (70-110)
[2023-12-17] MEDS: INSULIN ASPART (NovoLOG) 100 UNIT/ML VIAL SQ SCH ×4 (06:45→20:55)
[2023-12-17] MEDS: metFORMIN 500 MG TAB PO SCH ×2 (06:46→17:10)
--- NOTE | 2023-12-17 07:21 | P.GSCN ---
History of Present Illness Consult date: 12/17/23 History of present illness: 63-year-old the hospital since 12/07/23 for a Stark with rolls, hyperosmolar coma. We have been asked to see the patient for urine retention. The patient is interviewed at the bedside. He does not remember the catheter being placed. He does not remember his voiding trial several days ago. He states that prior to this admission he voided a good strong stream but obviously is voiding frequently due to the elevated sugars. The patient denies previous urinary tract problems such as infection bleeding pain incontinence. He has not seen a doctor for 3 years. He was placed on Flomax when his voiding trial lead to urine retention. No major back or bowel problems. Urine is clear. Review of Systems All systems: negative - Constitutional Denies fever, Denies weight loss - EENT Eyes: denies blurred vision Ears, nose, mouth and throat: Denies dysphagia - Cardiovascular Denies chest pain, Denies shortness of breath - Respiratory Denies cough, Denies 7 - Gastrointestinal Reports as per HPI - Genitourinary Denies dysuria, Denies hematuria - Integumentary Denies rash, Denies unusual bruising - Neurological Denies headaches, Denies syncope - Hematologic/Lymphatic Denies easy bleeding, Denies easy bruising Past Medical History Past Medical History: Hypertension Additional Past Medical History / Comment(s): UNEXPLAINED WT LOSS (12 #), DAUGHTER DEC 2016. History of Any Multi-Drug Resistant Organisms: None Reported Past Surgical History: Heart Catheterization Additional Past Surgical History / Comment(s): Pt states as an infant he had a "pinched" abdominal muscle with surgical repair, colonoscopy Past Anesthesia/Blood Transfusion Reactions: No Reported Reaction Past Psychological History: Anxiety, Depression Smoking Status: Current every day smoker Past Alcohol Use History: Occasional Past Drug Use History: Marijuana - Past Family History Mother Family Medical History: No Reported History Additional Family Medical History / Comment(s): . Father Family Medical History: CVA/TIA Additional Family Medical History / Comment(s): Father of a CVA Daughter(s) Additional Family Medical History / Comment(s): ADRENAL GLAND TUMOR. Medications and Allergies Home Medications Medication Instructions Recorded Confirmed Type No Known Home Medications 12/07/23 12/07/23 History Allergies Allergy/AdvReac Type Severity Reaction Status Date / Time No Known Allergies Allergy Verified 12/07/23 11:42 Surgical - Exam Vital Signs Temp Pulse Resp BP Pulse Ox 97.6 F 106 H 18 143/110 96 12/07/23 00:15 12/07/23 00:15 12/07/23 00:15 12/07/23 00:15 12/07/23 00:15 Results - Labs 12/14/23 06:46 12/14/23 06:46 Abnormal Lab Results - Last 24 Hours (Table) 12/16/23 12/16/23 12/16/23 Range/Units 11:06 17:30 20:34 POC Glucose (mg/dL) 316 H 380 H 354 H (70-110) mg/dL 12/17/23 Range/Units 06:16 POC Glucose (mg/dL) 136 H (70-110) mg/dL Assessment and Plan Assessment: Impression: Urine retention. Hyperosmolar coma. Alcoholism with alcohol withdrawal Recommendations: It is my belief this urine retention is related to the medical illnesses and is situational. It does not sound as if he has any chronic obstructive voiding symptoms. Now that he is awake and ambulatory a voiding trial would be appropriate. The catheter will be ordered to be removed and we'll see how he voids. If is unable to void then further assessment may be required with this point time it is unlikely.
[2023-12-17] MEDS: THIAMINE 100 MG in SODIUM CHLORIDE 0.9% 50 ML IVPB SCH ×2 (08:14→20:56)
[2023-12-17] MEDS: TAMSULOSIN 0.4 MG CAP.ER.24H PO SCH (08:15)
[2023-12-17] MEDS: IPRATROPIUM-ALBUTEROL 3 ML NEB INHALATION SCH ×4 (09:04→21:32)
[2023-12-17] MEDS: MULTIVITAMINS, THERA 1 EACH TAB PO SCH (10:04)
[2023-12-17] MEDS: FOLIC ACID 1 MG TAB PO SCH (10:04)
[2023-12-17] MEDS: PANTOPRAZOLE 40 MG TABLET PO SCH (10:05)
[2023-12-17] MEDS: DAPAGLIFLOZIN PROPANEDIOL 10 MG TABLET PO SCH (10:06)
[2023-12-17] MEDS: ENOXAPARIN 40 MG/0.4 ML SYRINGE SQ SCH (10:07)
[2023-12-17] MEDS: SODIUM FERRIC GLUCONAT-SUCROSE 125 MG in SODIUM CHLORIDE 0.9% 100 ML IVPB SCH (10:10)
[2023-12-17 11:21] LABS: Glucose,Whole Blood 211 mg/dL (70-110)
[2023-12-17 11:42] VITALS: BMI 17.2
[2023-12-17 13:11] LABS: T4, Free (Free Thyroxine) 1.05 ng/dL (0.78-2.19)
--- NOTE | 2023-12-17 14:33 | P.PN ---
Subjective Progress Note Date: 12/17/23 Principal diagnosis: Hyperosmolar coma. 63-year-old male patient, alcohol and he drinks alcohol excessively along with his at home. He stopped drinking approximately 3 days ago and he presented to the emergency department after a fall. Apparently, the patient has been very unstable and he has been falling. He does not follow-up with her primary care physician. Following his hospital admission, the patient started having involuntary movements of his body, increased shakes, restlessness, thrashing and in the ED, the patient had diminished level of consciousness. He was given a total of 6 mg of IV Ativan. Seizure was suspected although there was no clear indication of the patient was seizing. There was no jerky body movements. He was given Keppra. Otherwise, no additional history is available. Ultimately, the patient was intubated and placed on a mechanical ventilator and he was transferred to the intensive care unit. I'm seeing this patient in the ICU post intubation. Currently is on propofol running at 40 Augustus respiratory kilogram per minute. His calm and comfortable. Is on assist-control mode of mechanical ventilation at the rate of 18, tidal volume of 450, FiO2 of 70% with a PEEP of 5. Blood gas showed a pH of 7.3 with a pCO2 of 54 and pO2 of 394 post intubation. The chest x-ray from this morning shows adequate positioning of the orotracheal tube. No evidence of any airspace disease. There may be a small left-sided pleural effusion. There is no evidence of pneumothorax or pneumonia. This can of the head and the spine was also done in the emergency department that showed no acute abnormalities. The patient had severe foraminal narrowing at the level of C3-C4 and also mild to moderate foraminal narrowing at the level of C4-C5 and mild to moderate bilateral foraminal narrowing at the level of C5- C6 and bilateral narrowing at the level of C6-C7. The patient was also given a x-ray of the pelvis that showed no evidence of fracture. Initial sodium level was at 127 and after fluid resuscitation sodium came back at 144. Blood sugar was 993 and he was started on insulin drip based on the [facility] protocol. Currently insulin drip is off and the most recent blood sugars at 2:15. BUN is a 50 with a creatinine of 0.7. Potassium level is at 2.3 and this is being replaced. The echoes of 5.7 with a hemoglobin of 10.3. Hemodynamically, he is hypotensive. He is not requiring any pressors at this point. He is producing adequate amount of urine output. Most recent blood pressure is 91/62. IV fluids are in the form of D5 half-normal with potassium at the rate of 150 mL an hour. Note that the patient is not known to be diabetic. He has history of hypertension and alcoholism. On 12/08/2023, the patient remains intubated on a mechanical ventilator. He is on sedation with propofol running at 50 mcg/kg/m and the dose has been reduced down to 25 mcg/kg/m. Resting comfortably in bed. No significant issues o vernight. He is on assist control mode with a rate of 18, tidal volume of 450, FiO2 of 40% and a PEEP of 5. Chest x-ray findings are stable. No interval changes and chest x-ray findings and there is no evidence of pneumonia. Some atelectatic changes bilaterally. Gait is at 7.46 with a pCO2 of 40 and a pO2 of 118. This was on FiO2 of 50%. No significant respiratory secretions. The patient is also on enteral feeding and the patient was started on Nepro at the rate of 31 mL an hour. IV fluids are normal saline at the rate of 100 mL an hour. He was given Levemir insulin 12 units for blood sugar control. echoes at 10.7, he was not 0.7 and a platelet count of 121. Sodium is at 146, BUN is at 40 with a creatinine of 0.3. LFTs are normal. Serum iron level is 12. Potassium levels at 3.3. Afebrile. No pressors at this point in time. , patient remains in the ICU, intubated and mechanically ventilated. Patient is on assist control rate of 18 tidal volume 400 FiO2 40% and PEEP of 5 ABG showed a pO2 of 97 pCO2 39 pH of 7.47 hence no ventilator settings changes were made. Patient initially presented with a blood sugar control 993, and acute alcohol condition. Required intubation initially in the ER. Remains on propofol at 50 mg/kg/m 0.9 normal saline at 40 mL per hour is also receiving Nepro for nutritional support, is also on Lovenox, and I plan to change his propofol to Precedex today, and at least give the patient a trial of weaning with a pressure support of 10 and CPAP. Patient seems to be quite sedated, difficult to assess whether he would be ready for weaning, but nonetheless we will definitely try to transition to Precedex and hopefully give the patient a weaning trial today. WBC count is 8.9 hemoglobin is 8.8. Basic metabolic profile is normal and renal profile is normal, chest x-ray showed minimal basilar atelectasis, no clear-cut evidence of pneumonia. Patient was reevaluated today on 12/10/2023, remains in the ICU, intubated and m echanically ventilated. Patient was placed overnight on IMV of 8, pressure support of 10, tidal volume of 400 FiO2 40% and PEEP of 5. Patient did well on that kind of mode of mechanical ventilation, did not require much sedation except he was on Precedex, minimal dose, today I recommended holding the Precedex, switch the patient from IMV to pressure support and CPAP, and I felt if the patient tolerates this we will proceed with extubating the patient. Patient remains on enteral feedings/Nepro remains on Precedex, chest x-ray is showing bibasilar infiltrates, hence Zosyn was added. Patient seems to be more awake today and more appropriate, and he will be given another trial of pressure support and CPAP, and if tolerated will likely extubate ABG this a.m. on 40% showed a pO2 of 136 pCO2 39 pH of 7.47 CBC is relatively normal hemoglobin is 8.9, basic metabolic profile is normal, renal profile is normal Patient was reevaluated today on 12/11/2023, remains in the ICU, patient tolerated extubation well yesterday, he was extubated to nasal cannula and remains on nasal cannula at 3 L/min. Patient is on 0.9 normal saline at 40 cc/h, remains on Zosyn empirically for possible aspiration pneumonia. Patient is intermittently confused, but overall he is doing well, seems to be quite appr opriate this morning. The plan is to transfer the patient out of the ICU today to a regular medical floor, continue antibiotics, continue bronchodilators, and continue alcohol withdrawal protocol. Patient is not requiring any Precedex this morning.WBC count is 12.7 hemoglobin 11.6 sodium remains low at 126, WBC count is 8.1 hemoglobin 8.9 basic metabolic profile is normal potassium is 3.2. Renal profile is normal. Chest x-ray continues to show basilar airspace opacities. Patient was evaluated today on 12/12/2023, remains in the ICU, sitting at the bedside chair, is not in any form of distress. Patient tolerated extubation well over the last few days, he is now on room air, for some reason his admitting physician ordered a CT of the chest, and the findings are basically unremarkable, and no more seen than what was already seen on a chest x-ray I am recommending transferring the patient out of the ICU to a regular medical floor, and possibly discharge planning in the next 24 to 48 hours. BBC is relatively normal basic metabolic profile is relatively normal renal profile is normal, CT of the chest showed minimal left pleural effusion with minimal atelectasis. The patient is seen today December 13, 2023 in follow-up on the regular medical floor. He was transferred out of the intensive care unit yesterday. He is currently resting in bed. Maintaining good O2 saturations in the 90s on room air. Has been afebrile. Hemodynamically stable awake and alert in no acute distress. Sputum culture revealed no growth. Glucose 231. He is continued on DuoNeb inhalations, antibiotics in the form of Zosyn. Remains on the [facility] protocol. Lovenox for DVT prophylaxis. The patient is seen today December 14, 2023 in follow-up on the regular medical floor. He is currently resting in bed. Awake and alert in no acute distress. Maintaining O2 saturations in the mid 90s on room air. He is afebrile. Hemodynamically stable. Sputum culture revealed no growth. White count 6.6. H emoglobin 7.4. Platelets 148. Sodium 137. Potassium 4.1. Bicarb 22. BUN 8. Creatinine 0.5. Glucose 226. He is continued on DuoNeb inhalations, antibiotics in the form of Zosyn. Remains on the CIWA protocol. Lovenox for DVT prophylaxis. The patient is seen today December 15, 2023 in follow-up on the regular medical floor. He has been up ambulating in the hallway. Denies any worsening krystyna rtness of breath, cough or congestion. Maintaining good O2 saturations in the 90s on room air. He is afebrile. Hemodynamically stable. Sputum cultures revealed no growth. Blood sugar 116. He is continued on bronchodilators. Lovenox for DVT prophylaxis. Levemir being adjusted. The patient is seen today December 16, 2023 and follow-up on the regular medical floor. Sitting up in bed. He is maintaining good O2 saturations in the 90s on room air. He has normal saline at 40 MLS per hour. Still having issues with blood sugar control. Blood sugar 146. Remains on Levemir, NovoLog, Farxiga. Remains on bronchodilators. Lovenox for DVT prophylaxis. Progress note dated December 17, 2023. This is a 63-year-old male who is seen today in room 455. He is on room air. He is getting saline at 40 cc an hour. He appears in no acute distress. Currently, his glucose is 211. TSH is 1.210. Free T4 is 1.05, and free T3 is 3.2. No additional labs today. The patient's not having any acute issues or problems. He denies any shortness of breath, cough, wheezing, chest tightness, or phlegm production. He denies any chest pain or pressure. Objective - Vital Signs Vital signs: Vital Signs Temp 97.4 F L 12/17/23 07:26 Pulse 94 12/17/23 12:46 Resp 18 12/17/23 07:26 BP 135/82 12/17/23 07:26 Pulse Ox 99 12/17/23 07:26 FiO2 40 12/10/23 09:20 Intake & Output 12/16/23 12/17/23 12/17/23 18:59 06:59 18:59 Intake Total 480 Output Total 4000 4000 4301 Balance -4283 -0610 -7913 Weight 54.5 kg 54.5 kg Intake: Oral 480 Output: Urine 4000 4000 3480 Uretheral (Blanchard) 1420 Post Void Residual 820 Stool 1 Other: Voiding Method Indwelling Catheter Indwelling Catheter Urinal # Voids 1 ABP, PAP, CO, CI - Last Documented Arterial Blood Pressure 164/80 - Exam No acute distress, oriented 3. Currently on room air. HEENT examination is grossly unremarkable. Mucous membranes are moist. No oral lesions. Neck supple. Full range of motion. No adenopathy thyromegaly or neck vein distention. Cardiovascular examination reveals regular rhythm rate. S1-S2 normal. No S3 or S4. No discernible murmur noted. Heart rate 94 bpm. Lungs reveal clear breath sounds. Breath sounds are equal bilaterally. No adventitious lung sounds including wheezes rhonchi or crackles. Abdomen soft bowel sounds are heard. No masses or tenderness. Extremities are intact. No cyanosis clubbing or edema. Skin is without rash or lesion. Neurologic examination is brief but nonfocal. - Labs CBC & Chem 7: 12/14/23 06:46 12/14/23 06:46 Labs: Abnormal Lab Results - Last 24 Hours (Table) 12/16/23 12/16/23 12/17/23 Range/Units 17:30 20:34 06:16 POC Glucose (mg/dL) 380 H 354 H 136 H (70-110) mg/dL 12/17/23 Range/Units 11:20 POC Glucose (mg/dL) 211 H (70-110) mg/dL Assessment and Plan Assessment: Acute hyperglycemia with hyperosmolar state with continued hyperglycemia. Acute metabolic encephalopathy, improved. Acute delirium tremens, recovered. Acute hypoxic respiratory failure secondary to acute delirium tremens requiring intubation and mechanical ventilation, extubated on 12/10/2023. History of alcoholism. History of coronary artery disease and mild disease in the proximal mid RCA. Generalized anxiety disorder and depression. Cervical spine degenerative disc disease and foraminal narrowing. Benign essential hypertension. Tobacco dependence syndrome. Plan: Plan dated December 17, 2023. The patient is doing very well. The patient is currently on room air. Labs are reviewed. The patient has no complaints today. The patient not requiring any supplemental oxygen. He is receiving saline at 40 cc an hour. We will continue to follow, make recommendations along the way. The patient is stable for di macario from the pulmonary standpoint, and from the critical care standpoint. Prognosis is guarded. He is counseled about the importance of abstaining from alcohol. Time with Patient: Less than 30
--- NOTE | 2023-12-17 14:43 | P.CONS ---
History of Present Illness - Reason for Consult Consult date: 12/17/23 anemia Requesting physician: Michael Estrada - Chief Complaint altered mental status - History of Present Illness Patient is a 63-year-old male with history of EToH abuse. Consult was placed for evaluation of anemia Reports drinking approx 6 drinks-hard teas daily. He prese nted to the ER after a fall. Pt reports he does not remember the fall just remembers waking up in the hospital. Patient was also noted to have involuntary movements of his body, increased shakes, and restlessness and decreased level of consciousness in the ED, and was given IV Ativan and started on Keppra. He was subsequently intubated and transferred to ICU. today's visit patient was seen on regular medical floor. He reports feeling significantly improved. Patient denies history of anemia or other blood disorders but states he does not follow-up regularly with a PCP. Denies any episodes of acute bleeding, blood in stool, or melena. Last colonoscopy was approximately 2 years ago which was normal per patient. He has never had EGD in the past. Upon trending labs there has been mild anemia noted since 2021, and mild thrombocytopenia since 2020. On admission hemoglobin was 10.3, MCV 102.6, Platelets 114,000. Iron studies revealed iron saturation 4.1%, ferritin 46. Hgb has been high 8-9 range this admission. Repeat hgb today 7.4. Patient was given 3 doses of IV iron. Repeat iron studies revealed iron saturation 29.8%. No vitamin B12 or folate deficiency noted. Review of Systems 10 point ROS is negative except as stated in HPI Past Medical History Past Medical History: Hypertension Additional Past Medical History / Comment(s): UNEXPLAINED WT LOSS (12 #), DAUGHTER DEC 2016. History of Any Multi-Drug Resistant Organisms: None Reported Past Surgical History: Heart Catheterization Additional Past Surgical History / Comment(s): Pt states as an infant he had a "pinched" abdominal muscle with surgical repair, colonoscopy Past Anesthesia/Blood Transfusion Reactions: No Reported Reaction Past Psychological History: Anxiety, Depression Smoking Status: Current every day smoker Past Alcohol Use History: Occasional Past Drug Use History: Marijuana - Past Family History Mother Family Medical History: No Reported History Additional Family Medical History / Comment(s): . Father Family Medical History: CVA/TIA Additional Family Medical History / Comment(s): Father of a CVA Daughter(s) Additional Family Medical History / Comment(s): ADRENAL GLAND TUMOR. Medications and Allergies Home Medications Medication Instructions Recorded Confirmed Type No Known Home Medications 12/07/23 12/07/23 History Allergies Allergy/AdvReac Type Severity Reaction Status Date / Time No Known Allergies Allergy Verified 12/07/23 11:42 Physical Exam Vitals: Vital Signs Temp Pulse Pulse Resp BP Pulse Ox 12/17/23 12:46 94 12/17/23 12:38 89 12/17/23 09:13 93 12/17/23 09:04 90 12/17/23 07:26 97.4 F L 86 18 135/82 99 12/17/23 00:44 97.7 F 80 14 142/85 98 12/16/23 19:33 97.6 F 91 16 138/82 98 12/16/23 15:15 94 12/16/23 15:05 94 Intake and Output 12/16/23 12/17/23 12/17/23 22:59 06:59 14:59 Intake Total 480 Output Total 3000 3000 3861 Balance -3000 -3000 -3381 Intake: Oral 480 Output: Urine 3000 3000 3040 Uretheral ([place]ard) 1420 Post Void Residual 820 Stool 1 Other: Voiding Method Indwelling Catheter Urinal # Voids 1 Weight 54.5 kg 54.5 kg - Constitutional General appearance: no acute distress, thin - EENT Eyes: anicteric sclerae, EOMI ENT: hearing grossly normal - Neck Neck: no lymphadenopathy - Respiratory Respiratory: bilateral: CTA - Cardiovascular Rhythm: regular Heart sounds: normal: S1, S2 - Gastrointestinal General gastrointestinal: soft, no tenderness - Integumentary Integumentary: no cyanotic, no jaundiced - Musculoskeletal Musculoskeletal: strength equal bilaterally - Psychiatric Psychiatric: A&O x's 3 Results CBC & Chem 7: 12/14/23 06:46 12/14/23 06:46 Labs: Abnormal Lab Results - Last 24 Hours (Table) 12/16/23 12/16/23 12/17/23 Range/Units 17:30 20:34 06:16 POC Glucose (mg/dL) 380 H 354 H 136 H (70-110) mg/dL 12/17/23 Range/Units 11:20 POC Glucose (mg/dL) 211 H (70-110) mg/dL Assessment and Plan (1) Delirium tremens Current Visit: Yes Status: Acute Priority: High Code(s): F10.931 - ALCOHOL USE, UNSPECIFIED WITH WITHDRAWAL DELIRIUM SNOMED Code(s): 5025523 (2) Alcohol withdrawal Current Visit: Yes Status: Acute Priority: High Code(s): F10.239 - ALCOHOL DEPENDENCE WITH WITHDRAWAL, UNSPECIFIED SNOMED Code(s): 774069863 (3) Iron deficiency anemia Current Visit: Yes Status: Acute Priority: Medium Code(s): D50.9 - IRON DEFICIENCY ANEMIA, UNSPECIFIED SNOMED Code(s): 83098911 Plan: Anemia: -Presented after a fall. History of ETOH abuse. Upon admit was intubated to ICU for delirium tremens. Has since been extubated and transferred to regular medical floor -Denies history of anemia or other blood disorders but states he does not follow-up regularly with a PCP. Denies any episodes of acute bleeding, blood in stool, or melena. Last colonoscopy was approximately 2 years ago which was normal per patient. He has never had EGD in the past. Upon trending labs there has been mild anemia noted since 2021, and mild thrombocytopenia since 2020. On admission hemoglobin was 10.3, MCV 102.6, Platelets 114,000. Iron studies revealed iron saturation 4.1%, ferritin 46. Hgb has been high 8-9 range this admission. Repeat hgb today 7.4 -Patient was given 3 doses of IV iron. Repeat iron studies revealed iron saturation 29.8%. No vitamin B12 or folate deficiency noted -Will order copper and thyroid studies -No reported episodes of jasmyn blood in stool or melena. Would recommend outpt with GI for endoscopic evaluation -[place] likely r/t to poor nutritional intake superimposed buy anemia of inflammation. However, GI bleed is in differential, and encouraged outpt GI f/u. If hemoglobin does not begin to improve or patient becomes symptomatic, may benefit from inpt consult to GI -Will continue to monitor. Please transfuse for hgb < 7 or if symptomatic -Will schedule clinic f/u in 4 weeks to repeat CBC/anemia workup
[2023-12-17 16:34] LABS: Glucose,Whole Blood 311 mg/dL (70-110)
[2023-12-17 20:46] LABS: Glucose,Whole Blood 237 mg/dL (70-110)
[2023-12-17] MEDS: INSULIN DETEMIR (LEVEMIR) 100 UNIT/ML SYR SQ SCH (20:56)
[2023-12-18] MEDS: SODIUM CHLORIDE 0.9% 1,000 ML IV SCH ×2 (00:55→09:09)
[2023-12-18] MEDS: INSULIN ASPART (NovoLOG) 100 UNIT/ML VIAL SQ SCH ×4 (06:23→20:48)
[2023-12-18 06:25] LABS: Glucose,Whole Blood 87 mg/dL (70-110)
[2023-12-18 08:49] LABS: Basophils # (A) 0.06 X 10*3/uL (0.00-0.10); Basophils % (A) 0.6 %; Eosinophils # (A) 0.06 X 10*3/uL (0.04-0.35); Eosinophils % (A) 0.6 %; HCT 27.1 % (39.6-50.0); HGB 8.4 g/dL (13.0-17.0); Lymphocytes # (A) 2.46 X 10*3/uL (0.90-5.00); Lymphocytes % (A) 25.2 %; MCH 30.3 pg (27.0-32.0); MCV 97.8 FL (80.0-97.0); Mean Platelet Volume 8.9 FL (9.5-12.2); Monocytes # (A) 0.89 X 10*3/uL (0.20-1.00); Monocytes % (A) 9.1 %; NRBC Per 100 WBC 0 X 10*3/uL (0.00-0.01); Neutrophils # (A) 6.23 X 10*3/uL (1.80-7.70); Platelet Count 224 X 10*3/uL (140-440); RBC 2.77 X 10*6/uL (4.40-5.60); RDW 17.3 % (11.5-14.5); WBC 9.75 X 10*3/uL (4.50-10.00)
[2023-12-18 09:00] LABS: ALT 15 U/L (10-49); AST 20 U/L (14-35); Albumin 3.7 g/dL (3.8-4.9); Albumin/Globulin Ratio 1.23 Ratio (1.60-3.17); Alkaline Phosphatase 102 U/L (41-126); Blood Urea Nitrogen 7.9 mg/dL (9.0-27.0); Calcium 9.3 mg/dL (8.7-10.3); Carbon Dioxide 22.1 mmol/L (21.6-31.8); Chloride 111 mmol/L (96-109); Glucose 69 mg/dL (70-110); Potassium 4.6 mmol/L (3.5-5.5); Sodium 148 mmol/L (135-145); Total Bilirubin 0.3 mg/dL (0.3-1.2); Total Protein 6.7 g/dL (6.2-8.2)
[2023-12-18] MEDS: IPRATROPIUM-ALBUTEROL 3 ML NEB INHALATION SCH (09:08)
[2023-12-18] MEDS: FOLIC ACID 1 MG TAB PO SCH (09:10)
[2023-12-18] MEDS: metFORMIN 500 MG TAB PO SCH ×2 (09:10→18:43)
[2023-12-18] MEDS: THIAMINE 100 MG in SODIUM CHLORIDE 0.9% 50 ML IVPB SCH ×2 (09:10→20:48)
[2023-12-18] MEDS: ENOXAPARIN 40 MG/0.4 ML SYRINGE SQ SCH (09:10)
[2023-12-18] MEDS: DAPAGLIFLOZIN PROPANEDIOL 10 MG TABLET PO SCH (09:11)
[2023-12-18] MEDS: PANTOPRAZOLE 40 MG TABLET PO SCH (09:11)
[2023-12-18] MEDS: TAMSULOSIN 0.4 MG CAP.ER.24H PO SCH (09:11)
[2023-12-18] MEDS: MULTIVITAMINS, THERA 1 EACH TAB PO SCH (09:11)
[2023-12-18] MEDS ORDERED: IPRATROPIUM-ALBUTEROL 3 ML NEB INHALATION PRN (09:40)
[2023-12-18] MEDS: SODIUM FERRIC GLUCONAT-SUCROSE 125 MG in SODIUM CHLORIDE 0.9% 100 ML IVPB SCH (10:13)
[2023-12-18 12:01] LABS: Glucose,Whole Blood 127 mg/dL (70-110)
[2023-12-18] MEDS: DEXTROSE 5% IN WATER 1,000 ML IV SCH (12:31)
--- NOTE | 2023-12-18 14:25 | P.PN ---
Subjective Progress Note Date: 12/18/23 63-year-old male patient, alcohol and he drinks alcohol excessively along with his at home. He stopped drinking approximately 3 days ago and he presented to the emergency department after a fall. Apparently, the patient has been very unstable and he has been falling. He does not follow-up with her primary care physician. Following his hospital admission, the patient started having involuntary movements of his body, increased shakes, restlessness, thrashing and in the ED, the patient had diminished level of consciousness. He was given a total of 6 mg of IV Ativan. Seizure was suspected although there was no clear indication of the patient was seizing. There was no jerky body movements. He was given Keppra. Otherwise, no additional history is available. Ultimately, the patient was intubated and placed on a mechanical ventilator and he was transferred to the intensive care unit. I'm seeing this patient in the ICU post intubation. Currently is on propofol running at 40 Augustus respiratory kilogram per minute. His calm and comfortable. Is on assist-control mode of mechanical ventilation at the rate of 18, tidal volume of 450, FiO2 of 70% with a PEEP of 5. Blood gas showed a pH of 7.3 with a pCO2 of 54 and pO2 of 394 post intubation. The chest x-ray from this morning shows adequate positioning of the orotracheal tube. No evidence of any airspace disease. There may be a small left-sided pleural effusion. There is no evidence of pneumothorax or pneumonia. This can of the head and the spine was also done in the emergency department that showed no acute abnormalities. The patient had severe foraminal narrowing at the level of C3-C4 and also mild to moderate foraminal narrowing at the level of C4-C5 and mild to moderate bilateral foraminal narrowing at the level of C5- C6 and bilateral narrowing at the level of C6-C7. The patient was also given a x-ray of the pelvis that showed no evidence of fracture. Initial sodium level was at 127 and after fluid resuscitation sodium came back at 144. Blood sugar was 993 and he was started on insulin drip based on the [facility] protocol. Currently insulin drip is off and the most recent blood sugars at 2:15. BUN is a 50 with a creatinine of 0.7. Potassium level is at 2.3 and this is being replaced. The echoes of 5.7 with a hemoglobin of 10.3. Hemodynamically, he is hypotensive. He is not requiring any pressors at this point. He is producing adequate amount of urine output. Most recent blood pressure is 91/62. IV fluids are in the form of D5 half-normal with potassium at the rate of 150 mL an hour. Note that the patient is not known to be diabetic. He has history of hypertension and alcoholism. On 12/08/2023, the patient remains intubated on a mechanical ventilator. He is on sedation with propofol running at 50 mcg/kg/m and the dose has been reduced down to 25 mcg/kg/m. Resting comfortably in bed. No significant issues overnight. He is on assist control mode with a rate of 18, tidal volume of 450, FiO2 of 40% and a PEEP of 5. Chest x-ray findings are stable. No interval changes and chest x-ray findings and there is no evidence of pneumonia. Some atelectatic changes bilaterally. Gait is at 7.46 with a pCO2 of 40 and a pO2 of 118. This was on FiO2 of 50%. No significant respiratory secretions. The patient is also on enteral feeding and the patient was started on Nepro at the rate of 31 mL an hour. IV fluids are normal saline at the rate of 100 mL an hour. He was given Levemir insulin 12 units for blood sugar control. echoes at 10.7, he was not 0.7 and a platelet count of 121. Sodium is at 146, BUN is at 40 with a creatinine of 0.3. LFTs are normal. Serum iron level is 12. Potassium levels at 3.3. Afebrile. No pressors at this point in time. , patient remains in the ICU, intubated and mechanically ventilated. Patient is on assist control rate of 18 tidal volume 400 FiO2 40% and PEEP of 5 ABG showed a pO2 of 97 pCO2 39 pH of 7.47 hence no ventilator settings changes were made. Patient initially presented with a blood sugar control 993, and acute alcohol condition. Required intubation initially in the ER. Remains on propofol at 50 mg/kg/m 0.9 normal saline at 40 mL per hour is also receiving Nepro for nutritional support, is also on Lovenox, and I plan to change his propofol to Precedex today, and at least give the patient a trial of weaning with a pressure support of 10 and CPAP. Patient seems to be quite sedated, difficult to assess whether he would be ready for weaning, but nonetheless we will definitely try to transition to Precedex and hopefully give the patient a weaning trial today. WBC count is 8.9 hemoglobin is 8.8. Basic metabolic profile is normal and renal profile is normal, chest x-ray showed minimal basi lar atelectasis, no clear-cut evidence of pneumonia. Patient was reevaluated today on 12/10/2023, remains in the ICU, intubated and mechanically ventilated. Patient was placed overnight on IMV of 8, pressure support of 10, tidal volume of 400 FiO2 40% and PEEP of 5. Patient did well on that kind of mode of mechanical ventilation, did not require much sedation except he was on Precedex, minimal dose, today I recommended holding the Precedex, switch the patient from IMV to pressure support and CPAP, and I felt if the patient tolerates this we will proceed with extubating the patient. Patient remains on enteral feedings/Nepro remains on Precedex, chest x-ray is showing bibasilar infiltrates, hence Zosyn was added. Patient seems to be more awake today and more appropriate, and he will be given another trial of pressure support and CPAP, and if tolerated will likely extubate ABG this a.m. on 40% showed a pO2 of 136 pCO2 39 pH of 7.47 CBC is relatively normal hemoglobin is 8.9, basic metabolic profile is normal, renal profile is normal Patient was reevaluated today on 12/11/2023, remains in the ICU, patient tolerated extubation well yesterday, he was extubated to nasal cannula and re eusebia on nasal cannula at 3 L/min. Patient is on 0.9 normal saline at 40 cc/h, remains on Zosyn empirically for possible aspiration pneumonia. Patient is intermittently confused, but overall he is doing well, seems to be quite appropriate this morning. The plan is to transfer the patient out of the ICU today to a regular medical floor, continue antibiotics, continue bronchodilators, and continue alcohol withdrawal protocol. Patient is not requiring any Precedex this morning.WBC count is 12.7 hemoglobin 11.6 sodium remains low at 126, WBC count is 8.1 hemoglobin 8.9 basic metabolic profile is normal potassium is 3.2. Renal profile is normal. Chest x-ray continues to show basilar airspace opacities. Patient was evaluated today on 12/12/2023, remains in the ICU, sitting at the bedside chair, is not in any form of distress. Patient tolerated extubation well over the last few days, he is now on room air, for some reason his admitting physician ordered a CT of the chest, and the findings are basically unremarkable, and no more seen than what was already seen on a chest x-ray I am recommending transferring the patient out of the ICU to a regular medical floor, and possibly discharge planning in the next 24 to 48 hours. BBC is relatively normal basic metabolic profile is relatively normal renal profile is normal, CT of the chest showed minimal left pleural effusion with minimal atelectasis. The patient is seen today December 13, 2023 in follow-up on the regular medical floor. He was transferred out of the intensive care unit yesterday. He is currently resting in bed. Maintaining good O2 saturations in the 90s on room air. Has been afebrile. Hemodynamically stable awake and alert in no acute distress. Sputum culture revealed no growth. Glucose 231. He is continued on DuoNeb inhalations, antibiotics in the form of Zosyn. Remains on the [facility]WA protocol. Lovenox for DVT prophylaxis. The patient is seen today December 14, 2023 in follow-up on the regular medical floor. He is currently resting in bed. Awake and alert in no acute distress. Maintaining O2 saturations in the mid 90s on room air. He is afebrile. Hemodynamically stable. Sputum culture revealed no growth. White count 6.6. Hemoglobin 7.4. Platelets 148. Sodium 137. Potassium 4.1. Bicarb 22. BUN 8. Creatinine 0.5. Glucose 226. He is continued on DuoNeb inhalations, antibiotics in the form of Zosyn. Remains on the CIWA protocol. Lovenox for DVT prophylaxis. The patient is seen today December 15, 2023 in follow-up on the regular medical floor. He has been up ambulating in the hallway. Denies any worsening shortness of breath, cough or congestion. Maintaining good O2 saturations in the 90s on room air. He is afebrile. Hemodynamically stable. Sputum cultures revealed no growth. Blood sugar 116. He is continued on bronchodilators. Lovenox for DVT prophylaxis. Levemir being adjusted. The patient is seen today December 16, 2023 and follow-up on the regular medical floor. Sitting up in bed. He is maintaining good O2 saturations in the 90s on room air. He has normal saline at 40 MLS per hour. Still having issues with blood sugar control. Blood sugar 146. Remains on Levemir, NovoLog, Farxiga. Remains on bronchodilators. Lovenox for DVT prophylaxis. Progress note dated December 17, 2023. This is a 63-year-old male who is seen today in room 455. He is on room air. He is getting saline at 40 cc an hour. He appears in no acute distress. Currently, his glucose is 211. TSH is 1.210. Free T4 is 1.05, and free T3 is 3.2. No additional labs today. The patient's not having any acute issues or problems. He denies any shortness of breath, cough, wheezing, chest tightness, or phlegm production. He denies any chest pain or pressure. The patient is seen today December 18, 2023 in follow-up on the regular medical floor. He is currently resting comfortably in bed. Awake and alert in no acute distress. Continue good O2 saturations in the mid to upper 90s on room air. Has been afebrile. Hemodynamically stable. Sputum culture revealed no growth. White count 9.7. Hemoglobin 8.4. Platelets 224. Sodium 148. Potassium 4.6. Bicarb 22. BUN 8. Creatinine 0.5. Glucose 69. He is on normal saline at 40 MLS per hour. Lovenox for DVT prophylaxis. Receiving iron supplements. Objective - Vital Signs Vital signs: Vital Signs Temp 98.1 F 12/18/23 07:09 Pulse 80 12/18/23 07:09 Resp 18 12/18/23 07:09 BP 133/85 12/18/23 07:09 Pulse Ox 98 12/18/23 07:09 FiO2 40 12/10/23 09:20 Intake & Output 12/17/23 12/18/23 12/18/23 18:59 06:59 18:59 Intake Total 1160 Output Total 4301 1200 Balance -3141 -1200 Weight 54.5 kg 53.5 kg Intake: IV 580 Sodium Chloride 0.9% 1, 480 000 ml @ 40 mls/hr IV . Q24H [facility] Rx#:[id number] Thiamine 100 mg In Sodium 100 Chloride 0.9% 50 ml @ 100 mls/hr IVPB Q12HR [facility] Rx#:[id number] Intake, IV Titration 100 Amount Sodium Ferric Gluconat- 100 Sucrose 125 mg In Sodium Chloride 0.9% 100 ml @ 100 mls/hr IVPB DAILY [facility] Rx#:[id number] Oral 480 Output: Urine 3480 1200 Straight 1200 Uretheral (Blanchard) 1420 Post Void Residual 820 Stool 1 Other: Voiding Method Urinal Urinal # Voids 5 ABP, PAP, CO, CI - Last Documented Arterial Blood Pressure 164/80 - Exam GENERAL EXAM: Alert, pleasant 63-year-old male, on room air, resting in bed, on room air, comfortable in no apparent distress. HEAD: Normocephalic. EYES: Normal reaction of pupils, equal size. NOSE: Clear with pink turbinates. THROAT: No erythema or exudates. NECK: No masses, no JVD. CHEST: No chest wall deformity. LUNGS: Equal air entry with no crackles, wheeze, rhonchi or dullness. CVS: S1 and S2 normal with no audible murmur, regular rhythm. ABDOMEN: No hepatosplenomegaly, normal bowel sounds, no guarding or rigidity. SPINE: No scoliosis or deformity SKIN: No rashes CENTRAL NERVOUS SYSTEM: No focal deficits, tone is normal in all 4 extremities. EXTREMITIES: There is no peripheral edema. No clubbing, no cyanosis. Peripheral pulses are intact. - Labs CBC & Chem 7: 12/18/23 05:44 12/18/23 05:44 Labs: Abnormal Lab Results - Last 24 Hours (Table) 12/17/23 12/17/23 12/18/23 Range/Units 16:33 20:43 05:44 RBC 2.77 L (4.40-5.60) X 10*6/uL Hgb 8.4 L (13.0-17.0) g/dL Hct 27.1 L (39.6-50.0) % MCV 97.8 H (80.0-97.0) FL MCHC 31.0 L (32.0-37.0) g/dL RDW 17.3 H (11.5-14.5) % MPV 8.9 L (9.5-12.2) FL Immature Gran # 0.05 H (0.00-0.04) X 10*3/uL Sodium (135-145) mmol/L Chloride (96-109) mmol/L Anion Gap (4.00-12.00) mmol/L BUN (9.0-27.0) mg/dL Creatinine (0.6-1.5) mg/dL Glucose (70-110) mg/dL POC Glucose (mg/dL) 311 H 237 H (70-110) mg/dL Albumin (3.8-4.9) g/dL Albumin/Globulin Ratio (1.60-3.17) Ratio 12/18/23 12/18/23 Range/Units 05:44 11:59 RBC (4.40-5.60) X 10*6/uL Hgb (13.0-17.0) g/dL Hct (39.6-50.0) % MCV (80.0-97.0) FL MCHC (32.0-37.0) g/dL RDW (11.5-14.5) % MPV (9.5-12.2) FL Immature Gran # (0.00-0.04) X 10*3/uL Sodium 148 H (135-145) mmol/L Chloride 111 H (96-109) mmol/L Anion Gap 14.90 H (4.00-12.00) mmol/L BUN 7.9 L (9.0-27.0) mg/dL Creatinine 0.5 L (0.6-1.5) mg/dL Glucose 69 L (70-110) mg/dL POC Glucose (mg/dL) 127 H (70-110) mg/dL Albumin 3.7 L (3.8-4.9) g/dL Albumin/Globulin Ratio 1.23 L (1.60-3.17) Ratio Assessment and Plan Assessment: Acute hyperglycemia with hyperosmolar state with continued hyperglycemia. Levemir being adjusted, on NovoLog, on xiga Acute metabolic encephalopathy improved Acute delirium tremens recovered Acute hypoxic respiratory failure secondary to acute delirium tremens requiring intubation and mechanical ventilation, extubated on 12/10/2023, recovered and on room air Hypernatremia History of alcoholism History of coronary artery disease and mild disease in the proximal mid RCA Generalized anxiety disorder and depression Cervical spine degenerative disc disease and foraminal narrowing Benign essential hypertension Tobacco dependence syndrome Plan: The patient was seen and evaluated Medications and labs reviewed Continue normal saline Initiate D5W at 50 MLS per hour Stable and on room air Plan is for home with home care at discharge I have personally seen and examined the patient, performed the documentation and the assessment and plan as written. Number of minutes spent on the visit: 10.
[2023-12-18 16:40] LABS: Glucose,Whole Blood 305 mg/dL (70-110)
[2023-12-18 20:39] LABS: Glucose,Whole Blood 200 mg/dL (70-110)
[2023-12-18] MEDS: INSULIN DETEMIR (LEVEMIR) 100 UNIT/ML SYR SQ SCH (20:48)
--- NOTE | 2023-12-19 03:43 | PN ---
PROGRESS NOTE Came with hyperosmolar coma, COPD, CHF, uncontrolled diabetes mellitus, new onset. Started on insulin. Sugars are better today. Possible discharge home, to go home with his in the next 24 to 48 hours. Continue current treatment. Prognosis guarded. Please see further orders. MMODL / IJN: [id number] /
[2023-12-19 06:18] LABS: Glucose,Whole Blood 91 mg/dL (70-110)
[2023-12-19] MEDS: INSULIN ASPART (NovoLOG) 100 UNIT/ML VIAL SQ SCH ×4 (06:22→20:35)
[2023-12-19] MEDS: SODIUM FERRIC GLUCONAT-SUCROSE 125 MG in SODIUM CHLORIDE 0.9% 100 ML IVPB SCH (08:39)
[2023-12-19] MEDS: DEXTROSE 5% IN WATER 1,000 ML IV SCH (08:39)
[2023-12-19] MEDS: ENOXAPARIN 40 MG/0.4 ML SYRINGE SQ SCH (08:39)
[2023-12-19] MEDS: PANTOPRAZOLE 40 MG TABLET PO SCH (08:40)
[2023-12-19] MEDS: FOLIC ACID 1 MG TAB PO SCH (08:40)
[2023-12-19] MEDS: MULTIVITAMINS, THERA 1 EACH TAB PO SCH (08:40)
[2023-12-19] MEDS: TAMSULOSIN 0.4 MG CAP.ER.24H PO SCH (08:40)
[2023-12-19] MEDS: metFORMIN 500 MG TAB PO SCH ×2 (08:40→18:16)
[2023-12-19] MEDS: DAPAGLIFLOZIN PROPANEDIOL 10 MG TABLET PO SCH (08:40)
[2023-12-19 11:43] LABS: Glucose,Whole Blood 151 mg/dL (70-110)
[2023-12-19] MEDS: THIAMINE 100 MG in SODIUM CHLORIDE 0.9% 50 ML IVPB SCH ×2 (11:43→20:37)
--- NOTE | 2023-12-19 13:27 | P.PN ---
Subjective Progress Note Date: 12/19/23 Principal diagnosis: Hyperosmolar coma. 63-year-old male patient, alcohol and he drinks alcohol excessively along with his at home. He stopped drinking approximately 3 days ago and he presented to the emergency department after a fall. Apparently, the patient has been very unstable and he has been falling. He does not follow-up with her primary care physician. Following his hospital admission, the patient started having involuntary movements of his body, increased shakes, restlessness, thrashing and in the ED, the patient had diminished level of consciousness. He was given a total of 6 mg of IV Ativan. Seizure was suspected although there was no clear indication of the patient was seizing. There was no jerky body movements. He was given Keppra. Otherwise, no additional history is available. Ultimately, the patient was intubated and placed on a mechanical ventilator and he was transferred to the intensive care unit. I'm seeing this patient in the ICU post intubation. Currently is on propofol running at 40 Augustus respiratory kilogram per minute. His calm and comfortable. Is on assist-control mode of mechanical ventilation at the rate of 18, tidal volume of 450, FiO2 of 70% with a PEEP of 5. Blood gas showed a pH of 7.3 with a pCO2 of 54 and pO2 of 394 post intubation. The chest x-ray from this morning shows adequate positioning of the orotracheal tube. No evidence of any airspace disease. There may be a small left-sided pleural effusion. There is no evidence of pneumothorax or pneumonia. This can of the head and the spine was also done in the emergency department that showed no acute abnormalities. The patient had severe foraminal narrowing at the level of C3-C4 and also mild to moderate foraminal narrowing at the level of C4-C5 and mild to moderate bilateral foraminal narrowing at the level of C5- C6 and bilateral narrowing at the level of C6-C7. The patient was also given a x-ray of the pelvis that showed no evidence of fracture. Initial sodium level was at 127 and after fluid resuscitation sodium came back at 144. Blood sugar was 993 and he was started on insulin drip based on the [facility] protocol. Currently insulin drip is off and the most recent blood sugars at 2:15. BUN is a 50 with a creatinine of 0.7. Potassium level is at 2.3 and this is being replaced. The echoes of 5.7 with a hemoglobin of 10.3. Hemodynamically, he is hypotensive. He is not requiring any pressors at this point. He is producing adequate amount of urine output. Most recent blood pressure is 91/62. IV fluids are in the form of D5 half-normal with potassium at the rate of 150 mL an hour. Note that the patient is not known to be diabetic. He has history of hypertension and alcoholism. On 12/08/2023, the patient remains intubated on a mechanical ventilator. He is on sedation with propofol running at 50 mcg/kg/m and the dose has been reduced down to 25 mcg/kg/m. Resting comfortably in bed. No significant issues o vernight. He is on assist control mode with a rate of 18, tidal volume of 450, FiO2 of 40% and a PEEP of 5. Chest x-ray findings are stable. No interval changes and chest x-ray findings and there is no evidence of pneumonia. Some atelectatic changes bilaterally. Gait is at 7.46 with a pCO2 of 40 and a pO2 of 118. This was on FiO2 of 50%. No significant respiratory secretions. The patient is also on enteral feeding and the patient was started on Nepro at the rate of 31 mL an hour. IV fluids are normal saline at the rate of 100 mL an hour. He was given Levemir insulin 12 units for blood sugar control. echoes at 10.7, he was not 0.7 and a platelet count of 121. Sodium is at 146, BUN is at 40 with a creatinine of 0.3. LFTs are normal. Serum iron level is 12. Potassium levels at 3.3. Afebrile. No pressors at this point in time. , patient remains in the ICU, intubated and mechanically ventilated. Patient is on assist control rate of 18 tidal volume 400 FiO2 40% and PEEP of 5 ABG showed a pO2 of 97 pCO2 39 pH of 7.47 hence no ventilator settings changes were made. Patient initially presented with a blood sugar control 993, and acute alcohol condition. Required intubation initially in the ER. Remains on propofol at 50 mg/kg/m 0.9 normal saline at 40 mL per hour is also receiving Nepro for nutritional support, is also on Lovenox, and I plan to change his propofol to Precedex today, and at least give the patient a trial of weaning with a pressure support of 10 and CPAP. Patient seems to be quite sedated, difficult to assess whether he would be ready for weaning, but nonetheless we will definitely try to transition to Precedex and hopefully give the patient a weaning trial today. WBC count is 8.9 hemoglobin is 8.8. Basic metabolic profile is normal and renal profile is normal, chest x-ray showed minimal basilar atelectasis, no clear-cut evidence of pneumonia. Patient was reevaluated today on 12/10/2023, remains in the ICU, intubated and m echanically ventilated. Patient was placed overnight on IMV of 8, pressure support of 10, tidal volume of 400 FiO2 40% and PEEP of 5. Patient did well on that kind of mode of mechanical ventilation, did not require much sedation except he was on Precedex, minimal dose, today I recommended holding the Precedex, switch the patient from IMV to pressure support and CPAP, and I felt if the patient tolerates this we will proceed with extubating the patient. Patient remains on enteral feedings/Nepro remains on Precedex, chest x-ray is showing bibasilar infiltrates, hence Zosyn was added. Patient seems to be more awake today and more appropriate, and he will be given another trial of pressure support and CPAP, and if tolerated will likely extubate ABG this a.m. on 40% showed a pO2 of 136 pCO2 39 pH of 7.47 CBC is relatively normal hemoglobin is 8.9, basic metabolic profile is normal, renal profile is normal Patient was reevaluated today on 12/11/2023, remains in the ICU, patient tolerated extubation well yesterday, he was extubated to nasal cannula and remains on nasal cannula at 3 L/min. Patient is on 0.9 normal saline at 40 cc/h, remains on Zosyn empirically for possible aspiration pneumonia. Patient is intermittently confused, but overall he is doing well, seems to be quite appr opriate this morning. The plan is to transfer the patient out of the ICU today to a regular medical floor, continue antibiotics, continue bronchodilators, and continue alcohol withdrawal protocol. Patient is not requiring any Precedex this morning.WBC count is 12.7 hemoglobin 11.6 sodium remains low at 126, WBC count is 8.1 hemoglobin 8.9 basic metabolic profile is normal potassium is 3.2. Renal profile is normal. Chest x-ray continues to show basilar airspace opacities. Patient was evaluated today on 12/12/2023, remains in the ICU, sitting at the bedside chair, is not in any form of distress. Patient tolerated extubation well over the last few days, he is now on room air, for some reason his admitting physician ordered a CT of the chest, and the findings are basically unremarkable, and no more seen than what was already seen on a chest x-ray I am recommending transferring the patient out of the ICU to a regular medical floor, and possibly discharge planning in the next 24 to 48 hours. BBC is relatively normal basic metabolic profile is relatively normal renal profile is normal, CT of the chest showed minimal left pleural effusion with minimal atelectasis. The patient is seen today December 13, 2023 in follow-up on the regular medical floor. He was transferred out of the intensive care unit yesterday. He is currently resting in bed. Maintaining good O2 saturations in the 90s on room air. Has been afebrile. Hemodynamically stable awake and alert in no acute distress. Sputum culture revealed no growth. Glucose 231. He is continued on DuoNeb inhalations, antibiotics in the form of Zosyn. Remains on the [facility] protocol. Lovenox for DVT prophylaxis. The patient is seen today December 14, 2023 in follow-up on the regular medical floor. He is currently resting in bed. Awake and alert in no acute distress. Maintaining O2 saturations in the mid 90s on room air. He is afebrile. Hemodynamically stable. Sputum culture revealed no growth. White count 6.6. H emoglobin 7.4. Platelets 148. Sodium 137. Potassium 4.1. Bicarb 22. BUN 8. Creatinine 0.5. Glucose 226. He is continued on DuoNeb inhalations, antibiotics in the form of Zosyn. Remains on the [facility]WA protocol. Lovenox for DVT prophylaxis. The patient is seen today December 15, 2023 in follow-up on the regular medical floor. He has been up ambulating in the hallway. Denies any worsening krystyna rtness of breath, cough or congestion. Maintaining good O2 saturations in the 90s on room air. He is afebrile. Hemodynamically stable. Sputum cultures revealed no growth. Blood sugar 116. He is continued on bronchodilators. Lovenox for DVT prophylaxis. Levemir being adjusted. The patient is seen today December 16, 2023 and follow-up on the regular medical floor. Sitting up in bed. He is maintaining good O2 saturations in the 90s on room air. He has normal saline at 40 MLS per hour. Still having issues with blood sugar control. Blood sugar 146. Remains on Levemir, NovoLog, Farxiga. Remains on bronchodilators. Lovenox for DVT prophylaxis. Progress note dated December 17, 2023. This is a 63-year-old male who is seen today in room 455. He is on room air. He is getting saline at 40 cc an hour. He appears in no acute distress. Currently, his glucose is 211. TSH is 1.210. Free T4 is 1.05, and free T3 is 3.2. No additional labs today. The patient's not having any acute issues or problems. He denies any shortness of breath, cough, wheezing, chest tightness, or phlegm production. He denies any chest pain or pressure. The patient is seen today December 18, 2023 in follow-up on the regular medical floor. He is currently resting comfortably in bed. Awake and alert in no acute distress. Continue good O2 saturations in the mid to upper 90s on room air. Has been afebrile. Hemodynamically stable. Sputum culture revealed no growth. White count 9.7. Hemoglobin 8.4. Platelets 224. Sodium 148. Potassium 4.6. Bicarb 22. BUN 8. Creatinine 0.5. Glucose 69. He is on normal saline at 40 MLS per hour. Lovenox for DVT prophylaxis. Receiving iron supplements. Progress note dated December 19, 2023. This is a patient who is again seen today in room 455. He is currently on room air. He is getting D5W, at 50 cc an hour. The patient is clinically stable, and stable for discharge from the pulmonary standpoint. He has been on room air, for a number of days. His only lab test today is a glucose of 151. Objective - Vital Signs Vital signs: Vital Signs Temp 97.8 F 12/19/23 06:56 Pulse 80 12/19/23 06:56 Resp 18 12/19/23 06:56 BP 122/77 12/19/23 06:56 Pulse Ox 97 12/19/23 06:56 FiO2 40 12/10/23 09:20 Intake & Output 12/18/23 12/19/23 12/19/23 18:59 06:59 18:59 Output Total 2200 2600 Balance -2200 -2600 Weight 53.5 kg Output: Urine 2200 2600 Straight 900 1500 Other: Voiding Method Urinal Urinal Urinal ABP, PAP, CO, CI - Last Documented Arterial Blood Pressure 164/80 - Exam No acute distress, oriented 3. Currently on room air. HEENT examination is grossly unremarkable. Mucous membranes are moist. No oral lesions. Neck supple. Full range of motion. No adenopathy thyromegaly or neck vein distention. Cardiovascular examination reveals regular rhythm rate. S1-S2 normal. No S3 or S4. No discernible murmur noted. Heart rate 80 bpm. Lungs reveal clear breath sounds. Breath sounds are equal bilaterally. No adventitious lung sounds including wheezes rhonchi or crackles. Room air saturation is 97%. Abdomen soft bowel sounds are heard. No masses or tenderness. Extremities are intact. No cyanosis clubbing or edema. Skin is without rash or lesion. Neurologic examination is brief but nonfocal. - Labs CBC & Chem 7: 12/18/23 05:44 12/18/23 05:44 Labs: Abnormal Lab Results - Last 24 Hours (Table) 12/18/23 12/18/23 12/19/23 Range/Units 16:39 20:34 11:42 POC Glucose (mg/dL) 305 H 200 H 151 H (70-110) mg/dL Assessment and Plan Assessment: Acute hyperglycemia with hyperosmolar state with continued hyperglycemia. Acute metabolic encephalopathy, improved. Acute delirium tremens, recovered. Acute hypoxic respiratory failure secondary to acute delirium tremens requiring intubation and mechanical ventilation, extubated on 12/10/2023. History of alcoholism. History of coronary artery disease and mild disease in the proximal mid RCA. Generalized anxiety disorder and depression. Cervical spine degenerative disc disease and foraminal narrowing. Benign essential hypertension. Tobacco dependence syndrome. Plan: Plan dated December 17, 2023. The patient is doing very well. The patient is currently on room air. Labs are reviewed. The patient has no complaints today. The patient not requiring any supplemental oxygen. He is receiving saline at 40 cc an hour. We will continue to follow, make recommendations along the way. The patient is stable for discharge from the pulmonary standpoint, and from the critical care standpoint. Prognosis is guarded. He is counseled about the importance of abstaining from alcohol. Plan dated December 19, 2023. The patient is seen today in room 455. He is on room air. He is getting dextrose at 50 cc an hour. Labs, x-rays, and medications are reviewed. The patient is stable from the pulmonary standpoint. The patient has been on room air for a number of days now. From the pulmonary standpoint, the patient could be considered for discharge. Additional recommendations and suggestions are forthcoming. Time with Patient: Less than 30
[2023-12-19 16:32] LABS: Glucose,Whole Blood 256 mg/dL (70-110)
--- NOTE | 2023-12-19 16:54 | P.PN ---
Subjective Progress Note Date: 12/19/23 The patient was seen for urinary retention. He is voiding. Objective - Vital Signs Vital signs: Vital Signs Temp 97.8 F 12/19/23 14:18 Pulse 106 H 12/19/23 14:18 Resp 18 12/19/23 14:18 BP 118/75 12/19/23 14:18 Pulse Ox 96 12/19/23 14:18 FiO2 40 12/10/23 09:20 Intake & Output 12/18/23 12/19/23 12/19/23 18:59 06:59 18:59 Output Total 2200 2600 Balance -2200 -2600 Weight 53.5 kg Output: Urine 2200 2600 Straight 900 1500 Other: Voiding Method Urinal Urinal Urinal ABP, PAP, CO, CI - Last Documented Arterial Blood Pressure 164/80 - Labs CBC & Chem 7: 12/18/23 05:44 12/18/23 05:44 Labs: Abnormal Lab Results - Last 24 Hours (Table) 12/18/23 12/19/23 12/19/23 Range/Units 20:34 11:42 16:30 POC Glucose (mg/dL) 200 H 151 H 256 H (70-110) mg/dL Assessment and Plan Assessment: Impression; Urine retention. Recommend; The patient is voiding however his residuals were high. He refused a catheter except one time where he was cathed for 1200. We will observe He is on flomax.
[2023-12-19 20:27] LABS: Glucose,Whole Blood 144 mg/dL (70-110)
[2023-12-19] MEDS: INSULIN DETEMIR (LEVEMIR) 100 UNIT/ML SYR SQ SCH (20:37)
--- NOTE | 2023-12-20 00:16 | PN ---
PROGRESS NOTE SUBJECTIVE: This is a 63-year-old white male , COPD, pulmonary hypertension, urinary retention is improved. He is on Flomax. Catheter has been removed. OBJECTIVE: CARDIOVASCULAR: S1, S2. LUNGS: Scattered rhonchi and wheeze. HEMATOLOGY: Negative for Homans. PSYCH: Fair mood affect. Continue current treatment, PT OT, possible home tomorrow if cleared by people MMODL / IJN: [id number] /
[2023-12-20] MEDS: DEXTROSE 5% IN WATER 1,000 ML IV SCH ×2 (02:44→15:50)
[2023-12-20 05:44] LABS: Glucose,Whole Blood 98 mg/dL (70-110)
[2023-12-20] MEDS: INSULIN ASPART (NovoLOG) 100 UNIT/ML VIAL SQ SCH ×4 (05:46→21:23)
--- NOTE | 2023-12-20 08:42 | P.PN ---
Subjective Progress Note Date: 12/20/23 Patient is in the hospital multiple medical problems. He is found to be in urine retention during the acute phase. Since the catheters been removed he has voided but is caring large residuals. He is chronically refusing catheterization. Objective - Vital Signs Vital signs: Vital Signs Temp 97.8 F 12/20/23 06:50 Pulse 92 12/20/23 06:50 Resp 18 12/20/23 06:50 BP 116/82 12/20/23 06:50 Pulse Ox 95 12/20/23 06:50 FiO2 40 12/10/23 09:20 Intake & Output 12/19/23 12/20/23 12/20/23 18:59 06:59 18:59 Intake Total 890 Output Total 850 Balance 40 Weight 53 kg Intake: Oral 890 Output: Urine 850 Other: Voiding Method Urinal Urinal # Voids 2 4 ABP, PAP, CO, CI - Last Documented Arterial Blood Pressure 164/80 - Labs CBC & Chem 7: 12/18/23 05:44 12/18/23 05:44 Labs: Abnormal Lab Results - Last 24 Hours (Table) 12/19/23 12/19/23 12/19/23 Range/Units 11:42 16:30 20:26 POC Glucose (mg/dL) 151 H 256 H 144 H (70-110) mg/dL Assessment and Plan Assessment: Impression: Urine retention, resolved but incomplete bladder emptying. Recommendations: I did a lengthy discussion with the patient about the situation with large postvoid residuals secondary hydronephrosis, voiding issues incontinence damages bladder among others. The patient seems resistant to any further evaluation. He seems resistant to any thought that he is having any problems as he states that he is urinating without difficulty. I explained to him the risk of a hypotonic bladder hydronephrosis, renal failure level on the issues of infection incontinence and bleeding. I will check a residual again today and further discussed the situation with the patient.
[2023-12-20] MEDS: MULTIVITAMINS, THERA 1 EACH TAB PO SCH (09:17)
[2023-12-20] MEDS: TAMSULOSIN 0.4 MG CAP.ER.24H PO SCH (09:17)
[2023-12-20] MEDS: SODIUM FERRIC GLUCONAT-SUCROSE 125 MG in SODIUM CHLORIDE 0.9% 100 ML IVPB SCH (09:17)
[2023-12-20] MEDS: metFORMIN 500 MG TAB PO SCH ×2 (09:17→16:51)
[2023-12-20] MEDS: FOLIC ACID 1 MG TAB PO SCH (09:17)
[2023-12-20] MEDS: PANTOPRAZOLE 40 MG TABLET PO SCH (09:17)
[2023-12-20] MEDS: ENOXAPARIN 40 MG/0.4 ML SYRINGE SQ SCH (09:17)
[2023-12-20] MEDS: DAPAGLIFLOZIN PROPANEDIOL 10 MG TABLET PO SCH (09:18)
[2023-12-20] MEDS: THIAMINE 100 MG in SODIUM CHLORIDE 0.9% 50 ML IVPB SCH ×2 (10:47→21:23)
[2023-12-20 11:19] LABS: Glucose,Whole Blood 156 mg/dL (70-110)
--- NOTE | 2023-12-20 12:53 | P.PN ---
Subjective Progress Note Date: 12/20/23 Principal diagnosis: Hyperosmolar coma. 63-year-old male patient, alcohol and he drinks alcohol excessively along with his at home. He stopped drinking approximately 3 days ago and he presented to the emergency department after a fall. Apparently, the patient has been very unstable and he has been falling. He does not follow-up with her primary care physician. Following his hospital admission, the patient started having involuntary movements of his body, increased shakes, restlessness, thrashing and in the ED, the patient had diminished level of consciousness. He was given a total of 6 mg of IV Ativan. Seizure was suspected although there was no clear indication of the patient was seizing. There was no jerky body movements. He was given Keppra. Otherwise, no additional history is available. Ultimately, the patient was intubated and placed on a mechanical ventilator and he was transferred to the intensive care unit. I'm seeing this patient in the ICU post intubation. Currently is on propofol running at 40 Augustus respiratory kilogram per minute. His calm and comfortable. Is on assist-control mode of mechanical ventilation at the rate of 18, tidal volume of 450, FiO2 of 70% with a PEEP of 5. Blood gas showed a pH of 7.3 with a pCO2 of 54 and pO2 of 394 post intubation. The chest x-ray from this morning shows adequate positioning of the orotracheal tube. No evidence of any airspace disease. There may be a small left-sided pleural effusion. There is no evidence of pneumothorax or pneumonia. This can of the head and the spine was also done in the emergency department that showed no acute abnormalities. The patient had severe foraminal narrowing at the level of C3-C4 and also mild to moderate foraminal narrowing at the level of C4-C5 and mild to moderate bilateral foraminal narrowing at the level of C5- C6 and bilateral narrowing at the level of C6-C7. The patient was also given a x-ray of the pelvis that showed no evidence of fracture. Initial sodium level was at 127 and after fluid resuscitation sodium came back at 144. Blood sugar was 993 and he was started on insulin drip based on the [facility] protocol. Currently insulin drip is off and the most recent blood sugars at 2:15. BUN is a 50 with a creatinine of 0.7. Potassium level is at 2.3 and this is being replaced. The echoes of 5.7 with a hemoglobin of 10.3. Hemodynamically, he is hypotensive. He is not requiring any pressors at this point. He is producing adequate amount of urine output. Most recent blood pressure is 91/62. IV fluids are in the form of D5 half-normal with potassium at the rate of 150 mL an hour. Note that the patient is not known to be diabetic. He has history of hypertension and alcoholism. On 12/08/2023, the patient remains intubated on a mechanical ventilator. He is on sedation with propofol running at 50 mcg/kg/m and the dose has been reduced down to 25 mcg/kg/m. Resting comfortably in bed. No significant issues o vernight. He is on assist control mode with a rate of 18, tidal volume of 450, FiO2 of 40% and a PEEP of 5. Chest x-ray findings are stable. No interval changes and chest x-ray findings and there is no evidence of pneumonia. Some atelectatic changes bilaterally. Gait is at 7.46 with a pCO2 of 40 and a pO2 of 118. This was on FiO2 of 50%. No significant respiratory secretions. The patient is also on enteral feeding and the patient was started on Nepro at the rate of 31 mL an hour. IV fluids are normal saline at the rate of 100 mL an hour. He was given Levemir insulin 12 units for blood sugar control. echoes at 10.7, he was not 0.7 and a platelet count of 121. Sodium is at 146, BUN is at 40 with a creatinine of 0.3. LFTs are normal. Serum iron level is 12. Potassium levels at 3.3. Afebrile. No pressors at this point in time. , patient remains in the ICU, intubated and mechanically ventilated. Patient is on assist control rate of 18 tidal volume 400 FiO2 40% and PEEP of 5 ABG showed a pO2 of 97 pCO2 39 pH of 7.47 hence no ventilator settings changes were made. Patient initially presented with a blood sugar control 993, and acute alcohol condition. Required intubation initially in the ER. Remains on propofol at 50 mg/kg/m 0.9 normal saline at 40 mL per hour is also receiving Nepro for nutritional support, is also on Lovenox, and I plan to change his propofol to Precedex today, and at least give the patient a trial of weaning with a pressure support of 10 and CPAP. Patient seems to be quite sedated, difficult to assess whether he would be ready for weaning, but nonetheless we will definitely try to transition to Precedex and hopefully give the patient a weaning trial today. WBC count is 8.9 hemoglobin is 8.8. Basic metabolic profile is normal and renal profile is normal, chest x-ray showed minimal basilar atelectasis, no clear-cut evidence of pneumonia. Patient was reevaluated today on 12/10/2023, remains in the ICU, intubated and m echanically ventilated. Patient was placed overnight on IMV of 8, pressure support of 10, tidal volume of 400 FiO2 40% and PEEP of 5. Patient did well on that kind of mode of mechanical ventilation, did not require much sedation except he was on Precedex, minimal dose, today I recommended holding the Precedex, switch the patient from IMV to pressure support and CPAP, and I felt if the patient tolerates this we will proceed with extubating the patient. Patient remains on enteral feedings/Nepro remains on Precedex, chest x-ray is showing bibasilar infiltrates, hence Zosyn was added. Patient seems to be more awake today and more appropriate, and he will be given another trial of pressure support and CPAP, and if tolerated will likely extubate ABG this a.m. on 40% showed a pO2 of 136 pCO2 39 pH of 7.47 CBC is relatively normal hemoglobin is 8.9, basic metabolic profile is normal, renal profile is normal Patient was reevaluated today on 12/11/2023, remains in the ICU, patient tolerated extubation well yesterday, he was extubated to nasal cannula and remains on nasal cannula at 3 L/min. Patient is on 0.9 normal saline at 40 cc/h, remains on Zosyn empirically for possible aspiration pneumonia. Patient is intermittently confused, but overall he is doing well, seems to be quite appr opriate this morning. The plan is to transfer the patient out of the ICU today to a regular medical floor, continue antibiotics, continue bronchodilators, and continue alcohol withdrawal protocol. Patient is not requiring any Precedex this morning.WBC count is 12.7 hemoglobin 11.6 sodium remains low at 126, WBC count is 8.1 hemoglobin 8.9 basic metabolic profile is normal potassium is 3.2. Renal profile is normal. Chest x-ray continues to show basilar airspace opacities. Patient was evaluated today on 12/12/2023, remains in the ICU, sitting at the bedside chair, is not in any form of distress. Patient tolerated extubation well over the last few days, he is now on room air, for some reason his admitting physician ordered a CT of the chest, and the findings are basically unremarkable, and no more seen than what was already seen on a chest x-ray I am recommending transferring the patient out of the ICU to a regular medical floor, and possibly discharge planning in the next 24 to 48 hours. BBC is relatively normal basic metabolic profile is relatively normal renal profile is normal, CT of the chest showed minimal left pleural effusion with minimal atelectasis. The patient is seen today December 13, 2023 in follow-up on the regular medical floor. He was transferred out of the intensive care unit yesterday. He is currently resting in bed. Maintaining good O2 saturations in the 90s on room air. Has been afebrile. Hemodynamically stable awake and alert in no acute distress. Sputum culture revealed no growth. Glucose 231. He is continued on DuoNeb inhalations, antibiotics in the form of Zosyn. Remains on the CIWA protocol. Lovenox for DVT prophylaxis. The patient is seen today December 14, 2023 in follow-up on the regular medical floor. He is currently resting in bed. Awake and alert in no acute distress. Maintaining O2 saturations in the mid 90s on room air. He is afebrile. Hemodynamically stable. Sputum culture revealed no growth. White count 6.6. H emoglobin 7.4. Platelets 148. Sodium 137. Potassium 4.1. Bicarb 22. BUN 8. Creatinine 0.5. Glucose 226. He is continued on DuoNeb inhalations, antibiotics in the form of Zosyn. Remains on the CIWA protocol. Lovenox for DVT prophylaxis. The patient is seen today December 15, 2023 in follow-up on the regular medical floor. He has been up ambulating in the hallway. Denies any worsening krystyna rtness of breath, cough or congestion. Maintaining good O2 saturations in the 90s on room air. He is afebrile. Hemodynamically stable. Sputum cultures revealed no growth. Blood sugar 116. He is continued on bronchodilators. Lovenox for DVT prophylaxis. Levemir being adjusted. The patient is seen today December 16, 2023 and follow-up on the regular medical floor. Sitting up in bed. He is maintaining good O2 saturations in the 90s on room air. He has normal saline at 40 MLS per hour. Still having issues with blood sugar control. Blood sugar 146. Remains on Levemir, NovoLog, Farxiga. Remains on bronchodilators. Lovenox for DVT prophylaxis. Progress note dated December 17, 2023. This is a 63-year-old male who is seen today in room 455. He is on room air. He is getting saline at 40 cc an hour. He appears in no acute distress. Currently, his glucose is 211. TSH is 1.210. Free T4 is 1.05, and free T3 is 3.2. No additional labs today. The patient's not having any acute issues or problems. He denies any shortness of breath, cough, wheezing, chest tightness, or phlegm production. He denies any chest pain or pressure. The patient is seen today December 18, 2023 in follow-up on the regular medical floor. He is currently resting comfortably in bed. Awake and alert in no acute distress. Continue good O2 saturations in the mid to upper 90s on room air. Has been afebrile. Hemodynamically stable. Sputum culture revealed no growth. White count 9.7. Hemoglobin 8.4. Platelets 224. Sodium 148. Potassium 4.6. Bicarb 22. BUN 8. Creatinine 0.5. Glucose 69. He is on normal saline at 40 MLS per hour. Lovenox for DVT prophylaxis. Receiving iron supplements. Progress note dated December 19, 2023. This is a patient who is again seen today in room 455. He is currently on room air. He is getting D5W, at 50 cc an hour. The patient is clinically stable, and stable for discharge from the pulmonary standpoint. He has been on room air, for a number of days. His only lab test today is a glucose of 151. Progress note dated December 20, 2023. 63-year-old male seen in room 455. Currently, he is on room air. The patient is having ongoing urinary issues, and is being followed by urology. The patient is getting dextrose, and 50 cc an hour. From the pulmonary standpoint, the patient is stable. He has not required oxygen for a number of days. The glucose today is 156. No additional labs are noted. No recent x-rays to report. Objective - Vital Signs Vital signs: Vital Signs Temp 97.8 F 12/20/23 06:50 Pulse 92 12/20/23 06:50 Resp 18 12/20/23 06:50 BP 116/82 12/20/23 06:50 Pulse Ox 95 12/20/23 06:50 FiO2 40 12/10/23 09:20 Intake & Output 12/19/23 12/20/23 12/20/23 18:59 06:59 18:59 Intake Total 890 Output Total 850 Balance 40 Weight 53 kg Intake: Oral 890 Output: Urine 850 Other: Voiding Method Urinal Urinal Urinal # Voids 2 4 ABP, PAP, CO, CI - Last Documented Arterial Blood Pressure 164/80 - Exam No acute distress, oriented 3. Currently on room air. HEENT examination is grossly unremarkable. Mucous membranes are moist. No oral lesions. Neck supple. Full range of motion. No adenopathy thyromegaly or neck vein distention. Cardiovascular examination reveals regular rhythm rate. S1-S2 normal. No S3 or S4. No discernible murmur noted. Heart rate 92 bpm. Lungs reveal clear breath sounds. Breath sounds are equal bilaterally. No adventitious lung sounds including wheezes rhonchi or crackles. Room air saturation is 96 %. Abdomen soft bowel sounds are heard. No masses or tenderness. Extremities are intact. No cyanosis clubbing or edema. Skin is without rash or lesion. Neurologic examination is brief but nonfocal. - Labs CBC & Chem 7: 12/18/23 05:44 12/18/23 05:44 Labs: Abnormal Lab Results - Last 24 Hours (Table) 12/19/23 12/19/23 12/20/23 Range/Units 16:30 20:26 11:18 POC Glucose (mg/dL) 256 H 144 H 156 H (70-110) mg/dL Assessment and Plan Assessment: Acute hyperglycemia with hyperosmolar state with continued hyperglycemia. Acute metabolic encephalopathy, improved. Acute delirium tremens, recovered. Acute hypoxic respiratory failure secondary to acute delirium tremens requiring intubation and mechanical ventilation, extubated on 12/10/2023. History of alcoholism. Acute urinary retention, currently being evaluated by urology. History of coronary artery disease and mild disease in the proximal mid RCA. Generalized anxiety disorder and depression. Cervical spine degenerative disc disease and foraminal narrowing. Benign essential hypertension. Tobacco dependence syndrome. Plan: Plan dated December 17, 2023. The patient is doing very well. The patient is currently on room air. Labs are reviewed. The patient has no complaints today. The patient not requiring any supplemental oxygen. He is receiving saline at 40 cc an hour. We will continue to follow, make recommendations along the way. The patient is stable for discharge from the pulmonary standpoint, and from the critical care standpoint. Prognosis is guarded. He is counseled about the importance of abstaining from alcohol. Plan dated December 19, 2023. The patient is seen today in room 455. He is on room air. He is getting dextrose at 50 cc an hour. Labs, x-rays, and medications are reviewed. The patient is stable from the pulmonary standpoint. The patient has been on room air for a number of days now. From the pulmonary standpoint, the patient could be considered for discharge. Additional recommendations and suggestions are forthcoming. Plan dated December 20, 2023. The patient is very stable from the pulmonary standpoint. Patient has not required oxygen for a number days. He does continue on D5W at 50 cc an hour. Labs, x-rays, and medications are reviewed. The patient is not quite ready for discharge according to the nurse. We will continue to follow make recommendations along the way. The patient is counseled about the importance of never drinking again. Time with Patient: Less than 30
[2023-12-20 16:48] LABS: Glucose,Whole Blood 326 mg/dL (70-110)
[2023-12-20 20:18] LABS: Glucose,Whole Blood 239 mg/dL (70-110)
[2023-12-20] MEDS: INSULIN DETEMIR (LEVEMIR) 100 UNIT/ML SYR SQ SCH (21:23)
--- NOTE | 2023-12-21 02:34 | PN ---
PROGRESS NOTE SUBJECTIVE: A 63-year-old white male. We are going to keep him another day because of urinary retention per Urology. His breathing and sugars are improved. His sugars are low 100s to 90s. OBJECTIVE: VITAL SIGNS: Blood pressure is 107 to 118 over 70s, O2 is 95% on room air, temp 97.8. CARDIOVASCULAR: S1, S2. LUNGS: Transmitted upper sounds. HEMATOLOGY: Negative Homans. PSYCH: Fair mood and affect. INTEGUMENT: Dry skin and turgor. ASSESSMENT: Chronic obstructive pulmonary disease, pulmonary hypertension, new onset diabetes type 2 with hyperosmolar coma, status post respiratory arrest. The patient is much improved, but due to urinary retention with Urology assessment to clear for discharge is not ready yet. He had decided to stay another day. Prognosis guarded. MMODL / IJN: [id number] /
[2023-12-21 05:40] LABS: Glucose,Whole Blood 109 mg/dL (70-110)
[2023-12-21] MEDS: INSULIN ASPART (NovoLOG) 100 UNIT/ML VIAL SQ SCH ×4 (05:53→21:55)
[2023-12-21] MEDS: metFORMIN 500 MG TAB PO SCH ×2 (06:18→17:24)
[2023-12-21] MEDS: HYDROcodone/APAP 5-325MG 1 EACH TAB PO PRN ×2 (06:51→17:35)
[2023-12-21] MEDS: TAMSULOSIN 0.4 MG CAP.ER.24H PO SCH (07:55)
[2023-12-21] MEDS: DAPAGLIFLOZIN PROPANEDIOL 10 MG TABLET PO SCH (07:55)
[2023-12-21] MEDS: ENOXAPARIN 40 MG/0.4 ML SYRINGE SQ SCH (07:55)
[2023-12-21] MEDS: MULTIVITAMINS, THERA 1 EACH TAB PO SCH (07:55)
[2023-12-21] MEDS: FOLIC ACID 1 MG TAB PO SCH (07:55)
[2023-12-21] MEDS: PANTOPRAZOLE 40 MG TABLET PO SCH (07:55)
[2023-12-21] MEDS: SODIUM FERRIC GLUCONAT-SUCROSE 125 MG in SODIUM CHLORIDE 0.9% 100 ML IVPB SCH (09:00)
--- NOTE | 2023-12-21 10:21 | P.PN ---
Subjective Progress Note Date: 12/21/23 The patient is being seen for urine retention. Although he is voiding he has marked incomplete bladder emptying without sensation. He does have an indwelling catheter at present Objective - Vital Signs Vital signs: Vital Signs Temp 98.4 F 12/21/23 02:23 Pulse 103 H 12/21/23 02:23 Resp 20 12/21/23 02:23 BP 110/72 12/21/23 02:23 Pulse Ox 96 12/21/23 02:23 FiO2 40 12/10/23 09:20 Intake & Output 12/20/23 12/21/23 12/21/23 18:59 06:59 18:59 Intake Total 1350 Output Total 1999 3150 Balance -1999 -1800 Weight 52 kg Intake: Oral 1350 Output: Urine 1000 3150 Straight 1000 Post Void Residual 1000 Other: Voiding Method Urinal Urinal # Voids 5 ABP, PAP, CO, CI - Last Documented Arterial Blood Pressure 164/80 - Labs CBC & Chem 7: 12/18/23 05:44 12/18/23 05:44 Labs: Abnormal Lab Results - Last 24 Hours (Table) 12/20/23 12/20/23 12/20/23 Range/Units 11:18 16:46 20:17 POC Glucose (mg/dL) 156 H 326 H 239 H (70-110) mg/dL Assessment and Plan Assessment: Impression: incomplete bladder emptying. Possible hypotonic ngb Recommendations. Ideally the patient should be on cic or wear a catheter. He should have a cmg and cysto as an outpatient. He'll go home with the Blanchard catheter and follow-up in my office for the above-mentioned tests
[2023-12-21] MEDS: THIAMINE 100 MG in SODIUM CHLORIDE 0.9% 50 ML IVPB SCH ×2 (10:27→21:56)
[2023-12-21] MEDS: DEXTROSE 5% IN WATER 1,000 ML IV SCH (10:28)
--- NOTE | 2023-12-21 10:38 | P.PN ---
Subjective Progress Note Date: 12/21/23 Principal diagnosis: Hyperosmolar coma. 63-year-old male patient, alcohol and he drinks alcohol excessively along with his at home. He stopped drinking approximately 3 days ago and he presented to the emergency department after a fall. Apparently, the patient has been very unstable and he has been falling. He does not follow-up with her primary care physician. Following his hospital admission, the patient started having involuntary movements of his body, increased shakes, restlessness, thrashing and in the ED, the patient had diminished level of consciousness. He was given a total of 6 mg of IV Ativan. Seizure was suspected although there was no clear indication of the patient was seizing. There was no jerky body movements. He was given Keppra. Otherwise, no additional history is available. Ultimately, the patient was intubated and placed on a mechanical ventilator and he was transferred to the intensive care unit. I'm seeing this patient in the ICU post intubation. Currently is on propofol running at 40 Augustus respiratory kilogram per minute. His calm and comfortable. Is on assist-control mode of mechanical ventilation at the rate of 18, tidal volume of 450, FiO2 of 70% with a PEEP of 5. Blood gas showed a pH of 7.3 with a pCO2 of 54 and pO2 of 394 post intubation. The chest x-ray from this morning shows adequate positioning of the orotracheal tube. No evidence of any airspace disease. There may be a small left-sided pleural effusion. There is no evidence of pneumothorax or pneumonia. This can of the head and the spine was also done in the emergency department that showed no acute abnormalities. The patient had severe foraminal narrowing at the level of C3-C4 and also mild to moderate foraminal narrowing at the level of C4-C5 and mild to moderate bilateral foraminal narrowing at the level of C5- C6 and bilateral narrowing at the level of C6-C7. The patient was also given a x-ray of the pelvis that showed no evidence of fracture. Initial sodium level was at 127 and after fluid resuscitation sodium came back at 144. Blood sugar was 993 and he was started on insulin drip based on the [facility] protocol. Currently insulin drip is off and the most recent blood sugars at 2:15. BUN is a 50 with a creatinine of 0.7. Potassium level is at 2.3 and this is being replaced. The echoes of 5.7 with a hemoglobin of 10.3. Hemodynamically, he is hypotensive. He is not requiring any pressors at this point. He is producing adequate amount of urine output. Most recent blood pressure is 91/62. IV fluids are in the form of D5 half-normal with potassium at the rate of 150 mL an hour. Note that the patient is not known to be diabetic. He has history of hypertension and alcoholism. On 12/08/2023, the patient remains intubated on a mechanical ventilator. He is on sedation with propofol running at 50 mcg/kg/m and the dose has been reduced down to 25 mcg/kg/m. Resting comfortably in bed. No significant issues o vernight. He is on assist control mode with a rate of 18, tidal volume of 450, FiO2 of 40% and a PEEP of 5. Chest x-ray findings are stable. No interval changes and chest x-ray findings and there is no evidence of pneumonia. Some atelectatic changes bilaterally. Gait is at 7.46 with a pCO2 of 40 and a pO2 of 118. This was on FiO2 of 50%. No significant respiratory secretions. The patient is also on enteral feeding and the patient was started on Nepro at the rate of 31 mL an hour. IV fluids are normal saline at the rate of 100 mL an hour. He was given Levemir insulin 12 units for blood sugar control. echoes at 10.7, he was not 0.7 and a platelet count of 121. Sodium is at 146, BUN is at 40 with a creatinine of 0.3. LFTs are normal. Serum iron level is 12. Potassium levels at 3.3. Afebrile. No pressors at this point in time. , patient remains in the ICU, intubated and mechanically ventilated. Patient is on assist control rate of 18 tidal volume 400 FiO2 40% and PEEP of 5 ABG showed a pO2 of 97 pCO2 39 pH of 7.47 hence no ventilator settings changes were made. Patient initially presented with a blood sugar control 993, and acute alcohol condition. Required intubation initially in the ER. Remains on propofol at 50 mg/kg/m 0.9 normal saline at 40 mL per hour is also receiving Nepro for nutritional support, is also on Lovenox, and I plan to change his propofol to Precedex today, and at least give the patient a trial of weaning with a pressure support of 10 and CPAP. Patient seems to be quite sedated, difficult to assess whether he would be ready for weaning, but nonetheless we will definitely try to transition to Precedex and hopefully give the patient a weaning trial today. WBC count is 8.9 hemoglobin is 8.8. Basic metabolic profile is normal and renal profile is normal, chest x-ray showed minimal basilar atelectasis, no clear-cut evidence of pneumonia. Patient was reevaluated today on 12/10/2023, remains in the ICU, intubated and m echanically ventilated. Patient was placed overnight on IMV of 8, pressure support of 10, tidal volume of 400 FiO2 40% and PEEP of 5. Patient did well on that kind of mode of mechanical ventilation, did not require much sedation except he was on Precedex, minimal dose, today I recommended holding the Precedex, switch the patient from IMV to pressure support and CPAP, and I felt if the patient tolerates this we will proceed with extubating the patient. Patient remains on enteral feedings/Nepro remains on Precedex, chest x-ray is showing bibasilar infiltrates, hence Zosyn was added. Patient seems to be more awake today and more appropriate, and he will be given another trial of pressure support and CPAP, and if tolerated will likely extubate ABG this a.m. on 40% showed a pO2 of 136 pCO2 39 pH of 7.47 CBC is relatively normal hemoglobin is 8.9, basic metabolic profile is normal, renal profile is normal Patient was reevaluated today on 12/11/2023, remains in the ICU, patient tolerated extubation well yesterday, he was extubated to nasal cannula and remains on nasal cannula at 3 L/min. Patient is on 0.9 normal saline at 40 cc/h, remains on Zosyn empirically for possible aspiration pneumonia. Patient is intermittently confused, but overall he is doing well, seems to be quite appr opriate this morning. The plan is to transfer the patient out of the ICU today to a regular medical floor, continue antibiotics, continue bronchodilators, and continue alcohol withdrawal protocol. Patient is not requiring any Precedex this morning.WBC count is 12.7 hemoglobin 11.6 sodium remains low at 126, WBC count is 8.1 hemoglobin 8.9 basic metabolic profile is normal potassium is 3.2. Renal profile is normal. Chest x-ray continues to show basilar airspace opacities. Patient was evaluated today on 12/12/2023, remains in the ICU, sitting at the bedside chair, is not in any form of distress. Patient tolerated extubation well over the last few days, he is now on room air, for some reason his admitting physician ordered a CT of the chest, and the findings are basically unremarkable, and no more seen than what was already seen on a chest x-ray I am recommending transferring the patient out of the ICU to a regular medical floor, and possibly discharge planning in the next 24 to 48 hours. BBC is relatively normal basic metabolic profile is relatively normal renal profile is normal, CT of the chest showed minimal left pleural effusion with minimal atelectasis. The patient is seen today December 13, 2023 in follow-up on the regular medical floor. He was transferred out of the intensive care unit yesterday. He is currently resting in bed. Maintaining good O2 saturations in the 90s on room air. Has been afebrile. Hemodynamically stable awake and alert in no acute distress. Sputum culture revealed no growth. Glucose 231. He is continued on DuoNeb inhalations, antibiotics in the form of Zosyn. Remains on the [facility]WA protocol. Lovenox for DVT prophylaxis. The patient is seen today December 14, 2023 in follow-up on the regular medical floor. He is currently resting in bed. Awake and alert in no acute distress. Maintaining O2 saturations in the mid 90s on room air. He is afebrile. Hemodynamically stable. Sputum culture revealed no growth. White count 6.6. H emoglobin 7.4. Platelets 148. Sodium 137. Potassium 4.1. Bicarb 22. BUN 8. Creatinine 0.5. Glucose 226. He is continued on DuoNeb inhalations, antibiotics in the form of Zosyn. Remains on the CIWA protocol. Lovenox for DVT prophylaxis. The patient is seen today December 15, 2023 in follow-up on the regular medical floor. He has been up ambulating in the hallway. Denies any worsening krystyna rtness of breath, cough or congestion. Maintaining good O2 saturations in the 90s on room air. He is afebrile. Hemodynamically stable. Sputum cultures revealed no growth. Blood sugar 116. He is continued on bronchodilators. Lovenox for DVT prophylaxis. Levemir being adjusted. The patient is seen today December 16, 2023 and follow-up on the regular medical floor. Sitting up in bed. He is maintaining good O2 saturations in the 90s on room air. He has normal saline at 40 MLS per hour. Still having issues with blood sugar control. Blood sugar 146. Remains on Levemir, NovoLog, Farxiga. Remains on bronchodilators. Lovenox for DVT prophylaxis. Progress note dated December 17, 2023. This is a 63-year-old male who is seen today in room 455. He is on room air. He is getting saline at 40 cc an hour. He appears in no acute distress. Currently, his glucose is 211. TSH is 1.210. Free T4 is 1.05, and free T3 is 3.2. No additional labs today. The patient's not having any acute issues or problems. He denies any shortness of breath, cough, wheezing, chest tightness, or phlegm production. He denies any chest pain or pressure. The patient is seen today December 18, 2023 in follow-up on the regular medical floor. He is currently resting comfortably in bed. Awake and alert in no acute distress. Continue good O2 saturations in the mid to upper 90s on room air. Has been afebrile. Hemodynamically stable. Sputum culture revealed no growth. White count 9.7. Hemoglobin 8.4. Platelets 224. Sodium 148. Potassium 4.6. Bicarb 22. BUN 8. Creatinine 0.5. Glucose 69. He is on normal saline at 40 MLS per hour. Lovenox for DVT prophylaxis. Receiving iron supplements. Progress note dated December 19, 2023. This is a patient who is again seen today in room 455. He is currently on room air. He is getting D5W, at 50 cc an hour. The patient is clinically stable, and stable for discharge from the pulmonary standpoint. He has been on room air, for a number of days. His only lab test today is a glucose of 151. Progress note dated December 20, 2023. 63-year-old male seen in room 455. Currently, he is on room air. The patient is having ongoing urinary issues, and is being followed by urology. The patient is getting dextrose, and 50 cc an hour. From the pulmonary standpoint, the patient is stable. He has not required oxygen for a number of days. The glucose today is 156. No additional labs are noted. No recent x-rays to report. Progress note dated December 21, 2023. 63-year-old male seen in room 455. The patient is resting comfortably, lying flat in bed. The patient is not requiring any supplemental oxygen. He does continue on D5W at 50 cc an hour. No new labs today other than a glucose of 109. What is keeping the patient in the hospital if some issues related to his urinary bladder, and his inability to urinate completely. He is being seen by urology. He has no respiratory issues at this time. He has not required supplemental oxygen, for a number of days. Objective - Vital Signs Vital signs: Vital Signs Temp 97.6 F 12/21/23 06:56 Pulse 95 12/21/23 06:56 Resp 18 12/21/23 06:56 BP 123/83 12/21/23 06:56 Pulse Ox 98 12/21/23 06:56 FiO2 40 12/10/23 09:20 Intake & Output 12/20/23 12/21/23 12/21/23 18:59 06:59 18:59 Intake Total 1350 Output Total 1999 3150 Balance -2000 -1800 Weight 52 kg Intake: Oral 1350 Output: Urine 1000 3150 Straight 1000 Post Void Residual 1000 Other: Voiding Method Urinal Urinal Indwelling Catheter # Voids 5 ABP, PAP, CO, CI - Last Documented Arterial Blood Pressure 164/80 - Exam No acute distress, oriented 3. Currently on room air. HEENT examination is grossly unremarkable. Mucous membranes are moist. No oral lesions. Neck supple. Full range of motion. No adenopathy thyromegaly or neck vein distention. Cardiovascular examination reveals regular rhythm rate. S1-S2 normal. No S3 or S4. No discernible murmur noted. Heart rate 95 bpm. Lungs reveal clear breath sounds. Breath sounds are equal bilaterally. No adventitious lung sounds including wheezes rhonchi or crackles. Room air saturation is 98 %. Abdomen soft bowel sounds are heard. No masses or tenderness. Extremities are intact. No cyanosis clubbing or edema. Skin is without rash or lesion. Neurologic examination is brief but nonfocal. - Labs CBC & Chem 7: 12/18/23 05:44 12/18/23 05:44 Labs: Abnormal Lab Results - Last 24 Hours (Table) 12/20/23 12/20/23 12/20/23 Range/Units 11:18 16:46 20:17 POC Glucose (mg/dL) 156 H 326 H 239 H (70-110) mg/dL Assessment and Plan Assessment: Acute hyperglycemia with hyperosmolar state with continued hyperglycemia. Acute metabolic encephalopathy, improved. Acute delirium tremens, recovered. Acute hypoxic respiratory failure secondary to acute delirium tremens requiring intubation and mechanical ventilation, extubated on 12/10/2023. History of alcoholism. Acute urinary retention, currently being evaluated by urology. History of coronary artery disease and mild disease in the proximal mid RCA. Generalized anxiety disorder and depression. Cervical spine degenerative disc disease and foraminal narrowing. Benign essential hypertension. Tobacco dependence syndrome. Plan: Plan dated December 17, 2023. The patient is doing very well. The patient is currently on room air. Labs are reviewed. The patient has no complaints today. The patient not requiring any supplemental oxygen. He is receiving saline at 40 cc an hour. We will continue to follow, make recommendations along the way. The patient is stable for discharge from the pulmonary standpoint, and from the critical care standpoint. Prognosis is guarded. He is counseled about the importance of abstaining from alcohol. Plan dated December 19, 2023. The patient is seen today in room 455. He is on room air. He is getting dextrose at 50 cc an hour. Labs, x-rays, and medications are reviewed. The patient is stable from the pulmonary standpoint. The patient has been on room air for a number of days now. From the pulmonary standpoint, the patient could be considered for discharge. Additional recommendations and suggestions are forthcoming. Plan dated December 20, 2023. The patient is very stable from the pulmonary standpoint. Patient has not required oxygen for a number days. He does continue on D5W at 50 cc an hour. Labs, x-rays, and medications are reviewed. The patient is not quite ready for discharge according to the nurse. We will continue to follow make recommendations along the way. The patient is counseled about the importance of never drinking again. Plan dated December 21, 2023. The patient appears to be very stable from the pulmonary standpoint, as he has been for the last number of days. The patient is not requiring any supplemental oxygen. We will continue to follow the patient, make recommendations along the way. No new laboratory data today. The patient continues on dextrose at 50 cc an hour. Prognosis is guarded. Time with Patient: Less than 30
[2023-12-21 12:05] LABS: Glucose,Whole Blood 211 mg/dL (70-110)
[2023-12-21 16:41] LABS: Glucose,Whole Blood 297 mg/dL (70-110)
[2023-12-21 20:15] LABS: Glucose,Whole Blood 257 mg/dL (70-110)
[2023-12-21] MEDS: MELATONIN 5 MG TABLET PO PRN (21:54)
[2023-12-21] MEDS: INSULIN DETEMIR (LEVEMIR) 100 UNIT/ML SYR SQ SCH (21:55)
--- NOTE | 2023-12-22 01:54 | PN ---
PROGRESS NOTE SUBJECTIVE: 63-year-old white male. He is on breathing treatments, COPD, diabetes mellitus saw the patient today who wants him to either do self-catheterization or go home on a Blanchard catheter. Patient does feel like he is ready to go home cut down his insulin. OBJECTIVE: VITAL SIGNS: Blood pressure 120s/80s, pulse is 90s, respiratory rate 16-18, temperature 97.6, FiO2 of 40. HEENT: Normocephalic, atraumatic. Pupils equal, round, reactive. CARDIAC: Regular rate and rhythm. LUNGS: Decreased breath sounds x4. ABDOMEN: Soft. EXTREMITIES: No cyanosis, clubbing, edema. NEUROLOGIC: Nonfocal. LABORATORY DATA: Hemoglobin is 8.4. Sodium 148. ASSESSMENT: 1. Acute hyperglycemia with hyperosmolar state with continued hyperglycemia. 2. Acute metabolic encephalopathy. 3. Acute delirium tremens. 4. Acute hypoxic respiratory failure secondary to acute tremens, requiring intubation. 5. History of alcoholism. 6. Urinary retention. 7. Chronic obstructive pulmonary disease. 8. Coronary artery disease. 9. Degenerative disk disease. 10.Hypertension. PLAN: Continue on current treatments. Possible discharge home tomorrow with a Blanchard catheter in place because he is unable to void without the Blanchard. Discussed the case with Dr. Blanchard. Mild tachycardia, we will keep an eye on that. His blood pressure is decent. Saturation good on room air. MMODL / IJN: [id number] /
[2023-12-22 05:27] LABS: Glucose,Whole Blood 143 mg/dL (70-110)
[2023-12-22] MEDS: metFORMIN 500 MG TAB PO SCH ×2 (06:48→17:29)
[2023-12-22] MEDS: HYDROcodone/APAP 5-325MG 1 EACH TAB PO PRN (06:49)
[2023-12-22] MEDS: DEXTROSE 5% IN WATER 1,000 ML IV SCH (06:51)
[2023-12-22] MEDS: INSULIN ASPART (NovoLOG) 100 UNIT/ML VIAL SQ SCH ×4 (07:41→21:34)
[2023-12-22] MEDS: TAMSULOSIN 0.4 MG CAP.ER.24H PO SCH (07:59)
[2023-12-22] MEDS: PANTOPRAZOLE 40 MG TABLET PO SCH (07:59)
[2023-12-22] MEDS: MULTIVITAMINS, THERA 1 EACH TAB PO SCH (07:59)
[2023-12-22] MEDS: ENOXAPARIN 40 MG/0.4 ML SYRINGE SQ SCH (07:59)
[2023-12-22] MEDS: DAPAGLIFLOZIN PROPANEDIOL 10 MG TABLET PO SCH (07:59)
[2023-12-22] MEDS: FOLIC ACID 1 MG TAB PO SCH (07:59)
--- NOTE | 2023-12-22 09:10 | PN ---
PROGRESS NOTE We are waiting for him to be cleared by Urology. They are going to keep a Blanchard in for couple weeks as he is unable to urinate. He has large post void residuals without this catheter, and he chooses to keep the catheter in versus self catheter . His breathing has improved. OBJECTIVE: VITAL SIGNS: Temperature is 98.5, blood pressure is 126/81, O2 98, pulse 86, respiratory rate 18. CARDIOVASCULAR: S1, S2. LUNGS: Transmitted upper sounds. GI: Soft. He is cachectic, appears to be in no acute distress. LABS: Reviewed. Sugars are in the mid 100s to 200s. ASSESSMENT: DuoNeb for COPD, pain medications, etc. Potassium, magnesium per protocol, Flomax for BPH. Continue current treatment. Possible discharge home today with family. HERMINIO / LILIANAN: [id number] /
[2023-12-22] MEDS: THIAMINE 100 MG in SODIUM CHLORIDE 0.9% 50 ML IVPB SCH ×2 (09:27→21:35)
[2023-12-22] MEDS: SODIUM FERRIC GLUCONAT-SUCROSE 125 MG in SODIUM CHLORIDE 0.9% 100 ML IVPB SCH (09:57)
[2023-12-22 11:04] LABS: ALT 18 U/L (10-49); AST 30 U/L (14-35); Albumin 3.9 g/dL (3.8-4.9); Albumin/Globulin Ratio 1.18 Ratio (1.60-3.17); Alkaline Phosphatase 115 U/L (41-126); Blood Urea Nitrogen 12.9 mg/dL (9.0-27.0); Calcium 9.6 mg/dL (8.7-10.3); Carbon Dioxide 22.9 mmol/L (21.6-31.8); Chloride 101 mmol/L (96-109); Globulin 3.3 g/dL (1.6-3.3); Glucose 128 mg/dL (70-110); Potassium 4.7 mmol/L (3.5-5.5); Sodium 136 mmol/L (135-145); Total Bilirubin 0.2 mg/dL (0.3-1.2); Total Protein 7.2 g/dL (6.2-8.2)
[2023-12-22 11:37] LABS: Glucose,Whole Blood 183 mg/dL (70-110)
[2023-12-22 11:50] LABS: Basophils # (A) 0.08 X 10*3/uL (0.00-0.10); Basophils % (A) 1.2 %; Eosinophils # (A) 0.16 X 10*3/uL (0.04-0.35); Eosinophils % (A) 2.5 %; HCT 30.8 % (39.6-50.0); HGB 9.6 g/dL (13.0-17.0); Lymphocytes # (A) 2.29 X 10*3/uL (0.90-5.00); Lymphocytes % (A) 35.1 %; MCH 31.7 pg (27.0-32.0); MCHC 31.2 g/dL (32.0-37.0); MCV 101.7 FL (80.0-97.0); Mean Platelet Volume 9.5 FL (9.5-12.2); Monocytes # (A) 0.85 X 10*3/uL (0.20-1.00); NRBC Per 100 WBC 0 X 10*3/uL (0.00-0.01); Neutrophils % (A) 47.6 %; Platelet Count 308 X 10*3/uL (140-440); RBC 3.03 X 10*6/uL (4.40-5.60); RDW 19.5 % (11.5-14.5); WBC 6.52 X 10*3/uL (4.50-10.00)
--- NOTE | 2023-12-22 12:32 | P.PN ---
Subjective Progress Note Date: 12/22/23 63-year-old male patient, alcohol and he drinks alcohol excessively along with his at home. He stopped drinking approximately 3 days ago and he presented to the emergency department after a fall. Apparently, the patient has been very unstable and he has been falling. He does not follow-up with her primary care physician. Following his hospital admission, the patient started having involuntary movements of his body, increased shakes, restlessness, thrashing and in the ED, the patient had diminished level of consciousness. He was given a total of 6 mg of IV Ativan. Seizure was suspected although there was no clear indication of the patient was seizing. There was no jerky body movements. He was given Keppra. Otherwise, no additional history is available. Ultimately, the patient was intubated and placed on a mechanical ventilator and he was transferred to the intensive care unit. I'm seeing this patient in the ICU post intubation. Currently is on propofol running at 40 Augustus respiratory kilogram per minute. His calm and comfortable. Is on assist-control mode of mechanical ventilation at the rate of 18, tidal volume of 450, FiO2 of 70% with a PEEP of 5. Blood gas showed a pH of 7.3 with a pCO2 of 54 and pO2 of 394 post intubation. The chest x-ray from this morning shows adequate positioning of the orotracheal tube. No evidence of any airspace disease. There may be a small left-sided pleural effusion. There is no evidence of pneumothorax or pneumonia. This can of the head and the spine was also done in the emergency department that showed no acute abnormalities. The patient had severe foraminal narrowing at the level of C3-C4 and also mild to moderate foraminal narrowing at the level of C4-C5 and mild to moderate bilateral foraminal narrowing at the level of C5- C6 and bilateral narrowing at the level of C6-C7. The patient was also given a x-ray of the pelvis that showed no evidence of fracture. Initial sodium level was at 127 and after fluid resuscitation sodium came back at 144. Blood sugar was 993 and he was started on insulin drip based on the [facility] protocol. Currently insulin drip is off and the most recent blood sugars at 2:15. BUN is a 50 with a creatinine of 0.7. Potassium level is at 2.3 and this is being replaced. The echoes of 5.7 with a hemoglobin of 10.3. Hemodynamically, he is hypotensive. He is not requiring any pressors at this point. He is producing adequate amount of urine output. Most recent blood pressure is 91/62. IV fluids are in the form of D5 half-normal with potassium at the rate of 150 mL an hour. Note that the patient is not known to be diabetic. He has history of hypertension and alcoholism. On 12/08/2023, the patient remains intubated on a mechanical ventilator. He is on sedation with propofol running at 50 mcg/kg/m and the dose has been reduced down to 25 mcg/kg/m. Resting comfortably in bed. No significant issues overnight. He is on assist control mode with a rate of 18, tidal volume of 450, FiO2 of 40% and a PEEP of 5. Chest x-ray findings are stable. No interval changes and chest x-ray findings and there is no evidence of pneumonia. Some atelectatic changes bilaterally. Gait is at 7.46 with a pCO2 of 40 and a pO2 of 118. This was on FiO2 of 50%. No significant respiratory secretions. The patient is also on enteral feeding and the patient was started on Nepro at the rate of 31 mL an hour. IV fluids are normal saline at the rate of 100 mL an hour. He was given Levemir insulin 12 units for blood sugar control. echoes at 10.7, he was not 0.7 and a platelet count of 121. Sodium is at 146, BUN is at 40 with a creatinine of 0.3. LFTs are normal. Serum iron level is 12. Potassium levels at 3.3. Afebrile. No pressors at this point in time. , patient remains in the ICU, intubated and mechanically ventilated. Patient is on assist control rate of 18 tidal volume 400 FiO2 40% and PEEP of 5 ABG showed a pO2 of 97 pCO2 39 pH of 7.47 hence no ventilator settings changes were made. Patient initially presented with a blood sugar control 993, and acute alcohol condition. Required intubation initially in the ER. Remains on propofol at 50 mg/kg/m 0.9 normal saline at 40 mL per hour is also receiving Nepro for nutritional support, is also on Lovenox, and I plan to change his propofol to Precedex today, and at least give the patient a trial of weaning with a pressure support of 10 and CPAP. Patient seems to be quite sedated, difficult to assess whether he would be ready for weaning, but nonetheless we will definitely try to transition to Precedex and hopefully give the patient a weaning trial today. WBC count is 8.9 hemoglobin is 8.8. Basic metabolic profile is normal and renal profile is normal, chest x-ray showed minimal basi lar atelectasis, no clear-cut evidence of pneumonia. Patient was reevaluated today on 12/10/2023, remains in the ICU, intubated and mechanically ventilated. Patient was placed overnight on IMV of 8, pressure support of 10, tidal volume of 400 FiO2 40% and PEEP of 5. Patient did well on that kind of mode of mechanical ventilation, did not require much sedation except he was on Precedex, minimal dose, today I recommended holding the Precedex, switch the patient from IMV to pressure support and CPAP, and I felt if the patient tolerates this we will proceed with extubating the patient. Patient remains on enteral feedings/Nepro remains on Precedex, chest x-ray is showing bibasilar infiltrates, hence Zosyn was added. Patient seems to be more awake today and more appropriate, and he will be given another trial of pressure support and CPAP, and if tolerated will likely extubate ABG this a.m. on 40% showed a pO2 of 136 pCO2 39 pH of 7.47 CBC is relatively normal hemoglobin is 8.9, basic metabolic profile is normal, renal profile is normal Patient was reevaluated today on 12/11/2023, remains in the ICU, patient tolerated extubation well yesterday, he was extubated to nasal cannula and re eusebia on nasal cannula at 3 L/min. Patient is on 0.9 normal saline at 40 cc/h, remains on Zosyn empirically for possible aspiration pneumonia. Patient is intermittently confused, but overall he is doing well, seems to be quite appropriate this morning. The plan is to transfer the patient out of the ICU today to a regular medical floor, continue antibiotics, continue bronchodilators, and continue alcohol withdrawal protocol. Patient is not requiring any Precedex this morning.WBC count is 12.7 hemoglobin 11.6 sodium remains low at 126, WBC count is 8.1 hemoglobin 8.9 basic metabolic profile is normal potassium is 3.2. Renal profile is normal. Chest x-ray continues to show basilar airspace opacities. Patient was evaluated today on 12/12/2023, remains in the ICU, sitting at the bedside chair, is not in any form of distress. Patient tolerated extubation well over the last few days, he is now on room air, for some reason his admitting physician ordered a CT of the chest, and the findings are basically unremarkable, and no more seen than what was already seen on a chest x-ray I am recommending transferring the patient out of the ICU to a regular medical floor, and possibly discharge planning in the next 24 to 48 hours. BBC is relatively normal basic metabolic profile is relatively normal renal profile is normal, CT of the chest showed minimal left pleural effusion with minimal atelectasis. The patient is seen today December 13, 2023 in follow-up on the regular medical floor. He was transferred out of the intensive care unit yesterday. He is currently resting in bed. Maintaining good O2 saturations in the 90s on room air. Has been afebrile. Hemodynamically stable awake and alert in no acute distress. Sputum culture revealed no growth. Glucose 231. He is continued on DuoNeb inhalations, antibiotics in the form of Zosyn. Remains on the [facility] protocol. Lovenox for DVT prophylaxis. The patient is seen today December 14, 2023 in follow-up on the regular medical floor. He is currently resting in bed. Awake and alert in no acute distress. Maintaining O2 saturations in the mid 90s on room air. He is afebrile. Hemodynamically stable. Sputum culture revealed no growth. White count 6.6. Hemoglobin 7.4. Platelets 148. Sodium 137. Potassium 4.1. Bicarb 22. BUN 8. Creatinine 0.5. Glucose 226. He is continued on DuoNeb inhalations, antibiotics in the form of Zosyn. Remains on the [facility]WA protocol. Lovenox for DVT prophylaxis. The patient is seen today December 15, 2023 in follow-up on the regular medical floor. He has been up ambulating in the hallway. Denies any worsening shortness of breath, cough or congestion. Maintaining good O2 saturations in the 90s on room air. He is afebrile. Hemodynamically stable. Sputum cultures revealed no growth. Blood sugar 116. He is continued on bronchodilators. Lovenox for DVT prophylaxis. Levemir being adjusted. The patient is seen today December 16, 2023 and follow-up on the regular medical floor. Sitting up in bed. He is maintaining good O2 saturations in the 90s on room air. He has normal saline at 40 MLS per hour. Still having issues with blood sugar control. Blood sugar 146. Remains on Levemir, NovoLog, Farxiga. Remains on bronchodilators. Lovenox for DVT prophylaxis. Progress note dated December 17, 2023. This is a 63-year-old male who is seen today in room 455. He is on room air. He is getting saline at 40 cc an hour. He appears in no acute distress. Currently, his glucose is 211. TSH is 1.210. Free T4 is 1.05, and free T3 is 3.2. No additional labs today. The patient's not having any acute issues or problems. He denies any shortness of breath, cough, wheezing, chest tightness, or phlegm production. He denies any chest pain or pressure. The patient is seen today December 18, 2023 in follow-up on the regular medical floor. He is currently resting comfortably in bed. Awake and alert in no acute distress. Continue good O2 saturations in the mid to upper 90s on room air. Has been afebrile. Hemodynamically stable. Sputum culture revealed no growth. White count 9.7. Hemoglobin 8.4. Platelets 224. Sodium 148. Potassium 4.6. Bicarb 22. BUN 8. Creatinine 0.5. Glucose 69. He is on normal saline at 40 MLS per hour. Lovenox for DVT prophylaxis. Receiving iron supplements. The patient is seen today December 22, 2023 in follow-up on the regular medical floor. He is resting in bed. Awake and alert in no acute distress. He continues to maintain good O2 saturations in the 90s on room air. He has been having issues with urinary retention. He had a Blancahrd catheter reinserted yesterday and the plan is to go home with plan for a week or two until seen by urology. White count 6.5. Hemoglobin 9.6. Platelets 308. Sodium 136. Po tassium 4.7. Bicarb 23. BUN 13. Creatinine 0.6. Glucose 128. He remains on bronchodilators as needed. Lovenox for DVT prophylaxis Objective - Vital Signs Vital signs: Vital Signs Temp 98.5 F 12/22/23 06:49 Pulse 86 12/22/23 06:49 Resp 18 12/22/23 06:49 BP 126/81 12/22/23 06:49 Pulse Ox 98 12/22/23 06:49 FiO2 40 12/10/23 09:20 Intake & Output 12/21/23 12/22/23 12/22/23 18:59 06:59 18:59 Intake Total 480 Output Total 900 Balance -900 480 Weight 55 kg Intake: Oral 480 Output: Urine 900 Other: Voiding Method Indwelling Catheter Indwelling Catheter Indwelling Catheter # Voids 5 ABP, PAP, CO, CI - Last Documented Arterial Blood Pressure 164/80 - Exam GENERAL EXAM: Alert, pleasant 63-year-old male, on room air, resting in bed, in no apparent distress. HEAD: Normocephalic. EYES: Normal reaction of pupils, equal size. NOSE: Clear with pink turbinates. THROAT: No erythema or exudates. NECK: No masses, no JVD. CHEST: No chest wall deformity. LUNGS: Equal air entry with no crackles, wheeze, rhonchi or dullness. CVS: S1 and S2 normal with no audible murmur, regular rhythm. ABDOMEN: No hepatosplenomegaly, normal bowel sounds, no guarding or rigidity. SPINE: No scoliosis or deformity SKIN: No rashes CENTRAL NERVOUS SYSTEM: No focal deficits, tone is normal in all 4 extremities. EXTREMITIES: There is no peripheral edema. No clubbing, no cyanosis. Peripheral pulses are intact. - Labs CBC & Chem 7: 12/22/23 05:48 12/22/23 05:48 Labs: Abnormal Lab Results - Last 24 Hours (Table) 12/21/23 12/21/23 12/22/23 Range/Units 16:40 19:15 05:26 RBC (4.40-5.60) X 10*6/uL Hgb (13.0-17.0) g/dL Hct (39.6-50.0) % MCV (80.0-97.0) FL MCHC (32.0-37.0) g/dL RDW (11.5-14.5) % Anion Gap (4.00-12.00) mmol/L BUN/Creatinine Ratio (12.00-20.00) Ratio Glucose (70-110) mg/dL POC Glucose (mg/dL) 297 H 257 H 143 H (70-110) mg/dL Total Bilirubin (0.3-1.2) mg/dL Albumin/Globulin Ratio (1.60-3.17) Ratio 12/22/23 12/22/23 12/22/23 Range/Units 05:48 05:48 11:36 RBC 3.03 L (4.40-5.60) X 10*6/uL Hgb 9.6 L (13.0-17.0) g/dL Hct 30.8 L (39.6-50.0) % MCV 101.7 H (80.0-97.0) FL MCHC 31.2 L (32.0-37.0) g/dL RDW 19.5 H (11.5-14.5) % Anion Gap 12.10 H (4.00-12.00) mmol/L BUN/Creatinine Ratio 21.50 H (12.00-20.00) Ratio Glucose 128 H (70-110) mg/dL POC Glucose (mg/dL) 183 H (70-110) mg/dL Total Bilirubin 0.2 L (0.3-1.2) mg/dL Albumin/Globulin Ratio 1.18 L (1.60-3.17) Ratio Assessment and Plan Assessment: Acute hyperglycemia with hyperosmolar state with continued hyperglycemia. Levemir being adjusted, on NovoLog, on Acute metabolic encephalopathy improved Acute delirium tremens recovered Acute hypoxic respiratory failure secondary to acute delirium tremens requiring intubation and mechanical ventilation, extubated on 12/10/2023, recovered and on room air Hypernatremia recovered Urinary retention requiring reinsertion of a Blanchard catheter to continue in the outpatient setting History of alcoholism History of coronary artery disease and mild disease in the proximal mid RCA Generalized anxiety disorder and depression Cervical spine degenerative disc disease and foraminal narrowing Benign essential hypertension Tobacco dependence syndrome Plan: The patient was seen and evaluated Medications and labs reviewed Stable and on room air Plan is for home with home care at discharge I have personally seen and examined the patient, performed the documentation and the assessment and plan as written. Number of minutes spent on the visit: 10.
[2023-12-22 13:06] LABS: African American GFR (CKD) >90 (>60 ml/min/1.73 sqM); Anion Gap 11 mmol/L; Blood Urea Nitrogen 15 mg/dL (9-20); Calcium 9.2 mg/dL (8.4-10.2); Carbon Dioxide 22 mmol/L (22-30); Chloride 103 mmol/L (98-107); Glucose 156 mg/dL (74-99); Non-African American GFR(CKD) >90 (>60 ml/min/1.73 sqM); Potassium 4.2 mmol/L (3.5-5.1); Sodium 136 mmol/L (137-145)
[2023-12-22 16:26] LABS: Glucose,Whole Blood 273 mg/dL (70-110)
[2023-12-22 19:16] LABS: Glucose,Whole Blood 220 mg/dL (70-110)
[2023-12-22] MEDS: INSULIN DETEMIR (LEVEMIR) 100 UNIT/ML SYR SQ SCH (21:35)
[2023-12-23 06:01] LABS: Glucose,Whole Blood 194 mg/dL (70-110)
[2023-12-23] MEDS: HYDROcodone/APAP 5-325MG 1 EACH TAB PO PRN (06:20)
[2023-12-23] MEDS: INSULIN ASPART (NovoLOG) 100 UNIT/ML VIAL SQ SCH ×2 (06:20→11:36)
[2023-12-23] MEDS: metFORMIN 500 MG TAB PO SCH (06:21)
[2023-12-23 11:27] LABS: Glucose,Whole Blood 150 mg/dL (70-110)
[2023-12-23] MEDS: THIAMINE 100 MG in SODIUM CHLORIDE 0.9% 50 ML IVPB SCH (11:29)
[2023-12-23] MEDS: TAMSULOSIN 0.4 MG CAP.ER.24H PO SCH (11:29)
[2023-12-23] MEDS: SODIUM FERRIC GLUCONAT-SUCROSE 125 MG in SODIUM CHLORIDE 0.9% 100 ML IVPB SCH (11:29)
[2023-12-23] MEDS: DAPAGLIFLOZIN PROPANEDIOL 10 MG TABLET PO SCH (11:30)
[2023-12-23] MEDS: ENOXAPARIN 40 MG/0.4 ML SYRINGE SQ SCH (11:30)
[2023-12-23] MEDS: FOLIC ACID 1 MG TAB PO SCH (11:30)
[2023-12-23] MEDS: PANTOPRAZOLE 40 MG TABLET PO SCH (11:30)
[2023-12-23] MEDS: MULTIVITAMINS, THERA 1 EACH TAB PO SCH (11:30)
[2023-12-23 14:10] VITALS: BP 118/64; PULSE 78; RESP 18; TEMP 97.6
--- NOTE | 2023-12-23 15:09 | P.PN ---
Subjective Progress Note Date: 12/23/23 On today's evaluation of 12/23/2023, I am seeing the patient for a follow-up. The patient seems to be quite comfortable and his able to sit up on a chair. He is currently on room air oxygen and is able to maintain a pulse ox above 90%. No altered mentation. No headaches. No focal neurological deficits. No agitation. No restlessness. No signs of any delirium tremens. He denies having any significant respiratory distress. The patient is status post acute hypoxic respiratory failure that was initially attributed to alcohol withdrawal/delirium tremens. The patient required intubation mechanical ventilation. He ultimately recovered from his acute hypoxic respiratory failure. He is also known to have coronary artery disease with mild disease involving the proximal RCA and calcification, he has cervical spine degenerative disease with narrowing, hypertension, BPH, along with chronic anxiety and depression.He also presented to us with poorly controlled blood sugar and the patient is currently on Levemir insulin 30 units along with a sliding scale coverage. Diabetic education is also being provided to this patient. He is on Lovenox 40 mg subcu for DVT prophylaxis. Also on metformin 1 g p.o. twice a day and Flomax for symptoms of BPH. Objective - Vital Signs Vital signs: Vital Signs Temp 97.9 F 12/23/23 07:45 Pulse 99 12/23/23 07:45 Resp 19 12/23/23 07:45 BP 120/78 12/23/23 07:45 Pulse Ox 97 12/23/23 07:45 FiO2 40 12/10/23 09:20 Intake & Output 12/22/23 12/23/23 12/23/23 18:59 06:59 18:59 Intake Total 2240 Output Total 1999 2850 Balance -1999 - Weight 56 kg Intake: Oral 0 Output: Urine 1999 2850 Other: Voiding Method Indwelling Catheter Indwelling Catheter Indwelling Catheter ABP, PAP, CO, CI - Last Documented Arterial Blood Pressure 164/80 - Exam Gen. appearance the patient, comfortably patient is currently on room air oxygen. Head exam was generally normal. There was no scleral icterus or corneal arcus. Mucous membranes were moist. Neck was supple and without jugular venous distension, thyromegaly, or carotid bruits. Carotids were easily palpable bilaterally. There was no adenopathy. Lungs were clear to auscultation and percussion, and with normal diaphragmatic excursion. No wheezes or rales were noted. Cardiac exam revealed the PMI to be normally situated and sized. The rhythm was regular and no extrasystoles were noted during several minutes of auscultation. The first and second heart sounds were normal and physiologic splitting of the second heart sound was noted. There were no murmurs, rubs, clicks, or gallops. Abdominal exam revealed normal bowel sounds. The abdomen was soft, non-tender, and without masses, organomegaly, or appreciable enlargement of the abdominal aorta. Examination of the skin revealed no evidence of significant rashes, suspicious a ppearing nevi or other concerning lesions. Neurologically, the patient has generalized motor weakness yet he is awake and alert and moving all 4 extremities without any limitation. - Labs CBC & Chem 7: 12/22/23 05:48 12/22/23 12:31 Labs: Abnormal Lab Results - Last 24 Hours (Table) 12/22/23 12/22/23 12/22/23 Range/Units 05:48 11:36 12:31 RBC 3.03 L (4.40-5.60) X 10*6/uL Hgb 9.6 L (13.0-17.0) g/dL Hct 30.8 L (39.6-50.0) % MCV 101.7 H (80.0-97.0) FL MCHC 31.2 L (32.0-37.0) g/dL RDW 19.5 H (11.5-14.5) % Sodium 136 L (137-145) mmol/L Creatinine 0.56 L (0.66-1.25) mg/dL Glucose 156 H (74-99) mg/dL POC Glucose (mg/dL) 183 H (70-110) mg/dL 12/22/23 12/22/23 12/23/23 Range/Units 16:24 19:15 05:57 RBC (4.40-5.60) X 10*6/uL Hgb (13.0-17.0) g/dL Hct (39.6-50.0) % MCV (80.0-97.0) FL MCHC (32.0-37.0) g/dL RDW (11.5-14.5) % Sodium (137-145) mmol/L Creatinine (0.66-1.25) mg/dL Glucose (74-99) mg/dL POC Glucose (mg/dL) 273 H 220 H 194 H (70-110) mg/dL Assessment and Plan Plan: Acute hyperglycemia with hyperosmolar state with continued hyperglycemia. The patient recovered from his acute hypoglycemic event and the patient is currently on Levemir insulin 30 units in addition to Glucophage 1 g every 12 hours and NovoLog sliding scale coverage Acute metabolic encephalopathy improved Acute delirium tremens recovered Acute hypoxic respiratory failure secondary to acute delirium tremens requiring intubation and mechanical ventilation, extubated on 12/10/2023, recovered and on room air Hypernatremia recovered Urinary retention requiring reinsertion of a Blanchard catheter to continue in the outpatient setting, currently on Flomax History of alcoholism History of coronary artery disease and mild disease in the proximal mid RCA Generalized anxiety disorder and depression Cervical spine degenerative disc disease and foraminal narrowing Benign essential hypertension Tobacco dependence syndrome Plan: Pulmonary status is stable Neurologic functions are stable Labs from yesterday were reviewed and essentially electrolytes were normal Patient is being considered for discharge today.
== END 2023-12-23 16:18 | disposition home health service (06) | DRG 775 ==
LOC: EC 00:11 → 2SICU 02:42 → 4SSUR 12-12 13:20
PROVIDERS: ADMIT Family Medicine; ATTEND Family Medicine
PROC: 5A1945Z Respiratory Ventilation, 24-96 Consecutive Hours (ICD-10-PCS; principal; 2023-12-07)
PROC: 0BH17EZ Insertion of Endotracheal Airway into Trachea, Via Natural or Artificial Opening (ICD-10-PCS; principal; 2023-12-07)
PROC: 4A133B1 Monitoring of Arterial Pressure, Peripheral, Percutaneous Approach (ICD-10-PCS; 2023-12-07)
PROC: 4A133J1 Monitoring of Arterial Pulse, Peripheral, Percutaneous Approach (ICD-10-PCS; 2023-12-07)
PROC: 02HV33Z Insertion of Infusion Device into Superior Vena Cava, Percutaneous Approach (ICD-10-PCS; 2023-12-07)
PROC: 03HY32Z Insertion of Monitoring Device into Upper Artery, Percutaneous Approach (ICD-10-PCS; 2023-12-07)
PROC: 0DH67UZ Insertion of Feeding Device into Stomach, Via Natural or Artificial Opening (ICD-10-PCS; 2023-12-07)
PROC: 3E0G76Z Introduction of Nutritional Substance into Upper GI, Via Natural or Artificial Opening (ICD-10-PCS; 2023-12-07)
DX: F10.231 Alcohol dependence with withdrawal delirium (principal); D63.8 Anemia in other chronic diseases classified elsewhere; D69.6 Thrombocytopenia, unspecified; Z28.310 Unvaccinated for COVID-19; Z28.21 Immunization not carried out because of patient refusal; G93.41 Metabolic encephalopathy; F32.A Depression, unspecified; F17.210 Nicotine dependence, cigarettes, uncomplicated; Z68.1 Body mass index [BMI] 19.9 or less, adult; R56.9 Unspecified convulsions; E43 Unspecified severe protein-calorie malnutrition; R18.8 Other ascites; J44.9 Chronic obstructive pulmonary disease, unspecified; E87.8 Other disorders of electrolyte and fluid balance, not elsewhere classified; J96.01 Acute respiratory failure with hypoxia; I31.39 Other pericardial effusion (noninflammatory); I27.20 Pulmonary hypertension, unspecified; D53.9 Nutritional anemia, unspecified; I50.9 Heart failure, unspecified; I95.9 Hypotension, unspecified; E11.65 Type 2 diabetes mellitus with hyperglycemia; D50.9 Iron deficiency anemia, unspecified; R63.4 Abnormal weight loss; I11.0 Hypertensive heart disease with heart failure; E11.01 Type 2 diabetes mellitus with hyperosmolarity with coma; E87.1 Hypo-osmolality and hyponatremia; E87.6 Hypokalemia; F41.1 Generalized anxiety disorder; I25.10 Atherosclerotic heart disease of native coronary artery without angina pectoris; J98.11 Atelectasis; M79.671 Pain in right foot; K21.9 Gastro-esophageal reflux disease without esophagitis; N40.1 Benign prostatic hyperplasia with lower urinary tract symptoms; M79.672 Pain in left foot; R33.8 Other retention of urine; R29.6 Repeated falls; M19.90 Unspecified osteoarthritis, unspecified site; M50.321 Other cervical disc degeneration at C4-C5 level; M50.322 Other cervical disc degeneration at C5-C6 level; M50.31 Other cervical disc degeneration, high cervical region; M50.323 Other cervical disc degeneration at C6-C7 level; Z91.81 History of falling; Z63.4 Disappearance and death of family member; Z78.1 Physical restraint status; Z71.3 Dietary counseling and surveillance
CPT/HCPCS: 31500; 36415; 36600; 70450; 71045; 71250; 72125; 72170; 80048; 80051; 80053; 82525; 82565; 82607; 82728; 82746; 82803; 82805; 82947; 83036; 83540; 83550; 83605; 83735; 84100; 84132; 84439; 84443; 84481; 84520; 85025; 85610; 85730; 87070; 87205; 93005; 93306; 94002; 94003; 94640; 94760; 95816; 96361; 96374; 96375; 96376; 99291; 99292

== ENCOUNTER 2024-04-22 18:43 | Inpatient (IN) | payer OTHER ==
[2024-04-22 18:51] LABS: Glucose,Whole Blood 163 mg/dL (70-110)
[2024-04-22] MEDS: SODIUM CHLORIDE 0.9% 1,000 ML IV STA ×2 (19:09→19:10)
--- NOTE | 2024-04-22 19:10 | ED ---
Altered Mental Status HPI - General Chief Complaint: Altered Mental Status Stated Complaint: AMS Time Seen by Provider: 04/22/24 18:47 Source: EMS, RN notes reviewed, old records reviewed Mode of arrival: EMS Limitations: altered mental status, physical limitation - History of Present Illness Initial Comments: This is a 63-year-old male to the ER for evaluation of significantly altered mental status. Patient was having concern for unresponsiveness and intoxication and then became concerned for seizure. Patient presents to the ER after receiving Versed and unable to provide any history MD Complaint: altered mental status, confusion, weakness -: hour(s) Severity: moderate Consistency of Symptoms: waxing and waning, getting worse Associated Symptoms: denies other symptoms Treatments Prior to Arrival: IV fluid - Related Data Home Medications Medication Instructions Recorded Confirmed Gabapentin [Neurontin] 300 mg PO HS 02/03/24 04/22/24 Losartan [Cozaar] 25 mg PO DAILY 02/03/24 04/22/24 traZODone HCL [Desyrel] 75 mg PO HS 02/03/24 04/22/24 Atorvastatin Calcium 10 mg PO DAILY 04/22/24 04/22/24 Metoprolol Succinate (ER) [Toprol 25 mg PO DAILY 04/22/24 04/22/24 XL] Multivitamins, Thera [Multivitamin 1 tab PO DAILY 04/22/24 04/22/24 (formulary)] Omeprazole [PriLOSEC] 20 mg PO DAILY 04/22/24 04/22/24 Previous Rx's Medication Instructions Recorded Dapagliflozin Propanediol [Farxiga] 10 mg PO DAILY 30 Days #30 tab 12/20/23 Folic Acid 1 mg PO DAILY 90 Days #90 tab 12/20/23 Insulin Detemir (Levemir) [Levemir] 30 unit SQ HS 90 Days #90 each 12/20/23 Ipratropium-Albuterol Nebulize 3 ml INHALATION RT-QID PRN 30 Days 12/20/23 [Duoneb 0.5 mg-3 mg/3 ml Soln] #120 each Pantoprazole [Protonix] 40 mg PO DAILY 90 Days #90 tab 12/20/23 Tamsulosin [Flomax] 0.4 mg PO PC-BRKFST 90 Days #90 cap 12/20/23 metFORMIN HCL [Glucophage] 1,000 mg PO BID-W/MEALS 30 Days 12/20/23 #60 tab Acetaminophen Tab [Tylenol] 650 mg PO Q6HR PRN tab 04/27/24 Thiamine [Vitamin B-1] 100 mg PO BID #60 tablet 04/27/24 levETIRAcetam [Keppra] 500 mg PO Q12HR 30 Days #60 tab 04/27/24 Allergies Allergy/AdvReac Type Severity Reaction Status Date / Time No Known Allergies Allergy Verified 04/22/24 20:06 Review of Systems ROS Statement: Those systems with pertinent positive or pertinent negative responses have been documented in the HPI. ROS Other: All systems not noted in ROS Statement are negative. Past Medical History Past Medical History: Hypertension Additional Past Medical History / Comment(s): UNEXPLAINED WT LOSS (12 #), AMY AMAYA DEC 2016. History of Any Multi-Drug Resistant Organisms: None Reported Past Surgical History: Heart Catheterization Additional Past Surgical History / Comment(s): Pt states as an he had a "pinched" abdominal muscle with surgical repair, colonoscopy Past Anesthesia/Blood Transfusion Reactions: No Reported Reaction Past Psychological History: Anxiety, Depression Smoking Status: Current every day smoker - Past Family History Mother Family Medical History: No Reported History Additional Family Medical History / Comment(s): . Father Family Medical History: CVA/TIA Additional Family Medical History / Comment(s): Father of a CVA Daughter(s) Additional Family Medical History / Comment(s): ADRENAL GLAND TUMOR. General Exam Limitations: altered mental status, physical limitation General appearance: alert, anxious, lethargic, obtunded, in distress Head exam: Present: atraumatic, normocephalic, normal inspection Eye exam: Present: normal appearance, PERRL, EOMI. Absent: scleral icterus, conjunctival injection, periorbital swelling ENT exam: Present: normal exam, mucous membranes moist Neck exam: Present: normal inspection. Absent: tenderness, meningismus, lymphadenopathy Respiratory exam: Present: normal lung sounds bilaterally. Absent: respiratory distress, wheezes, rales, rhonchi, stridor Cardiovascular Exam: Present: regular rate, normal rhythm, normal heart sounds. Absent: systolic murmur, diastolic murmur, rubs, gallop, clicks GI/Abdominal exam: Present: soft, normal bowel sounds. Absent: distended, tenderness, guarding, rebound, rigid Extremities exam: Present: normal inspection, full ROM, normal capillary refill. Absent: tenderness, pedal edema, joint swelling, calf tenderness Back exam: Present: normal inspection Neurological exam: Present: alert, oriented X3, CN II-XII intact Psychiatric exam: Present: normal affect, normal mood Skin exam: Present: warm, dry, intact, normal color. Absent: rash Course Vital Signs 04/22/24 04/22/24 04/22/24 18:48 19:11 19:23 Temperature 97.5 F L Pulse Rate 122 H 104 H 97 Respiratory 18 19 18 Rate Blood Pressure 111/80 125/79 132/82 O2 Sat by Pulse 94 L 98 98 Oximetry 04/22/24 04/22/24 04/22/24 21:31 22:30 23:00 Temperature Pulse Rate 98 203 H 210 H Respiratory 14 16 18 Rate Blood Pressure 149/95 154/93 174/107 O2 Sat by Pulse 99 97 97 Oximetry 04/22/24 04/22/24 04/23/24 23:20 23:30 00:00 Temperature Pulse Rate 97 93 95 Respiratory 19 19 17 Rate Blood Pressure 153/106 157/98 150/93 O2 Sat by Pulse 96 95 97 Oximetry 04/23/24 04/23/24 04/23/24 00:30 01:00 01:30 Temperature Pulse Rate 92 90 Respiratory 15 17 14 Rate Blood Pressure 155/100 162/110 158/104 O2 Sat by Pulse 96 98 97 Oximetry 04/23/24 04/23/24 04/23/24 01:33 02:00 02:30 Temperature 99.4 F Pulse Rate 86 82 87 Respiratory 15 15 14 Rate Blood Pressure 158/104 150/101 165/97 O2 Sat by Pulse 97 98 99 Oximetry 04/23/24 04/23/24 04/23/24 04:00 06:00 08:00 Temperature Pulse Rate 90 85 86 Respiratory 14 14 16 Rate Blood Pressure 164/109 164/98 178/99 O2 Sat by Pulse 99 99 98 Oximetry 04/23/24 04/23/24 04/23/24 09:00 10:00 14:00 Temperature 98.2 F Pulse Rate 86 90 89 Respiratory 16 17 13 Rate Blood Pressure 167/107 146/99 141/93 O2 Sat by Pulse 98 95 Oximetry 04/23/24 04/23/24 04/24/24 22:00 22:33 00:49 Temperature Pulse Rate 95 82 Respiratory 16 18 Rate Blood Pressure 142/83 153/101 O2 Sat by Pulse 97 97 97 Oximetry 04/24/24 04/24/24 04/24/24 04:04 05:57 11:00 Temperature 98.4 F Pulse Rate 84 86 82 Respiratory 16 16 17 Rate Blood Pressure 154/89 154/97 139/76 O2 Sat by Pulse 96 95 95 Oximetry 04/24/24 15:00 Temperature Pulse Rate 80 Respiratory 17 Rate Blood Pressure 132/77 O2 Sat by Pulse 97 Oximetry - Reevaluation(s) Reevaluation #1: 04/22/24 20:12 Records reviewed Reevaluation #2: 04/22/24 20:12 Patient symptoms are improved Reevaluation #3: 04/22/24 20:12 Informed of results and questions answered Reevaluation #4: Was pt. sent in by a medical professional or institution (, PA, DIGITAL LEARNING PLATFORMS MANAGER, urgent care, hospital, or fpc...) When possible be specific @ -no Did you speak to anyone other than the patient for history (EMS, parent, family, police, friend...)? What history was obtained from this source @ -no Did you review nursing and triage notes (agree or disagree)? Why? @ -agree Are old charts reviewed (outside hosp., previous admission, EMS record, old EKG, old radiological studies, urgent care reports/EKG's, fpc records)? Report findings @ -yes Differential Diagnosis (chest pain, altered mental status, abdominal pain women, abdominal pain men, vaginal bleeding, weakness, fever, dyspnea, syncope, headache, dizziness, GI bleed, back pain, seizure, CVA, palpatations, mental health, musculoskeletal)? @ -prior EKG interpreted by me (3pts min.). @ -no X-rays interpreted by me (1pt min.). @ -yes negative for acute disease CT interpreted by me (1pt min.). @ -Yes negative for acute disease U/S interpreted by me (1pt. min.). @ -no What testing was considered but not performed or refused? (CT, X-rays, U/S, labs)? Why? @ -none What meds were considered but not given or refused? Why? @ -none Did you discuss the management of the patient with other professionals (professionals i.e. , PA, DIGITAL LEARNING PLATFORMS MANAGER, lab, RT, psych nurse, sexual assault social worker, inventory control clerk, teacher, water resources technical officer, disease case manager)? Give summary @ -no Was smoking cessation discussed for >3mins.? @ -no Were there social determinants of health that impacted care today? How? (Homel essness, low income, unemployed, alcoholism, drug addiction, transportation, low edu. Level, literacy, decrease access to med. care, nursing home, rehab)? @ -none Was there de-escalation of care discussed even if they declined (Discuss DNR or withdrawal of care, Hospice)? DNR status @ -no What co-morbidities impacted this encounter? (DM, HTN, Smoking, COPD, CAD, Cancer, CVA, ARF, Chemo, Hep., AIDS, mental health diagnosis, sleep apnea, morbid obesity)? @ -none Was patient admitted / discharged? Hospital course, mention meds given and route, prescriptions, significant lab abnormalities, going to OR and other pertinent info. @ - 63 male to ER for evaluation of altered mental status concern for int oxication versus seizure with significant lactic acidosis suspect alcoholic ketoacidosis with history of alcohol abuse. Patient will be admitted for altered mental status and severely abnormal labs initially given Versed by EMS which she has now recovered from his beginning seizure be more alert Admitted Was critical care preformed (if so, how long)? @ -yes65 Undiagnosed new problem with uncertain prognosis? @ -no Drug Therapy requiring intensive monitoring for toxicity (Heparin, Nitro, Insul in, Cardizem)? @ -no Were any procedures done? @ -no Diagnosis/symptom? @ -Altered mental status Acute, or Chronic, or Acute on Chronic? @ -Acute Uncomplicated (without systemic symptoms) or Complicated (systemic symptoms)? @ -Complicated Side effects of treatment? @ -no Exacerbation, Progression, or Severe Exacerbation? @ -exacerbation Poses a threat to life or bodily function? How? (Chest pain, [place], [place], pneumonia, PE, COPD, DKA, ARF, appy, cholecystitis, CVA, Diverticulitis, Homicidal, Suicidal, threat to staff... and all critical care pts) @ -With extreme abnormalities of labs Reevaluation #5: Differential Altered Mental Status: Hypoglycemia, DKA, hypercapnia, ETOH, overdose, CO poisoning, trauma, myxedema coma, HTN encephalopathy, infection, encephalitis, psychosis, intercranial hemorrhage, hepatic encephalopathy, meningitis, CVA, this is not meant to be an all-inclusive list Differential Seizure: Recurrent seizure disorder, febrile seizure, alcohol withdrawal, stimulants, meningitis, encephalitis, intercranial hemorrhage, intracranial tumor, stroke, eclampsia, thyrotoxicosis, hypocalcemia, hyponatremia, hypernatremia, hypomagnesemia, psychogenic, this is not meant to be an all-inclusive list. - Consultations Consultation #1: Spoke with faye who agrees to admit this patient Medical Decision Making - Medical Decision Making 63 male to ER for evaluation of altered mental status concern for intoxication versus seizure with significant lactic acidosis suspect alcoholic ketoacidosis with history of alcohol abuse. Patient will be admitted for altered mental status and severely abnormal labs initially given Versed by EMS which she has now recovered from his beginning seizure be more alert - Lab Data Result diagrams: 04/26/24 06:28 04/27/24 14:09 Lab Results 04/22/24 04/22/24 04/22/24 Range/Units 18:50 18:54 18:54 WBC 6.9 (3.8-10.6) k/uL RBC 4.67 (4.30-5.90) m/uL Hgb 14.5 (13.0-17.5) gm/dL Hct 44.5 (39.0-53.0) % MCV 95.3 (80.0-100.0) fL MCH 31.0 (25.0-35.0) pg MCHC 32.5 (31.0-37.0) g/dL RDW 15.9 H (11.5-15.5) % Plt Count 142 L (150-450) k/uL MPV 7.5 Neutrophils % (Manual) 31 % Lymphocytes % (Manual) 54 % Monocytes % (Manual) 15 % Neutrophils # (Manual) 2.14 (1.3-7.7) k/uL Lymphocytes # (Manual) 3.73 (1.0-4.8) k/uL Monocytes # (Manual) 1.04 H (0-1.0) k/uL Nucleated RBCs 0 (0-0) /100 WBC Manual Slide Review Performed Toxic Granulation Present PT 11.0 (10.0-12.5) sec INR 1.0 (<1.2) APTT 22.1 (22.0-30.0) sec VBG pH (7.31-7.41) VBG pCO2 (37-51) mmHg VBG HCO3 (24-28) mmol/L Sodium (137-145) mmol/L Potassium (3.5-5.1) mmol/L Chloride (98-107) mmol/L Carbon Dioxide (22-30) mmol/L Anion Gap mmol/L BUN (9-20) mg/dL Creatinine (0.66-1.25) mg/dL Est GFR (CKD-EPI)AfAm (>60 ml/min/1.73 sqM) Est GFR (CKD-EPI)NonAf (>60 ml/min/1.73 sqM) Glucose (74-99) mg/dL POC Glucose (mg/dL) 163 H (70-110) mg/dL 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 Ovi Parnell Lactic Ac Sepsis Rflx Plasma Lactic Acid Richard (0.7-2.0) mmol/L Calcium (8.4-10.2) mg/dL Phosphorus (2.5-4.5) mg/dL Magnesium (1.6-2.3) mg/dL Total Bilirubin (0.2-1.3) mg/dL AST (17-59) U/L ALT (4-49) U/L Alkaline Phosphatase (38-126) U/L Troponin I (0.000-0.034) ng/mL NT-Pro-B Natriuret Pep pg/mL Total Protein (6.3-8.2) g/dL Albumin (3.5-5.0) g/dL Urine Color Urine Appearance (Clear) Urine pH (5.0-8.0) Ur Specific [place] (1.001-1.035) Urine Protein (Negative) Urine Glucose (UA) (Negative) Urine Ketones (Negative) Urine Blood (Negative) Urine Nitrite (Negative) Urine Bilirubin (Negative) Urine Urobilinogen (<2.0) mg/dL Ur Leukocyte Esterase (Negative) Salicylates mg/dL Acetaminophen ug/mL Serum Alcohol mg/dL 04/22/24 04/22/24 04/22/24 Range/Units 18:54 18:54 18:54 WBC (3.8-10.6) k/uL RBC (4.30-5.90) m/uL Hgb (13.0-17.5) gm/dL Hct (39.0-53.0) % MCV (80.0-100.0) fL MCH (25.0-35.0) pg MCHC (31.0-37.0) g/dL RDW (11.5-15.5) % Plt Count (150-450) k/uL MPV Neutrophils % (Manual) % Lymphocytes % (Manual) % Monocytes % (Manual) % Neutrophils # (Manual) (1.3-7.7) k/uL Lymphocytes # (Manual) (1.0-4.8) k/uL Monocytes # (Manual) (0-1.0) k/uL Nucleated RBCs (0-0) /100 WBC Manual Slide Review Toxic Granulation PT (10.0-12.5) sec INR (<1.2) APTT (22.0-30.0) sec VBG pH (7.31-7.41) VBG pCO2 (37-51) mmHg VBG HCO3 (24-28) mmol/L Sodium 125 L (137-145) mmol/L Potassium 4.3 (3.5-5.1) mmol/L Chloride 94 L (98-107) mmol/L Carbon Dioxide 6 L* (22-30) mmol/L Anion Gap 25 mmol/L BUN 8 L (9-20) mg/dL Creatinine 0.53 L (0.66-1.25) mg/dL Est GFR (CKD-EPI)AfAm >90 (>60 ml/min/1.73 sqM) Est GFR (CKD-EPI)NonAf >90 (>60 ml/min/1.73 sqM) Glucose 150 H (74-99) mg/dL POC Glucose (mg/dL) (70-110) mg/dL POC 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 Lactic Ac Sepsis Rflx Plasma Lactic Acid Richard 17.1 H* (0.7-2.0) mmol/L Calcium 8.8 (8.4-10.2) mg/dL Phosphorus 4.2 (2.5-4.5) mg/dL Magnesium 2.1 (1.6-2.3) mg/dL Total Bilirubin 1.0 (0.2-1.3) mg/dL AST 35 (17-59) U/L ALT 35 (4-49) U/L Alkaline Phosphatase 70 (38-126) U/L Troponin I <0.012 (0.000-0.034) ng/mL NT-Pro-B Natriuret Pep 164 pg/mL Total Protein 7.2 (6.3-8.2) g/dL Albumin 4.8 (3.5-5.0) g/dL Urine Color Urine Appearance (Clear) Urine pH (5.0-8.0) Ur Specific [place] (1.001-1.035) Urine Protein (Negative) Urine Glucose (UA) (Negative) Urine Ketones (Negative) Urine Blood (Negative) Urine Nitrite (Negative) Urine Bilirubin (Negative) Urine Urobilinogen (<2.0) mg/dL Ur Leukocyte Esterase (Negative) Salicylates <1.0 mg/dL Acetaminophen <10.0 ug/mL Serum Alcohol <10 mg/dL 04/22/24 04/22/24 04/22/24 Range/Units 18:54 19:56 20:08 WBC (3.8-10.6) k/uL RBC (4.30-5.90) m/uL Hgb (13.0-17.5) gm/dL Hct (39.0-53.0) % MCV (80.0-100.0) fL MCH (25.0-35.0) pg MCHC (31.0-37.0) g/dL RDW (11.5-15.5) % Plt Count (150-450) k/uL MPV Neutrophils % (Manual) % Lymphocytes % (Manual) % Monocytes % (Manual) % Neutrophils # (Manual) (1.3-7.7) k/uL Lymphocytes # (Manual) (1.0-4.8) k/uL Monocytes # (Manual) (0-1.0) k/uL Nucleated RBCs (0-0) /100 WBC Manual Slide Review Toxic Granulation PT (10.0-12.5) sec INR (<1.2) APTT (22.0-30.0) sec VBG pH 7.25 L (7.31-7.41) VBG pCO2 27 L (37-51) mmHg VBG HCO3 12 L (24-28) mmol/L Sodium (137-145) mmol/L Potassium (3.5-5.1) mmol/L Chloride (98-107) mmol/L Carbon Dioxide (22-30) mmol/L Anion Gap mmol/L BUN (9-20) mg/dL Creatinine (0.66-1.25) mg/dL Est GFR (CKD-EPI)AfAm (>60 ml/min/1.73 sqM) Est GFR (CKD-EPI)NonAf (>60 ml/min/1.73 sqM) Glucose (74-99) mg/dL POC Glucose (mg/dL) (70-110) mg/dL POC 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 Lactic Ac Sepsis Rflx Y Plasma Lactic Acid Richard (0.7-2.0) mmol/L Calcium (8.4-10.2) mg/dL Phosphorus (2.5-4.5) mg/dL Magnesium (1.6-2.3) mg/dL Total Bilirubin (0.2-1.3) mg/dL AST (17-59) U/L ALT (4-49) U/L Alkaline Phosphatase (38-126) U/L Troponin I (0.000-0.034) ng/mL NT-Pro-B Natriuret Pep pg/mL Total Protein (6.3-8.2) g/dL Albumin (3.5-5.0) g/dL Urine Color Colorless Urine Appearance Clear (Clear) Urine pH 6.0 (5.0-8.0) Ur Specific [place] 1.017 (1.001-1.035) Urine Protein Negative (Negative) Urine Glucose (UA) 4+ H (Negative) Urine Ketones Negative (Negative) Urine Blood Negative (Negative) Urine Nitrite Negative (Negative) Urine Bilirubin Negative (Negative) Urine Urobilinogen <2.0 (<2.0) mg/dL Ur Leukocyte Esterase Negative (Negative) Salicylates mg/dL Acetaminophen ug/mL Serum Alcohol mg/dL - EKG Data -: EKG Interpreted by Me (EKG is sinus tachycardia 122 VA 155 QRS 105 QTc 387) - Radiology Data Radiology results: report reviewed (Brain CTA negative for acute disease chest x-ray is negative for acute disease), image reviewed Critical Care Time Critical Care Time: Yes Total Critical Care Time: 65 Disposition Clinical Impression: Lactic acidosis, Failure to thrive in adult, Weakness, Hyponatremia, Altered mental status Disposition: ADMITTED IP TO THIS HOSP Condition: Fair Is patient prescribed a controlled substance at d/c from ED?: No Time of Disposition: 20:00
[2024-04-22 19:19] LABS: Partial Thromboplastin Time 22.1 sec (22.0-30.0)
--- NOTE | 2024-04-22 19:22 | CT ---
EXAMINATION TYPE: CT brain wo con CT DLP: Combined DLP of 1498.4 mGycm, Automated exposure control for dose reduction was used. DATE OF EXAM: 04/22/2024 7:12 PM COMPARISON: 12/07/2023. CLINICAL INDICATION:Male, 63 years old with history of ams, pt presents unresponsive, hx CVA seizure. pt had seizure en route. TECHNIQUE: Brain: Axial CT images of the brain were obtained with coronal and sagittal reformats created and rev iewed. Contrast used: None. Oral contrast used: None. FINDINGS: Brain: Extra-axial spaces: No abnormal extra-axial fluid collections. Ventricular system: Within normal limits Cerebral parenchyma: No acute intraparenchymal hemorrhage or mass effect. The perdomo-white junction is well differentiated. Cerebellum: Unremarkable. Mass effect: No evidence of midline shift. Intracranial vasculature: Atherosclerotic calcifications of the intracranial vessels. Soft tissues: Normal. Calvarium/osseous structures: No depressed skull fracture. Paranasal sinuses and mastoid air cells: Mild scattered paranasal sinus disease. Visualized orbits: Orbital contents are intact. IMPRESSION: No acute intracranial process.
[2024-04-22 19:24] LABS: HCT 44.5 % (39.0-53.0); HGB 14.5 gm/dL (13.0-17.5); MCHC 32.5 g/dL (31.0-37.0); MCV 95.3 fL (80.0-100.0); Mean Platelet Volume 7.5; Platelet Count 142 k/uL (150-450); RBC 4.67 m/uL (4.30-5.90); RDW 15.9 % (11.5-15.5); WBC 6.9 k/uL (3.8-10.6)
--- NOTE | 2024-04-22 19:39 | CT ---
EXAMINATION TYPE: CT angio head neck CT DLP: Combined DLP of 1498.4 mGycm, Automated exposure control for dose reduction was used. DATE OF EXAM: 04/22/2024 7:25 PM COMPARISON: Same day CT head. CLINICAL INDICATION:Male, 63 years old with history of ams; PHH, pt presents unresponsive, hx CVA sei zure. pt had seizure en route. TECHNIQUE: Axially acquired helical CT angiogram of the head and neck was obtained with contrast. Axi al images are supplemented with 3D reconstructions and MIP images which were post-processed at an in dependent workstation. NASCET criteria used. Contrast used:65ml mL of Isovue 370 with IV Contrast, Oral contrast used: None. FINDINGS: CTA HEAD: No evidence of acute intracranial hemorrhage, mass effect, or midline shift. The ventricles, sulci, a nd cisterns are unremarkable. The visualized portions of the internal carotid arteries, middle cerebral arteries, anterior cerebral arteries, and posterior cerebral arteries are patent. 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 The basilar and vertebral arteries are patent. CTA NECK: Right Carotid System: The common carotid and external carotid arteries are patent. There is less than 25% stenosis at the c arotid bifurcation secondary to calcified/noncalcified plaque. The rest of the internal carotid arter y is patent. Left Carotid System: The common carotid and external carotid arteries are patent. There is less than 25% stenosis at the c arotid bifurcation secondary to calcified/noncalcified plaque. The rest of the internal carotid arter y is patent. Vertebral arteries are patent without evidence hemodynamically significant stenosis. There is a three-vessel aortic arch. The origins of the great vessels are patent. No evidence of hemo dynamically significant stenosis. IMPRESSION: 1. No evidence of dissection of the cervical internal carotid arteries or vertebral arteries or any e vidence of significant stenosis at the carotid bifurcations. 2. No evidence of intracranial high-grade stenosis or intracranial aneurysm.
[2024-04-22 19:50] LABS: Acetaminophen <10.0 ug/mL; African American GFR (CKD) >90 (>60 ml/min/1.73 sqM); Albumin 4.8 g/dL (3.5-5.0); Alcohol <10 mg/dL; Anion Gap 25 mmol/L; Blood Urea Nitrogen 8 mg/dL (9-20); Calcium 8.8 mg/dL (8.4-10.2); Chloride 94 mmol/L (98-107); Glucose 150 mg/dL (74-99); Non-African American GFR(CKD) >90 (>60 ml/min/1.73 sqM); Salicylate <1.0 mg/dL; Sodium 125 mmol/L (137-145); Total Protein 7.2 g/dL (6.3-8.2)
[2024-04-22 19:58] LABS: NT-Pro-B-Type Natriuretic Pept 164 pg/mL
[2024-04-22 20:05] LABS: Carbon Dioxide 6 mmol/L (22-30)
[2024-04-22 20:06] LABS: ALT 35 U/L (4-49); AST 35 U/L (17-59); Alkaline Phosphatase 70 U/L (38-126); Magnesium 2.1 mg/dL (1.6-2.3); Phosphorus 4.2 mg/dL (2.5-4.5); Potassium 4.3 mmol/L (3.5-5.1)
[2024-04-22] MEDS ORDERED: ONDANSETRON 4 MG/2 ML VIAL IVP PRN (20:16)
[2024-04-22] MEDS ORDERED: MORPHINE SULFATE 4 MG/ML SYRINGE IV PRN (20:16)
[2024-04-22] MEDS ORDERED: NALOXONE 0.4 MG/ML 1 ML VIAL IV PRN (20:16)
[2024-04-22] MEDS: SODIUM BICARB 8.4% 50 ML SYR (1 MEQ/ML) IV STA ×2 (20:16)
[2024-04-22] MEDS ORDERED: LORazepam 1 MG TAB PO PRN ×3 (20:17)
[2024-04-22] MEDS ORDERED: LORazepam 2 MG/ML INJ IV PRN ×3 (20:17)
--- NOTE | 2024-04-22 20:18 | XR ---
EXAMINATION TYPE: XR chest 1V DATE OF EXAM: 04/22/2024 8:05 PM CLINICAL INDICATION:Male, 63 years old with history of ams; PHH COMPARISON: Chest radiographs from 12/11/2023 TECHNIQUE: XR chest 1V Frontal view of the chest. FINDINGS: Lungs/Pleura: There is no evidence of pleural effusion, focal consolidation, or pneumothorax. Pulmonary vascularity: Unremarkable. Heart/mediastinum: Cardiomediastinal silhouette is unremarkable. Musculoskeletal: No acute osseous pathology. IMPRESSION: Low lung volumes with a generalized hazy appearance which could represent atelectasis versus pulmonar y edema correlate with serum BNP.
[2024-04-22 20:25] LABS: VBG PH 7.25 (7.31-7.41)
[2024-04-22] MEDS: DEXTROSE 5%-0.45% NACL 1,000 ML IV SCH (20:32)
[2024-04-22 20:38] LABS: Lymphocytes # (M) 3.73 k/uL (1.0-4.8); Monocytes # (M) 1.04 k/uL (0-1.0); Neutrophils # (M) 2.14 k/uL (1.3-7.7); Neutrophils % (M) 31 %; Nucleated Red Blood Cells 0 /100 WBC (0-0); Total Cells Counted 100
[2024-04-22 20:40] LABS: Toxic Granulation Present
[2024-04-22 21:35] LABS: Appearance,Urine Clear (Clear); Bilirubin,Urine Negative (Negative); Blood,Urine Negative (Negative); Color,Urine Colorless; Glucose,Urine (UA) 4+ (Negative); Ketones,Urine Negative (Negative); Leukocyte Esterase,Urine Negative (Negative); Nitrite,Urine Negative (Negative); Protein,Urine Negative (Negative); Specific Gravity,Urine 1.017 (1.001-1.035); Urobilinogen,Urine <2.0 mg/dL (<2.0)
[2024-04-22] MEDS: THIAMINE 500 MG in SODIUM CHLORIDE 0.9% 50 ML IVPB SCH (22:47)
[2024-04-22] MEDS: levETIRAcetam IV 500 MG/5 ML VIAL IVP SCH (23:31)
[2024-04-22] MEDS: levETIRAcetam IV 500 MG/5 ML VIAL IVP STA (23:31)
[2024-04-23] MEDS: LORazepam 0.5 MG TAB PO PRN (02:04)
[2024-04-23] MEDS ORDERED: ACETAMINOPHEN TAB 325 MG TAB PO PRN (02:53)
--- NOTE | 2024-04-23 02:56 | P.HPIM ---
History of Present Illness H&P Date: 04/22/24 Patient is a 63-year-old male with a PMH of alcohol abuse, CAD, and severe protein calorie malnutrition who was brought into the emergency room for altered mental status and suspected seizure. The patient had reportedly been given 5 mg of Versed enroute to the hospital for suspected seizure. At time of interview, the patient was essentially back to baseline. He reported a longstanding history of excessive alcohol abuse, did not wish to specify how much he drinks daily but notes that it is " a lot" for the past several years. Reports feeling achy throughout and weak in his legs. Denies experiencing chest discomfort, shortness of breath, fever, chills, cough, abdominal pain, nausea, vomiting. Patient has a history of delirium tremens. Notes that his last drink was earlier today. CT angiogram head neck and CT brain were unremarkable in the emergency room with EKG showing sinus tachycardia at 122 bpm with right axis deviation and no additional ST/T wave changes noted as reviewed by me. Chest x-ray revealed a generalized haziness concerning for pulmonary edema. Laboratory evaluation was remarkable for platelet count of 142, lactic acid 17.1, troponin less than 0.012, sodium 125, chloride 94, CO2 6, glucose 150, with serum alcohol less than 10. ED documentation reviewed and case discussed with ED provider. Review of systems: Pertinent positives and negatives as discussed in HPI, a complete review of systems was performed and all other systems are negative. Physical examination: Vital signs reviewed General: Chronically ill-appearing disheveled male, no distress, appears older than stated age, underweight cachectic Derm: no unusual rashes/lesions, warm Head: atraumatic, normocephalic, symmetric Eyes: EOMI, no lid lag, anicteric sclera, pupils equal round reactive to light ENT: Nose and ears atraumatic Neck: No cervical lymphadenopathy, trachea midline, supple Mouth: no lip lesion, mucus membranes aminah dry st Cardiovascular: S1S2 reg, no murmur, positive dorsalis pedis pulse bilateral, no edema Lungs: CTA bilateral, no rhonchi, no rales, no accessory muscle use Abdominal: soft, nontender to palpation, no guarding Ext: muscle strength 4 out of 5 in all 4 extremities grossly, no gross muscle atrophy, no contractures, Neuro: CN II-XI grossly intact, no gross focal neuro deficits Psych: Somewhat slow to respond, oriented, appropriate affect Assessment: Alcoholic ketoacidosis Alcohol withdrawal with suspected seizure Hypochloremic hyponatremia, likely due to poor oral intake Lactic acidosis, resolved Thrombocytopenia, likely due to ongoing alcohol abuse Imaging: CT angiogram head neck and CT brain were unremarkable in the emergency room with EKG showing sinus tachycardia at 122 bpm with right axis deviation and no additional ST/T wave changes noted as reviewed by me. Chest x-ray revealed a generalized haziness concerning for pulmonary edema. Data Review: Laboratory evaluation was remarkable for platelet count of 142, lactic acid 17.1, troponin less than 0.012, sodium 125, chloride 94, CO2 6, glucose 150, with serum alcohol less than 10. Plan: Continue with IV fluids normal saline 130 cc/h CIWA protocol with Ativan as needed Monitor electrolytes daily Monitor BMP Continue with multivitamins and thiamine Fall and seizure precautions Cardiac monitoring DVT prophylaxis: Lovenox subcu The patient is admitted with an anticipated greater than 2 midnight stay for evaluation of alcohol withdrawal CODE STATUS: Full Code Discussed with: Patient Anticipated discharge place: Home Past Medical History Past Medical History: Hypertension Additional Past Medical History / Comment(s): UNEXPLAINED WT LOSS (12 #), DAUGHTER DEC 2016. History of Any Multi-Drug Resistant Organisms: None Reported Past Surgical History: Heart Catheterization Additional Past Surgical History / Comment(s): Pt states as an infant he had a "pinched" abdominal muscle with surgical repair, colonoscopy Past Anesthesia/Blood Transfusion Reactions: No Reported Reaction Past Psychological History: Anxiety, Depression Smoking Status: Current every day smoker - Past Family History Mother Family Medical History: No Reported History Additional Family Medical History / Comment(s): . Father Family Medical History: CVA/TIA Additional Family Medical History / Comment(s): Father of a CVA Daughter(s) Family Medical History: Hypertension Additional Family Medical History / Comment(s): ADRENAL GLAND TUMOR. Medications and Allergies Home Medications Medication Instructions Recorded Confirmed Type Dapagliflozin Propanediol [Farxiga] 10 mg PO DAILY 30 Days #30 tab 12/20/23 04/22/24 Rx Folic Acid 1 mg PO DAILY 90 Days #90 tab 12/20/23 04/22/24 Rx Insulin Detemir (Levemir) [Levemir] 30 unit SQ HS 90 Days #90 each 12/20/23 04/22/24 Rx Ipratropium-Albuterol Nebulize 3 ml INHALATION RT-QID PRN 30 Days 12/20/23 04/22/24 Rx [Duoneb 0.5 mg-3 mg/3 ml Soln] #120 each Pantoprazole [Protonix] 40 mg PO DAILY 90 Days #90 tab 12/20/23 04/22/24 Rx Tamsulosin [Flomax] 0.4 mg PO PC-BRKFST 90 Days #90 cap 12/20/23 04/22/24 Rx metFORMIN HCL [Glucophage] 1,000 mg PO BID-W/MEALS 30 Days 12/20/23 04/22/24 Rx #60 tab Gabapentin [Neurontin] 300 mg PO HS 02/03/24 04/22/24 History Losartan [Cozaar] 25 mg PO DAILY 02/03/24 04/22/24 History traZODone HCL [Desyrel] 75 mg PO HS 02/03/24 04/22/24 History Atorvastatin Calcium 10 mg PO DAILY 04/22/24 04/22/24 History Metoprolol Succinate (ER) [Toprol 25 mg PO DAILY 04/22/24 04/22/24 History Xl] Multivitamins, Thera [Multivitamin 1 tab PO DAILY 04/22/24 04/22/24 History (formulary)] Omeprazole [PriLOSEC] 20 mg PO DAILY 04/22/24 04/22/24 History Allergies Allergy/AdvReac Type Severity Reaction Status Date / Time No Known Allergies Allergy Verified 04/22/24 20:06 Physical Exam Vitals: Vital Signs Temp Pulse Resp BP Pulse Ox 04/23/24 02:30 87 14 165/97 99 04/23/24 02:00 82 15 150/101 98 04/23/24 01:33 99.4 F 86 15 158/104 97 04/23/24 01:30 14 158/104 97 04/23/24 01:00 90 17 162/110 98 04/23/24 00:30 92 15 155/100 96 04/23/24 00:00 95 17 150/93 97 04/22/24 23:30 93 19 157/98 95 04/22/24 23:20 97 19 153/106 96 04/22/24 23:00 210 H 18 174/107 97 06/05/24 22:30 203 H 16 154/93 97 04/22/24 21:31 98 14 149/95 99 04/22/24 19:23 97 18 132/82 98 04/22/24 19:11 104 H 19 125/79 98 04/22/24 18:48 97.5 F L 122 H 18 111/80 94 L Intake and Output 04/22/24 04/22/24 04/23/24 14:59 22:59 06:59 Other: Weight 53.07 kg Results CBC & Chem 7: 04/23/24 03:29 04/23/24 03:29 Labs: Abnormal Lab Results - Last 24 Hours (Table) 04/22/24 04/22/24 04/22/24 Range/Units 18:50 18:54 18:54 RDW 15.9 H (11.5-15.5) % Plt Count 142 L (150-450) k/uL Monocytes # (Manual) 1.04 H (0-1.0) k/uL VBG pH (7.31-7.41) VBG pCO2 (37-51) mmHg VBG HCO3 (24-28) mmol/L Sodium 125 L (137-145) mmol/L Chloride 94 L (98-107) mmol/L Carbon Dioxide 6 L* (22-30) mmol/L BUN 8 L (9-20) mg/dL Creatinine 0.53 L (0.66-1.25) mg/dL Glucose 150 H (74-99) mg/dL POC Glucose (mg/dL) 163 H (70-110) mg/dL Plasma Lactic Acid Richard (0.7-2.0) mmol/L Urine Glucose (UA) (Negative) 04/22/24 04/22/24 04/22/24 Range/Units 18:54 18:54 19:56 RDW (11.5-15.5) % Plt Count (150-450) k/uL Monocytes # (Manual) (0-1.0) k/uL VBG pH 7.25 L (7.31-7.41) VBG pCO2 27 L (37-51) mmHg VBG HCO3 12 L (24-28) mmol/L Sodium (137-145) mmol/L Chloride (98-107) mmol/L Carbon Dioxide (22-30) mmol/L BUN (9-20) mg/dL Creatinine (0.66-1.25) mg/dL Glucose (74-99) mg/dL POC Glucose (mg/dL) (70-110) mg/dL Plasma Lactic Acid Richard 17.1 H* (0.7-2.0) mmol/L Urine Glucose (UA) 4+ H (Negative)
[2024-04-23 03:52] LABS: Basophils % (A) 1 %; Eosinophils % (A) 0 %; HCT 42.6 % (39.0-53.0); HGB 14.4 gm/dL (13.0-17.5); Lymphocytes # (A) 2.5 k/uL (1.0-4.8); Lymphocytes % (A) 31 %; MCH 30.4 pg (25.0-35.0); MCHC 33.8 g/dL (31.0-37.0); Mean Platelet Volume 7.1; Monocytes # (A) 0.9 k/uL (0-1.0); Monocytes % (A) 12 %; Neutrophils # (A) 4.3 k/uL (1.3-7.7); Neutrophils % (A) 53 %; Platelet Count 153 k/uL (150-450); RBC 4.74 m/uL (4.30-5.90); RDW 15.9 % (11.5-15.5); WBC 8.1 k/uL (3.8-10.6)
[2024-04-23 04:08] LABS: MCV 89.8 fL (80.0-100.0)
[2024-04-23 04:34] LABS: ALT 23 U/L (4-49); AST 26 U/L (17-59); African American GFR (CKD) >90 (>60 ml/min/1.73 sqM); Albumin 4.6 g/dL (3.5-5.0); Alkaline Phosphatase 90 U/L (38-126); Anion Gap 8 mmol/L; Blood Urea Nitrogen 7 mg/dL (9-20); Calcium 8.9 mg/dL (8.4-10.2); Carbon Dioxide 23 mmol/L (22-30); Chloride 99 mmol/L (98-107); Glucose 121 mg/dL (74-99); Non-African American GFR(CKD) >90 (>60 ml/min/1.73 sqM); Phosphorus 3.5 mg/dL (2.5-4.5); Potassium 3.4 mmol/L (3.5-5.1); Sodium 130 mmol/L (137-145); Total Bilirubin 0.9 mg/dL (0.2-1.3)
[2024-04-23] MEDS: SODIUM CHLORIDE 0.9% 1,000 ML IV STA (07:01)
[2024-04-23] MEDS: ENOXAPARIN 40 MG/0.4 ML SYRINGE SQ SCH (09:40)
[2024-04-23] MEDS: MULTIVITAMINS, THERA 1 EACH TAB PO SCH (09:40)
[2024-04-23] MEDS: FOLIC ACID 1 MG TAB PO SCH (09:40)
--- NOTE | 2024-04-23 11:09 | P.PN ---
Subjective Progress Note Date: 04/23/24 Feels okay, no chest pain or abdominal pain no nausea no vomiting no dizziness. Objective - Vital Signs Vital signs: Vital Signs Temp 98.2 F 04/23/24 09:00 Pulse 86 04/23/24 09:00 Resp 16 04/23/24 09:00 BP 167/107 04/23/24 09:00 Pulse Ox 98 04/23/24 09:00 FiO2 Intake & Output 04/22/24 04/23/24 04/23/24 18:59 06:59 18:59 Weight 53.07 kg - Exam General: Chronically ill-appearing disheveled male, no distress, appears older than stated age, underweight cachectic Derm: no unusual rashes/lesions, warm Head: atraumatic, normocephalic, symmetric Eyes: EOMI, no lid lag, anicteric sclera, pupils equal round reactive to light ENT: Nose and ears atraumatic Neck: No cervical lymphadenopathy, trachea midline, supple Mouth: no lip lesion, mucus membranes aminah dry st Cardiovascular: S1S2 reg, no murmur, positive dorsalis pedis pulse bilateral, no edema Lungs: CTA bilateral, no rhonchi, no rales, no accessory muscle use Abdominal: soft, nontender to palpation, no guarding Ext: muscle strength 4 out of 5 in all 4 extremities grossly, no gross muscle atrophy, no contractures, Neuro: CN II-XI grossly intact, no gross focal neuro deficits Psych: Somewhat slow to respond, oriented, appropriate affect - Labs CBC & Chem 7: 04/23/24 03:29 04/23/24 03:29 Labs: Abnormal Lab Results - Last 24 Hours (Table) 04/22/24 04/22/24 04/22/24 Range/Units 18:50 18:54 18:54 RDW 15.9 H (11.5-15.5) % Plt Count 142 L (150-450) k/uL Monocytes # (Manual) 1.04 H (0-1.0) k/uL VBG pH (7.31-7.41) VBG pCO2 (37-51) mmHg VBG HCO3 (24-28) mmol/L Sodium 125 L (137-145) mmol/L Potassium (3.5-5.1) mmol/L Chloride 94 L (98-107) mmol/L Carbon Dioxide 6 L* (22-30) mmol/L BUN 8 L (9-20) mg/dL Creatinine 0.53 L (0.66-1.25) mg/dL Glucose 150 H (74-99) mg/dL POC Glucose (mg/dL) 163 H (70-110) mg/dL Plasma Lactic Acid Richard (0.7-2.0) mmol/L Urine Glucose (UA) (Negative) 04/22/24 04/22/24 04/22/24 Range/Units 18:54 18:54 19:56 RDW (11.5-15.5) % Plt Count (150-450) k/uL Monocytes # (Manual) (0-1.0) k/uL VBG pH 7.25 L (7.31-7.41) VBG pCO2 27 L (37-51) mmHg VBG HCO3 12 L (24-28) mmol/L Sodium (137-145) mmol/L Potassium (3.5-5.1) mmol/L Chloride (98-107) mmol/L Carbon Dioxide (22-30) mmol/L BUN (9-20) mg/dL Creatinine (0.66-1.25) mg/dL Glucose (74-99) mg/dL POC Glucose (mg/dL) (70-110) mg/dL Plasma Lactic Acid Richard 17.1 H* (0.7-2.0) mmol/L Urine Glucose (UA) 4+ H (Negative) 04/23/24 04/23/24 Range/Units 03:29 03:29 RDW 15.9 H (11.5-15.5) % Plt Count (150-450) k/uL Monocytes # (Manual) (0-1.0) k/uL VBG pH (7.31-7.41) VBG pCO2 (37-51) mmHg VBG HCO3 (24-28) mmol/L Sodium 130 L (137-145) mmol/L Potassium 3.4 L (3.5-5.1) mmol/L Chloride (98-107) mmol/L Carbon Dioxide (22-30) mmol/L BUN 7 L (9-20) mg/dL Creatinine 0.44 L (0.66-1.25) mg/dL Glucose 121 H (74-99) mg/dL POC Glucose (mg/dL) (70-110) mg/dL Plasma Lactic Acid Richard (0.7-2.0) mmol/L Urine Glucose (UA) (Negative) Assessment and Plan Plan: Alcoholic ketoacidosis, metabolic acidosis Alcohol withdrawal with suspected seizure Hypochloremic hyponatremia, likely due to poor oral intake Lactic acidosis, resolved Thrombocytopenia, likely due to ongoing alcohol abuse Imaging: CT angiogram head neck and CT brain were unremarkable in the emergency room with EKG showing sinus tachycardia at 122 bpm with right axis deviation and no additional ST/T wave changes noted as reviewed by me. Chest x-ray revealed a generalized haziness concerning for pulmonary edema. Plan: Continue with IV fluids normal saline 130 cc/h CIWA protocol with Ativan as needed Continue with multivitamins and thiamine Fall and seizure precautions Cardiac monitoring Sodium up to 130. Serum bicarbonate improved from 6 up to 23 Consult PT OT
--- NOTE | 2024-04-23 14:52 | P.CNNES ---
History of Present Illness Consult date: 04/23/24 Requesting physician: Martínez Cantu Reason for Consult: ams, ?sz History of Present Illness: This is a 63-year-old gentleman who present emergency department for altered mental status. Patient is a poor historian. Patient states he comes to hospital because he is not feeling well but cannot elaborate. He denies any history of seizure. He does acknowledge that he drinks alcohol almost on a daily basis and he has been cutting down. He does smoke cigarettes. Denies of any headache currently, focal deficit. Denies of any visual disturbance. Per the ED team the patient comes because of unresponsiveness and intoxication and then there is a concern for seizure. Patient presents to the ER after receiving Versed. Of note patient was seen last in our facility by Dr. Clifford on 12/14/2023 for history of shaking/twitching prior to arrival with altered mental status and its unclear cause. He felt was most likely metabolic derangement from NKHOS. Less likely alcohol withdrawal. The EEG shows moderate encephalopathy which can be seen in toxic metabolic or due to diffuse structural brain abnormality. Will seizure or discharges noted. And he did not feel the Keppra is needed. Please refer to his note for further details. SOME OF THE WORK-UP DURING THIS HOSPITAL VISIT CONSISTED OF: On presentation patient white blood cell is normal. Glucose is 163 Plasma lactic acid vein on presentation is 17.1 and repeat is 1.1 Sodium is 125 Calcium is 8.8, phosphorus is 4.2, magnesium is 2.1 AST ALT is within normal limits Alcohol level is less than 10 CT of the head is reported as no acute intracranial process. I personally reviewed the CT and I agree there is no acute and subacute intracranial process. It seems the patient has encephalomalacia over the left posterior region of the cerebellar. CT angiography of the head and neck is reported no evidence of dissection of cervical internal carotid artery or vertebral artery or any evidence of significant stenosis at the carotid bifurcation. No evidence of intracranial high-grade stenosis or intracranial aneurysm. Review of Systems Limited but the positive and negative as per HPI. Past Medical History Past Medical History: Hypertension Additional Past Medical History / Comment(s): UNEXPLAINED WT LOSS (12 #), DAUGHTER DEC 2016. History of Any Multi-Drug Resistant Organisms: None Reported Past Surgical History: Heart Catheterization Additional Past Surgical History / Comment(s): Pt states as an infant he had a "pinched" abdominal muscle with surgical repair, colonoscopy Past Anesthesia/Blood Transfusion Reactions: No Reported Reaction Past Psychological History: Anxiety, Depression Smoking Status: Current every day smoker - Past Family History Mother Family Medical History: No Reported History Additional Family Medical History / Comment(s): . Father Family Medical History: CVA/TIA Additional Family Medical History / Comment(s): Father of a CVA Daughter(s) Family Medical History: Hypertension Additional Family Medical History / Comment(s): ADRENAL GLAND TUMOR. Medications and Allergies Home Medications Medication Instructions Recorded Confirmed Type Dapagliflozin Propanediol [Farxiga] 10 mg PO DAILY 30 Days #30 tab 12/20/23 04/22/24 Rx Folic Acid 1 mg PO DAILY 90 Days #90 tab 12/20/23 04/22/24 Rx Insulin Detemir (Levemir) [Levemir] 30 unit SQ HS 90 Days #90 each 12/20/23 04/22/24 Rx Ipratropium-Albuterol Nebulize 3 ml INHALATION RT-QID PRN 30 Days 12/20/23 04/22/24 Rx [Duoneb 0.5 mg-3 mg/3 ml Soln] #120 each Pantoprazole [Protonix] 40 mg PO DAILY 90 Days #90 tab 12/20/23 04/22/24 Rx Tamsulosin [Flomax] 0.4 mg PO PC-BRKFST 90 Days #90 cap 12/20/23 04/22/24 Rx metFORMIN HCL [Glucophage] 1,000 mg PO BID-W/MEALS 30 Days 12/20/23 04/22/24 Rx #60 tab Gabapentin [Neurontin] 300 mg PO HS 02/03/24 04/22/24 History Losartan [Cozaar] 25 mg PO DAILY 02/03/24 04/22/24 History traZODone HCL [Desyrel] 75 mg PO HS 02/03/24 04/22/24 History Atorvastatin Calcium 10 mg PO DAILY 04/22/24 04/22/24 History Metoprolol Succinate (ER) [Toprol 25 mg PO DAILY 04/22/24 04/22/24 History Xl] Multivitamins, Thera [Multivitamin 1 tab PO DAILY 04/22/24 04/22/24 History (formulary)] Omeprazole [PriLOSEC] 20 mg PO DAILY 04/22/24 04/22/24 History Allergies Allergy/AdvReac Type Severity Reaction Status Date / Time No Known Allergies Allergy Verified 04/22/24 20:06 Physical Examination - Vital Signs Vital Signs: Vital Signs Temp Pulse Resp BP Pulse Ox 04/23/24 09:00 98.2 F 86 16 167/107 98 04/23/24 08:00 86 16 178/99 98 04/23/24 06:00 85 14 164/98 99 04/23/24 04:00 90 14 164/109 99 04/23/24 02:30 87 14 165/97 99 04/23/24 02:00 82 15 150/101 98 04/23/24 01:33 99.4 F 86 15 158/104 97 04/23/24 01:30 14 158/104 97 04/23/24 01:00 90 17 162/110 98 04/23/24 00:30 92 15 155/100 96 04/23/24 00:00 95 17 150/93 97 04/22/24 23:30 93 19 157/98 95 04/22/24 23:20 97 19 153/106 96 04/22/24 23:00 210 H 18 174/107 97 04/22/24 22:30 203 H 16 154/93 97 04/22/24 21:31 98 14 149/95 99 04/22/24 19:23 97 18 132/82 98 04/22/24 19:11 104 H 19 125/79 98 04/22/24 18:48 97.5 F L 122 H 18 111/80 94 L Intake and Output 04/22/24 04/23/24 04/23/24 22:59 06:59 14:59 Other: Weight 53.07 kg General: Lying in bed and is not in acute distress. Neuro: Limited. The patient is awake alert oriented to self place and time. He is following simple commands. He is somewhat slow respond to question. No aphasia from limited language Pupils are round equal reactive to light. The pupils are round 3 mm bi laterally. Visual valenzuela are full to confrontation. Extraocular movement intact no nystagmus. No facial weakness. No dysarthria. Patient has hypophonia Tongue when he stuck it out it seems that the patient has a tongue bite over the left anterior side. Motor the strength is hard to assess individual muscle strength since the patient had his hands tucked in and his shirt and was showing very resistance and bringing them out. Lowers he was able to bend his knees bilaterally again there is limitation. Sensation is normal to touch Reflexes is limited because of his cooperation. Results - Laboratory Findings CBC and BMP: 04/23/24 03:29 04/23/24 03:29 Abnormal Lab Findings: Abnormal Labs 04/22/24 04/22/24 04/22/24 18:50 18:54 18:54 RDW 15.9 H Plt Count 142 L Monocytes # (Manual) 1.04 H VBG pH VBG pCO2 VBG HCO3 Sodium 125 L Potassium Chloride 94 L Carbon Dioxide 6 L* BUN 8 L Creatinine 0.53 L Glucose 150 H POC Glucose (mg/dL) 163 H Plasma Lactic Acid Richard Urine Glucose (UA) 04/22/24 04/22/24 04/22/24 18:54 18:54 19:56 RDW Plt Count Monocytes # (Manual) VBG pH 7.25 L VBG pCO2 27 L VBG HCO3 12 L Sodium Potassium Chloride Carbon Dioxide BUN Creatinine Glucose POC Glucose (mg/dL) Plasma Lactic Acid Richard 17.1 H* Urine Glucose (UA) 4+ H 04/23/24 04/23/24 03:29 03:29 RDW 15.9 H Plt Count Monocytes # (Manual) VBG pH VBG pCO2 VBG HCO3 Sodium 130 L Potassium 3.4 L Chloride Carbon Dioxide BUN 7 L Creatinine 0.44 L Glucose 121 H POC Glucose (mg/dL) Plasma Lactic Acid Richard Urine Glucose (UA) Assessment and Plan Assessment: This is a 63-year-old gentleman who present emergency department because of altered mental status and was found unresponsive. He was given Versed by EMS prior to arrival to the ED and there is suspicion that he had a seizure. Patient states that he is drinking alcohol and he is cutting down on his alcohol use. He still continues to smoke. His plasma lactic acid vein presentation was 17.1. His sodium is 125. The level was less than 10. Seizure and it seems probable provoked from his withdrawal from alcohol as well as hyponatremia. Elevated lactic acid vein due to above Hyponatremia as low as 125 History of shaking/twitching in November 2023 and the patient was evaluated by Dr. Clifford who felt due to metabolic derangement from NKOS. EEG was moderate encephalopathy but no seizure or discharges. Diabetes mellitus History of coronary artery disease Alcohol use and the patient states that he is cutting down alcohol. In November 2023 his alcohol level was 175. Tobacco use Plan: I ordered routine EEG as well as MRI of the brain The patient was started on Keppra 500 mg every 12 hours by the ED physician and and was loaded on Keppra 1 g in the ED. Seizure precautions seizure pads Patient is on Ativan as needed for CIWA protocol Continue thiamine Was counseled on tobacco cessation as well as alcohol cessation. Will defer the rest of the medical management to primary and other specialist The plan discussed with the patient and his nurse Thank for the consultation Time with Patient: Greater than 30
--- NOTE | 2024-04-24 00:19 | EEG ---
ELECTROENCEPHALOGRAM REPORT CLINICAL HISTORY: This is a 63-year-old gentleman with altered mental status and suspected seizure. The video EEG is obtained to evaluate for seizure epileptiform activity. RELEVANT MEDICATIONS: 1. Keppra. 2. Ativan. EEG TYPE: A routine 21-channel EEG with video using the 10/20 electrode placement system. DESCRIPTION: Wakefulness is only obtained. During awake state, the posterior-dominant rhythm consists of [id number] voltage of 8 hertz. At times, the background is intermixed with delta activity. There was no physiological stage 2 sleep architecture. There is rhythmic delta activity over the bilateral frontal region also known as FIRDA, which stands for frontal intermittent rhythmic delta activity. Interictal and ictal is none. ACTIVATION PROCEDURE: Photic stimulation and hyperventilation are not performed. CLINICAL INTERPRETATION: This is an abnormal routine EEG. The background slowing is suggestive of mild encephalopathy. There is intermittent rhythmic delta activity over the bilateral frontal, also known as FIRDA, which is suggestive of possible toxic metabolic derangement versus cerebral dysfunction. There is no epileptiform discharge, or seizure on the EEG. Clinical correlation is recommended. MMODL / IJN: [id number] /
[2024-04-24 09:07] LABS: Basophils % (A) 1 %; Eosinophils % (A) 1 %; HGB 14.6 gm/dL (13.0-17.5); Lymphocytes # (A) 1.9 k/uL (1.0-4.8); Lymphocytes % (A) 25 %; MCH 31.1 pg (25.0-35.0); MCHC 33.8 g/dL (31.0-37.0); MCV 91.9 fL (80.0-100.0); Mean Platelet Volume 6.7; Monocytes # (A) 0.7 k/uL (0-1.0); Monocytes % (A) 10 %; Neutrophils # (A) 4.5 k/uL (1.3-7.7); Neutrophils % (A) 62 %; Platelet Count 153 k/uL (150-450); RBC 4.68 m/uL (4.30-5.90); RDW 15.7 % (11.5-15.5); WBC 7.3 k/uL (3.8-10.6)
[2024-04-24 09:21] LABS: ALT 22 U/L (4-49); AST 24 U/L (17-59); African American GFR (CKD) >90 (>60 ml/min/1.73 sqM); Albumin 4.5 g/dL (3.5-5.0); Alkaline Phosphatase 81 U/L (38-126); Anion Gap 8 mmol/L; Blood Urea Nitrogen 8 mg/dL (9-20); Calcium 9.2 mg/dL (8.4-10.2); Carbon Dioxide 23 mmol/L (22-30); Chloride 99 mmol/L (98-107); Glucose 208 mg/dL (74-99); Non-African American GFR(CKD) >90 (>60 ml/min/1.73 sqM); Potassium 3.3 mmol/L (3.5-5.1); Sodium 130 mmol/L (137-145); Total Protein 6.9 g/dL (6.3-8.2)
--- NOTE | 2024-04-24 12:52 | P.PN ---
Subjective Progress Note Date: 04/24/24 I am following-up with patient and he feels he is doing better. Denies any new neurological issues. Denies any focal deficits. Objective - Vital Signs Vital signs: Vital Signs Temp 98.4 F 04/24/24 05:57 Pulse 86 04/24/24 05:57 Resp 16 04/24/24 05:57 BP 154/97 04/24/24 05:57 Pulse Ox 95 04/24/24 05:57 FiO2 - Exam General: Sitting up in a chair and is not in acute distress. Neuro: The patient is awake, alert, oriented to self, time and place. Is following simple commands. No aphasia. No facial droop. Motor: Lifting all extremities above gravity equally. SOME OF THE WORK-UP DURING THIS HOSPITAL VISIT CONSISTED OF: On presentation patient white blood cell is normal. Glucose is 163 Plasma lactic acid vein on presentation is 17.1 and repeat is 1.1 Sodium is 125 Calcium is 8.8, phosphorus is 4.2, magnesium is 2.1 AST ALT is within normal limits Alcohol level is less than 10 CT of the head is reported as no acute intracranial process. I personally reviewed the CT and I agree there is no acute and subacute intracranial process. It seems the patient has encephalomalacia over the left posterior region of the cerebellar. CT angiography of the head and neck is reported no evidence of dissection of cervical internal carotid artery or vertebral artery or any evidence of significant stenosis at the carotid bifurcation. No evidence of intracranial high-grade stenosis or intracranial aneurysm. Routine EEG: Is abnormal. The background slowing is suggestive of mild encephalopathy. The intermittent rhythmic delta activity over the bilateral frontal, also known as FIRDA, which is suggestive of possible toxic-metabolic derragement vs cerebral dysfunction. There is no epileptiform discharges or seizure on the EEG. - Labs CBC & Chem 7: 04/24/24 08:48 04/24/24 08:48 Labs: Abnormal Lab Results - Last 24 Hours (Table) 04/24/24 04/24/24 Range/Units 08:48 08:48 RDW 15.7 H (11.5-15.5) % Sodium 130 L (137-145) mmol/L Potassium 3.3 L (3.5-5.1) mmol/L BUN 8 L (9-20) mg/dL Creatinine 0.48 L (0.66-1.25) mg/dL Glucose 208 H (74-99) mg/dL Assessment and Plan Assessment: This is a 63-year-old gentleman who present emergency department because of altered mental status and was found unresponsive. He was given Versed by EMS prior to arrival to the ED and there is suspicion that he had a seizure. Joselyn t states that he is drinking alcohol and he is cutting down on his alcohol use. He still continues to smoke. His plasma lactic acid vein presentation was 17.1. His sodium is 125. The level was less than 10. Seizure and it seems probable provoked from his withdrawal from alcohol as well as hyponatremia. EEG is negative for seizure or discharges. Elevated lactic acid vein due to above Hyponatremia as low as 125 History of shaking/twitching in November 2023 and the patient was evaluated by Dr. Clifford who felt due to metabolic derangement from NKOS. EEG was moderate encephalopathy but no seizure or discharges. Diabetes mellitus History of coronary artery disease Alcohol use and the patient states that he is cutting down alcohol. In November 2023 his alcohol level was 175. Tobacco use Plan: MRI of the brain is pending The patient was started on Keppra 500 mg every 12 hours by the ED physician and and was loaded on Keppra 1 g in the ED. Seizure precautions seizure pads Patient is on Ativan as needed for CIWA protocol Continue thiamine Was counseled on tobacco cessation as well as alcohol cessation. Will defer the rest of the medical management to primary and other specialist The plan discussed with the patient. Dr. Clifford will resume neurology service tomorrow A.M. Time with Patient: Less than 30
[2024-04-24 14:07] LABS: Glucose,Whole Blood 251 mg/dL (70-110)
[2024-04-24] MEDS: metFORMIN 500 MG TAB PO SCH (18:05)
[2024-04-24] MEDS ORDERED: LORazepam 1 MG/0.5 ML VIAL IV PRN ×3 (18:45)
[2024-04-24 20:38] LABS: Glucose,Whole Blood 123 mg/dL (70-110)
[2024-04-24] MEDS: INSULIN DETEMIR (LEVEMIR) 100 UNIT/ML SYR SQ SCH (21:20)
[2024-04-25 07:36] LABS: Glucose,Whole Blood 97 mg/dL (70-110)
[2024-04-25 10:10] LABS: Basophils # (A) 0.02 X 10*3/uL (0.00-0.10); Basophils % (A) 0.3 %; Eosinophils # (A) 0.09 X 10*3/uL (0.04-0.35); Eosinophils % (A) 1.2 %; HGB 13.2 g/dL (13.0-17.0); Lymphocytes % (A) 31.6 %; MCH 30.6 pg (27.0-32.0); MCHC 33.8 g/dL (32.0-37.0); MCV 90.5 FL (80.0-97.0); Monocytes # (A) 1.07 X 10*3/uL (0.20-1.00); Monocytes % (A) 14.1 %; NRBC Per 100 WBC 0 X 10*3/uL (0.00-0.01); Neutrophils % (A) 52.5 %; Platelet Count 133 X 10*3/uL (140-440); RBC 4.31 X 10*6/uL (4.40-5.60); RDW 15.9 % (11.5-14.5)
[2024-04-25 10:20] LABS: ALT 22 U/L (10-49); AST 24 U/L (14-35); Albumin 4.4 g/dL (3.8-4.9); Albumin/Globulin Ratio 1.91 Ratio (1.60-3.17); Alkaline Phosphatase 88 U/L (41-126); Blood Urea Nitrogen 10.6 mg/dL (9.0-27.0); Calcium 8.9 mg/dL (8.7-10.3); Carbon Dioxide 24.4 mmol/L (21.6-31.8); Chloride 94 mmol/L (96-109); Globulin 2.3 g/dL (1.6-3.3); Glucose 105 mg/dL (70-110); Potassium 3.8 mmol/L (3.5-5.5); Sodium 131 mmol/L (135-145); Total Bilirubin 0.6 mg/dL (0.3-1.2); Total Protein 6.7 g/dL (6.2-8.2)
[2024-04-25 11:55] LABS: Glucose,Whole Blood 258 mg/dL (70-110)
[2024-04-25] MEDS ORDERED: DEXTROSE 50% SYRINGE 50 ML IVP PRN ×2 (11:58)
[2024-04-25] MEDS: INSULIN ASPART (NovoLOG) 100 UNIT/ML VIAL SQ SCH (12:13)
[2024-04-25 17:22] LABS: Glucose,Whole Blood 136 mg/dL (70-110)
[2024-04-25 20:18] LABS: Glucose,Whole Blood 137 mg/dL (70-110)
[2024-04-25] MEDS: LORazepam 1 MG TAB PO PRN (21:38)
[2024-04-26 07:50] LABS: Glucose,Whole Blood 84 mg/dL (70-110)
[2024-04-26 09:37] LABS: Basophils # (A) 0.03 X 10*3/uL (0.00-0.10); Basophils % (A) 0.4 %; Eosinophils % (A) 1.3 %; HCT 39.1 % (39.6-50.0); HGB 14.3 g/dL (13.0-17.0); Lymphocytes # (A) 3.06 X 10*3/uL (0.90-5.00); Lymphocytes % (A) 39.9 %; MCH 31.8 pg (27.0-32.0); MCHC 36.6 g/dL (32.0-37.0); MCV 86.9 FL (80.0-97.0); Mean Platelet Volume 8.1 FL (9.5-12.2); Monocytes # (A) 0.85 X 10*3/uL (0.20-1.00); Monocytes % (A) 11.1 %; NRBC Per 100 WBC 0 X 10*3/uL (0.00-0.01); Platelet Count 134 X 10*3/uL (140-440); RDW 15.4 % (11.5-14.5); WBC 7.66 X 10*3/uL (4.50-10.00)
[2024-04-26 09:43] LABS: ALT 22 U/L (10-49); AST 28 U/L (14-35); Albumin 4.4 g/dL (3.8-4.9); Alkaline Phosphatase 88 U/L (41-126); Carbon Dioxide 23.9 mmol/L (21.6-31.8); Chloride 90 mmol/L (96-109); Globulin 2.2 g/dL (1.6-3.3); Glucose 66 mg/dL (70-110); Potassium 3.7 mmol/L (3.5-5.5); Sodium 126 mmol/L (135-145); Total Bilirubin 0.7 mg/dL (0.3-1.2); Total Protein 6.6 g/dL (6.2-8.2)
[2024-04-26] MEDS ORDERED: IPRATROPIUM-ALBUTEROL 3 ML NEB INHALATION PRN (11:48)
[2024-04-26] MEDS: SODIUM CHLORIDE 0.9% 1,000 ML IV SCH (12:37)
[2024-04-26] MEDS: ATORVASTATIN 10 MG TAB PO SCH (12:37)
[2024-04-26] MEDS: DAPAGLIFLOZIN PROPANEDIOL 10 MG TABLET PO SCH (12:37)
[2024-04-26 12:57] LABS: Glucose,Whole Blood 159 mg/dL (70-110)
--- NOTE | 2024-04-26 15:08 | P.PN ---
Subjective Progress Note Date: 04/24/24 63-year-old male with a PMH of alcohol abuse, CAD, and severe protein calorie malnutrition who was brought into the emergency room for altered mental status and suspected seizure. The patient had reportedly been given 5 mg of Versed enroute to the hospital for suspected seizure. At time of interview, the patient was essentially back to baseline. He reported a longstanding history of excessive alcohol abuse, did not wish to specify how much he drinks daily but notes that it is " a lot" for the past several years. Reports feeling achy throughout and weak in his legs. Denies experiencing chest discomfort, shortness of breath, fever, chills, cough, abdominal pain, nausea, vomiting. Patient has a history of delirium tremens. Notes that his last drink was earlier today. CT angiogram head neck and CT brain were unremarkable in the emergency room with EKG showing sinus tachycardia at 122 bpm with right axis deviation and no additional ST/T wave changes noted as reviewed by me. Chest x-ray revealed a generalized haziness concerning for pulmonary edema. Laboratory evaluation was remarkable for platelet count of 142, lactic acid 17.1, troponin less than 0.012, sodium 125, chloride 94, CO2 6, glucose 150, with serum alcohol less than 10. Objective - Vital Signs Vital signs: Vital Signs Temp 98.4 F 04/24/24 05:57 Pulse 86 04/24/24 05:57 Resp 16 04/24/24 05:57 BP 154/97 04/24/24 05:57 Pulse Ox 95 04/24/24 05:57 FiO2 - Exam - Constitutional General appearance: Present: average body habitus, cooperative, no acute distress - EENT Eyes: Present: anicteric sclerae, EOMI, PERRLA, normal appearance ENT: Present: hearing grossly normal, normal oropharynx Ears: bilateral: normal - Neck Neck: Present: normal ROM. Absent: lymphadenopathy, rigidity, thyromegaly Carotids: negative: bruit present Thyroid: bilateral: normal size, negative: enlarged, nodule - Respiratory Respiratory: bilateral: CTA, negative: rales, rhonchi, wheezing - Cardiovascular Rhythm: regular Heart sounds: normal: S1, S2 Abnormal Heart Sounds: Absent: systolic murmur, diastolic murmur - Gastrointestinal General gastrointestinal: Present: normal bowel sounds, soft. Absent: distended , organomegaly, tenderness - Genitourinary Genitourinary Comment(s): deferred - Integumentary Integumentary: Present: normal turgor. Absent: jaundiced, rash, ulcer - Neurologic Neurologic: Present: CNII-XII intact. Absent: focal deficits - Musculoskeletal Musculoskeletal: Present: gait normal, strength equal bilaterally - Psychiatric Psychiatric: Present: A&O x's 3, appropriate affect, intact judgment & insight - Labs CBC & Chem 7: 04/26/24 06:28 04/26/24 06:28 Labs: Abnormal Lab Results - Last 24 Hours (Table) 04/24/24 04/24/24 Range/Units 08:48 08:48 RDW 15.7 H (11.5-15.5) % Sodium 130 L (137-145) mmol/L Potassium 3.3 L (3.5-5.1) mmol/L BUN 8 L (9-20) mg/dL Creatinine 0.48 L (0.66-1.25) mg/dL Glucose 208 H (74-99) mg/dL Assessment and Plan Assessment: Alcoholic ketoacidosis Alcohol withdrawal with suspected seizure Hypochloremic hyponatremia, likely due to poor oral intake Lactic acidosis, resolved Thrombocytopenia, likely due to ongoing alcohol abuse Imaging: CT angiogram head neck and CT brain were unremarkable in the emergency room with EKG showing sinus tachycardia at 122 bpm with right axis deviation and no james tional ST/T wave changes noted as reviewed by me. Chest x-ray revealed a generalized haziness concerning for pulmonary edema. Data Review: Laboratory evaluation was remarkable for platelet count of 142, lactic acid 17.1, troponin less than 0.012, sodium 125, chloride 94, CO2 6, glucose 150, with serum alcohol less than 10. Plan: Continue with IV fluids normal saline 130 cc/h CIWA protocol with Ativan as needed Monitor electrolytes daily Monitor BMP Continue with multivitamins and thiamine Fall and seizure precautions Cardiac monitoring DVT prophylaxis: Lovenox subcu
--- NOTE | 2024-04-26 15:10 | P.PN ---
Subjective Progress Note Date: 04/25/24 63-year-old male with a PMH of alcohol abuse, CAD, and severe protein calorie malnutrition who was brought into the emergency room for altered mental status and suspected seizure. The patient had reportedly been given 5 mg of Versed enroute to the hospital for suspected seizure. At time of interview, the patient was essentially back to baseline. He reported a longstanding history of excessive alcohol abuse, did not wish to specify how much he drinks daily but notes that it is " a lot" for the past several years. Reports feeling achy throughout and weak in his legs. Denies experiencing chest discomfort, shortness of breath, fever, chills, cough, abdominal pain, nausea, vomiting. Patient has a history of delirium tremens. Notes that his last drink was earlier today. CT angiogram head neck and CT brain were unremarkable in the emergency room with EKG showing sinus tachycardia at 122 bpm with right axis deviation and no additional ST/T wave changes noted as reviewed by me. Chest x-ray revealed a generalized haziness concerning for pulmonary edema. Laboratory evaluation was remarkable for platelet count of 142, lactic acid 17.1, troponin less than 0.012, sodium 125, chloride 94, CO2 6, glucose 150, with serum alcohol less than 10. Neurology consulted for concern about altered mental status; MRI of the brain is ordered and pending -- Patient remains on home dose of Keppra 500 mg every 12 hours; patient was loaded with Keppra in ED with 1 g; seizure precautions in place -- Patient remains on CIWA protocol for alcohol abuse and withdrawal -- Remains on thiamine and folic acid Objective - Vital Signs Vital signs: Vital Signs Temp 98.0 F 04/25/24 07:48 Pulse 81 04/25/24 07:48 Resp 16 04/25/24 07:48 BP 159/85 04/25/24 09:38 Pulse Ox 96 04/25/24 09:03 FiO2 Intake & Output 04/24/24 04/25/24 04/25/24 18:59 06:59 18:59 Intake Total 3640 Output Total 1075 Balance 3640 -1075 Weight 44 kg Intake: Oral 3640 Output: Urine 1075 Other: Voiding Method Diaper Urinal Incontinent # Voids 2 - Exam - Constitutional General appearance: Present: average body habitus, cooperative, no acute di stress - EENT Eyes: Present: anicteric sclerae, EOMI, PERRLA, normal appearance ENT: Present: hearing grossly normal, normal oropharynx Ears: bilateral: normal - Neck Neck: Present: normal ROM. Absent: lymphadenopathy, rigidity, thyromegaly Carotids: negative: bruit present Thyroid: bilateral: normal size, negative: enlarged, nodule - Respiratory Respiratory: bilateral: CTA, negative: rales, rhonchi, wheezing - Cardiovascular Rhythm: regular Heart sounds: normal: S1, S2 Abnormal Heart Sounds: Absent: systolic murmur, diastolic murmur - Gastrointestinal General gastrointestinal: Present: normal bowel sounds, soft. Absent: distended, organomegaly, tenderness - Genitourinary Genitourinary Comment(s): deferred - Integumentary Integumentary: Present: normal turgor. Absent: jaundiced, rash, ulcer - Neurologic Neurologic: Present: CNII-XII intact. Absent: focal deficits - Musculoskeletal Musculoskeletal: Present: gait normal, strength equal bilaterally - Psychiatric Psychiatric: Present: A&O x's 3, appropriate affect, intact judgment & insight - Labs CBC & Chem 7: 04/26/24 06:28 04/26/24 06:28 Labs: Abnormal Lab Results - Last 24 Hours (Table) 04/24/24 04/24/24 04/25/24 Range/Units 14:05 20:36 05:58 RBC 4.31 L (4.40-5.60) X 10*6/uL Hct 39.0 L (39.6-50.0) % RDW 15.9 H (11.5-14.5) % Plt Count 133 L (140-440) X 10*3/uL MPV 8.0 L (9.5-12.2) FL Monocytes # 1.07 H (0.20-1.00) X 10*3/uL Sodium (135-145) mmol/L Chloride (96-109) mmol/L Anion Gap (4.00-12.00) mmol/L Creatinine (0.6-1.5) mg/dL BUN/Creatinine Ratio (12.00-20.00) Ratio POC Glucose (mg/dL) 251 H 123 H (70-110) mg/dL 04/25/24 04/25/24 Range/Units 05:58 11:54 RBC (4.40-5.60) X 10*6/uL Hct (39.6-50.0) % RDW (11.5-14.5) % Plt Count (140-440) X 10*3/uL MPV (9.5-12.2) FL Monocytes # (0.20-1.00) X 10*3/uL Sodium 131 L (135-145) mmol/L Chloride 94 L (96-109) mmol/L Anion Gap 12.60 H (4.00-12.00) mmol/L Creatinine 0.5 L (0.6-1.5) mg/dL BUN/Creatinine Ratio 21.20 H (12.00-20.00) Ratio POC Glucose (mg/dL) 258 H (70-110) mg/dL Assessment and Plan Assessment: Alcoholic ketoacidosis Alcohol withdrawal with suspected seizure Hypochloremic hyponatremia, likely due to poor oral intake Lactic acidosis, resolved Thrombocytopenia, likely due to ongoing alcohol abuse Imaging: CT angiogram head neck and CT brain were unremarkable in the emergency room with EKG showing sinus tachycardia at 122 bpm with right axis deviation and no additional ST/T wave changes noted as reviewed by me. Chest x-ray revealed a generalized haziness concerning for pulmonary edema. Data Review: Laboratory evaluation was remarkable for platelet count of 142, lactic acid 17.1, troponin less than 0.012, sodium 125, chloride 94, CO2 6, glucose 150, with serum alcohol less than 10. Plan: Continue with IV fluids normal saline 130 cc/h CIWA protocol with Ativan as needed Monitor electrolytes daily Monitor BMP Continue with multivitamins and thiamine Fall and seizure precautions Cardiac monitoring DVT prophylaxis: Lovenox subcu
--- NOTE | 2024-04-26 15:13 | P.PN ---
Subjective Progress Note Date: 04/26/24 63-year-old male with a PMH of alcohol abuse, CAD, and severe protein calorie malnutrition who was brought into the emergency room for altered mental status and suspected seizure. The patient had reportedly been given 5 mg of Versed enroute to the hospital for suspected seizure. At time of interview, the patient was essentially back to baseline. He reported a longstanding history of excessive alcohol abuse, did not wish to specify how much he drinks daily but notes that it is " a lot" for the past several years. Reports feeling achy throughout and weak in his legs. Denies experiencing chest discomfort, shortness of breath, fever, chills, cough, abdominal pain, nausea, vomiting. Patient has a history of delirium tremens. Notes that his last drink was earlier today. CT angiogram head neck and CT brain were unremarkable in the emergency room with EKG showing sinus tachycardia at 122 bpm with right axis deviation and no additional ST/T wave changes noted as reviewed by me. Chest x-ray revealed a generalized haziness concerning for pulmonary edema. Laboratory evaluation was remarkable for platelet count of 142, lactic acid 17.1, troponin less than 0.012, sodium 125, chloride 94, CO2 6, glucose 150, with serum alcohol less than 10. Neurology consulted for concern about altered mental status; MRI of the brain is ordered and pending -- Patient remains on home dose of Keppra 500 mg every 12 hours; patient was loaded with Keppra in ED with 1 g; seizure precautions in place -- Patient remains on CIAR protocol for alcohol abuse and withdrawal -- Remains on thiamine and folic acid 04/26/2024 Patient is seen and evaluated with family at bedside; sitting up in bed; voices no complaints Vital signs reviewed and remained stable Lab review reveals WBC of 7.6, hemoglobin of 14.3 and platelet count of 134, sodium 126, potassium 3.7, BUNs/creatinine of 6.2/0.4, AST/ALT within normal limits, bilirubin within normal limit --We will place patient back on normal saline at a rate of 130 cc an hour for hyponatremia; monitor electrolytes closely -- Patient has been evaluated by neurology and EEG has been completed which does not reveal any epileptiform focus -- MRI of the brain is ordered and pending -- Possible discharge in next 24 to 48 hours once MRI is completed and patient is cleared by neurology Objective - Vital Signs Vital signs: Vital Signs Temp 98.4 F 04/26/24 08:00 Pulse 97 04/26/24 08:00 Resp 15 04/26/24 08:00 BP 135/80 04/26/24 08:00 Pulse Ox 97 04/26/24 08:21 FiO2 Intake & Output 04/25/24 04/26/24 04/26/24 18:59 06:59 18:59 Intake Total 1180 Output Total 1075 Balance -1075 1180 Weight 51.8 kg 45 kg Intake: Oral 1180 Output: Urine 1075 Other: Voiding Method Urinal Urinal Diaper Incontinent # Voids 3 - Exam - Constitutional General appearance: Present: average body habitus, cooperative, no acute distress - EENT Eyes: Present: anicteric sclerae, EOMI, PERRLA, normal appearance ENT: Present: hearing grossly normal, normal oropharynx Ears: bilateral: normal - Neck Neck: Present: normal ROM. Absent: lymphadenopathy, rigidity, thyromegaly Carotids: negative: bruit present Thyroid: bilateral: normal size, negative: enlarged, nodule - Respiratory Respiratory: bilateral: CTA, negative: rales, rhonchi, wheezing - Cardiovascular Rhythm: regular Heart sounds: normal: S1, S2 Abnormal Heart Sounds: Absent: systolic murmur, diastolic murmur - Gastrointestinal General gastrointestinal: Present: normal bowel sounds, soft. Absent: distend ed, organomegaly, tenderness - Genitourinary Genitourinary Comment(s): deferred - Integumentary Integumentary: Present: normal turgor. Absent: jaundiced, rash, ulcer - Neurologic Neurologic: Present: CNII-XII intact. Absent: focal deficits - Musculoskeletal Musculoskeletal: Present: gait normal, strength equal bilaterally - Psychiatric Psychiatric: Present: A&O x's 3, appropriate affect, intact judgment & insight - Labs CBC & Chem 7: 04/26/24 06:28 04/26/24 06:28 Labs: Abnormal Lab Results - Last 24 Hours (Table) 04/25/24 04/25/24 04/25/24 Range/Units 11:54 17:21 20:17 Hct (39.6-50.0) % RDW (11.5-14.5) % Plt Count (140-440) X 10*3/uL MPV (9.5-12.2) FL Sodium (135-145) mmol/L Chloride (96-109) mmol/L Anion Gap (4.00-12.00) mmol/L BUN (9.0-27.0) mg/dL Creatinine (0.6-1.5) mg/dL Glucose (70-110) mg/dL POC Glucose (mg/dL) 258 H 136 H 137 H (70-110) mg/dL 04/26/24 04/26/24 Range/Units 06:28 06:28 Hct 39.1 L (39.6-50.0) % RDW 15.4 H (11.5-14.5) % Plt Count 134 L (140-440) X 10*3/uL MPV 8.1 L (9.5-12.2) FL Sodium 126 L (135-145) mmol/L Chloride 90 L (96-109) mmol/L Anion Gap 12.10 H (4.00-12.00) mmol/L BUN 6.0 L (9.0-27.0) mg/dL Creatinine 0.4 L (0.6-1.5) mg/dL Glucose 66 L (70-110) mg/dL POC Glucose (mg/dL) (70-110) mg/dL Assessment and Plan Assessment: Alcoholic ketoacidosis Alcohol withdrawal with suspected seizure Hypochloremic hyponatremia, likely due to poor oral intake Lactic acidosis, resolved Thrombocytopenia, likely due to ongoing alcohol abuse Imaging: CT angiogram head neck and CT brain were unremarkable in the emergency room with EKG showing sinus tachycardia at 122 bpm with right axis deviation and no additional ST/T wave changes noted as reviewed by me. Chest x-ray revealed a generalized haziness concerning for pulmonary edema. Data Review: Laboratory evaluation was remarkable for platelet count of 142, lactic acid 17.1, troponin less than 0.012, sodium 125, chloride 94, CO2 6, glucose 150, with serum alcohol less than 10. Plan: Continue with IV fluids normal saline 130 cc/h CIWA protocol with Ativan as needed Monitor electrolytes daily Monitor BMP Continue with multivitamins and thiamine Fall and seizure precautions Cardiac monitoring DVT prophylaxis: Lovenox subcu
[2024-04-26 17:20] LABS: Glucose,Whole Blood 92 mg/dL (70-110)
[2024-04-26 20:35] LABS: Glucose,Whole Blood 113 mg/dL (70-110)
[2024-04-26] MEDS: GABAPENTIN 300 MG CAP PO SCH (20:54)
[2024-04-26] MEDS: traZODone HCL 50 MG TAB PO SCH (20:54)
[2024-04-26] MEDS ORDERED: INSULIN DETEMIR (LEVEMIR) 100 UNIT/ML SYR SQ SCH (21:00)
[2024-04-27 07:30] LABS: Glucose,Whole Blood 82 mg/dL (70-110)
[2024-04-27] MEDS: PANTOPRAZOLE 40 MG TABLET PO SCH (08:21)
[2024-04-27] MEDS: METOPROLOL SUCCINATE (ER) 25 MG TAB.ER.24H PO SCH (08:21)
[2024-04-27] MEDS: LOSARTAN 25 MG TAB PO SCH (08:22)
[2024-04-27] MEDS: TAMSULOSIN 0.4 MG CAP.ER.24H PO SCH (08:22)
[2024-04-27] MEDS: FOLIC ACID 1 MG TAB PO SCH (08:23)
--- NOTE | 2024-04-27 10:51 | MR ---
EXAMINATION TYPE: MR brain wo/w con DATE OF EXAM: 04/27/2024 COMPARISON: 04/22/2024 CT brain HISTORY: Seizure, AMS. TECHNIQUE: Multiplanar, multisequence images of the brain and brainstem is performed without and with IV contras t, utilizing 5 mL intravenous Gadavist . FINDINGS: Diffusion weighted images demonstrate no evidence of a recent infarct or other diffusion ab normality. Small focal areas of abnormal signal involving the basal ganglia and right thalamus may represent pro minent Virchow Rony spaces versus remote lacunar infarct. Faint area of abnormal signal involving th e sebastián on the right most typical of remote ischemia. A prominent cisterna magna versus small arachnoid cyst posterior fossa. [id number] degenerative changes. Multiple focal areas of abnormal signal within the white matter are nonspecific but most ty pical of remote microvascular ischemia. Midline structures demonstrate normal morphology. The cranio cervical junction appears within normal limits. Post contrast images demonstrate no abnormal enhance ment. The dural venous sinuses appear patent. Mild changes of chronic sinusitis and the globes are in tact. Posterior spondylosis C3-C4 partially included in the field of view could be resulted in canal stenosis. IMPRESSION: 1. No acute ischemia or enhancing mass. 2. Degenerative and nonspecific white matter findings most typical of remote microvascular ischemic d isease.
[2024-04-27 12:09] LABS: Glucose,Whole Blood 116 mg/dL (70-110)
[2024-04-27 12:41] VITALS: BP 153/90; PULSE 87; RESP 17; TEMP 97.7
[2024-04-27 14:49] LABS: African American GFR (CKD) >90 (>60 ml/min/1.73 sqM); Anion Gap 8 mmol/L; Blood Urea Nitrogen 7 mg/dL (9-20); Calcium 9.1 mg/dL (8.4-10.2); Carbon Dioxide 23 mmol/L (22-30); Chloride 98 mmol/L (98-107); Glucose 191 mg/dL (74-99); Non-African American GFR(CKD) >90 (>60 ml/min/1.73 sqM); Potassium 4.6 mmol/L (3.5-5.1); Sodium 129 mmol/L (137-145)
[2024-04-27 15:10] VITALS: BMI 15.0
[2024-04-27 17:11] LABS: Glucose,Whole Blood 130 mg/dL (70-110)
[2024-04-27] MEDS ORDERED: levETIRAcetam 500 MG TAB PO SCH (21:00)
--- NOTE | 2024-04-29 10:09 | P.DS ---
Providers Date of admission: 04/22/24 20:17 Expected date of discharge: 04/27/24 Attending physician: June Paulson Consults: 04/22/24 20:16 Consult Physician Routine Consulting Provider: Jamarcus Arias Consult Reason/Comments: ams,SZ? Do you want consulting provider notified?: Yes Primary care physician: Juan José Khan [facility] Course: Final diagnosis Alcoholic ketoacidosis Alcohol withdrawal with suspected seizure Hypochloremic hyponatremia, likely due to poor oral intake, improving Lactic acidosis, resolved Thrombocytopenia, likely due to ongoing alcohol abuse Moderate protein calorie malnutrition with a BMI 15.1 GI prophylaxis DVT prophylaxis Full code Discharge disposition Patient is being discharged in a stable condition with guarded prognosis to home. Patient will follow-up with Dr. Khan in the outpatient setting upon discharge. Patient is to continue with outpatient follow-up with neurology as scheduled. Continue Keppra on discharge. Discussed alcohol rehab and AA meetings. Total time taken is greater than 35 minutes. Hospital course This is a 63-year-old male who was recently admitted with acute alcohol withdrawal with suspected seizure likely secondary to alcohol. Patient was evaluated by neurology underwent workup and has been started on prophylactic Keppra recommending outpatient follow-up. Patient also with significant hyponatremia improving at 129 today. Patient's mentation is stable and reports to tolerating diet with no reports of nausea or vomiting. Patient encouraged oral intake and also discussed extensively about complete alcohol cessation. Suggest inpatient rehab although patient is refusing. Resources provided for community mental health as well as AA on discharge. Please refer to neurology note for further HPI. Patient has been instructed to follow-up with primary care provider. Please refer to other consultation notes for further HPI. Currently no reports of chest pain, shortness of breath, or palpitations. Patient is afebrile. No reports of nausea or vomiting and patient is tolerating diet. Patient will be discharged home today. Guarded prognosis and high risk for readmissions given patient's continued alcohol abuse and noncompliance Physical exam: Gen: This is a 63-year-old male who is awake, alert and oriented x 3, well- developed, thin built, cachectic, elderly appearing HEENT: Head is atraumatic, normocephalic. Pupils equal, round. Sclerae is anicteric. NECK: Supple. No JVD. No lymphadenopathy. No thyromegaly. LUNGS: Clear to auscultation. No wheezes or rhonchi. No intercostal retractions. HEART: Regular rate and rhythm. No murmur. ABDOMEN: Soft. Bowel sounds are present. No masses. No tenderness. EXTREMITIES: No pedal edema. No calf tenderness. NEUROLOGICAL: Patient is awake, alert and oriented x3. Cranial nerves 2 through 12 are grossly intact. Please refer to medication reconciliation sheet for a list of medications. The impression and plan of care has been dictated by Radha Rosas, Nurse Practitioner as directed. Dr. Diogo MD I have performed a history and examination and MDM of this patient, discussed the same with the dictator, and agree with the dictator's assessment and plan as written ,documented as a scribe. Based on total visit time, I have performed more than 50% of the visit. Patient Condition at Discharge: Fair Plan - Discharge Summary New Discharge Prescriptions: New Thiamine [Vitamin B-1] 100 mg PO BID #60 tablet levETIRAcetam [Keppra] 500 mg PO Q12HR 30 Days #60 tab Acetaminophen Tab [Tylenol] 650 mg PO Q6HR PRN tab PRN Reason: Fever And/ Or Pain Continue Ipratropium-Albuterol Nebulize [Duoneb 0.5 mg-3 mg/3 ml Soln] 3 ml INHALATION RT-QID PRN 30 Days #120 each PRN Reason: Shortness Of Breath Or Wheezing metFORMIN HCL [Glucophage] 1,000 mg PO BID-W/MEALS 30 Days #60 tab Pantoprazole [Protonix] 40 mg PO DAILY 90 Days #90 tab traZODone HCL [Desyrel] 75 mg PO HS Losartan [Cozaar] 25 mg PO DAILY Gabapentin [Neurontin] 300 mg PO HS Omeprazole [PriLOSEC] 20 mg PO DAILY Multivitamins, Thera [Multivitamin (formulary)] 1 tab PO DAILY Dapagliflozin Propanediol [Farxiga] 10 mg PO DAILY 30 Days #30 tab Tamsulosin [Flomax] 0.4 mg PO PC-BRKFST 90 Days #90 cap Folic Acid 1 mg PO DAILY 90 Days #90 tab Insulin Detemir (Levemir) [Levemir] 30 unit SQ HS 90 Days #90 each Metoprolol Succinate (ER) [Toprol XL] 25 mg PO DAILY Atorvastatin Calcium 10 mg PO DAILY Discharge Medication List Dapagliflozin Propanediol [Farxiga] 10 mg PO DAILY 30 Days #30 tab 12/20/23 [Rx] Folic Acid 1 mg PO DAILY 90 Days #90 tab 12/20/23 [Rx] Insulin Detemir (Levemir) [Levemir] 30 unit SQ HS 90 Days #90 each 12/20/23 [Rx] Ipratropium-Albuterol Nebulize [Duoneb 0.5 mg-3 mg/3 ml Soln] 3 ml INHALATION RT-QID PRN 30 Days #120 each 12/20/23 [Rx] Pantoprazole [Protonix] 40 mg PO DAILY 90 Days #90 tab 12/20/23 [Rx] Tamsulosin [Flomax] 0.4 mg PO PC-BRKFST 90 Days #90 cap 12/20/23 [Rx] metFORMIN HCL [Glucophage] 1,000 mg PO BID-W/MEALS 30 Days #60 tab 12/20/23 [Rx] Gabapentin [Neurontin] 300 mg PO HS 02/03/24 [History] Losartan [Cozaar] 25 mg PO DAILY 02/03/24 [History] traZODone HCL [Desyrel] 75 mg PO HS 02/03/24 [History] Atorvastatin Calcium 10 mg PO DAILY 04/22/24 [History] Metoprolol Succinate (ER) [Toprol XL] 25 mg PO DAILY 04/22/24 [History] Multivitamins, Thera [Multivitamin (formulary)] 1 tab PO DAILY 04/22/24 [History] Omeprazole [PriLOSEC] 20 mg PO DAILY 04/22/24 [History] Acetaminophen Tab [Tylenol] 650 mg PO Q6HR PRN tab 04/27/24 [Rx] Thiamine [Vitamin B-1] 100 mg PO BID #60 tablet 04/27/24 [Rx] levETIRAcetam [Keppra] 500 mg PO Q12HR 30 Days #60 tab 04/27/24 [Rx] Follow up Appointment(s)/Referral(s): Lazaro Marr MD [Medical Doctor] - 1 Week (Please discuss a referral to this office with your primary care physician. Patient has developed significant peripheral neuropathy. Possibly related to his type 2 diabetes, or related to his alcoholism. Recommend EMG nerve conduction of upper and lower limbs to rule out inflammatory polyneuropathy.) Juan José Khan DO [Primary Care Provider] - 04/30/24 4:30 pm Ambulatory/Diagnostic Orders: Basic Metabolic Panel [LAB.AMB] Time Frame: 3 Days, Location: None Selected Patient Instructions/Handouts: Thiamine (By mouth), Levetiracetam (By mouth), Failure to Thrive (DC), Hyponatremia (DC), Weakness (DC), Altered Mental Status (ED) Activity/Diet/Wound Care/Special Instructions: Activity limited until follow-up Follow-up with primary care provider on discharge Follow-up with neurology in 1 to 2 weeks Continue taking medications as prescribed Avoid tobacco use and alcohol use Avoid tobacco use and exposure as well as alcohol use and exposure Repeat labs in 2 to 3 days to monitor kidney functions and electrolytes Discharge Disposition: HOME SELF-CARE
--- NOTE | 2024-05-02 00:03 | P.PN ---
Subjective Progress Note Date: 04/27/24 Patient was initially seen by Dr. Jamarcus Arias. Please refer to his note for details. Patient is a 63-year-old male who presented with seizure, which was felt related to alcohol withdrawal and hyponatremia. EEG is negative for seizure. Patient states that he has not drank alcohol since November 2023. Before he was to be a heavy drinker. He states that he is still feels a little bit foggy. In the last 2 weeks he may have had 3 drinks. SOME OF THE WORK-UP DURING THIS HOSPITAL VISIT CONSISTED OF: On presentation patient white blood cell is normal. Glucose is 163 Plasma lactic acid vein on presentation is 17.1 and repeat is 1.1 Sodium is 125 Calcium is 8.8, phosphorus is 4.2, magnesium is 2.1 AST ALT is within normal limits Alcohol level is less than 10 Hemoglobin A1c 5.8. Diabetes is very well-controlled. CT of the head is reported as no acute intracranial process. I personally reviewed the CT and I agree there is no acute and subacute intracranial process. It seems the patient has encephalomalacia over the left posterior region of the cerebellar. CT angiography of the head and neck is reported no evidence of dissection of cervical internal carotid artery or vertebral artery or any evidence of significant stenosis at the carotid bifurcation. No evidence of intracranial high-grade stenosis or intracranial aneurysm. Routine EEG: Is abnormal. The background slowing is suggestive of mild encephalopathy. The intermittent rhythmic delta activity over the bilateral frontal, also known as FIRDA, which is suggestive of possible toxic-metabolic derragement vs cerebral dysfunction. There is no epileptiform discharges or seizure on the EEG. Objective - Vital Signs Vital signs: Vital Signs Temp 97.7 F 04/27/24 12:21 Pulse 87 04/27/24 12:21 Resp 17 04/27/24 12:21 BP 153/90 04/27/24 12:21 Pulse Ox 99 04/27/24 12:21 FiO2 Intake & Output 04/26/24 04/27/24 04/27/24 18:59 06:59 18:59 Intake Total 780 2100 Output Total 600 1500 Balance 180 600 Weight 45 kg Intake: Intake, IV Titration 1560 Amount Sodium Chloride 0.9% 1, 1560 000 ml @ 130 mls/hr IV . [id number] [facility] Rx#:[id number] Oral 780 540 Output: Urine 600 1500 Other: Voiding Method Urinal Urinal Diaper Diaper Incontinent Incontinent # Voids 1 2 # Bowel Movements 1 - Exam Patient's mental status, speech and language functions are normal. On muscle strength testing the strength is normal in the arms and legs except hip flexion which is about 4-bilaterally. Reflexes are trace in the upper limbs and absent in the lower limbs. - Labs CBC & Chem 7: 04/26/24 06:28 04/27/24 14:09 Labs: Abnormal Lab Results - Last 24 Hours (Table) 04/26/24 04/26/24 04/27/24 Range/Units 12:52 20:33 12:07 POC Glucose (mg/dL) 159 H 113 H 116 H (70-110) mg/dL Assessment and Plan Assessment: This is a 63-year-old gentleman who present emergency department because of altered mental status and was found unresponsive. He was given Versed by EMS prior to arrival to the ED and there is suspicion that he had a seizure. Patient states that he is drinking alcohol and he is cutting down on his alcohol use. He still continues to smoke. His plasma lactic acid vein presentation was 17.1. His sodium is 125. The level was less than 10. Seizure and it seems probable provoked from his withdrawal from alcohol as well as hyponatremia. EEG is negative for seizure or discharges. Elevated lactic acid vein due to above Hyponatremia as low as 125 History of shaking/twitching in November 2023 and the patient was evaluated by Dr. Clifford who felt due to metabolic derangement from NKOS. EEG was moderate encephalopathy but no seizure or discharges. Diabetes mellitus History of coronary artery disease Alcohol use and the patient states that he is cutting down alcohol. In November 2023 his alcohol level was 175. Tobacco use Plan: MRI of the brain revealed no acute ischemia or enhancing mass. Degenerative and nonspecific white manage findings most typical of remote microvascular ischemia. I personally reviewed MRI, agree with the findings. The patient was started on Keppra 500 mg every 12 hours by the ED. Patient was initially loaded on Keppra 1 g in the ED. Seizure precautions seizure pads Patient is on Ativan as needed for CIWA protocol Continue thiamine Was counseled on tobacco cessation as well as alcohol cessation. Will defer the rest of the medical management to primary and other specialist Patient states that he has not drank alcohol since November 2023. Therefore I would recommend continuing Keppra 500 mg twice daily. His seizure could be related to hyponatremia with sodium of 125. His most recent sodium is 129. Will defer to IM for management of hyponatremia. Patient informed of [place] state law of no driving unless seizure-free for 6 months, climbing ladders, operating dangerous machinery or unsupervised swimming.
== END 2024-04-27 18:24 | disposition home or self-care (01) | DRG 775 ==
LOC: EC 18:43 → 3SCARD 20:17 → 5NMEDONC 04-24 15:09
PROVIDERS: ADMIT Hospitalist; ATTEND Hospitalist
DX: F10.131 Alcohol abuse with withdrawal delirium (principal); G93.40 Encephalopathy, unspecified; E43 Unspecified severe protein-calorie malnutrition; E87.29 Other acidosis; E88.A Wasting disease (syndrome) due to underlying condition; R62.7 Adult failure to thrive; D69.59 Other secondary thrombocytopenia; E87.8 Other disorders of electrolyte and fluid balance, not elsewhere classified; E11.9 Type 2 diabetes mellitus without complications; E87.1 Hypo-osmolality and hyponatremia; G40.509 Epileptic seizures related to external causes, not intractable, without status epilepticus; F10.129 Alcohol abuse with intoxication, unspecified; G93.89 Other specified disorders of brain; I10 Essential (primary) hypertension; F32.A Depression, unspecified; Z79.4 Long term (current) use of insulin; I25.10 Atherosclerotic heart disease of native coronary artery without angina pectoris; F41.9 Anxiety disorder, unspecified; Z68.1 Body mass index [BMI] 19.9 or less, adult; Y90.0 Blood alcohol level of less than 20 mg/100 ml; F17.210 Nicotine dependence, cigarettes, uncomplicated; Z71.6 Tobacco abuse counseling; Z79.84 Long term (current) use of oral hypoglycemic drugs; Z79.899 Other long term (current) drug therapy; Z71.3 Dietary counseling and surveillance; Z71.41 Alcohol abuse counseling and surveillance of alcoholic
CPT/HCPCS: 36415; 70450; 70496; 70498; 70553; 71045; 80048; 80053; 80143; 80179; 80320; 81003; 82803; 83036; 83605; 83735; 83880; 84100; 84484; 85025; 85610; 85730; 93005; 94760; 95816; 96361; 96372; 96374; 96375; 96376; 99291

== ENCOUNTER 2024-08-21 03:44 | Observation (INO) | payer OTHER ==
[2024-08-21 03:55] LABS: Glucose,Whole Blood 107 mg/dL (70-110)
[2024-08-21 04:32] LABS: Glucose,Whole Blood 49 mg/dL (70-110)
[2024-08-21] MEDS: DEXTROSE 50% SYRINGE 50 ML IVP STA ×3 (04:35→09:35)
[2024-08-21 04:57] LABS: Glucose,Whole Blood 163 mg/dL (70-110)
[2024-08-21 05:16] LABS: ALT 47 U/L (4-49); African American GFR (CKD) >90 (>60 ml/min/1.73 sqM); Albumin 4.2 g/dL (3.5-5.0); Anion Gap 11 mmol/L; Blood Urea Nitrogen 3 mg/dL (9-20); Calcium 8.8 mg/dL (8.4-10.2); Carbon Dioxide 18 mmol/L (22-30); Chloride 97 mmol/L (98-107); Glucose 89 mg/dL (74-99); Non-African American GFR(CKD) >90 (>60 ml/min/1.73 sqM); Sodium 126 mmol/L (137-145); Total Bilirubin 0.6 mg/dL (0.2-1.3); Total Protein 6.5 g/dL (6.3-8.2)
[2024-08-21 05:19] LABS: AST 42 U/L (17-59); Alkaline Phosphatase 47 U/L (38-126); Potassium 3.8 mmol/L (3.5-5.1)
[2024-08-21 05:24] LABS: Basophils % (A) 1 %; Eosinophils % (A) 0 %; HCT 39.6 % (39.0-53.0); HGB 13.3 gm/dL (13.0-17.5); Lymphocytes # (A) 1.2 k/uL (1.0-4.8); Lymphocytes % (A) 30 %; MCH 33.9 pg (25.0-35.0); MCHC 33.5 g/dL (31.0-37.0); MCV 101.3 fL (80.0-100.0); Macrocytosis Slight; Mean Platelet Volume 7.2; Monocytes # (A) 0.4 k/uL (0-1.0); Monocytes % (A) 11 %; Neutrophils # (A) 2.1 k/uL (1.3-7.7); Neutrophils % (A) 54 %; Platelet Count 153 k/uL (150-450); RBC 3.91 m/uL (4.30-5.90); RDW 13.4 % (11.5-15.5); WBC 3.9 k/uL (3.8-10.6)
[2024-08-21 06:09] LABS: Glucose,Whole Blood 61 mg/dL (70-110)
[2024-08-21] MEDS: SODIUM CHLORIDE 0.9% 1,000 ML IV ONE (06:11)
[2024-08-21] MEDS ORDERED: traMADol 50 MG TAB PO PRN (06:13)
[2024-08-21] MEDS ORDERED: MAG HYDROX/AL HYDROX/SIMETH 30 ML CUP PO PRN (06:13)
[2024-08-21] MEDS ORDERED: PROCHLORPERAZINE 5 MG TAB PO PRN (06:13)
[2024-08-21] MEDS ORDERED: NALOXONE 0.4 MG/ML 1 ML VIAL IV PRN (06:13)
[2024-08-21] MEDS ORDERED: ACETAMINOPHEN TAB 325 MG TAB PO PRN (06:13)
[2024-08-21] MEDS ORDERED: CALCIUM CARBONATE 500 MG CHEWABLE PO PRN (06:13)
--- NOTE | 2024-08-21 06:13 | ED ---
General Adult HPI - General Chief complaint: Recheck/Abnormal Lab/Rx Stated complaint: Low Blood Sugar Time Seen by Provider: 08/21/24 04:32 Source: patient, EMS Mode of arrival: EMS Limitations: no limitations - History of Present Illness Initial comments: Patient is a 64-year-old male with past medical history of diabetes, neuropathy presenting today for hypoglycemia. Patient states that yesterday at 3 PM he took his 30 units long-acting insulin as usual. He did not eat anything after that and yesterday evening he drank about 4 tall [place] ice teas before going to bed. He woke up this morning feeling weak and "off". EMS called and found patient to be hypoglycemic, blood glucose 30. Patient given AMP D50 and brought to the hospital. Patient denies additional complaints, including recent illness, fevers, chills, chest pain, abdominal pain, nausea, vomiting, dysuria, urinary frequency, cough, shortness of breath. He takes farxiga and metformin in addition to his long acting insulin. - Related Data Home Medications Medication Instructions Recorded Confirmed Losartan [Cozaar] 25 mg PO DAILY 02/03/24 08/21/24 traZODone HCL [Desyrel] 75 mg PO HS 02/03/24 08/21/24 Atorvastatin Calcium 10 mg PO DAILY 04/22/24 08/21/24 Metoprolol Succinate (ER) [Toprol 25 mg PO DAILY 04/22/24 08/21/24 XL] Multivitamins, Thera [Multivitamin 1 tab PO DAILY 04/22/24 08/21/24 (formulary)] Omeprazole [PriLOSEC] 20 mg PO DAILY 04/22/24 08/21/24 Gabapentin [Neurontin] 300 mg PO TID 08/21/24 08/21/24 Previous Rx's Medication Instructions Recorded Dapagliflozin Propanediol [Farxiga] 10 mg PO DAILY 30 Days #30 tab 12/20/23 Folic Acid 1 mg PO DAILY 90 Days #90 tab 12/20/23 Insulin Detemir (Levemir) [Levemir] 30 unit SQ HS 90 Days #90 each 12/20/23 Ipratropium-Albuterol Nebulize 3 ml INHALATION RT-QID PRN 30 Days 12/20/23 [Duoneb 0.5 mg-3 mg/3 ml Soln] #120 each Pantoprazole [Protonix] 40 mg PO DAILY 90 Days #90 tab 12/20/23 Tamsulosin [Flomax] 0.4 mg PO PC-BRKFST 90 Days #90 cap 12/20/23 metFORMIN HCL [Glucophage] 1,000 mg PO BID-W/MEALS 30 Days 12/20/23 #60 tab Acetaminophen Tab [Tylenol] 650 mg PO Q6HR PRN tab 04/27/24 Thiamine [Vitamin B-1] 100 mg PO BID #60 tablet 04/27/24 levETIRAcetam [Keppra] 500 mg PO Q12HR 30 Days #60 tab 04/27/24 Allergies Allergy/AdvReac Type Severity Reaction Status Date / Time No Known Allergies Allergy Verified 08/21/24 07:25 Review of Systems ROS Statement: Those systems with pertinent positive or pertinent negative responses have been documented in the HPI. ROS Other: All systems not noted in ROS Statement are negative. Past Medical History Past Medical History: Hypertension Additional Past Medical History / Comment(s): UNEXPLAINED WT LOSS (12 #), DAUGHTER DEC 2016. History of Any Multi-Drug Resistant Organisms: None Reported Past Surgical History: Heart Catheterization Additional Past Surgical History / Comment(s): Pt states as an he had a "pinched" abdominal muscle with surgical repair, colonoscopy Past Anesthesia/Blood Transfusion Reactions: No Reported Reaction Past Psychological History: Anxiety, Depression Smoking Status: Current every day smoker Past Alcohol Use History: Daily Past Drug Use History: Marijuana - Past Family History Mother Family Medical History: No Reported History Additional Family Medical History / Comment(s): . Father Family Medical History: CVA/TIA Additional Family Medical History / Comment(s): Father of a CVA Daughter(s) Family Medical History: Hypertension Additional Family Medical History / Comment(s): ADRENAL GLAND TUMOR. General Exam - General Exam Comments Initial Comments: PE: CONSTITUTIONAL: No apparent distress, well appearing SKIN: Warm, dry, no jaundice, hives or petechiae EYES: Pupils are equally round, extraocular movements intact without nystagmus, clear conjunctiva, non-icteric sclera HENT: Normocephalic, atraumatic, moist mucus membranes, oropharynx clear without exudates NECK: , Full range of motion, normal appearance PULMONARY: Clear to auscultation without wheezes, rhonchi, or rales, normal excursion, no accessory muscle use and no stridor CARDIOVASCULAR: Regular rate, rhythm, normal S1 and S2. No appreciated murmurs, rubs or gallops. Strong radial pulses with intact distal perfusion. No lower extremity edema GASTROINTESTINAL: Soft, active bowel sounds throughout, non-tender, non- distended, no palpable masses, no rebound or guarding. No hepatosplenomegaly MUSCULOSKELETAL: Extremities have no gross deformity, no edema, redness, or swelling. No calf swelling NEUROLOGIC:_a/o x 3, GCS 15, normal mentation and speech. Moves all extremities x 4 without motor or sensory deficit PSYCHIATRIC:_normal mood and affect, thought process is clear and linear Limitations: no limitations Course Vital Signs 08/21/24 08/21/24 08/21/24 03:48 04:38 05:53 Temperature 97.6 F Pulse Rate 66 73 76 Respiratory 18 18 18 Rate Blood Pressure 126/79 112/79 129/84 O2 Sat by Pulse 98 97 97 Oximetry 08/21/24 08/21/24 08/21/24 07:10 09:45 10:32 Temperature 97.6 F Pulse Rate 75 87 80 Respiratory 14 18 19 Rate Blood Pressure 155/93 140/94 139/97 O2 Sat by Pulse 97 96 96 Oximetry 08/21/24 08/21/24 08/21/24 11:30 13:05 14:18 Temperature 97.6 F Pulse Rate 77 72 78 Respiratory 18 16 16 Rate Blood Pressure 137/87 132/86 121/83 O2 Sat by Pulse 97 94 L 93 L Oximetry 08/21/24 08/21/24 08/21/24 15:00 18:49 20:05 Temperature 97.3 F L 97.1 F L Pulse Rate 74 75 64 Respiratory 17 16 18 Rate Blood Pressure 138/91 132/81 124/68 O2 Sat by Pulse 100 97 97 Oximetry EKG Findings - EKG Comments: EKG Findings:: Sinus rhythm, 65 bpm, DC interval 160 ms, QRS duration 97 ms, QT/QTc 392/403 ms, no ST elevations or depressions, no arrhythmia Medical Decision Making - Medical Decision Making Was pt. sent in by a medical professional or institution (, PA, EXTRACTION MACHINE OPERATOR, urgent care, hospital, or residential...) When possible be specific @ -No Did you speak to anyone other than the patient for history (EMS, parent, family, police, friend...)? What history was obtained from this source @ -No Did you review nursing and triage notes (agree or disagree)? Why? @ -I reviewed and agree with nursing and triage notes Were old charts reviewed (outside hosp., previous admission, EMS record, old EKG, old radiological studies, urgent care reports/EKG's, residential records)? Report findings @ -[Old charts reviewed- Reviewed discharge summary from visit on 04/22/2024, patient was admitted for alcohol ketoacidosis, alcohol withdrawal and during that visit noted to have protein calorie malnutrition Differential Diagnosis (chest pain, altered mental status, abdominal pain women, abdominal pain men, vaginal bleeding, weakness, fever, dyspnea, syncope, headache, dizziness, GI bleed, back pain, seizure, CVA, palpatations, mental health, musculoskeletal)? @ -Differential diagnosis remains broad however top considerations include medication side effect, malnutrition, alcoholic ketoacidosis, infection, this is not all inclusive list EKG interpreted by me (3pts min.). @ -As above X-rays interpreted by me (1pt min.). @ -None done CT interpreted by me (1pt min.). @ -None done U/S interpreted by me (1pt. min.). @ -None done What testing was considered but not performed or refused? (CT, X-rays, U/S, labs)? Why? @ -None What meds were considered but not given or refused? Why? @ -None Did you discuss the management of the patient with other professionals (professionals i.e. , PA, EXTRACTION MACHINE OPERATOR, lab, RT, psych nurse, social services aide, dry box operator, teacher, promotion officer, case coordinator)? Give summary @ -No Was smoking cessation discussed for >3mins.? @ -No Was critical care preformed (if so, how long)? @ Yes 35 minutes, spent reassessing patient, ordering and interpreting lab values and interventions Were there social determinants of health that impacted care today? How? (Homelessness, low income, unemployed, alcoholism, drug addiction, transportation, low edu. Level, literacy, decrease access to med. care, snf, rehab)? @ -No Was there de-escalation of care discussed even if they declined (Discuss DNR or withdrawal of care, Hospice)? @ -No W What co-morbidities impacted this encounter? (DM, HTN, Smoking, COPD, CAD, Cancer, CVA, ARF, Chemo, Hep., AIDS, mental health diagnosis, sleep apnea, morbid obesity)? @ -Alcohol abuse, diabetes Was patient admitted / discharged? Hospital course, mention meds given and route, prescriptions, significant lab abnormalities, going to OR and other pe rtinent info. @ -Hospital course admission Patient is a pleasant 64-year-old gentleman the past medical history of diabetes, alcohol abuse presenting today for hypoglycemia. Blood glucose per EMS was 30. On arrival blood glucose 107. 30 minutes after first blood glucose measurement here was back down to 49. Given additional AMP D50 and juice. On my assessment patient is overall well-appearing and in NAD. He is awake, alert, pleasant. Physical exam performed. Patient denies infectious symptoms. Suspect symptoms secondary to malnurtrion +/- decreased intake while using insulin. Reviewed patient's medication list and confirmed that he does not take any sulfonyureas. Will trend blood glucose here. If patient becomes hypolycemic x 2, plan for admission.CBC, CMP, Q1HR glucose checks. EKG to ensure no arrhythmia if severe electrolyte abnormalities. CMP remarkable for Na 126. 1litre normal saline ordered. Approx 1 hour after last glucose check, patient had repeat blood glucose 61, despite D50, juice and a sandwich. Ordered additional AMP D50 and maintenance fluids D5NS. Plan for admission for persistent hypoglycemia. Ordered thiamine, additional labs, mag and phos levels. Updated patient to plan of care. He is agreeable with admission. Discussed case with CAMILO Hoskins, who kindly accepts patient for admission. Undiagnosed new problem with uncertain prognosis? @ -No Drug Therapy requiring intensive monitoring for toxicity (Heparin, Nitro, Insulin, Cardizem)? @ -No Were any procedures done? @ -No Diagnosis/symptom? @ Hypoglycemia Acute, or Chronic, or Acute on Chronic? @ -Acute Uncomplicated (without systemic symptoms) or Complicated (systemic symptoms)? @ Complicated Side effects of treatment? @ -No Exacerbation, Progression, or Severe Exacerbation? @ -No Poses a threat to life or bodily function? How? (Chest pain, [place], NH, pneumonia, PE, COPD, DKA, ARF, appy, cholecystitis, CVA, Diverticulitis, Homicidal, Suicidal, threat to staff... and all critical care pts) @ -Yes, if allowed to continue untreated could lead to hypoglycemic coma and - Lab Data Result diagrams: 08/21/24 03:54 08/22/24 06:18 Lab Results 08/21/24 08/21/24 08/21/24 Range/Units 03:52 03:54 03:54 WBC 3.9 (3.8-10.6) k/uL RBC 3.91 L (4.30-5.90) m/uL Hgb 13.3 (13.0-17.5) gm/dL Hct 39.6 (39.0-53.0) % MCV 101.3 H (80.0-100.0) fL MCH 33.9 (25.0-35.0) pg MCHC 33.5 (31.0-37.0) g/dL RDW 13.4 (11.5-15.5) % Plt Count 153 (150-450) k/uL MPV 7.2 Neutrophils % 54 % Lymphocytes % 30 % Monocytes % 11 % Eosinophils % 0 % Basophils % 1 % Neutrophils # 2.1 (1.3-7.7) k/uL Lymphocytes # 1.2 (1.0-4.8) k/uL Monocytes # 0.4 (0-1.0) k/uL Eosinophils # 0.0 (0-0.7) k/uL Basophils # 0.0 (0-0.2) k/uL Macrocytosis Slight Sodium 126 L (137-145) mmol/L Potassium 3.8 (3.5-5.1) mmol/L Chloride 97 L (98-107) mmol/L Carbon Dioxide 18 L (22-30) mmol/L Anion Gap 11 mmol/L BUN 3 L (9-20) mg/dL Creatinine 0.32 L (0.66-1.25) mg/dL Est GFR (CKD-EPI)AfAm >90 (>60 ml/min/1.73 sqM) Est GFR (CKD-EPI)NonAf >90 (>60 ml/min/1.73 sqM) Glucose 89 (74-99) mg/dL POC Glucose (mg/dL) 107 (70-110) mg/dL POC Glu Farm Field Manager ID Baldomero Melendrez Calcium 8.8 (8.4-10.2) mg/dL Phosphorus (2.5-4.5) mg/dL Magnesium (1.6-2.3) mg/dL Total Bilirubin 0.6 (0.2-1.3) mg/dL AST 42 (17-59) U/L ALT 47 (4-49) U/L Alkaline Phosphatase 47 (38-126) U/L Total Protein 6.5 (6.3-8.2) g/dL Albumin 4.2 (3.5-5.0) g/dL 08/21/24 08/21/24 08/21/24 Range/Units 03:54 04:31 04:55 WBC (3.8-10.6) k/uL RBC (4.30-5.90) m/uL Hgb (13.0-17.5) gm/dL Hct (39.0-53.0) % MCV (80.0-100.0) fL MCH (25.0-35.0) pg MCHC (31.0-37.0) g/dL RDW (11.5-15.5) % Plt Count (150-450) k/uL MPV Neutrophils % % Lymphocytes % % Monocytes % % Eosinophils % % Basophils % % Neutrophils # (1.3-7.7) k/uL Lymphocytes # (1.0-4.8) k/uL Monocytes # (0-1.0) k/uL Eosinophils # (0-0.7) k/uL Basophils # (0-0.2) k/uL Macrocytosis Sodium (137-145) mmol/L Potassium (3.5-5.1) mmol/L Chloride (98-107) mmol/L Carbon Dioxide (22-30) mmol/L Anion Gap mmol/L BUN (9-20) mg/dL Creatinine (0.66-1.25) mg/dL Est GFR (CKD-EPI)AfAm (>60 ml/min/1.73 sqM) Est GFR (CKD-EPI)NonAf (>60 ml/min/1.73 sqM) Glucose (74-99) mg/dL POC Glucose (mg/dL) 49 L* 163 H (70-110) mg/dL POC Glu Farm Field Manager ID Baldomero Melendrez Calcium (8.4-10.2) mg/dL Phosphorus 4.1 (2.5-4.5) mg/dL Magnesium 1.3 L (1.6-2.3) mg/dL Total Bilirubin (0.2-1.3) mg/dL AST (17-59) U/L ALT (4-49) U/L Alkaline Phosphatase (38-126) U/L Total Protein (6.3-8.2) g/dL Albumin (3.5-5.0) g/dL 08/21/24 Range/Units 06:06 WBC (3.8-10.6) k/uL RBC (4.30-5.90) m/uL Hgb (13.0-17.5) gm/dL Hct (39.0-53.0) % MCV (80.0-100.0) fL MCH (25.0-35.0) pg MCHC (31.0-37.0) g/dL RDW (11.5-15.5) % Plt Count (150-450) k/uL MPV Neutrophils % % Lymphocytes % % Monocytes % % Eosinophils % % Basophils % % Neutrophils # (1.3-7.7) k/uL Lymphocytes # (1.0-4.8) k/uL Monocytes # (0-1.0) k/uL Eosinophils # (0-0.7) k/uL Basophils # (0-0.2) k/uL Macrocytosis Sodium (137-145) mmol/L Potassium (3.5-5.1) mmol/L Chloride (98-107) mmol/L Carbon Dioxide (22-30) mmol/L Anion Gap mmol/L BUN (9-20) mg/dL Creatinine (0.66-1.25) mg/dL Est GFR (CKD-EPI)AfAm (>60 ml/min/1.73 sqM) Est GFR (CKD-EPI)NonAf (>60 ml/min/1.73 sqM) Glucose (74-99) mg/dL POC Glucose (mg/dL) 61 L (70-110) mg/dL POC Glu Farm Field Manager ID Orozco Radha Calcium (8.4-10.2) mg/dL Phosphorus (2.5-4.5) mg/dL Magnesium (1.6-2.3) mg/dL Total Bilirubin (0.2-1.3) mg/dL AST (17-59) U/L ALT (4-49) U/L Alkaline Phosphatase (38-126) U/L Total Protein (6.3-8.2) g/dL Albumin (3.5-5.0) g/dL Disposition Clinical Impression: Hypoglycemia Disposition: ADMITTED IP TO THIS [facility] Condition: Good
[2024-08-21] MEDS: THIAMINE 100 MG/ML 2 ML VIAL IM STA (06:19)
[2024-08-21] MEDS: DEXTROSE 5%-0.9% NACL 1,000 ML IV SCH (06:19)
[2024-08-21] MEDS: THIAMINE 100 MG/ML 2 ML VIAL IVP STA (06:28)
[2024-08-21 06:55] LABS: Phosphorus 4.1 mg/dL (2.5-4.5)
[2024-08-21 06:56] LABS: Magnesium 1.3 mg/dL (1.6-2.3)
[2024-08-21] MEDS ORDERED: IPRATROPIUM-ALBUTEROL 3 ML NEB INHALATION PRN (07:10)
[2024-08-21 07:14] LABS: Glucose,Whole Blood 94 mg/dL (70-110)
--- NOTE | 2024-08-21 08:55 | P.HPIM ---
History of Present Illness History of present illness; 64-year-old male with a past medical history of hypertension, diabetes, hyperlipidemia, seizure disorder presents to the ED with weakness and dizziness. Patient reports last night he took 30 units of Levemir and did not eat dinner. Patient reports he then went to bed and woke up around 1 AM when he was feeling very weak and dizzy. Patient reports he was worried because the symptoms felt similar to when he has had seizures in the past. At this point the patient symptoms were getting worse so he called 911. Upon arriving to the ED patient was found to have a glucose of 49. Patient reports in addition to his weakness and dizziness he has noticed some loose stools which he states is not unusual for him. Patient also reports he has been constipated and has significant painful neuropathy in his feet. Patient also reports he has had pain with urination for the past month. Family history: Noncontributory Surgical history: Noncontributory Social history: Smokes 1 pack of cigarettes a day, and drinks approximately 3 hard teas a day. Allergies: None Initial lab work done in the ER showed sodium 126, potassium 3.8, bicarb 18, creatinine 0.32, glucose (107 --> 49--> 163--> 61--> 94), WBC 3.9, hemoglobin 13.3, and MCV 101.3. EKG done in the ER showed heart rate of 65, NSR, no ST segment elevation or depression seen, no T-wave inversions seen. While in the ED patient received dextrose 5% - 0.9% NaCl 75 cc/h, as a result glucose has been labile but currently 94. Patient admitted to internal medicine service REVIEW OF SYSTEMS: CONSTITUTIONAL: No fever, no malaise, no fatigue. HEENT: No recent visual problems or hearing problems. Denied any sore throat. CARDIOVASCULAR: No chest pain, orthopnea, PND, no palpitations, no syncope. PULMONARY: No shortness of breath, no cough, no hemoptysis. GASTROINTESTINAL: No diarrhea, no nausea, no vomiting, no abdominal pain. Admits to constipation. NEUROLOGICAL: No headaches, no weakness, no numbness. Admits to dizziness. HEMATOLOGICAL: Denies any bleeding or petechiae. GENITOURINARY: Admits to burning sensation with urination but denies frequency, or urgency. MUSCULOSKELETAL/RHEUMATOLOGICAL: Denies any joint pain, swelling, or any muscle pain. ENDOCRINE: Denies any polyuria or polydipsia. The rest of the 14-point review of systems is negative. PHYSICAL EXAMINATION: GENERAL: The patient is alert and oriented x3, not in any acute distress. Well developed, well nourished. HEENT: Pupils are round and equally reacting to light. EOMI. No scleral icterus. No conjunctival pallor. Normocephalic, atraumatic. No pharyngeal erythema. No thyromegaly. CARDIOVASCULAR: S1 and S2 present. No murmurs, rubs, or gallops. PULMONARY: Chest is clear to auscultation, no wheezing or crackles. ABDOMEN: Soft, nontender, nondistended, normoactive bowel sounds. No palpable organomegaly. MUSCULOSKELETAL: No joint swelling or deformity. EXTREMITIES: No cyanosis, clubbing, or pedal edema. NEUROLOGICAL: Gross neurological examination did not reveal any focal deficits. SKIN: No rashes. Assessment:64-year-old male with a past medical history of hypertension, diabetes, hyperlipidemia, seizure disorder presents to the ED with weakness and dizziness. Patient found to be severely hyperglycemic after taking hit 30 units of Levemir last night and not eating any food. Patient is being worked up for hypoglycemia. Plan: #Hypoglycemia: Received D5 75 cc/h in the ED which increased glucose level, glucose level has been labile, currently 94 Continue to monitor glucose, as glucose gets higher we will consider restarting Levemir and/or sliding scale Patient's appetite is poor, he does not have his dentures so it is difficult for him to eat solids, but was still struggling with drinking orange juice #Hypomagnesemia: Repleted with 4 g of magnesium sulfate Recheck in the a.m. #Hypertension: Continue losartan 25 mg daily, metoprolol succinate 25 mg p.o. twice daily #Diabetes mellitus: Holding all home diabetes medication, until glucose levels normalize #Hyperlipidemia: Continue home atorvastatin 10 mg p.o. daily #Seizure disorder: Last seizure 1 month ago, followed up with neurologist who changed his Keppra dose to 1000 mg twice daily Continue home medication #GERD: Continue home famotidine 20 mg p.o. twice daily and pantoprazole 40 mg p.o. daily Dispo: Pending clinical course Continue to monitor vital signs, monitor CBC, monitor CMP, continue telemetry monitoring Labs and medication were reviewed. Continue with symptomatic treatment. Resume home medication. Monitor labs and vitals. DVT and GI prophylaxis. Further recommendations as per clinical course of the patient Dictation was produced using [employer] dictation software. please excuse any grammatical, word or spelling errors. Lenore confidentiality statement: "The information contained in this communication, including attachments, is confidential, may be privileged, and is intended only for the use of the named recipient(s). Unauthorized use, disclosure, forwarding or copying is strictly prohibited and may be unlawful. If you have received this communication in error, please notify me IMMEDIATELY at the phone number or pager listed above." Past Medical History Past Medical History: Hypertension Additional Past Medical History / Comment(s): UNEXPLAINED WT LOSS (12 #), DAUGHTER DEC 2016. History of Any Multi-Drug Resistant Organisms: None Reported Past Surgical History: Heart Catheterization Additional Past Surgical History / Comment(s): Pt states as an infant he had a "pinched" abdominal muscle with surgical repair, colonoscopy Past Anesthesia/Blood Transfusion Reactions: No Reported Reaction Past Psychological History: Anxiety, Depression Smoking Status: Current every day smoker Past Alcohol Use History: Daily Past Drug Use History: Marijuana - Past Family History Mother Family Medical History: No Reported History Additional Family Medical History / Comment(s): . Father Family Medical History: CVA/TIA Additional Family Medical History / Comment(s): Father of a CVA Daughter(s) Family Medical History: Hypertension Additional Family Medical History / Comment(s): ADRENAL GLAND TUMOR. Medications and Allergies Home Medications Medication Instructions Recorded Confirmed Type Dapagliflozin Propanediol [Farxiga] 10 mg PO DAILY 30 Days #30 tab 12/20/23 08/21/24 Rx Folic Acid 1 mg PO DAILY 90 Days #90 tab 12/20/23 08/21/24 Rx Insulin Detemir (Levemir) [Levemir] 30 unit SQ HS 90 Days #90 each 12/20/23 08/21/24 Rx Ipratropium-Albuterol Nebulize 3 ml INHALATION RT-QID PRN 30 Days 12/20/23 08/21/24 Rx [Duoneb 0.5 mg-3 mg/3 ml Soln] #120 each Pantoprazole [Protonix] 40 mg PO DAILY 90 Days #90 tab 12/20/23 08/21/24 Rx Tamsulosin [Flomax] 0.4 mg PO PC-BRKFST 90 Days #90 cap 12/20/23 08/21/24 Rx metFORMIN HCL [Glucophage] 1,000 mg PO BID-W/MEALS 30 Days 12/20/23 08/21/24 Rx #60 tab Losartan [Cozaar] 25 mg PO DAILY 02/03/24 08/21/24 History traZODone HCL [Desyrel] 75 mg PO HS 02/03/24 08/21/24 History Atorvastatin Calcium 10 mg PO DAILY 04/22/24 08/21/24 History Metoprolol Succinate (ER) [Toprol 25 mg PO DAILY 04/22/24 08/21/24 History XL] Multivitamins, Thera [Multivitamin 1 tab PO DAILY 04/22/24 08/21/24 History (formulary)] Omeprazole [PriLOSEC] 20 mg PO DAILY 04/22/24 08/21/24 History Acetaminophen Tab [Tylenol] 650 mg PO Q6HR PRN tab 04/27/24 08/21/24 Rx Thiamine [Vitamin B-1] 100 mg PO BID #60 tablet 04/27/24 08/21/24 Rx levETIRAcetam [Keppra] 500 mg PO Q12HR 30 Days #60 tab 04/27/24 08/21/24 Rx Gabapentin [Neurontin] 300 mg PO TID 08/21/24 08/21/24 History Allergies Allergy/AdvReac Type Severity Reaction Status Date / Time No Known Allergies Allergy Verified 08/21/24 07:25 Physical Exam Vitals: Vital Signs Temp Pulse Resp BP Pulse Ox 08/21/24 07:10 75 14 155/93 97 08/21/24 05:53 76 18 129/84 97 08/21/24 04:38 73 18 112/79 97 08/21/24 03:48 97.6 F 66 18 126/79 98 Intake and Output 08/20/24 08/21/24 08/21/24 22:59 06:59 14:59 Other: Weight 49.895 kg Results CBC & Chem 7: 08/21/24 03:54 08/21/24 10:15 Labs: Abnormal Lab Results - Last 24 Hours (Table) 08/21/24 08/21/24 08/21/24 Range/Units 03:54 03:54 03:54 RBC 3.91 L (4.30-5.90) m/uL MCV 101.3 H (80.0-100.0) fL Sodium 126 L (137-145) mmol/L Chloride 97 L (98-107) mmol/L Carbon Dioxide 18 L (22-30) mmol/L BUN 3 L (9-20) mg/dL Creatinine 0.32 L (0.66-1.25) mg/dL POC Glucose (mg/dL) (70-110) mg/dL Magnesium 1.3 L (1.6-2.3) mg/dL 08/21/24 08/21/24 08/21/24 Range/Units 04:31 04:55 06:06 RBC (4.30-5.90) m/uL MCV (80.0-100.0) fL Sodium (137-145) mmol/L Chloride (98-107) mmol/L Carbon Dioxide (22-30) mmol/L BUN (9-20) mg/dL Creatinine (0.66-1.25) mg/dL POC Glucose (mg/dL) 49 L* 163 H 61 L (70-110) mg/dL Magnesium (1.6-2.3) mg/dL
[2024-08-21 09:23] LABS: Glucose,Whole Blood 45 mg/dL (70-110)
[2024-08-21 10:07] LABS: Glucose,Whole Blood 168 mg/dL (70-110)
[2024-08-21] MEDS: ATORVASTATIN 10 MG TAB PO SCH (10:29)
[2024-08-21] MEDS: FOLIC ACID 1 MG TAB PO SCH (10:30)
[2024-08-21] MEDS: FAMOTIDINE 20 MG TAB PO SCH (10:30)
[2024-08-21] MEDS: ENOXAPARIN 40 MG/0.4 ML SYRINGE SQ SCH (10:30)
[2024-08-21] MEDS: GABAPENTIN 300 MG CAP PO SCH (10:30)
[2024-08-21] MEDS: levETIRAcetam 500 MG TAB PO SCH (10:30)
[2024-08-21] MEDS: MULTIVITAMINS, THERA 1 EACH TAB PO SCH (10:31)
[2024-08-21] MEDS: THIAMINE 100 MG TAB PO SCH (10:31)
[2024-08-21] MEDS: METOPROLOL SUCCINATE (ER) 25 MG TAB.ER.24H PO SCH (10:31)
[2024-08-21] MEDS: LOSARTAN 25 MG TAB PO SCH (10:31)
[2024-08-21] MEDS: PANTOPRAZOLE 40 MG TABLET PO SCH (10:31)
[2024-08-21 11:08] LABS: African American GFR (CKD) >90 (>60 ml/min/1.73 sqM); Anion Gap 7 mmol/L; Blood Urea Nitrogen 2 mg/dL (9-20); Calcium 8.6 mg/dL (8.4-10.2); Carbon Dioxide 23 mmol/L (22-30); Chloride 98 mmol/L (98-107); Glucose 140 mg/dL (74-99); Non-African American GFR(CKD) >90 (>60 ml/min/1.73 sqM); Potassium 3.6 mmol/L (3.5-5.1); Sodium 128 mmol/L (137-145)
[2024-08-21 11:25] LABS: Glucose,Whole Blood 109 mg/dL (70-110)
[2024-08-21 11:29] LABS: Appearance,Urine Clear (Clear); Bilirubin,Urine Negative (Negative); Blood,Urine Negative (Negative); Color,Urine Colorless; Glucose,Urine (UA) 4+ (Negative); Ketones,Urine Negative (Negative); Leukocyte Esterase,Urine Negative (Negative); Nitrite,Urine Negative (Negative); PH, Urine 5.5 (5.0-8.0); Protein,Urine Negative (Negative); Specific Gravity,Urine 1.005 (1.001-1.035); Urobilinogen,Urine <2.0 mg/dL (<2.0)
[2024-08-21] MEDS: MAGNESIUM SULFATE-D5W PMX 1 GM in DEXTROSE/WATER 1 100ML.BAG IVPB SCH (11:36)
[2024-08-21 12:55] LABS: Glucose,Whole Blood 136 mg/dL (70-110)
[2024-08-21 14:02] LABS: Glucose,Whole Blood 139 mg/dL (70-110)
[2024-08-21 14:57] LABS: Glucose,Whole Blood 238 mg/dL (70-110)
[2024-08-21 15:56] LABS: Glucose,Whole Blood 180 mg/dL (70-110)
[2024-08-21 17:03] LABS: Glucose,Whole Blood 169 mg/dL (70-110)
[2024-08-21 18:50] LABS: Glucose,Whole Blood 178 mg/dL (70-110)
[2024-08-21 20:04] LABS: Glucose,Whole Blood 123 mg/dL (70-110)
[2024-08-21 21:05] LABS: Glucose,Whole Blood 128 mg/dL (70-110)
[2024-08-21] MEDS: traZODone HCL 50 MG TAB PO SCH (21:10)
[2024-08-21 22:15] LABS: Glucose,Whole Blood 129 mg/dL (70-110)
[2024-08-21 23:09] LABS: Glucose,Whole Blood 203 mg/dL (70-110)
[2024-08-21] MEDS ORDERED: DEXTROSE 50% SYRINGE 50 ML IVP PRN ×2 (23:27)
[2024-08-21] MEDS: SODIUM CHLORIDE 0.9% 1,000 ML IV SCH (23:40)
[2024-08-22 02:18] LABS: Glucose,Whole Blood 135 mg/dL (70-110)
[2024-08-22] MEDS: INSULIN ASPART (NovoLOG) 100 UNIT/ML VIAL SQ SCH ×2 (02:21→06:13)
[2024-08-22 03:36] VITALS: RESP 15
[2024-08-22 06:13] LABS: Glucose,Whole Blood 130 mg/dL (70-110)
[2024-08-22 07:18] LABS: ALT 85 U/L (4-49); AST 99 U/L (17-59); African American GFR (CKD) >90 (>60 ml/min/1.73 sqM); Albumin 3.8 g/dL (3.5-5.0); Alkaline Phosphatase 63 U/L (38-126); Anion Gap 6 mmol/L; Blood Urea Nitrogen <2 mg/dL (9-20); Calcium 8.9 mg/dL (8.4-10.2); Carbon Dioxide 25 mmol/L (22-30); Chloride 103 mmol/L (98-107); Glucose 124 mg/dL (74-99); Magnesium 1.8 mg/dL (1.6-2.3); Non-African American GFR(CKD) >90 (>60 ml/min/1.73 sqM); Sodium 134 mmol/L (137-145); Total Bilirubin 0.8 mg/dL (0.2-1.3); Total Protein 6.1 g/dL (6.3-8.2)
[2024-08-22 11:18] VITALS: BP 153/86; PULSE 66; TEMP 97.6
[2024-08-22 11:26] LABS: Glucose,Whole Blood 117 mg/dL (70-110)
[2024-08-22 13:21] VITALS: BMI 14.4
--- NOTE | 2024-08-22 13:54 | P.DS ---
Providers Date of admission: 08/21/24 06:15 Attending physician: Cheyenne Lind Primary care physician: Juan José [facility] Course: Diagnosis: Hypoglycemia Hypomagnesemia Hypertension Diabetes mellitus Hyperlipidemia Seizure disorder GERD Transaminitis Hospital Course: 64-year-old male with a past medical history of hypertension, diabetes, hyperlipidemia, seizure disorder presents to the ED with weakness and dizziness. Patient reports last night he took 30 units of Levemir and did not eat dinner. Patient reports he then went to bed and woke up around 1 AM when he was feeling very weak and dizzy. Patient reports he was worried because the symptoms felt similar to when he has had seizures in the past. At this point the patient symptoms were getting worse so he called 911. Upon arriving to the ED patient was found to have a glucose of 49. Patient reports in addition to his weakness and dizziness he has noticed some loose stools which he states is not unusual for him. Patient also reports he has been constipated and has significant pain ful neuropathy in his feet. Patient also reports he has had pain with urination for the past month. Family history: Noncontributory Surgical history: Noncontributory Social history: Smokes 1 pack of cigarettes a day, and drinks approximately 3 hard teas a day. Allergies: None Initial lab work done in the ER showed sodium 126, potassium 3.8, bicarb 18, creatinine 0.32, glucose (107 --> 49--> 163--> 61--> 94), WBC 3.9, hemoglobin 13.3, and MCV 101.3. EKG done in the ER showed heart rate of 65, NSR, no ST segment elevation or depression seen, no T-wave inversions seen. While in the ED patient received dextrose 5% - 0.9% NaCl 75 cc/h, as a result glucose has been labile but currently 94. While admitted patient's glucose began to normalize and was running in the range of 109 to 203. At this point the D5 that he was on was changed to NS 75 cc/h. Patient also had his A1c checked which was 5.1. Patient was found to have 40 to 50 pound weight loss in the last 10 months, and has been following with oncology, likely his home insulin dose is far too high for the weight that he currently sits at which is potentially why he became so hypoglycemic. Patient was also found to have transaminitis while admitted, likely to previous history of heavy drinking. Patient was also found to have a low magnesium, which was repleted while in the hospital. On the second day of admission patient was feeling back to his normal self and was ready to leave. Patient was medically cleared for discharge. Patient was advised to stop taking his insulin and Farxiga and only continue on half of his normal dose of metformin at home until he follows up with his primary care. Patient is advised to follow-up in the next week with his PCP. Patient is discharged to home. Pt seen and examined at bedside: No significant overnight events. Patient feels ready to go home. Vital signs reveiwed and stable: General: non toxic, no distress, appears at stated age, normal weight Derm: no unusual rashes/lesions, warm Head: atraumatic, normocephalic, symmetric Eyes: EOMI, no lid lag, anicteric sclera, pupils equal round reactive to light ENT: Nose and ears atraumatic Neck: No cervical lymphadenopathy, trachea midline, supple Mouth: no lip lesion, mucus membranes moist Cardiovascular: S1S2 reg, no murmur, positive dorsalis pedis pulse bilateral, no edema Lungs: Decreased air entry bilaterally, no rhonchi, no rales, no accessory muscle use Abdominal: soft, nontender to palpation, no guarding Ext: muscle strength 5 out of 5 in all 4 extremities grossly, no gross muscle atrophy, no contractures, Neuro: CN II-XI grossly intact, no gross focal neuro deficits Psych: Alert, oriented, appropriate affect A total of [35] minutes were spent preparing this complex discarge summary. Attestation I have seen and examined this patient with my resident , discussed the same with the resident/YUDY, and agree with the dictator's assessment and plan as written Dr. Andre martinez . Patient Condition at Discharge: Good Plan - Discharge Summary Discharge Rx Participant: No New Discharge Prescriptions: Continue Ipratropium-Albuterol Nebulize [Duoneb 0.5 mg-3 mg/3 ml Soln] 3 ml INHALATION RT-QID PRN 30 Days #120 each PRN Reason: Shortness Of Breath Or Wheezing Pantoprazole [Protonix] 40 mg PO DAILY 90 Days #90 tab traZODone HCL [Desyrel] 75 mg PO HS Losartan [Cozaar] 25 mg PO DAILY Omeprazole [PriLOSEC] 20 mg PO DAILY Multivitamins, Thera [Multivitamin (formulary)] 1 tab PO DAILY Thiamine [Vitamin B-1] 100 mg PO BID #60 tablet Gabapentin [Neurontin] 300 mg PO TID Tamsulosin [Flomax] 0.4 mg PO PC-BRKFST 90 Days #90 cap Folic Acid 1 mg PO DAILY 90 Days #90 tab Metoprolol Succinate (ER) [Toprol XL] 25 mg PO DAILY Atorvastatin Calcium 10 mg PO DAILY levETIRAcetam [Keppra] 500 mg PO Q12HR 30 Days #60 tab Acetaminophen Tab [Tylenol] 650 mg PO Q6HR PRN tab PRN Reason: Fever And/ Or Pain Changed metFORMIN HCL [Glucophage] 500 mg PO BID-W/MEALS 30 Days #60 tab Discontinued Dapagliflozin Propanediol [Farxiga] 10 mg PO DAILY 30 Days #30 tab Insulin Detemir (Levemir) [Levemir] 30 unit SQ HS 90 Days #90 each Discharge Medication List Folic Acid 1 mg PO DAILY 90 Days #90 tab 12/20/23 [Rx] Ipratropium-Albuterol Nebulize [Duoneb 0.5 mg-3 mg/3 ml Soln] 3 ml INHALATION RT-QID PRN 30 Days #120 each 12/20/23 [Rx] Pantoprazole [Protonix] 40 mg PO DAILY 90 Days #90 tab 12/20/23 [Rx] Tamsulosin [Flomax] 0.4 mg PO -BRKFST 90 Days #90 cap 12/20/23 [Rx] Losartan [Cozaar] 25 mg PO DAILY 02/03/24 [History] traZODone HCL [Desyrel] 75 mg PO HS 02/03/24 [History] Atorvastatin Calcium 10 mg PO DAILY 04/22/24 [History] Metoprolol Succinate (ER) [Toprol XL] 25 mg PO DAILY 04/22/24 [History] Multivitamins, Thera [Multivitamin (formulary)] 1 tab PO DAILY 04/22/24 [History] Omeprazole [PriLOSEC] 20 mg PO DAILY 04/22/24 [History] Acetaminophen Tab [Tylenol] 650 mg PO Q6HR PRN tab 04/27/24 [Rx] Thiamine [Vitamin B-1] 100 mg PO BID #60 tablet 04/27/24 [Rx] levETIRAcetam [Keppra] 500 mg PO Q12HR 30 Days #60 tab 04/27/24 [Rx] Gabapentin [Neurontin] 300 mg PO TID 08/21/24 [History] metFORMIN HCL [Glucophage] 500 mg PO BID-W/MEALS 30 Days #60 tab 08/22/24 [Rx] Follow up Appointment(s)/Referral(s): Juan José Khan DO [Primary Care Provider] - 1-2 days Patient Instructions/Handouts: Hypoglycemia in a Person with Diabetes (DC) Discharge Disposition: HOME SELF-CARE
== END 2024-08-22 15:05 | disposition home or self-care (01) ==
LOC: EC 03:44 → 3SCARD 06:15
PROVIDERS: ADMIT Internal Medicine; ATTEND Internal Medicine
DX: E11.649 Type 2 diabetes mellitus with hypoglycemia without coma (principal); E83.42 Hypomagnesemia; R74.01 Elevation of levels of liver transaminase levels; G40.909 Epilepsy, unspecified, not intractable, without status epilepticus; I10 Essential (primary) hypertension; F17.210 Nicotine dependence, cigarettes, uncomplicated; E78.5 Hyperlipidemia, unspecified; E11.40 Type 2 diabetes mellitus with diabetic neuropathy, unspecified; K21.9 Gastro-esophageal reflux disease without esophagitis; F32.A Depression, unspecified; F41.9 Anxiety disorder, unspecified; Z79.84 Long term (current) use of oral hypoglycemic drugs; Z79.4 Long term (current) use of insulin; Z79.899 Other long term (current) drug therapy
CPT/HCPCS: 96361 ×2; 96376; 96365; 96366; 96372; 99291; 36415; 93005; 80053 ×2; 80048; 82607; 83605 ×2; 83735 ×2; 84100; 85025; 81003; 83036; G0378 ×2; J3411; J3475

== ENCOUNTER 2025-01-30 17:17 | Inpatient (IN) | payer OTHER ==
--- NOTE | 2025-01-30 17:44 | ED ---
Altered Mental Status HPI - General Chief Complaint: Altered Mental Status Stated Complaint: Failure to Thrive Time Seen by Provider: 01/30/25 17:18 Source: patient, EMS, RN notes reviewed, old records reviewed Mode of arrival: EMS Limitations: altered mental status, physical limitation - History of Present Illness Initial Comments: This is a 64-year-old male to the ER for evaluation patient coming in unresponsive unable to provide history. History obtained by EMS prior charting. Patient coming in for altered mental status, covered in his own stool, unresponsive combative. Patient does have strong history of alcohol abuse with recent hospital admission Patient coming in to be evaluated for failure to thrive unresponsiveness weakness and altered mental status MD Complaint: altered mental status, confusion, decreased responsiveness, weakness -: unknown Severity: severe Consistency of Symptoms: getting worse, constant Context: alcohol abuse, history of similar presentation, liver disease Associated Symptoms: weakness, diarrhea Treatments Prior to Arrival: IV fluid, oxygen - Related Data Home Medications Medication Instructions Recorded Confirmed Losartan [Cozaar] 25 mg PO DAILY 02/03/24 01/30/25 traZODone HCL [Desyrel] 75 mg PO HS 02/03/24 01/30/25 Atorvastatin Calcium 10 mg PO DAILY 04/22/24 01/30/25 Metoprolol Succinate (ER) [Toprol 25 mg PO DAILY 04/22/24 01/30/25 XL] Gabapentin [Neurontin] 400 mg PO TID 01/30/25 01/30/25 Previous Rx's Medication Instructions Recorded Folic Acid 1 mg PO DAILY 90 Days #90 tab 12/20/23 Pantoprazole [Protonix] 40 mg PO DAILY 90 Days #90 tab 12/20/23 levETIRAcetam [Keppra] 500 mg PO Q12HR 30 Days #60 tab 04/27/24 metFORMIN HCL [Glucophage] 500 mg PO BID-W/MEALS 30 Days #60 08/22/24 tab Allergies Allergy/AdvReac Type Severity Reaction Status Date / Time No Known Allergies Allergy Verified 01/30/25 18:47 Review of Systems ROS Statement: Those systems with pertinent positive or pertinent negative responses have been documented in the HPI. ROS Other: All systems not noted in ROS Statement are negative. Past Medical History Past Medical History: Diabetes Mellitus, Hypertension Additional Past Medical History / Comment(s): UNEXPLAINED WT LOSS (12 #), DAUGHTER DEC 2016. History of Any Multi-Drug Resistant Organisms: None Reported Past Surgical History: Heart Catheterization Additional Past Surgical History / Comment(s): Pt states as an infant he had a "pinched" abdominal muscle with surgical repair, colonoscopy Past Anesthesia/Blood Transfusion Reactions: No Reported Reaction Past Psychological History: Anxiety, Depression Smoking Status: Current every day smoker Past Alcohol Use History: Daily Past Drug Use History: Marijuana - Past Family History Mother Family Medical History: No Reported History Additional Family Medical History / Comment(s): . Father Family Medical History: CVA/TIA Additional Family Medical History / Comment(s): Father of a CVA Daughter(s) Family Medical History: Hypertension Additional Family Medical History / Comment(s): ADRENAL GLAND TUMOR. General Exam Limitations: altered mental status, physical limitation General appearance: alert, lethargic, obtunded, in distress Head exam: Present: atraumatic, normocephalic, normal inspection Eye exam: Present: normal appearance, PERRL, EOMI. Absent: scleral icterus, conjunctival injection, periorbital swelling ENT exam: Present: normal exam, mucous membranes dry Neck exam: Present: normal inspection. Absent: tenderness, meningismus, lymphadenopathy Respiratory exam: Present: respiratory distress, decreased breath sounds, prolonged expiratory. Absent: wheezes, rales, rhonchi, stridor Cardiovascular Exam: Present: normal rhythm, tachycardia, normal heart sounds. Absent: systolic murmur, diastolic murmur, rubs, gallop, clicks GI/Abdominal exam: Present: soft, normal bowel sounds. Absent: distended, tende rness, guarding, rebound, rigid Extremities exam: Present: normal inspection, full ROM, normal capillary refill. Absent: tenderness, pedal edema, joint swelling, calf tenderness Back exam: Present: normal inspection Neurological exam: Present: alert, oriented X3, CN II-XII intact Psychiatric exam: Present: agitated Skin exam: Present: warm, dry, intact, normal color. Absent: rash Course Vital Signs 01/30/25 01/30/25 01/30/25 17:20 17:31 22:00 Temperature 98.0 F 98.6 F Pulse Rate 118 H 124 H 98 Respiratory 20 24 18 Rate Blood Pressure 115/70 76/62 O2 Sat by Pulse 100 99 96 Oximetry Fraction of Inspired Oxygen (FIO2) 01/30/25 01/30/25 01/30/25 22:45 22:46 23:50 Temperature Pulse Rate 101 H 110 H Respiratory 24 24 Rate Blood Pressure 85/54 73/43 O2 Sat by Pulse 81 L 86 L Oximetry Fraction of 75 Inspired Oxygen (FIO2) 01/31/25 01/31/25 01/31/25 01:46 02:00 03:00 Temperature Pulse Rate 112 H 116 H 120 H Respiratory 22 27 H 25 H Rate Blood Pressure 89/42 62/34 65/36 O2 Sat by Pulse 84 L 87 L 91 L Oximetry Fraction of Inspired Oxygen (FIO2) 01/31/25 01/31/25 01/31/25 04:00 05:00 06:16 Temperature Pulse Rate 101 H 103 H 101 H Respiratory 27 H 22 21 Rate Blood Pressure O2 Sat by Pulse Oximetry Fraction of Inspired Oxygen (FIO2) 01/31/25 07:03 Temperature Pulse Rate 123 H Respiratory 18 Rate Blood Pressure O2 Sat by Pulse Oximetry Fraction of Inspired Oxygen (FIO2) - Reevaluation(s) Reevaluation #1: 01/31/25 18:23 medical record is reviewed recent hospital admission thoughts on making patient hospice admissions for hypoglycemia, coma, ETOH abuse Reevaluation #2: 01/30/25 17:23 patient continuing to deteriorate with mental condition and blood pressure gautam placed > 1L output patient initially responding to fluid challenges continues to remain unresponsive and combative requiring restraints and sedation Reevaluation #3: 01/30/25 19:24 family spoken with decision to make patient no code DNR aware of grave condition and prognosis Reevaluation #4: Was pt. sent in by a medical professional or institution (, PA, [facility]KE [employer], urgent care, hospital, or [facility]...) When possible be specific @ -no Did you speak to anyone other than the patient for history (EMS, parent, family, police, friend...)? What history was obtained from this source @ -no Did you review nursing and triage notes (agree or disagree)? Why? @ -agree Are old charts reviewed (outside hosp., previous admission, EMS record, old EKG, old radiological studies, urgent care reports/EKG's, [facility] records)? Report findings @ -yes Differential Diagnosis (chest pain, altered mental status, abdominal pain women, abdominal pain men, vaginal bleeding, weakness, fever, dyspnea, syncope, headache, dizziness, GI bleed, back pain, seizure, CVA, palpatations, mental health, musculoskeletal)? @ -prior EKG interpreted by me (3pts min.). @ -yes X-rays interpreted by me (1pt min.). @ -no CT interpreted by me (1pt min.). @ -no U/S interpreted by me (1pt. min.). @ -no What testing was considered but not performed or refused? (CT, X-rays, U/S, labs)? Why? @ -none What meds were considered but not given or refused? Why? @ -none Did you discuss the management of the patient with other professionals (professionals i.e. , PA, [employer]ER, lab, RT, psych nurse, mill worker, recruiting associate, teacher, deck officer, insurance case manager)? Give summary @ -no Was smoking cessation discussed for >3mins.? @ -no Was critical care preformed (if so, how long)? @ -yes31 Were there social determinants of health that impacted care today? How? (Homelessness, low income, unemployed, alcoholism, drug addiction, trans portation, low edu. Level, literacy, decrease access to med. care, nursing home, rehab)? @ -none Was there de-escalation of care discussed even if they declined (Discuss DNR or withdrawal of care, Hospice)? DNR status @ -no What co-morbidities impacted this encounter? (DM, HTN, Smoking, COPD, CAD, Cancer, CVA, ARF, Chemo, Hep., AIDS, mental health diagnosis, sleep apnea, morbid obesity)? @ -none Was patient admitted / discharged? Hospital course, mention meds given and route, prescriptions, significant lab abnormalities, going to OR and other pertinent info. @ - 64 male will be admitted for altered mental status failure to thrive, urinary retention with Gautam placed, hyperammonemia unable to tolerate lactulose, dehydration started fluid resuscitation with labile blood pressures. Family makes patient no code DNR. Transition to hospice care possible. Patient will be admitted for continued resuscitation and observation, electrolyte replacement, significant hyponatremia Admitted Undiagnosed new problem with uncertain prognosis? @ -no Drug Therapy requiring intensive monitoring for toxicity (Heparin, Nitro, Insulin, Cardizem)? @ -no Were any procedures done? @ -no Diagnosis/symptom? @ -Altered mental status failure to thrive hyperammonemia dehydration low blood pressure Acute, or Chronic, or Acute on Chronic? @ -Acute Uncomplicated (without systemic symptoms) or Complicated (systemic symptoms)? @ -Complicated Side effects of treatment? @ -no Exacerbation, Progression, or Severe Exacerbation? @ -exacerbation Poses a threat to life or bodily function? How? (Chest pain, [place], [place], pneumonia, PE, COPD, DKA, ARF, appy, cholecystitis, CVA, Diverticulitis, Homicidal, Suicidal, threat to staff... and all critical care pts) @ -yes significant disease and injury Reevaluation #5: Differential Altered Mental Status: Hypoglycemia, DKA, hypercapnia, ETOH, overdose, CO poisoning, trauma, myxedema coma, HTN encephalopathy, infection, encephalitis, psychosis, intercranial hemorrhage, hepatic encephalopathy, meningitis, CVA, this is not meant to be an all-inclusive list Differential Weakness: Hypoglycemia, shock, sepsis, hyponatremia, anemia, infection, [place], ETOH, adverse medicine reaction, overdose, stroke, this is not meant to be an all-inclusive li st. - Consultations Consultation #1: spoke w [facility] for admission Medical Decision Making - Medical Decision Making 64 male will be admitted for altered mental status failure to thrive, urinary retention with Gautam placed, hyperammonemia unable to tolerate lactulose, dehydration started fluid resuscitation with labile blood pressures. Family makes patient no code DNR. Transition to hospice care possible. Patient will be admitted for continued resuscitation and observation, electrolyte replacement , significant hyponatremia - Lab Data Result diagrams: 01/30/25 18:19 01/30/25 18:19 Lab Results 01/30/25 01/30/25 01/30/25 Range/Units 18:19 18:19 18:19 WBC 10.0 (3.8-10.6) k/uL RBC 3.07 L (4.30-5.90) m/uL Hgb 11.0 L (13.0-17.5) gm/dL Hct 32.1 L (39.0-53.0) % MCV 104.6 H (80.0-100.0) fL MCH 35.7 H (25.0-35.0) pg MCHC 34.2 (31.0-37.0) g/dL RDW 14.6 (11.5-15.5) % Plt Count 110 L (150-450) k/uL MPV 7.3 Neutrophils % (Manual) 82 % Band Neuts % (Manual) 6 % Lymphocytes % (Manual) 8 % Monocytes % (Manual) 4 % Neutrophils # (Manual) 8.80 H (1.3-7.7) k/uL Lymphocytes # (Manual) 0.80 L (1.0-4.8) k/uL Monocytes # (Manual) 0.40 (0-1.0) k/uL Nucleated RBCs 0 (0-0) /100 WBC Manual Slide Review Performed Macrocytosis Moderate PT 19.6 H (10.0-12.5) sec INR 1.9 H (<1.2) APTT 24.3 (22.0-30.0) sec Sodium 119 L* (137-145) mmol/L Potassium 3.3 L (3.5-5.1) mmol/L Chloride 83 L (98-107) mmol/L Carbon Dioxide 18 L (22-30) mmol/L Anion Gap 18 mmol/L BUN 13 (9-20) mg/dL Creatinine 0.72 (0.66-1.25) mg/dL Est GFR (CKD-EPI)AfAm >90 (>60 ml/min/1.73 sqM) Est GFR (CKD-EPI)NonAf >90 (>60 ml/min/1.73 sqM) Glucose 115 H (74-99) mg/dL Lactic Ac Sepsis Rflx Plasma Lactic Acid Richard (0.7-2.0) mmol/L Calcium 7.2 L (8.4-10.2) mg/dL Phosphorus 3.7 (2.5-4.5) mg/dL Magnesium 1.5 L (1.6-2.3) mg/dL Total Bilirubin 3.8 H (0.2-1.3) mg/dL AST 137 H (17-59) U/L ALT 45 (4-49) U/L Alkaline Phosphatase 114 (38-126) U/L Ammonia (<30) umol/L Creatine Kinase (55-170) U/L Troponin I (0.000-0.034) ng/mL Total Protein 5.7 L (6.3-8.2) g/dL Albumin 3.2 L (3.5-5.0) g/dL TSH 0.235 L (0.465-4.680) mIU/L Serum Alcohol <10 mg/dL 01/30/25 01/30/25 01/30/25 Range/Units 18:19 18:19 18:19 WBC (3.8-10.6) k/uL RBC (4.30-5.90) m/uL Hgb (13.0-17.5) gm/dL Hct (39.0-53.0) % MCV (80.0-100.0) fL MCH (25.0-35.0) pg MCHC (31.0-37.0) g/dL RDW (11.5-15.5) % Plt Count (150-450) k/uL MPV Neutrophils % (Manual) % Band Neuts % (Manual) % Lymphocytes % (Manual) % Monocytes % (Manual) % Neutrophils # (Manual) (1.3-7.7) k/uL Lymphocytes # (Manual) (1.0-4.8) k/uL Monocytes # (Manual) (0-1.0) k/uL Nucleated RBCs (0-0) /100 WBC Manual Slide Review Macrocytosis PT (10.0-12.5) sec INR (<1.2) APTT (22.0-30.0) sec Sodium (137-145) mmol/L Potassium (3.5-5.1) mmol/L Chloride (98-107) mmol/L Carbon Dioxide (22-30) mmol/L Anion Gap mmol/L BUN (9-20) mg/dL Creatinine (0.66-1.25) mg/dL Est GFR (CKD-EPI)AfAm (>60 ml/min/1.73 sqM) Est GFR (CKD-EPI)NonAf (>60 ml/min/1.73 sqM) Glucose (74-99) mg/dL Lactic Ac Sepsis Rflx Plasma Lactic Acid Richard 7.4 H* (0.7-2.0) mmol/L Calcium (8.4-10.2) mg/dL Phosphorus (2.5-4.5) mg/dL Magnesium (1.6-2.3) mg/dL Total Bilirubin (0.2-1.3) mg/dL AST (17-59) U/L ALT (4-49) U/L Alkaline Phosphatase (38-126) U/L Ammonia 84 H (<30) umol/L Creatine Kinase 1336 H* (55-170) U/L Troponin I 0.036 H* (0.000-0.034) ng/mL Total Protein (6.3-8.2) g/dL Albumin (3.5-5.0) g/dL TSH (0.465-4.680) mIU/L Serum Alcohol mg/dL 01/30/25 Range/Units 18:38 WBC (3.8-10.6) k/uL RBC (4.30-5.90) m/uL Hgb (13.0-17.5) gm/dL Hct (39.0-53.0) % MCV (80.0-100.0) fL MCH (25.0-35.0) pg MCHC (31.0-37.0) g/dL RDW (11.5-15.5) % Plt Count (150-450) k/uL MPV Neutrophils % (Manual) % Band Neuts % (Manual) % Lymphocytes % (Manual) % Monocytes % (Manual) % Neutrophils # (Manual) (1.3-7.7) k/uL Lymphocytes # (Manual) (1.0-4.8) k/uL Monocytes # (Manual) (0-1.0) k/uL Nucleated RBCs (0-0) /100 WBC Manual Slide Review Macrocytosis PT (10.0-12.5) sec INR (<1.2) APTT (22.0-30.0) sec Sodium (137-145) mmol/L Potassium (3.5-5.1) mmol/L Chloride (98-107) mmol/L Carbon Dioxide (22-30) mmol/L Anion Gap mmol/L BUN (9-20) mg/dL Creatinine (0.66-1.25) mg/dL Est GFR (CKD-EPI)AfAm (>60 ml/min/1.73 sqM) Est GFR (CKD-EPI)NonAf (>60 ml/min/1.73 sqM) Glucose (74-99) mg/dL Lactic Ac Sepsis Rflx Y Plasma Lactic Acid Richard (0.7-2.0) mmol/L Calcium (8.4-10.2) mg/dL Phosphorus (2.5-4.5) mg/dL Magnesium (1.6-2.3) mg/dL Total Bilirubin (0.2-1.3) mg/dL AST (17-59) U/L ALT (4-49) U/L Alkaline Phosphatase (38-126) U/L Ammonia (<30) umol/L Creatine Kinase (55-170) U/L Troponin I (0.000-0.034) ng/mL Total Protein (6.3-8.2) g/dL Albumin (3.5-5.0) g/dL TSH (0.465-4.680) mIU/L Serum Alcohol mg/dL - EKG Data -: EKG Interpreted by Me (EKG is sinus tachycardia 115 CT 133 QRS 88 QTc 459) Critical Care Time Critical Care Time: Yes Total Critical Care Time: 31 Disposition Clinical Impression: Lactic acidosis, Failure to thrive in adult, Hyponatremia, Weakness, Altered mental status, Transaminitis, Dehydration, Delirium due to general medical condition, Hyperammonemia, Rhabdomyolysis, Hypomagnesemia, Hypokalemia, Diarrhea Disposition: ADMITTED IP TO THIS HOSP Condition: Critical Is patient prescribed a controlled substance at d/c from ED?: No Time of Disposition: 22:00
[2025-01-30] MEDS: SODIUM CHLORIDE 0.9% 1,000 ML IV ONE ×2 (18:18→20:16)
[2025-01-30 18:25] LABS: HCT 32.1 % (39.0-53.0); MCH 35.7 pg (25.0-35.0); MCHC 34.2 g/dL (31.0-37.0); MCV 104.6 fL (80.0-100.0); Macrocytosis Moderate; Mean Platelet Volume 7.3; Platelet Count 110 k/uL (150-450); RBC 3.07 m/uL (4.30-5.90); RDW 14.6 % (11.5-15.5)
[2025-01-30 18:34] LABS: AST 137 U/L (17-59); African American GFR (CKD) >90 (>60 ml/min/1.73 sqM); Albumin 3.2 g/dL (3.5-5.0); Alcohol <10 mg/dL; Alkaline Phosphatase 114 U/L (38-126); Anion Gap 18 mmol/L; Blood Urea Nitrogen 13 mg/dL (9-20); Calcium 7.2 mg/dL (8.4-10.2); Carbon Dioxide 18 mmol/L (22-30); Chloride 83 mmol/L (98-107); Glucose 115 mg/dL (74-99); Magnesium 1.5 mg/dL (1.6-2.3); Non-African American GFR(CKD) >90 (>60 ml/min/1.73 sqM); Phosphorus 3.7 mg/dL (2.5-4.5); Potassium 3.3 mmol/L (3.5-5.1); Total Bilirubin 3.8 mg/dL (0.2-1.3); Total Protein 5.7 g/dL (6.3-8.2)
[2025-01-30 18:36] LABS: Lactic Acid, Venous 7.4 mmol/L (0.7-2.0)
[2025-01-30 18:37] LABS: INR 1.9 (<1.2); Partial Thromboplastin Time 24.3 sec (22.0-30.0); Prothrombin Time 19.6 sec (10.0-12.5)
[2025-01-30 18:40] LABS: ALT 45 U/L (4-49)
[2025-01-30 18:44] LABS: Sodium 119 mmol/L (137-145)
[2025-01-30] MEDS ORDERED: ONDANSETRON 4 MG/2 ML VIAL IVP PRN (18:58)
[2025-01-30] MEDS ORDERED: NALOXONE 0.4 MG/ML 1 ML VIAL IV PRN (18:58)
[2025-01-30] MEDS ORDERED: MORPHINE SULFATE 4 MG/ML SYRINGE IV PRN (18:58)
[2025-01-30 19:16] LABS: Band Neutrophils % 6 %; Neutrophils % (M) 82 %; Nucleated Red Blood Cells 0 /100 WBC (0-0); Total Cells Counted 100
[2025-01-30] MEDS: PANTOPRAZOLE 40 MG/10 ML VIAL IV SCH (20:16)
[2025-01-30] MEDS ORDERED: LORazepam 2 MG/ML INJ IV PRN (21:47)
[2025-01-30] MEDS ORDERED: POTASSIUM CHLORIDE 20 MEQ in WATER FOR INJECTION 1 100ML.BAG IVPB STA (21:48)
[2025-01-30] MEDS: LACTATED RINGERS 1,000 ML IV SCH (22:37)
[2025-01-30] MEDS: SODIUM CHLORIDE 0.9% 1,000 ML IV SCH (22:38)
[2025-01-30] MEDS: LACTULOSE 200 GM/300 ML (FROM 1/2 GAL JUG) RECTAL ONE (22:38)
[2025-01-30] MEDS: LACTULOSE 20 GM/30 ML CUP PO ONE (22:38)
[2025-01-30] MEDS: HALOPERIDOL LACTATE 5 MG/ML 1 ML VIAL IM STA (22:39)
[2025-01-30] MEDS ORDERED: MORPHINE SULFATE 4 MG/ML SYRINGE IVP PRN (23:19)
[2025-01-30] MEDS: POTASSIUM CHLORIDE 20 MEQ in WATER FOR INJECTION 1 100ML.BAG IVPB SCH (23:26)
[2025-01-30] MEDS: MAGNESIUM SULFATE-D5W PMX 1 GM in DEXTROSE/WATER 1 100ML.BAG IVPB SCH (23:26)
[2025-01-30] MEDS ORDERED: ATROPINE OPHTH SOLN 1% 5ML BTL SUBLINGUAL PRN (23:50)
[2025-01-30] MEDS: SCOPOLAMINE 1 MG/72 HR PATCH TRANSDERM SCH (23:57)
[2025-01-30] MEDS: MORPHINE SULFATE 100 MG in SODIUM CHLORIDE 0.9% 90 ML IV SCH (23:59)
[2025-01-31 00:08] VITALS: TEMP 98.6
[2025-01-31 06:12] VITALS: BP 65/36
[2025-01-31 07:05] VITALS: PULSE 123; RESP 18
[2025-01-31] MEDS ORDERED: ZINC OXIDE PASTE (Z-GUARD) 1 APPLIC TOPICAL PRN (08:10)
[2025-01-31] MEDS ORDERED: LORazepam 1 MG/0.5 ML VIAL IV PRN (09:05)
--- NOTE | 2025-02-01 01:13 | P.HPIM ---
History of Present Illness H&P Date: 01/31/25 64 year old patient admitted through ER with Lactic acidosis, Failure to thrive in adult, Hyponatremia, Weakness, Altered mental status, Transaminitis, Dehydration, Delirium due to general medical condition, Hyperammonemia, Rhabdomyolysis, Hypomagnesemia, Hypokalemia, Diarrhea Patient before evaluation Past Medical History Past Medical History: Diabetes Mellitus, Hypertension Additional Past Medical History / Comment(s): UNEXPLAINED WT LOSS (12 #), DAUGHTER DEC 2016. History of Any Multi-Drug Resistant Organisms: None Reported Past Surgical History: Heart Catheterization Additional Past Surgical History / Comment(s): Pt states as an infant he had a "pinched" abdominal muscle with surgical repair, colonoscopy Past Anesthesia/Blood Transfusion Reactions: No Reported Reaction Past Psychological History: Anxiety, Depression Smoking Status: Current every day smoker Past Alcohol Use History: Daily Past Drug Use History: Marijuana - Past Family History Mother Family Medical History: No Reported History Additional Family Medical History / Comment(s): . Father Family Medical History: CVA/TIA Additional Family Medical History / Comment(s): Father of a CVA Daughter(s) Family Medical History: Hypertension Additional Family Medical History / Comment(s): ADRENAL GLAND TUMOR. Medications and Allergies Home Medications Medication Instructions Recorded Confirmed Type Folic Acid 1 mg PO DAILY 90 Days #90 tab 12/20/23 01/30/25 Rx Pantoprazole [Protonix] 40 mg PO DAILY 90 Days #90 tab 12/20/23 01/30/25 Rx Losartan [Cozaar] 25 mg PO DAILY 02/03/24 01/30/25 History traZODone HCL [Desyrel] 75 mg PO HS 02/03/24 01/30/25 History Atorvastatin Calcium 10 mg PO DAILY 04/22/24 01/30/25 History Metoprolol Succinate (ER) [Toprol 25 mg PO DAILY 04/22/24 01/30/25 History XL] levETIRAcetam [Keppra] 500 mg PO Q12HR 30 Days #60 tab 04/27/24 01/30/25 Rx metFORMIN HCL [Glucophage] 500 mg PO BID-W/MEALS 30 Days #60 08/22/24 01/30/25 Rx tab Gabapentin [Neurontin] 400 mg PO TID 01/30/25 01/30/25 History Allergies Allergy/AdvReac Type Severity Reaction Status Date / Time No Known Allergies Allergy Verified 01/30/25 18:47 Physical Exam Vitals: Vital Signs Temp Pulse Resp BP Pulse Ox FiO2 01/31/25 07:03 123 H 18 01/31/25 06:16 101 H 21 01/31/25 05:00 103 H 22 01/31/25 04:00 101 H 27 H 01/31/25 03:00 120 H 25 H 65/36 91 L 01/31/25 02:00 116 H 27 H 62/34 87 L 01/31/25 01:46 112 H 22 89/42 84 L 01/30/25 23:50 110 H 24 73/43 86 L 01/30/25 22:46 75 01/30/25 22:45 101 H 24 85/54 81 L 01/30/25 22:00 98.6 F 98 18 76/62 96 01/30/25 17:31 98.0 F 124 H 24 99 01/30/25 17:20 118 H 20 115/70 100 Intake and Output 01/30/25 01/31/25 01/31/25 22:59 06:59 14:59 Intake Total 21.584 Balance 21.584 Intake: Intake, IV Titration 21.584 Amount Morphine Sulfate 100 mg 21.584 In Sodium Chloride 0.9% 90 ml @ 2 MG/HR 2 mls/hr IV .Q24H [facility] Rx#: [id number] Other: Weight 49.895 kg Results CBC & Chem 7: 01/30/25 18:19 01/30/25 18:19 Labs: Abnormal Lab Results - Last 24 Hours (Table) 01/30/25 01/30/25 01/30/25 Range/Units 18:19 18:19 18:19 RBC 3.07 L (4.30-5.90) m/uL Hgb 11.0 L (13.0-17.5) gm/dL Hct 32.1 L (39.0-53.0) % MCV 104.6 H (80.0-100.0) fL MCH 35.7 H (25.0-35.0) pg Plt Count 110 L (150-450) k/uL Neutrophils # (Manual) 8.80 H (1.3-7.7) k/uL Lymphocytes # (Manual) 0.80 L (1.0-4.8) k/uL PT 19.6 H (10.0-12.5) sec INR 1.9 H (<1.2) Sodium 119 L* (137-145) mmol/L Potassium 3.3 L (3.5-5.1) mmol/L Chloride 83 L (98-107) mmol/L Carbon Dioxide 18 L (22-30) mmol/L Glucose 115 H (74-99) mg/dL Plasma Lactic Acid [place] (0.7-2.0) mmol/L Calcium 7.2 L (8.4-10.2) mg/dL Magnesium 1.5 L (1.6-2.3) mg/dL Total Bilirubin 3.8 H (0.2-1.3) mg/dL AST 137 H (17-59) U/L Ammonia (<30) umol/L Creatine Kinase (55-170) U/L Troponin I (0.000-0.034) ng/mL Total Protein 5.7 L (6.3-8.2) g/dL Albumin 3.2 L (3.5-5.0) g/dL TSH 0.235 L (0.465-4.680) mIU/L 01/30/25 01/30/25 01/30/25 Range/Units 18:19 18:19 18:19 RBC (4.30-5.90) m/uL Hgb (13.0-17.5) gm/dL Hct (39.0-53.0) % MCV (80.0-100.0) fL MCH (25.0-35.0) pg Plt Count (150-450) k/uL Neutrophils # (Manual) (1.3-7.7) k/uL Lymphocytes # (Manual) (1.0-4.8) k/uL PT (10.0-12.5) sec INR (<1.2) Sodium (137-145) mmol/L Potassium (3.5-5.1) mmol/L Chloride (98-107) mmol/L Carbon Dioxide (22-30) mmol/L Glucose (74-99) mg/dL Plasma Lactic Acid Richard 7.4 H* (0.7-2.0) mmol/L Calcium (8.4-10.2) mg/dL Magnesium (1.6-2.3) mg/dL Total Bilirubin (0.2-1.3) mg/dL AST (17-59) U/L Ammonia 84 H (<30) umol/L Creatine Kinase 1336 H* (55-170) U/L Troponin I 0.036 H* (0.000-0.034) ng/mL Total Protein (6.3-8.2) g/dL Albumin (3.5-5.0) g/dL TSH (0.465-4.680) mIU/L 01/30/25 Range/Units 22:20 RBC (4.30-5.90) m/uL Hgb (13.0-17.5) gm/dL Hct (39.0-53.0) % MCV (80.0-100.0) fL MCH (25.0-35.0) pg Plt Count (150-450) k/uL Neutrophils # (Manual) (1.3-7.7) k/uL Lymphocytes # (Manual) (1.0-4.8) k/uL PT (10.0-12.5) sec INR (<1.2) Sodium (137-145) mmol/L Potassium (3.5-5.1) mmol/L Chloride (98-107) mmol/L Carbon Dioxide (22-30) mmol/L Glucose (74-99) mg/dL Plasma Lactic Acid Richard 7.9 H* (0.7-2.0) mmol/L Calcium (8.4-10.2) mg/dL Magnesium (1.6-2.3) mg/dL Total Bilirubin (0.2-1.3) mg/dL AST (17-59) U/L Ammonia (<30) umol/L Creatine Kinase (55-170) U/L Troponin I (0.000-0.034) ng/mL Total Protein (6.3-8.2) g/dL Albumin (3.5-5.0) g/dL TSH (0.465-4.680) mIU/L
--- NOTE | 2025-02-01 01:19 | P.DS ---
Providers Date of admission: 01/30/25 18:58 Expected date of discharge: 01/31/25 Attending physician: June Paulson Primary care physician: Juan José Khan [facility] Course: 64 year old patient admitted through ER with Lactic acidosis, Failure to thrive in adult, Hyponatremia, Weakness, Altered mental status, Transaminitis, Dehydration, Delirium due to general medical condition, Hyperammonemia, Rhabdomyolysis, Hypomagnesemia, Hypokalemia, Diarrhea A team was called and code status was discussed with and patient was made DNR/ Comfort Care Patient before evaluation Patient Condition at Discharge: Critical Plan - Discharge Summary New Discharge Prescriptions: No Action Pantoprazole [Protonix] 40 mg PO DAILY 90 Days #90 tab traZODone HCL [Desyrel] 75 mg PO HS Losartan [Cozaar] 25 mg PO DAILY Gabapentin [Neurontin] 400 mg PO TID Folic Acid 1 mg PO DAILY 90 Days #90 tab Metoprolol Succinate (ER) [Toprol XL] 25 mg PO DAILY Atorvastatin Calcium 10 mg PO DAILY levETIRAcetam [Keppra] 500 mg PO Q12HR 30 Days #60 tab metFORMIN HCL [Glucophage] 500 mg PO BID-W/MEALS 30 Days #60 tab Discharge Medication List Folic Acid 1 mg PO DAILY 90 Days #90 tab 12/20/23 [Rx] Pantoprazole [Protonix] 40 mg PO DAILY 90 Days #90 tab 12/20/23 [Rx] Losartan [Cozaar] 25 mg PO DAILY 02/03/24 [History] traZODone HCL [Desyrel] 75 mg PO HS 02/03/24 [History] Atorvastatin Calcium 10 mg PO DAILY 04/22/24 [History] Metoprolol Succinate (ER) [Toprol XL] 25 mg PO DAILY 04/22/24 [History] levETIRAcetam [Keppra] 500 mg PO Q12HR 30 Days #60 tab 04/27/24 [Rx] metFORMIN HCL [Glucophage] 500 mg PO BID-W/MEALS 30 Days #60 tab 08/22/24 [Rx] Gabapentin [Neurontin] 400 mg PO TID 01/30/25 [History] Follow up Appointment(s)/Referral(s): Juan José Khan DO [Primary Care Provider] - 1-2 days Discharge Disposition: - Preliminary Cause of Preliminary Cause of : Adult failure to thrive
--- NOTE | 2025-02-02 14:04 | CDI ---
Documentation Clarification Form Date: 02/02/2025 01:53:08 PM From: Ashley Sal Phone: Admit Date: 01/30/2025 06:58:00 PM Patient Name: Troy Hammond Visit Number: [id number] Discharge Date: 01/31/2025 01:51:00 PM ATTENTION: The Clinical Documentation Specialists (CDI) and [facility] Coding Staff appreciate your assistance in clarifying documentation. Please respond to the clarification below the line at the bottom and electronically sign. The CDI & [facility] Coding staff will review the response and follow-up if needed. Please note: Queries are made part of the Legal Health Record. If you have any questions, please contact the author of this message via ITS. Doctor/Provider: Robbie Vega Rhabdomyolysis is documented in H/P note on 01/31/2025. Additional clarification regarding the type of rhabdomyolysis is requested. History/Risk Factors: 64 year old patient admitted through ER withLactic acidosis,Failure to thrive in adult,Hyponatremia,Weakness,Altered mental status,Transaminitis, Dehydration,Delirium due to general medical condition,Hyperammonemia,Rhabdomyolysis,Hypomagnesemia,Hypokalemia,Diarrhea Clinical Indicators: Ed note on 01/30 -This is a 64-year-old male to the ER forevaluationpatient coming in unresponsive unable to provide history.History obtained by EMS prior charting. Patient coming in foraltered mental status, covered in his own stool, unresponsive combative. Patient does have strong history ofalcohol abusewith recent hospital admission Patient coming in to be evaluated forfailure to thriveunresponsiveness weaknessandaltered mental status MD Complaint:altered mental status,confusion, decreased responsiveness, weakness Creatine kinase on 01/30/2025 1336 Treatment: fluidresuscitation and observation, electrolyte replacement Please clarify the type of rhabdomyolysis, if known: [ ] Traumatic rhabdomyolysis due to fall [ ] Traumatic rhabdomyolysis due to prolonged immobility [ ] Non traumatic rhabdomyolysis due to medication (please specify) [ ] Non traumatic rhabdomyolysis due to infection (please specify) [ ] Other, please specify [ XXX] Unable to Determine (Template Last Revised: January 2021) MTDD
--- NOTE | 2025-02-15 16:51 | CDI ---
Documentation Clarification Form Date: 02/15/2025 04:21:08 PM From: Arabella Flynn RN, CCDS Email: [email or web address] Admit Date: 01/30/2025 06:58:00 PM Patient Name: Troy Hammond Visit Number: [id number] Discharge Date: 01/31/2025 01:51:00 PM ATTENTION: The Clinical Documentation Specialists (CDI) and [facility] Coding Staff appreciate your assistance in clarifying documentation. Please respond to the clarification below the line at the bottom and electronically sign. The CDI & [facility] Coding staff will review the response and follow-up if needed. Please note: Queries are made part of the Legal Health Record. If you have any questions, please contact the author of this message via ITS. Dr. Robbie Vega The patient had low pulse ox levels, required supplemental oxygen via a non- rebreather mask and eventually . Based on this information and the findings below, is there an additional diagnosis that is clinically appropriate for this patient? History/Risk Factors: alcohol abuse, liver disease, anxiety and depression. Presented through the ED with altered mental status, covered in stool and decreased responsiveness. Tobacco use: current every-day smoker Clinical Indicators: ED: "Respiratory exam: Present: respiratory distress, decreased breath sounds, prolonged expiratory." 01/31 Vital signs: RR 27-25-27 01/30 Pulse oximetry: 81%-86%-84%-87% Treatment: IV Morphine drip 01/30-01/31 O2: [id number] mask Is there an additional diagnosis that is clinically appropriate for this patient? [ ] Acute Hypoxic Respiratory Failure [ ] Acute Hypercapnic Respiratory Failure [ ] Other Diagnosis, please specify [ ] Unable to determine MTDD
--- NOTE | 2025-02-15 19:07 | CDI ---
Documentation Clarification Form Date: 02/15/2025 06:29:31 PM From: Arabella Flynn RN, CCDS Email: [email or web address] Admit Date: 01/30/2025 06:58:00 PM Patient Name: Troy Hammond Visit Number: [id number] Discharge Date: 01/31/2025 01:51:00 PM ATTENTION: The Clinical Documentation Specialists (CDI) and [facility] Coding Staff appreciate your assistance in clarifying documentation. Please respond to the clarification below the line at the bottom and electronically sign. The CDI & [facility] Coding staff will review the response and follow-up if needed. Please note: Queries are made part of the Legal Health Record. If you have any questions, please contact the author of this message via ITS. Doctor Robbie Vega The patient had the documented symptom of Altered Mental Status in the H&P and progress notes. Additional clarification regarding the etiology/cause of this symptom is requested. History/Risk Factors: alcohol abuse, liver disease, anxiety and depression. Presented through the ED with altered mental status, covered in stool and decreased responsiveness. Tobacco use: current every-day smoker Clinical Indicators: ED: "Patient coming in to be evaluated for failure to thrive, unresponsiveness, weakness and altered mental status. Continues to remain unresponsive and combative requiring restraints and sedation." H&P: "Lactic acidosis, failure to thrive in adult, hyponatremia, weakness, altered mental status, transaminitis, dehydration, delirium due to general medical condition, hyperammonemia, rhabdomyolysis, hypomagnesemia, hypokalemia, diarrhea." 01/30 Labs: Na 119; K+ 3.3; CO2 18; lactic acid 7.4-7.9; Ca 7.2; Mg 1.5; T. bilirubin 3.8; AST 137; Ammonia 84; CK 1336; TSH 0.235 01/30 VS: HR 124 RR 18-24 BP 115/70 POX 100%-81% 01/31 VS: HR 123 RR 18-27 BP 89/42-65/36 pox 91%-84% Treatment: IM Haldol 5mg x1 on 01/30; 1L LR IV bolus x1 on 01/30; Lactulose 200gm rectally x1 on 01/30; 1L 0.9 NS IV bolus x1 on 01/30 Please clarify the etiology of the Altered Mental Status: [ ] Metabolic Encephalopathy due to electrolyte derangements [ ] Hepatic Encephalopathy due to alcoholic liver failure [ ] Other condition (please specify) [ ] Unable to determine MTDD
--- NOTE | 2025-02-25 10:54 | CDI ---
Documentation Clarification Form Date: 02/25/2025 10:02:43 AM From: Arabella Flynn RN, CCDS Email: [email or web address] Admit Date: 01/30/2025 06:58:00 PM Patient Name: Troy Hammond Visit Number: [id number] Discharge Date: 01/31/2025 01:51:00 PM ATTENTION: The Clinical Documentation Specialists (CDI) and [facility] Coding Staff appreciate your assistance in clarifying documentation. Please respond to the clarification below the line at the bottom and electronically sign. The CDI & [facility] Coding staff will review the response and follow-up if needed. Please note: Queries are made part of the Legal Health Record. If you have any questions, please contact the author of this message via ITS. Doctor Robbie Vega The patient had liver disease, abnormal liver function tests and . Based on this information and the findings below, is there an additional diagnosis that is clinically appropriate for this patient? Patient history/risk factors: Liver disease, DM, HTN and alcohol abuse. Presented to the ED with altered mental status, covered in his own stool, unresponsive and combative. Admitted with failure to thrive, was made comfort care and . Clinical Indicators: H&P: "Lactic acidosis, failure to thrive in adult, hyponatremia, weakness, altered mental status, transaminitis, dehydration, delirium due to general medical condition, hyperammonemia, rhabdomyolysis, hypomagnesemia, hypokalemia, diarrhea." 01/30 AST: 137 01/30 PT/INR: 19.6/1.9 01/30 T. Bili: 3.8 01/30 Albumin: 3.2 01/30 lactic acid: 7.4-7.9 Treatment: 1L LR IV bolus x1 on 01/30; Lactulose 200gm rectally x1 on 01/30; 1L 0.9 NS IV bolus x1 on 01/30 Is there an additional diagnosis that is clinically appropriate for this patient? [ ] Acute Liver Failure [ ] Acute on Chronic Liver Failure [ ] Subacute Liver Failure [ ] Chronic Liver Failure [ ] No additional diagnosis/Not clinically significant [ ] Other, please specify [ ] Unable to determine MTDD
== END 2025-01-31 13:51 | disposition expired | DRG 421 ==
LOC: EC 17:17 → 3SCARD 18:58 → 5NMEDONC 23:51
PROVIDERS: ADMIT Hospitalist; ATTEND Hospitalist
DX: R62.7 Adult failure to thrive (principal); Z51.5 Encounter for palliative care; Z66 Do not resuscitate; E86.0 Dehydration; E87.1 Hypo-osmolality and hyponatremia; E87.20 Acidosis, unspecified; E87.6 Hypokalemia; F05 Delirium due to known physiological condition; M62.82 Rhabdomyolysis; J96.01 Acute respiratory failure with hypoxia; E83.42 Hypomagnesemia; E72.20 Disorder of urea cycle metabolism, unspecified; R74.01 Elevation of levels of liver transaminase levels; R19.7 Diarrhea, unspecified; F17.200 Nicotine dependence, unspecified, uncomplicated; R33.9 Retention of urine, unspecified; E11.9 Type 2 diabetes mellitus without complications; F10.10 Alcohol abuse, uncomplicated; I10 Essential (primary) hypertension; Z63.4 Disappearance and death of family member; Z79.84 Long term (current) use of oral hypoglycemic drugs; Z79.899 Other long term (current) drug therapy
CPT/HCPCS: 36415; 51702; 80053; 80320; 82140; 82550; 83605; 83735; 84100; 84443; 84484; 85025; 85610; 85730; 93005; 96361; 96365; 96366; 96372; 96375; 96376; 99291